=== PATIENT | female | born 1935 | race Caucasian/White ===

== ENCOUNTER 2016-05-04 18:56 | Emergency (ER) | payer MEDICARE ==
[~2016-05-04] VITALS: Ht 157.5 cm; Wt 70.0 kg
[~2016-05-04 18:56] MED LIST: 1-ME1LIQ PO; ACYC400T PO; ALPR.25 PO; ASPI81TA82 PO; ATOR40TA PO; CHOL1TAB16 PO; CIPR500T2 PO; CLON.1 PO; COMMODE 3:1; ENAL10 PO; GABA300 PO; GLUC1000 PO; HCTZ25 PO; LANTUS2P SQ; LEVEMIR SQ; NITR0.4S SL; OMEP40CA2 PO; PERI8.6T PO; SYMB160A INH; TRAM50 PO; TRIAMC.1%T TOPICAL; WHEELCHAIR RENTAL RA; Z.0.OXYGEN INH; ZOLP10TA3 PO; [UNRECOGNIZED DRUG - OTHER]
[2016-05-04] MEDS ORDERED: SODIUM CHLOR 0.9% 1000 ML INJ 1,000 ML IV SCH (19:44)
[2016-05-04] MEDS ORDERED: SODIUM CHLORIDE 0.9% FLUSH 5 ML FLUSH IVF PRN (19:45)
[2016-05-04] MEDS ORDERED: ONDANSETRON HCL 4 MG/2 ML VIAL IVP ONE (19:45)
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
[2016-05-04 20:23] VITALS: BP 197/83; PULSE 76; RESP 18; TEMP 97.9; O2SAT 96
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
--- NOTE | 2016-05-04 20:36 | RADRPT ---
EXAM DATE/TIME: 05/04/2016 20:16 [facility] COMPARISON: CT BRAIN W/O CONTRAST, July 14, 2015, 2:35. INDICATIONS : Dizziness with recent fall. RADIATION DOSE: 40.02 CTDIvol (mGy) MEDICAL HISTORY : Parkinson's. Cardiovascular disease Hypertension. SURGICAL HISTORY : None. ENCOUNTER: Initial ACUITY: 1 day PAIN SCALE: 2/10 LOCATION: cranial TECHNIQUE: Multiple contiguous axial images were obtained of the head. Using automated exposure control and adj ustment of the mA and/or kV according to patient size, radiation dose was kept as low as reasonably a chievable to obtain optimal diagnostic quality images. FINDINGS: CEREBRUM: The ventricles are normal for age. No evidence of midline shift, mass lesion, hemorrhage or acute in farction. No extra-axial fluid collections are seen. POSTERIOR FOSSA: The cerebellum and brainstem are intact. The 4th ventricle is midline. The cerebellopontine angle i s unremarkable. EXTRACRANIAL: The visualized portion of the orbits is intact. SKULL: The calvaria is intact. No evidence of skull fracture. CONCLUSION: Stable brain. No acute intracranial findings. Brandon Shahid MD on May 04, 2016 at 20:32 Board Certified Radiologist. This report was verified electronically.
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
[2016-05-04 21:35] LABS: AUTOMATED NEUTROPHIL # 5.1 TH/MM3 (1.8-7.7); BASOPHIL % 0.4 % (0.0-2.0); EOSINOPHIL # 0.1 TH/MM3 (0-0.4); EOSINOPHIL % 1.5 % (0.0-4.0); HEMO FLAGS DIFF FINAL; LYMPH % 25.3 % (9.0-44.0); MEAN CELL VOLUME 87.6 FL (80.0-100.0); MEAN CORPUSCULAR HEMOGLOBIN 29.5 PG (27.0-34.0); MEAN CORPUSCULAR HGB CONC 33.7 % (32.0-36.0); MONO % 8.2 % (0.0-8.0); NEUT % 64.6 % (16.0-70.0); PLATELET COUNT 150 TH/MM3 (150-450); RED BLOOD COUNT 4.34 MIL/MM3 (4.00-5.30); RED CELL DISTRIBUTION WIDTH 13.8 % (11.6-17.2); WHITE BLOOD COUNT 7.8 TH/MM3 (4.0-11.0)
[2016-05-04 21:43] LABS: APTT (PATIENT) 25.2 SEC (24.3-30.1); INTERNATIONAL NORMALIZED RATIO 0.9 RATIO; PROTHROMBIN TIME - PATIENT 10.2 SEC (9.8-11.6)
[2016-05-04] MEDS ORDERED: METOPROLOL TARTRATE 50 MG TAB PO ONE (21:45)
--- NOTE | 2016-05-04 21:46 | RADRPT ---
EXAM DATE/TIME: 05/04/2016 21:34 [facility] COMPARISON: No previous studies available for comparison. INDICATIONS : Sacrum and coccyx pain after fall. MEDICAL HISTORY : None. SURGICAL HISTORY : None. ENCOUNTER: Initial ACUITY: 2 days PAIN SCORE: 8/10 LOCATION: Bilateral buttock FINDINGS: Two-view examination of the sacrum and coccyx demonstrates no evidence of fracture or malalignment. The sacral ala and foramina appear symmetric and intact. The coccyx appears unremarkable. The preve rtebral soft tissues are within normal limits. CONCLUSION: Unremarkable examination of the sacrum and coccyx. Brandon Shahid MD on May 04, 2016 at 21:44 Board Certified Radiologist. This report was verified electronically.
[2016-05-04 21:58] LABS: ANION GAP 8 MEQ/L (5-15); AST (GOT) 9 U/L (15-37); BICARBONATE 26.7 MEQ/L (21.0-32.0); BLOOD UREA NITROGEN 18 MG/DL (7-18); CHLORIDE 106 MEQ/L (98-107); GLOMERULAR FILTRATION RATE 73 ML/MIN (>89); MAGNESIUM 1.8 MG/DL (1.5-2.5); SODIUM (NA) 141 MEQ/L (136-145)
[2016-05-04] MEDS ORDERED: cloNIDine HCL 0.1 MG TAB PO ONE (22:00)
[2016-05-04 22:05] LABS: ALKALINE PHOSPHATASE 101 U/L (45-117); ALT (GPT) 11 U/L (10-53); TOTAL BILIRUBIN ADULT 0.2 MG/DL (0.2-1.0)
[2016-05-04 22:06] LABS: CREATINE KINASE 71 U/L (26-192)
[2016-05-04] MEDS ORDERED: LEVEMIR SQ ×2 (22:06)
[2016-05-04] MEDS ORDERED: METF1000 PO (22:06)
[2016-05-04] MEDS ORDERED: SENN1TAB17 PO (22:06)
[2016-05-04] MEDS ORDERED: ATOR40TA16 PO (22:06)
[2016-05-04] MEDS ORDERED: METO50TA PO (22:06)
[2016-05-04] MEDS ORDERED: ASPI81CH CHEW (22:06)
[2016-05-04] MEDS ORDERED: GABA300C5 PO (22:06)
[2016-05-04] MEDS ORDERED: ACYC400T PO (22:06)
[2016-05-04] MEDS ORDERED: SYMB160A INH (22:06)
[2016-05-04] MEDS ORDERED: ENAL1SOL2 PO (22:06)
[2016-05-04] MEDS ORDERED: CLON.1 PO (22:06)
[2016-05-04] MEDS ORDERED: KENAAER TOPICAL (22:06)
[2016-05-04] MEDS ORDERED: NITR1SUB3 SL (22:06)
[2016-05-04] MEDS ORDERED: OMEP40CA2 PO (22:06)
[2016-05-04] MEDS ORDERED: SODIUM CHLORID 0.9% 500 ML INJ 500 ML IV ONE (22:30)
[2016-05-04 22:57] LABS: BACTERIA, URINE RARE /hpf; BLOOD, URINE NEG (NEG); COMMENT (UR) CULTURE INDICATED; CULTURE IF INDICATED CULTURE INDICATED; GLUCOSE,URINE 1000 mg/dL (NEG); HYALINE CAST, URINE 1 /lpf (RARE); KETONE, URINE NEG (NEG); MUCUS URINE FEW /lpf (OCC); NITRITE,URINE NEG (NEG); SQUAMOUS EPITHELIAL CELL URINE 2 /hpf (0-5); TRANSITIONAL EPI CELLS, URINE <1 /hpf; URINE COLOR YELLOW (YELLW/STRAW)
[2016-05-04] MEDS ORDERED: cefTRIAXone INJ 1,000 MG in SODIUM CHLORIDE 0.9% INJ 100 ML IV ONE (23:15)
[2016-05-04] MEDS ORDERED: MACR100C2 PO (23:22)
[2016-05-04] MEDS ORDERED: ZOFR4TAB3 SL (23:22)
[2016-05-04 23:56] VITALS: BP 211/81; PULSE 79; RESP 18; O2SAT 100
--- NOTE | 2016-05-04 23:56 | PD ---
Physical Exam Date Seen by Provider: May 04, 2016 Time Seen by Provider: 23:55 Narrative Patient came in for multiple complains and was seen by the PA. Currently she appears to be ambulating well and does not appear to be in any distress. Patient does have essential hypertension and did not take her medications today. She was given clonidine here for her blood pressure. I reviewed her labs and her EKG. Patient will be discharged home. Data Data Last Documented VS Vital Signs Date Time Temp Pulse Resp B/P Pulse Ox O2 Delivery O2 Flow Rate FiO2 05/05/16 01:20 71 174/72 98 05/05/16 00:07 18 Nasal Cannula 3 05/04/16 20:23 97.9 Orders Complete Blood Count With Diff (05/04/16 19:44) Comprehensive Metabolic Panel (05/04/16 19:44) Lipase (05/04/16 19:44) Prothrombin Time / Inr (Pt) (05/04/16 19:44) Act Partial Throm Time (Ptt) (05/04/16 19:44) Urinalysis - C+S If Indicated (05/04/16 19:44) Iv Access Insert/Monitor (05/04/16 19:44) Ecg Monitoring (05/04/16 19:44) Oximetry (05/04/16 19:44) Ondansetron Inj (Zofran Inj) (05/04/16 19:45) Sodium Chlor 0.9% 1000 Ml Inj (Ns 1000 M (05/04/16 19:44) Sodium Chloride 0.9% Flush (Ns Flush) (05/04/16 19:45) Electrocardiogram (05/04/16 19:44) Chest, Single Ap (05/04/16 19:44) Ckmb (Isoenzyme) Profile (05/04/16 19:44) Magnesium (Mg) (05/04/16 19:44) Troponin I (05/04/16 19:44) Spine, Lumbar - Ltd (Ap & Lat) (05/04/16 ) Ct Brain W/O Iv Contrast(Rout) (05/04/16 ) Sacrum And Coccyx (05/04/16 ) Metoprolol Tartrate (Lopressor) (05/04/16 21:45) Clonidine (Catapres) (05/04/16 22:00) Oxygen Administration (05/04/16 22:22) Sodium Chlorid 0.9% 500 Ml Inj (Ns 500 M (05/04/16 22:30) Urine Culture (05/04/16 21:50) Ceftriaxone Inj (Rocephin Inj) (05/04/16 23:15) Labs Laboratory Tests Test 05/04/16 05/04/16 21:15 21:50 White Blood Count 7.8 TH/MM3 Red Blood Count 4.34 MIL/MM3 Hemoglobin 12.8 GM/DL Hematocrit 38.0 % Mean Corpuscular Volume 87.6 FL Mean Corpuscular Hemoglobin 29.5 PG Mean Corpuscular Hemoglobin 33.7 % Concent Red Cell Distribution Width 13.8 % Platelet Count 150 TH/MM3 Mean Platelet Volume 8.7 FL Neutrophils (%) (Auto) 64.6 % Lymphocytes (%) (Auto) 25.3 % Monocytes (%) (Auto) 8.2 % Eosinophils (%) (Auto) 1.5 % Basophils (%) (Auto) 0.4 % Neutrophils # (Auto) 5.1 TH/MM3 Lymphocytes # (Auto) 2.0 TH/MM3 Monocytes # (Auto) 0.6 TH/MM3 Eosinophils # (Auto) 0.1 TH/MM3 Basophils # (Auto) 0.0 TH/MM3 CBC Comment DIFF FINAL Differential Comment Prothrombin Time 10.2 SEC Prothromb Time International 0.9 RATIO Ratio Activated Partial 25.2 SEC Thromboplast Time Sodium Level 141 MEQ/L Potassium Level 4.0 MEQ/L Chloride Level 106 MEQ/L Carbon Dioxide Level 26.7 MEQ/L Anion Gap 8 MEQ/L Blood Urea Nitrogen 18 MG/DL Creatinine 0.76 MG/DL Estimat Glomerular Filtration 73 ML/MIN Rate Random Glucose 246 MG/DL Calcium Level 8.7 MG/DL Magnesium Level 1.8 MG/DL Total Bilirubin 0.2 MG/DL Aspartate Amino Transf 9 U/L (AST/SGOT) Alanine Aminotransferase 11 U/L (ALT/SGPT) Alkaline Phosphatase 101 U/L Total Creatine Kinase 71 U/L Troponin I LESS THAN 0.02 NG/ML Total Protein 6.5 GM/DL Albumin 3.3 GM/DL Lipase 134 U/L Urine Color YELLOW Urine Turbidity CLEAR Urine pH 6.0 Urine Specific [place] 1.024 Urine Protein 100 mg/dL Urine Glucose (UA) 1000 mg/dL Urine Ketones NEG mg/dL Urine Occult Blood NEG Urine Nitrite NEG Urine Bilirubin NEG Urine Urobilinogen LESS THAN 2.0 MG/DL Urine Leukocyte Esterase LARGE Urine RBC 2 /hpf Urine WBC 34 /hpf Urine Squamous Epithelial 2 /hpf Cells Urine Transitional Epithelial <1 /hpf Cells Urine Bacteria RARE /hpf Urine Hyaline Casts 1 /lpf Urine Mucus FEW /lpf Microscopic Urinalysis Comment CULTURE INDICATED MDM Supervised Visit with FAY: Yes Interpretation(s) Twelve-lead EKG was reviewed by me. Normal sinus rhythm, left axis deviation, interventricular conduction delay, lateral T wave inversions that is unchanged from 02/21/2016. Heart rate of 68 bpm. Diagnosis Primary Impression: Cystitis Additional Impressions: Sacral contusion Qualified Code: S30.0XXA - Sacral contusion, initial encounter Dizziness Essential hypertension Patient Instructions: General Instructions, Urinary Tract Infection in Women ( ED), Chronic Hypertension (ED), Contusion in Adults (ED) Additional Instruction: Take medication as prescribed Drink plenty of fluids to stay hydrated and flush urinary system Continue home blood pressure medications as prescribed Call for culture results and follow up with PCP in one to 2 days Return to the ED for any acute worsening of symptoms including fever, nausea, vomiting Scripts Ondansetron Odt (Zofran Odt)4 Mg Tab4 Mg SL Q12HR PRN (Nausea/Vomiting) #12 TAB Ref 0 Prov:Beatrice Collado MD 05/04/16 Nitrofurantoin Monohydrate Macrocrystals (Macrobid)100 Mg [id number] Mg PO BID 7 Days Ref 0 Prov:Beatrice Collado MD 05/04/16 Condition: Stable Beatrice Collado MD May 04, 2016 23:56
[2016-05-05 00:07] VITALS: BP 203/75; PULSE 66; RESP 18; O2SAT 97
[2016-05-05 01:20] VITALS: BP 174/72
--- NOTE | 2016-05-05 11:10 | EKG ---
Date Performed: 05/04/2016 Time Performed: 23:43:41 PTAGE: 80 years EKG: Sinus rhythm LEFT ANTERIOR FASCICULAR BLOCK LEFT VENTRICULAR HYPERTROPHY AND ST-T CHANGE ABNORMAL ECG PREVIOUS TRACING : 02/21/2016 05.44 DOCTOR: Gilmer Trotter Interpretating Date/Time 05/05/2016 11:09:38
== END 2016-05-05 01:40 | disposition home or self-care (01) ==
LOC: NEPE 18:56
DX: N30.90 Cystitis, unspecified without hematuria (principal); S30.0XXA Contusion of lower back and pelvis, initial encounter; I10 Essential (primary) hypertension; E78.00 Pure hypercholesterolemia, unspecified; I50.9 Heart failure, unspecified; J44.9 Chronic obstructive pulmonary disease, unspecified; E11.9 Type 2 diabetes mellitus without complications; G20 Parkinson's disease; Z79.4 Long term (current) use of insulin; W01.0XXA Fall on same level from slipping, tripping and stumbling without subsequent striking against object, initial encounter; R94.31 Abnormal electrocardiogram [ECG] [EKG]
CPT/HCPCS: 70450; 71010; 72100; 72220; 80053; 81001; 82550; 83690; 83735; 84484; 85025; 85610; 85730; 87086; 93005; 96361; 96365; 96375; 99285; J0696; J2405; J7030; J7040

== ENCOUNTER 2016-07-26 19:20 | Observation (INO) | payer MEDICARE, MEDICAID ==
[~2016-07-26] VITALS: Ht 157.5 cm; Wt 70.0 kg
[~2016-07-26 19:20] MED LIST changes: -1-ME1LIQ PO; -ALPR.25 PO; +ASPI81CH CHEW; -ASPI81TA82 PO; -ATOR40TA PO; +ATOR40TA16 PO; -CHOL1TAB16 PO; -CIPR500T2 PO; -COMMODE 3:1; -ENAL10 PO; +ENAL1SOL2 PO; -GABA300 PO; +GABA300C5 PO; -GLUC1000 PO; -HCTZ25 PO; +KENAAER TOPICAL; -LANTUS2P SQ; +MACR100C2 PO; +METF1000 PO; +METO50TA PO; -NITR0.4S SL; +NITR1SUB3 SL; -PERI8.6T PO; +SENN1TAB17 PO; -TRAM50 PO; -TRIAMC.1%T TOPICAL; -WHEELCHAIR RENTAL RA; -Z.0.OXYGEN INH; +ZOFR4TAB3 SL; -ZOLP10TA3 PO; -[UNRECOGNIZED DRUG - OTHER]
[2016-07-26 19:25] VITALS: BP 155/78; PULSE 61; RESP 16; TEMP 98.9; O2SAT 96
[2016-07-26 20:03] VITALS: RESP 18; O2SAT 98
[2016-07-26] MEDS ORDERED: SODIUM CHLORIDE 0.9% FLUSH 10 ML FLUSH IV FLUSH PRN ×2 (20:15→22:15)
[2016-07-26 20:27] LABS: AUTOMATED NEUTROPHIL # 3.4 TH/MM3 (1.8-7.7); BASOPHIL % 0.6 % (0.0-2.0); EOSINOPHIL # 0.1 TH/MM3 (0-0.4); EOSINOPHIL % 1.8 % (0.0-4.0); HEMATOCRIT 37.4 % (35.0-46.0); HEMO FLAGS DIFF FINAL; LYMPH % 35.5 % (9.0-44.0); LYMPHOCYTE # 2.2 TH/MM3 (1.0-4.8); MEAN CELL VOLUME 88.8 FL (80.0-100.0); MEAN CORPUSCULAR HEMOGLOBIN 30.9 PG (27.0-34.0); MEAN CORPUSCULAR HGB CONC 34.8 % (32.0-36.0); NEUT % 55.1 % (16.0-70.0); PLATELET COUNT 125 TH/MM3 (150-450); RED BLOOD COUNT 4.21 MIL/MM3 (4.00-5.30); RED CELL DISTRIBUTION WIDTH 13.7 % (11.6-17.2); WHITE BLOOD COUNT 6.2 TH/MM3 (4.0-11.0)
[2016-07-26 20:37] LABS: APTT (PATIENT) 23.5 SEC (24.3-30.1); INTERNATIONAL NORMALIZED RATIO 0.9 RATIO
[2016-07-26 20:46] LABS: ANION GAP 8 MEQ/L (5-15); AST (GOT) 12 U/L (15-37); BLOOD UREA NITROGEN 15 MG/DL (7-18); CHLORIDE 105 MEQ/L (98-107); GLOMERULAR FILTRATION RATE 75 ML/MIN (>89); POTASSIUM 3.7 MEQ/L (3.5-5.1); SODIUM (NA) 143 MEQ/L (136-145)
[2016-07-26 20:46] LABS: BLOOD, URINE NEG (NEG); COMMENT (UR) CULTURE INDICATED; CULTURE IF INDICATED CULTURE INDICATED; GLUCOSE,URINE 150 mg/dL (NEG); KETONE, URINE NEG (NEG); MUCUS URINE FEW /lpf (OCC); NITRITE,URINE NEG (NEG); SQUAMOUS EPITHELIAL CELL URINE <1 /hpf (0-5); URINE COLOR YELLOW (YELLW/STRAW)
[2016-07-26 20:50] LABS: ALKALINE PHOSPHATASE 95 U/L (45-117); ALT (GPT) 12 U/L (10-53); TOTAL BILIRUBIN ADULT 0.2 MG/DL (0.2-1.0)
[2016-07-26] MEDS ORDERED: IOHEXOL 350 MG/ML 10 ML VIAL (for RAD DIAG) IV ONE (21:15)
--- NOTE | 2016-07-26 21:38 | RADRPT ---
EXAM DATE/TIME: 07/26/2016 21:05 [place] COMPARISON: CT ABDOMEN & PELVIS W CONTRAST, July 01, 2013, 23:32. CT ABDOMEN & PELVIS W CONTRAST, September 01, 2014, 11:54. CT ABDOMEN & PELVIS W CONTRAST, February 16, 2016, 18:59. INDICATIONS : Epigastric pain with nausea and vomiting. IV CONTRAST: 75 cc Omnipaque 350 (iohexol) IV ORAL CONTRAST: No oral contrast ingested. RADIATION DOSE: 10.63 CTDIvol (mGy) MEDICAL HISTORY : Diabetes mellitus type 2. Hypertension. SURGICAL HISTORY : None. ENCOUNTER: Initial ACUITY: 3 days PAIN SCALE: 5/10 LOCATION: Epigastric TECHNIQUE: Volumetric scanning of the abdomen and pelvis was performed. Using automated exposure control and ad justment of the mA and/or kV according to patient size, radiation dose was kept as low as reasonably achievable to obtain optimal diagnostic quality images. FINDINGS: The liver is unremarkable without focal mass or biliary ductal dilatation. The gallbladder is unrema rkable. The spleen is normal. The pancreas is normal. The adrenal glands are normal bilaterally. T here is a tiny calcified nonobstructing lower pole left renal calculus measuring 8 mm. Scattered sma ll cysts are noted within the right kidney and are stable. There is a tiny hyperdense cortical lesio n along the lateral aspect of the right midpole measuring 13 mm which may represent a hyperdense cyst or small solid lesion. A retroaortic left renal vein is noted. The abdominal aorta is calcified but it is not aneurysmally dilated. The inferior vena cava is normal. No paraortic, retroperitoneal, or mesenteric lymphadenopathy is noted. No ascites is noted. The visualized lung bases are unremarkab le. The heart is mildly prominent. Coronary artery calcifications are noted. Uncomplicated colonic diverticulosis is noted. There is no colonic obstruction. The urinary bladder is unremarkable. The uterus is also unremarkable. No pelvic lymphadenopathy is noted. Degenerative changes and scoliosis of the thoracolumbar spine are noted. CONCLUSION: 1. Uncomplicated colonic diverticulosis. 2. 8 mm calcified lower pole nonobstructing left renal calculus. 3. 13 mm hyperdense cortical nodule within the midpole of the right kidney which either represents a tiny hyperdense cyst or small solid lesion. 4. Multiple stable simple right renal cysts. 5. Cardiomegaly and coronary artery calcifications. 6. Degenerative changes and scoliosis of the thoracolumbar spine. Gigi Gallo MD on July 26, 2016 at 21:24 Board Certified Radiologist. This report was verified electronically.
[2016-07-26 21:40] VITALS: BP 234/102; PULSE 61; RESP 16; O2SAT 96
--- NOTE | 2016-07-26 21:40 | PD ---
HPI Chief Complaint: Abdominal Pain Time Seen by Provider: 19:29 Travel History International Travel<30 days: No Contact w/Intl Traveler<30days: No Traveled to known affect area: No History of Present Illness HPI 80yo F with PMH of HTN, DM, hernia repair presents to the ED with c/o abdominal pain for a few days. +NBNB vomiting and was given zofran by EVAC which helped with nausea. +Nonbloody diarrhea. +Dysuria and urinary frequency. PFSH Past Medical History Arthritis: Yes Asthma: No Autoimmune Disease: No Blood Disorders: No Anxiety: Yes Depression: Yes Heart Rhythm Problems: Yes Cancer: No Cardiac Catheterization: No Cardiovascular Problems: Yes (HTN) High Cholesterol: Yes Chemotherapy: No Chest Pain: No Congestive Heart Failure: Yes COPD: Yes Cerebrovascular Accident: No Diabetes: Yes Patient Takes Glucophage: No Diminished Hearing: Yes ([place]) Endocrine: No Gastrointestinal Disorders: Yes (TAKES PROTONIX) GERD: No Glaucoma: No Genitourinary: No Headaches: Yes Hepatitis: No Hiatal Hernia: No Hypertension: Yes Immune Disorder: No Implanted Vascular Access Dvce: Yes Kidney Stones: No Musculoskeletal: Yes Neurologic: Yes Parkinson's Disease: Yes Psychiatric: Yes Reproductive: No Respiratory: Yes Integumentary: Yes (SKIN GROWTH ON SCALP AREa) Immunizations Current: Yes Migraines: Yes Myocardial Infarction: No Radiation Therapy: No Renal Failure: No Seizures: No Sickle Cell Disease: No Sleep Apnea: No Thyroid Disease: No Ulcer: No PNEUMOCCOCAL Vaccine (Year): 1 Menopausal: Yes Past Surgical History Abdominal Surgery: No AICD: No Arteriovenous Shunt: No Body Medical Devices: BILAT KNEE REPLACEMENT Cardiac Surgery: No Coronary Artery Bypass Graft: No Ear Surgery: No Endocrine Surgery: No Eye Surgery: No Genitourinary Surgery: No Gynecologic Surgery: No Insulin Pump: No Joint Replacement: Yes Oral Surgery: No Pacemaker: No Thoracic Surgery: No Tonsillectomy: Yes Other Surgery: Yes (bilat knee, back, hital hernia) Family History Family Myocardial Infarction: Yes (parents-father from [place]) Social History Alcohol Use: No Tobacco Use: No Substance Use: No Allergies-Medications (Allergen,Severity, Reaction): Coded Allergies: Codeine (Verified Allergy, Severe, NAUSEA, 07/26/16) Dilaudid (Verified Allergy, Severe, Nausea/Vomiting, 07/26/16) Lortab (Verified Allergy, Unknown, Nausea/Vomiting, 07/26/16) Reported Meds & Prescriptions Reported Meds & Active Scripts Active Reported Epaned (Enalapril Maleate) 1 Mg/Ml Susanna 20 Mg PO DAILY Metoprolol Tartrate 50 Mg Tab 50 Mg PO BID Omeprazole 40 Mg Cap 40 Mg PO DAILY Nitroglycerin SL (Nitroglycerin) 0.4 Mg Subl 0.4 Mg SL DIRECTED PRN ONE TABLET UNDER THE TONGUE NEEDED FOR CHEST PAIN, MAY REPEAT EVERY FIVE MINUTES FOR A TOTAL OF 3 DOSES OR CALL 911 IF NO RELIEF Metformin (Metformin HCl) 1,000 Mg Tab 1,000 Mg PO BIDPC With meals Levemir Inj (Insulin Detemir) 1,000 unit/ 10 ML Vial 30 Units SQ DAILY Do not mix with any other Insulin. Levemir Inj (Insulin Detemir) 1,000 unit/ 10 ML Vial 2 Units SQ HS Do not mix with any other Insulin. Gabapentin 300 Mg Cap 300 Mg PO BID Catapres (Clonidine) 0.1 Mg Tab 0.1 Mg PO HS Symbicort Inh (Budesonide/Formoterol Fumarate) 160-4.5 Mcg/Act Aero 2 Puff INH Q12HR Atorvastatin (Atorvastatin Calcium) 40 Mg Tab 40 Mg PO HS Aspirin 81 Mg Chew 81 Mg CHEW DAILY Review of Systems Except as stated in HPI: all other systems reviewed are Neg Physical Exam Narrative GENERAL: 80yo F in mild distress. SKIN: Focused skin assessment warm/dry. HEAD: Atraumatic. Normocephalic. EYES: Pupils equal and round. No scleral icterus. No injection or drainage. CARDIOVASCULAR: Regular rate and rhythm. No murmur appreciated. RESPIRATORY: No accessory muscle use. Clear to auscultation. Breath sounds equal bilaterally. GASTROINTESTINAL: Abdomen soft, +TTP suprapubic and RLQ. No rebound tenderness or guarding. MUSCULOSKELETAL: No obvious deformities. No clubbing. No cyanosis. No edema. NEUROLOGICAL: Awake and alert. No obvious cranial nerve deficits. Motor grossly within normal limits. Normal speech. PSYCHIATRIC: Appropriate mood and affect; insight and judgment normal. Data Data Last Documented VS Vital Signs Date Time Temp Pulse Resp B/P Pulse Ox O2 Delivery O2 Flow Rate FiO2 07/26/16 21:58 71 16 234/102 96 Room Air 07/26/16 19:25 98.9 Orders Complete Blood Count With Diff (3/27/17 20:01) Comprehensive Metabolic Panel (07/26/16 20:01) Lipase (07/26/16 20:01) Prothrombin Time / Inr (Pt) (07/26/16 20:01) Act Partial Throm Time (Ptt) (07/26/16 20:01) Urinalysis - C+S If Indicated (07/26/16 20:01) Ct Abd/Pel W Iv Contrast(Rout) (07/26/16 20:01) Iv Access Insert/Monitor (07/26/16 20:01) Ecg Monitoring (07/26/16 20:01) Oximetry (07/26/16 20:01) Sodium Chloride 0.9% Flush (Ns Flush) (07/26/16 20:15) Electrocardiogram (07/26/16 20:01) Urine Culture (07/26/16 20:20) Iohexol 350 Inj (Omnipaque 350 Inj) (07/26/16 21:15) Clonidine (Catapres) (07/26/16 22:00) Ceftriaxone Inj (Rocephin Inj) (07/26/16 22:00) Ondansetron Inj (Zofran Inj) (07/26/16 22:00) Admit Order (Ed Use Only) (07/26/16 22:03) Labs Laboratory Tests Test 07/26/16 07/26/16 20:00 20:20 White Blood Count 6.2 TH/MM3 Red Blood Count 4.21 MIL/MM3 Hemoglobin 13.0 GM/DL Hematocrit 37.4 % Mean Corpuscular Volume 88.8 FL Mean Corpuscular Hemoglobin 30.9 PG Mean Corpuscular Hemoglobin 34.8 % Concent Red Cell Distribution Width 13.7 % Platelet Count 125 TH/MM3 Mean Platelet Volume 9.4 FL Neutrophils (%) (Auto) 55.1 % Lymphocytes (%) (Auto) 35.5 % Monocytes (%) (Auto) 7.0 % Eosinophils (%) (Auto) 1.8 % Basophils (%) (Auto) 0.6 % Neutrophils # (Auto) 3.4 TH/MM3 Lymphocytes # (Auto) 2.2 TH/MM3 Monocytes # (Auto) 0.4 TH/MM3 Eosinophils # (Auto) 0.1 TH/MM3 Basophils # (Auto) 0.0 TH/MM3 CBC Comment DIFF FINAL Differential Comment Prothrombin Time 10.0 SEC Prothromb Time International 0.9 RATIO Ratio Activated Partial 23.5 SEC Thromboplast Time Sodium Level 143 MEQ/L Potassium Level 3.7 MEQ/L Chloride Level 105 MEQ/L Carbon Dioxide Level 30.0 MEQ/L Anion Gap 8 MEQ/L Blood Urea Nitrogen 15 MG/DL Creatinine 0.74 MG/DL Estimat Glomerular Filtration 75 ML/MIN Rate Random Glucose 229 MG/DL Calcium Level 9.1 MG/DL Total Bilirubin 0.2 MG/DL Aspartate Amino Transf 12 U/L (AST/SGOT) Alanine Aminotransferase 12 U/L (ALT/SGPT) Alkaline Phosphatase 95 U/L Total Protein 6.8 GM/DL Albumin 3.6 GM/DL Lipase 199 U/L Urine Color YELLOW Urine Turbidity CLEAR Urine pH 6.0 Urine Specific [place] 1.020 Urine Protein 300 mg/dL Urine Glucose (UA) 150 mg/dL Urine Ketones NEG mg/dL Urine Occult Blood NEG Urine Nitrite NEG Urine Bilirubin NEG Urine Urobilinogen LESS THAN 2.0 MG/DL Urine Leukocyte Esterase SMALL Urine RBC 1 /hpf Urine WBC 24 /hpf Urine Squamous Epithelial <1 /hpf Cells Urine Mucus FEW /lpf Microscopic Urinalysis Comment CULTURE INDICATED MDM Medical Decision Making Medical Screen Exam Complete: Yes Emergency Medical Condition: Yes Interpretation(s) EKG: Sinus bradycardia at 57bpm. LAD. LVH. TWI V3-V6, I, II, aVF, aVL Differential Diagnosis Cystitis vs. nephrolithiasis vs. malignancy vs. obstruction Narrative Course 80yo F with PMH of HTN, DM here with abdominal pain, vomiting and dysuria. CTa/ p showed diverticulosis, 8mm calcified lower pole nonobstructing left renal calculus. Labs reviewed, no leukocytosis. Glucose elevated at 229. No increased anion gap. UA positive for small leukocyte and WBC 24. Pt is nauseous so zofran 4mg given. Pt given ceftriaxone 1gm IV. Will admit pt for infected stone. Discussed with Dr. Boo and accepted to her service. Diagnosis Primary Impression: UTI (urinary tract infection) Qualified Code: N39.0 - Urinary tract infection without hematuria, site unspecified Admitting Information Admitting Physician Requests: Alberta Izaguirre DO Jul 26, 2016 21:40
[2016-07-26 21:58] VITALS: BP 234/102; PULSE 71; RESP 16; O2SAT 96
[2016-07-26] MEDS ORDERED: cloNIDine HCL 0.1 MG TAB PO ONE (22:00)
[2016-07-26] MEDS ORDERED: ONDANSETRON HCL 4 MG/2 ML VIAL IV PUSH ONE (22:00)
[2016-07-26] MEDS ORDERED: cefTRIAXone INJ 1,000 MG in SODIUM CHLORIDE 0.9% INJ 100 ML IV ONE (22:00)
--- NOTE | 2016-07-26 22:07 | HHI.HP ---
[facility] Service [facility] Primary Care Physician Jason Delgado M.D. Admission Diagnosis Infected stone, UTI Diagnoses: (1) UTI (lower urinary tract infection) Diagnosis: Principal (2) Renal stone Diagnosis: Principal (3) HTN (hypertension) Diagnosis: Principal (4) COPD (chronic obstructive pulmonary disease) Diagnosis: Principal (5) DM (diabetes mellitus) Diagnosis: Principal Travel History International Travel<30 Days: No Contact w/Intl Traveler <30 Da: No Traveled to Known Affected Are: No History of Present Illness This is an 80-year-old female with a PMH of HTN, Anxiety, Depression, Hyperlipidemia, COPD and DM who was brought to the ER by EMS secondary to complaints of abdominal/flank pain x2 days. Reports associated nausea and vomiting. Denies fever, chills or diarrhea. On arrival, BP 234/102, HR 61, O2 sat 96% on RA, Afebrile. CBC unremarkable except for platelets 125, previously 150 and 05/04/16. Chemistry at baseline. INR 0.9. UA with UTI. CT Abd/Pelvis w / uncomplicated colonic diverticulosis, 8mm nonobstructing stone of left lower pole, 13mm right renal nodule. S/p Rocephin IV in ER. Review of Systems Except as stated in HPI: all other systems reviewed are Neg ROS: 14 point review of systems otherwise negative. Past Family Social History Past Medical History PMH: HTN, Anxiety, Depression, Hyperlipidemia, COPD and DM Past Surgical History PAST SURGICAL HISTORY: Bilateral Knee Replacement, Hiatal Hernia, Back Surgery Allergies: Coded Allergies: Codeine (Verified Allergy, Severe, NAUSEA, 07/26/16) Dilaudid (Verified Allergy, Severe, Nausea/Vomiting, 07/26/16) Lortab (Verified Allergy, Unknown, Nausea/Vomiting, 07/26/16) Family History PAST FAMILY HISTORY: Reviewed. No h/o DM or CAD Social History PAST SOCIAL HISTORY: Negative for alcohol, tobacco or drugs. Physical Exam Vital Signs Vital Signs Date Time Temp Pulse Resp B/P Pulse Ox O2 Delivery O2 Flow Rate FiO2 07/26/16 21:58 71 16 234/102 96 Room Air 07/26/16 21:40 61 16 234/102 96 Room Air 07/26/16 20:03 18 98 Room Air 07/26/16 19:28 16 07/26/16 19:25 98.9 61 16 155/78 96 Physical Exam PE: GENERAL: Extremely pleasant elderly white female in no acute distress. HEENT: PERRLA, EOMI. No scleral icterus or conjunctival pallor. No lid lag or facial droop. CARDIOVASCULAR: Regular rate and rhythm. No obvious murmurs to auscultation. No chest tenderness to palpation. RESPIRATORY: No obvious rhonchi or wheezing. Clear to auscultation. Breath sounds equal bilaterally. GASTROINTESTINAL: Abdomen soft, mild generalized tenderness to palpation, nondistended. BS normal. MUSCULOSKELETAL: Extremities without clubbing, cyanosis, or edema. No obvious deformities. NEUROLOGICAL: Awake, alert and oriented x4. No focal neurologic deficits. Moving both upper and lower extremities spontaneously. Laboratory Laboratory Tests Test 07/26/16 07/26/16 20:00 20:20 White Blood Count 6.2 Red Blood Count 4.21 Hemoglobin 13.0 Hematocrit 37.4 Mean Corpuscular Volume 88.8 Mean Corpuscular Hemoglobin 30.9 Mean Corpuscular Hemoglobin 34.8 Concent Red Cell Distribution Width 13.7 Platelet Count 125 Mean Platelet Volume 9.4 Neutrophils (%) (Auto) 55.1 Lymphocytes (%) (Auto) 35.5 Monocytes (%) (Auto) 7.0 Eosinophils (%) (Auto) 1.8 Basophils (%) (Auto) 0.6 Neutrophils # (Auto) 3.4 Lymphocytes # (Auto) 2.2 Monocytes # (Auto) 0.4 Eosinophils # (Auto) 0.1 Basophils # (Auto) 0.0 CBC Comment DIFF FINAL Differential Comment Prothrombin Time 10.0 Prothromb Time International 0.9 Ratio Activated Partial 23.5 Thromboplast Time Sodium Level 143 Potassium Level 3.7 Chloride Level 105 Carbon Dioxide Level 30.0 Anion Gap 8 Blood Urea Nitrogen 15 Creatinine 0.74 Estimat Glomerular Filtration 75 Rate Random Glucose 229 Calcium Level 9.1 Total Bilirubin 0.2 Aspartate Amino Transf 12 (AST/SGOT) Alanine Aminotransferase 12 (ALT/SGPT) Alkaline Phosphatase 95 Total Protein 6.8 Albumin 3.6 Lipase 199 Urine Color YELLOW Urine Turbidity CLEAR Urine pH 6.0 Urine Specific [place] 1.020 Urine Protein 300 Urine Glucose (UA) 150 Urine Ketones NEG Urine Occult Blood NEG Urine Nitrite NEG Urine Bilirubin NEG Urine Urobilinogen LESS THAN 2.0 Urine Leukocyte Esterase SMALL Urine RBC 1 Urine WBC 24 Urine Squamous Epithelial <1 Cells Urine Mucus FEW Microscopic Urinalysis Comment CULTURE INDICATED Date/Time Procedure Status Source Growth 07/26/16 20:20 Urine Culture Received Urine Clean Catch Pending Result Diagram: 07/26/16199907/26/161999 Assessment and Plan Problem List: (1) UTI (lower urinary tract infection) ICD Code: N39.0 Status: Resolved (2) Renal stone ICD Code: N20.0 Status: Acute (3) HTN (hypertension) ICD Code: I10 Status: Chronic (4) COPD (chronic obstructive pulmonary disease) ICD Code: J44.9 Status: Chronic (5) DM (diabetes mellitus) ICD Code: E11.9 Status: Chronic Assessment and Plan A/P: 1. UTI: U/a w/ UTI, Afebrile, no leukocytosis, likely infected stone. S/p Urine Culture and Rocephin IV in ER, follow up Urine Culture, continue IV Abx, IVF for hydration. 2. Renal Stone: CT Abd/Pelvis w/ 8mm nonobstructing left renal stone, images reviewed by me, analgesics/antiemetics as needed. Urology eval if no improvement. 3. HTN: Uncontrolled. BP 234/102, HR 61 on arrival, likely compounded by pain complaints and missed medications. S/p Clonidine PO in ER, BP 191/77, HR 63. Will give Metoprolol 50mg, monitor BP. 4. COPD: Chronic Respiratory Failure. Stable. Resume home Symbicort, DuoNeb prn. 5. DM: Sliding scale w/ Accu-cheks, resume home Levemir. Hold Metformin for now. 6. DVT Prophylaxis: SCD/Golden. 7. Social work for d/c planning as needed. 8. Case discussed w/ ER physician at length Nickie Boo MD Jul 26, 2016 22:07
[2016-07-26] MEDS ORDERED: ACETAMINOPHEN 325 MG TAB PO PRN (22:15)
[2016-07-26] MEDS ORDERED: BISACODYL 10 MG SUPP PR PRN (22:15)
[2016-07-26] MEDS ORDERED: DEXTROSE 50% IN WATER 50 ML VIAL(D50) IV PUSH PRN (22:15)
[2016-07-26] MEDS ORDERED: GLUCAGON 1 MG/ML VIAL OTHER PRN (22:15)
[2016-07-26] MEDS ORDERED: MORPHINE SULFATE 4 MG/ML INJ IV PRN ×2 (22:15)
[2016-07-26] MEDS ORDERED: ONDANSETRON HCL 4 MG/2 ML VIAL IVP PRN (22:15)
[2016-07-26] MEDS: SODIUM CHLOR 0.9% 1000 ML INJ 1,000 ML IV SCH (22:25)
[2016-07-26] MEDS ORDERED: METOPROLOL TARTRATE 50 MG TAB PO ONE (23:00)
[2016-07-26 23:51] VITALS: BP 191/77; PULSE 63; RESP 18; O2SAT 96
[2016-07-27] VITALS (8 sets, daily range): BP systolic 126–202; BP diastolic 55–84; PULSE 47–82; RESP 16–26; TEMP 98–98.7; O2SAT 93–99
[2016-07-27] MEDS: ZOLPIDEM TARTRATE 5 MG TAB PO PRN ×2 (01:48→23:21)
[2016-07-27] MEDS ORDERED: RESP: ALBUTEROL 2.5 MG/IPRATROPIUM 0.5 MG NEB (PRN) NEB (02:15)
[2016-07-27 05:08] LABS: BASOPHIL % 0.6 % (0.0-2.0); EOSINOPHIL # 0.1 TH/MM3 (0-0.4); EOSINOPHIL % 2.1 % (0.0-4.0); HEMATOCRIT 34.5 % (35.0-46.0); HEMO FLAGS DIFF FINAL; LYMPH % 38.9 % (9.0-44.0); LYMPHOCYTE # 2.3 TH/MM3 (1.0-4.8); MEAN CELL VOLUME 89.2 FL (80.0-100.0); MEAN CORPUSCULAR HEMOGLOBIN 29.9 PG (27.0-34.0); MEAN CORPUSCULAR HGB CONC 33.6 % (32.0-36.0); MONO % 8.1 % (0.0-8.0); NEUT % 50.3 % (16.0-70.0); PLATELET COUNT 108 TH/MM3 (150-450); RED BLOOD COUNT 3.87 MIL/MM3 (4.00-5.30); RED CELL DISTRIBUTION WIDTH 13.3 % (11.6-17.2)
[2016-07-27 05:34] LABS: ALKALINE PHOSPHATASE 80 U/L (45-117); ALT (GPT) 11 U/L (10-53); ANION GAP 7 MEQ/L (5-15); AST (GOT) 6 U/L (15-37); BICARBONATE 28.5 MEQ/L (21.0-32.0); BLOOD UREA NITROGEN 13 MG/DL (7-18); CHLORIDE 108 MEQ/L (98-107); GLOMERULAR FILTRATION RATE 87 ML/MIN (>89); POTASSIUM 3.8 MEQ/L (3.5-5.1); SODIUM (NA) 143 MEQ/L (136-145); TOTAL BILIRUBIN ADULT 0.2 MG/DL (0.2-1.0)
[2016-07-27] MEDS: INSULIN ASPART SUPPLEMENTAL SCALE SQ SCH ×4 (07:10→21:39)
[2016-07-27] MEDS: SODIUM CHLOR 0.9% 1000 ML INJ 1,000 ML IV SCH ×2 (07:11→10:33)
--- NOTE | 2016-07-27 08:02 | HHI.PR ---
Subjective Remarks overall feeling better today. flank pain is better. still with some dysuria but she says that it's better now. no fever. Objective Vitals Vital Signs Date Time Temp Pulse Resp B/P Pulse Ox O2 Delivery O2 Flow Rate FiO2 07/27/16 07:04 47 24 175/75 99 Nasal Cannula 2 07/27/16 06:29 98.5 49 16 163/67 97 Nasal Cannula 2 07/27/16 05:03 98.5 52 18 164/68 97 Nasal Cannula 2 07/26/16 23:51 63 18 191/77 96 Room Air 07/26/16 21:58 71 16 234/102 96 Room Air 07/26/16 21:40 61 16 234/102 96 Room Air 07/26/16 20:03 18 98 Room Air 07/26/16 19:28 16 07/26/16 19:25 98.9 61 16 155/78 96 Result Diagram: 07/27/16 0442 07/27/16 0442 Imaging Last Impressions Abdomen/Pelvis CT 07/26/162000 Signed Impressions: Service Date/Time: Tuesday, July 26, 2016 21:05 - CONCLUSION: 1. Uncomplicated colonic diverticulosis. 2. 8 mm calcified lower pole nonobstructing left renal calculus. 3. 13 mm hyperdense cortical nodule within the midpole of the right kidney which either represents a tiny hyperdense cyst or small solid lesion. 4. Multiple stable simple right renal cysts. 5. Cardiomegaly and coronary artery calcifications. 6. Degenerative changes and scoliosis of the thoracolumbar spine. Gigi Gallo MD Objective Remarks GENERAL: This is a well-nourished, well-developed patient, in no apparent distress. CARDIOVASCULAR: Regular rate and regular rhythm without murmurs, gallops, or rubs. RESPIRATORY: Clear to auscultation. Breath sounds equal bilaterally. No wheezes , rales, or rhonchi. GASTROINTESTINAL: Abdomen soft, non-tender, nondistended. Normal, active bowel sounds MUSCULOSKELETAL: Extremities without clubbing, cyanosis, or edema. NEURO: Alert & Oriented x4 to person, place, time, situation. Moves all ext x4 Procedures none Medications and IVs Current Medications Sodium Chloride (NS Flush) 2 ml UNSCH PRN IV FLUSH FLUSH AFTER USING IV ACCESS ; Start 07/26/16 at 20:15; Stop 07/26/16 at 22:13; Status DC Iohexol (Omnipaque 350 Inj) 75 ml STK-MED ONCE IV Last administered on 21:15; Start 07/26/16 at 21:15; Stop 07/26/16 at 21:16; Status DC Clonidine 0.1 mg 0.1 mg ONCE ONCE PO Last administered on 07/26/16 21:59; Start 07/26/16 at 22:00; Stop 07/26/16 at 22:01; Status DC Ceftriaxone Sodium/Sodium Chloride (Rocephin Inj/NS Inj) 100 ml @ 200 mls/hr ONCE ONCE IV Last administered on 07/26/16 21:59; Start 07/26/16 at 22:00; Stop 07/26/16 at 22:29; Status DC Ondansetron HCl 4 mg 4 mg ONCE ONCE IV PUSH Last administered on 07/26/16 22: 03; Start 07/26/16 at 22:00; Stop 07/26/16 at 22:01; Status DC Ceftriaxone Sodium 1000 mg/ Sodium Chloride 100 ml @ 200 mls/hr Q24H IV ; Start 07/27/16 at 21:00 Sodium Chloride (NS 1000 ml Inj) 1,000 ml @ 100 mls/hr Q10H IV Last administered on 07/27/16 07:11; Start 07/26/16 at 22:00 Sodium Chloride (NS Flush) 2 ml UNSCH PRN IV FLUSH FLUSH AFTER USING IV ACCESS ; Start 07/26/16 at 22:15 Sodium Chloride (NS Flush) 2 ml BID IV FLUSH ; Start 07/27/16 at 09:00 Ondansetron HCl (Zofran Inj) 4 mg Q6H PRN IVP NAUSEA OR VOMITING; Start at 22:15 Bisacodyl (Dulcolax Supp) 10 mg DAILY PRN [place] CONSTIPATION; Start 07/26/16 at 22 :15 Acetaminophen (Tylenol) 650 mg Q6H PRN PO FEVER/PAIN SCALE 1 TO 2; Start at 22:15 Morphine Sulfate (Morphine Inj) 1 mg Q3H PRN IV Pain 3-5; Start 07/26/16 at 22: 15 Morphine Sulfate (Morphine Inj) 2 mg Q3H PRN IV Pain 6-10; Start 07/26/16 at 22 :15 Atorvastatin Calcium (Lipitor) 40 mg HS PO ; Start 07/27/16 at 21:00 Budesonide/ Formoterol Fumarate (Symbicort 160-4.5 Inh) 2 puff Q12HR INH ; Start 07/27/16 at 09:00 Clonidine (Catapres) 0.1 mg HS PO ; Start 07/27/16 at 21:00 Gabapentin (Neurontin) 300 mg BID PO ; Start 07/27/16 at 09:00 Metoprolol Tartrate (Lopressor) 50 mg BID PO ; Start 07/27/16 at 09:00 Pantoprazole Sodium (Protonix) 40 mg DAILY PO ; Start 07/27/16 at 09:00 Dextrose (D50w (Vial) Inj) 25 ml UNSCH PRN IV PUSH HYPOGLYCEMIA-SEE COMMENTS; Start 07/26/16 at 22:15 Glucagon (Glucagon Inj) 1 mg UNSCH PRN OTHER HYPOGLYCEMIA-SEE COMMENTS; Start 07/26/16 at 22:15 Insulin Aspart (NovoLOG SUPPLEMENTAL SCALE) 1 ACHS SLIDING SCALE SQ Last administered on 07/27/16 07:10; Start 07/27/16 at 07:00 Metoprolol Tartrate (Lopressor) 50 mg ONCE ONCE PO Last administered on 23:51; Start 07/26/16 at 23:00; Stop 07/26/16 at 23:01; Status DC Alprazolam (Xanax) 0.25 mg Q8H PRN PO ANXIETY/AGITATION; Start 07/27/16 at 01: 15 Zolpidem Tartrate (Ambien) 5 mg HS PRN PO SLEEP Last administered on 07/27/16 01:48; Start 07/27/16 at 01:15 Albuterol/ Ipratropium (Duoneb Neb) 1 ampule Q4HR NEB PRN NEB SOB/WHEEZING; Start 07/27/16 at 02:15 A/P Assessment and Plan A/P 1. UTI: U/a w/ UTI, Afebrile, no leukocytosis, likely infected stone. S/p Urine Culture and Rocephin IV in ER, follow up Urine Culture, continue IV Abx, IVF for hydration. 2. Renal Stone: CT Abd/Pelvis w/ 8mm nonobstructing left renal stone. analgesics/antiemetics as needed. Urology eval if no improvement. 3. HTN: Uncontrolled. continue Metoprolol 50mg- will give one dose of procardia today. monitor BP and adjust the regimen as needed. 4. COPD-oxygen dependent: Chronic Respiratory Failure. Stable. Resume home Symbicort, DuoNeb prn. 5. DM: Sliding scale w/ Accu-cheks. Hold Metformin for now. 6. DVT Prophylaxis: SCD/Golden. Samy Olivera MD Jul 27, 2016 08:02
[2016-07-27] MEDS ORDERED: ENALAPRILAT 1.25 MG/ML VIAL IV PUSH PRN (08:15)
[2016-07-27] MEDS ORDERED: NIFEdipine 30 MG SUSTAINED RELEASE TAB PO ONE (09:00)
[2016-07-27] MEDS: SODIUM CHLORIDE 0.9% FLUSH 10 ML FLUSH IV FLUSH SCH ×2 (09:00→21:35)
[2016-07-27] MEDS: BUDESONIDE-FORMOTEROL 160/4.5 MCG INHALER INH SCH ×2 (09:00→21:35)
[2016-07-27] MEDS: PANTOPRAZOLE SOD 40 MG DELAYED RELEASE TAB PO SCH (09:03)
[2016-07-27] MEDS: GABAPENTIN 300 MG CAP PO SCH ×2 (09:03→21:39)
[2016-07-27] MEDS: METOPROLOL TARTRATE 50 MG TAB PO SCH ×2 (09:05→21:38)
[2016-07-27] MEDS: cefTRIAXone INJ 1,000 MG in SODIUM CHLORIDE 0.9% INJ 100 ML IV SCH (21:38)
[2016-07-27] MEDS: cloNIDine HCL 0.1 MG TAB PO SCH (21:39)
[2016-07-27] MEDS: ATORVASTATIN 40 MG TAB PO SCH (21:39)
--- NOTE | 2016-07-27 22:20 | EKG ---
Date Performed: 07/26/2016 Time Performed: 20:11:55 PTAGE: 80 years EKG: SINUS BRADYCARDIA MARKED LEFT AXIS DEVIATION LEFT VENTRICULAR HYPERTROPHY AND ST-T CHANGE S erendira previous tracing, no significant change noted ABNORMAL ECG PREVIOUS TRACING : 05/04/16 23.43.41 DOCTOR: Dunia Aguero Interpretating Date/Time 07/27/2016 22:18:47
--- NOTE | 2016-07-27 22:21 | EKG ---
Date Performed: 07/26/2016 Time Performed: 21:34:33 PTAGE: 80 years EKG: Sinus rhythm WITH FREQUENT SUPRAVENTRICULAR PREMATURE COMPLEXES LEFT ANTERIOR FASCICULAR BLOCK LEFT VENTRICULAR H YPERTROPHY AND ST-T CHANGE Since previous tracing, no significant change noted ABNORMAL ECG PREVIOUS TRACING : 07/26/16 20.11.55 DOCTOR: Dunia Aguero Interpretating Date/Time 07/27/2016 22:19:20
[2016-07-27] MEDS ORDERED: SENNOSIDES 8.6 MG TAB PO PRN (23:00)
[2016-07-27] MEDS ORDERED: ALUMINUM/MAGNESIUM/SIMETH 30 ML CUP PO ONE (23:00)
[2016-07-28] VITALS (7 sets, daily range): BP systolic 141–196; BP diastolic 64–81; PULSE 50–65; RESP 16–20; TEMP 97.6–98.4; O2SAT 92–97
[2016-07-28] MEDS: SODIUM CHLOR 0.9% 1000 ML INJ 1,000 ML IV SCH (04:00)
[2016-07-28] MEDS: INSULIN ASPART SUPPLEMENTAL SCALE SQ SCH ×4 (06:24→21:00)
--- NOTE | 2016-07-28 07:45 | HHI.PR ---
Subjective Remarks complaining of some productive cough of yellowish sputum no fever. still with some generalized abdominal pain. Objective Vitals Vital Signs Date Time Temp Pulse Resp B/P Pulse Ox O2 Delivery O2 Flow Rate FiO2 07/28/16 07:03 97.8 50 18 151/76 97 07/28/16 04:00 98.1 51 20 141/73 96 07/28/16 00:14 98.3 58 20 159/78 95 07/27/16 19:20 98.7 57 20 178/75 96 07/27/16 15:18 98.0 59 20 126/55 93 07/27/16 14:26 139/69 07/27/16 14:20 82 179/75 96 Room Air 07/27/16 09:07 65 26 202/84 95 Room Air I/O 07/27/16 07/27/16 07/27/16 07/28/16 07/28/16 07/28/16 07:00 15:00 23:00 07:00 15:00 23:00 Intake Total 240 ml Balance 240 ml Intake Oral 240 ml # Voids 1 Result Diagram: 07/27/162 07/27/16441 Imaging Last Impressions Abdomen/Pelvis CT 07/26/162000 Signed Impressions: Service Date/Time: Tuesday, July 26, 2016 21:05 - CONCLUSION: 1. Uncomplicated colonic diverticulosis. 2. 8 mm calcified lower pole nonobstructing left renal calculus. 3. 13 mm hyperdense cortical nodule within the midpole of the right kidney which either represents a tiny hyperdense cyst or small solid lesion. 4. Multiple stable simple right renal cysts. 5. Cardiomegaly and coronary artery calcifications. 6. Degenerative changes and scoliosis of the thoracolumbar spine. Gigi Gallo MD Objective Remarks GENERAL: This is a well-nourished, well-developed patient, in no apparent distress. CARDIOVASCULAR: Regular rate and regular rhythm without murmurs, gallops, or rubs. RESPIRATORY: Clear to auscultation. Breath sounds equal bilaterally. No wheezes , rales, or rhonchi. GASTROINTESTINAL: Abdomen soft, non-tender, nondistended. Normal, active bowel sounds MUSCULOSKELETAL: Extremities without clubbing, cyanosis, or edema. NEURO: Alert & Oriented x4 to person, place, time, situation. Moves all ext x4 Procedures none Medications and IVs Current Medications Sodium Chloride (NS Flush) 2 ml UNSCH PRN IV FLUSH FLUSH AFTER USING IV ACCESS ; Start 07/26/16 at 20:15; Stop 07/26/16 at 22:13; Status DC Iohexol (Omnipaque 350 Inj) 75 ml STK-MED ONCE IV Last administered on 21:15; Start 07/26/16 at 21:15; Stop 07/26/16 at 21:16; Status DC Clonidine 0.1 mg 0.1 mg ONCE ONCE PO Last administered on 07/26/16 21:59; Start 07/26/16 at 22:00; Stop 07/26/16 at 22:01; Status DC Ceftriaxone Sodium/Sodium Chloride (Rocephin Inj/NS Inj) 100 ml @ 200 mls/hr ONCE ONCE IV Last administered on 07/26/16 21:59; Start 07/26/16 at 22:00; Stop 07/26/16 at 22:29; Status DC Ondansetron HCl 4 mg 4 mg ONCE ONCE IV PUSH Last administered on 07/26/16 22: 03; Start 07/26/16 at 22:00; Stop 07/26/16 at 22:01; Status DC Ceftriaxone Sodium 1000 mg/ Sodium Chloride 100 ml @ 200 mls/hr Q24H IV Last administered on 07/27/16 21:38; Start 07/27/16 at 21:00 Sodium Chloride (NS 1000 ml Inj) 1,000 ml @ 100 mls/hr Q10H IV Last administered on 07/27/16 10:33; Start 07/26/16 at 22:00 Sodium Chloride (NS Flush) 2 ml UNSCH PRN IV FLUSH FLUSH AFTER USING IV ACCESS ; Start 07/26/16 at 22:15 Sodium Chloride (NS Flush) 2 ml BID IV FLUSH ; Start 07/27/16 at 09:00 Ondansetron HCl (Zofran Inj) 4 mg Q6H PRN IVP NAUSEA OR VOMITING; Start at 22:15 Bisacodyl (Dulcolax Supp) 10 mg DAILY PRN DE CONSTIPATION; Start 07/26/16 at 22 :15 Acetaminophen (Tylenol) 650 mg Q6H PRN PO FEVER/PAIN SCALE 1 TO 2; Start at 22:15 Morphine Sulfate (Morphine Inj) 1 mg Q3H PRN IV Pain 3-5; Start 07/26/16 at 22: 15 Morphine Sulfate (Morphine Inj) 2 mg Q3H PRN IV Pain 6-10; Start 07/26/16 at 22 :15 Atorvastatin Calcium (Lipitor) 40 mg HS PO Last administered on 07/27/16 21:39 ; Start 07/27/16 at 21:00 Budesonide/ Formoterol Fumarate (Symbicort 160-4.5 Inh) 2 puff Q12HR INH Last administered on 07/27/16 21:35; Start 07/27/16 at 09:00 Clonidine (Catapres) 0.1 mg HS PO Last administered on 07/27/16 21:39; Start 07/27/16 at 21:00 Gabapentin (Neurontin) 300 mg BID PO Last administered on 07/27/16 21:39; Start 07/27/16 at 09:00 Metoprolol Tartrate (Lopressor) 50 mg BID PO Last administered on 07/27/16 21: 38; Start 07/27/16 at 09:00 Pantoprazole Sodium (Protonix) 40 mg DAILY PO Last administered on 07/27/16 09 :03; Start 07/27/16 at 09:00 Dextrose (D50w (Vial) Inj) 25 ml UNSCH PRN IV PUSH HYPOGLYCEMIA-SEE COMMENTS; Start 07/26/16 at 22:15 Glucagon (Glucagon Inj) 1 mg UNSCH PRN OTHER HYPOGLYCEMIA-SEE COMMENTS; Start 07/26/16 at 22:15 Insulin Aspart (NovoLOG SUPPLEMENTAL SCALE) 1 ACHS SLIDING SCALE SQ Last administered on 07/28/16 06:24; Start 07/27/16 at 07:00 Metoprolol Tartrate (Lopressor) 50 mg ONCE ONCE PO Last administered on 23:51; Start 07/26/16 at 23:00; Stop 07/26/16 at 23:01; Status DC Alprazolam (Xanax) 0.25 mg Q8H PRN PO ANXIETY/AGITATION; Start 07/27/16 at 01: 15 Zolpidem Tartrate (Ambien) 5 mg HS PRN PO SLEEP Last administered on 3/28/17at 23:21; Start 07/27/16 at 01:15 Albuterol/ Ipratropium (Duoneb Neb) 1 ampule Q4HR NEB PRN NEB SOB/WHEEZING; Start 07/27/16 at 02:15 Nifedipine (Procardia Xl) 30 mg ONCE ONCE PO Last administered on 07/27/16 09 :06; Start 07/27/16 at 09:00; Stop 07/27/16 at 09:01; Status DC Enalaprilat (Vasotec Inj) 1.25 mg Q8H PRN IV PUSH SBP> OR = 180, DBP> OR = 100 Last administered on 07/27/16 13:47; Start 07/27/16 at 08:15 Sennosides (Senokot) 8.6 mg BID PRN PO CONSTIPATION Last administered on 23:08; Start 07/27/16 at 23:00 Al Hydrox/Mg Hydrox/Simethicone (Mag-Al Plus Susp Liq) 30 ml ONCE ONCE PO Last administered on 07/27/16 23:08; Start 07/27/16 at 23:00; Stop 07/27/16 at 23:01; Status DC A/P Assessment and Plan A/P 1. possible UTI: continue Abx and pain control. 2. Renal Stone: CT Abd/Pelvis w/ 8mm nonobstructing left renal stone. analgesics/antiemetics as needed. 3. HTN: Uncontrolled. continue Metoprolol 50mg- hold IV fluid. monitor BP and adjust the regimen as needed. 4. COPD-oxygen dependent: now with productive cough- obtain CXR-. Resume home Symbicort, DuoNeb prn. 5. DM: Sliding scale w/ Accu-cheks. resume long-acting insulin- Hold Metformin for now. 6. DVT Prophylaxis: SCD/Golden. Samy Olivera MD Jul 28, 2016 07:45
[2016-07-28] MEDS: GABAPENTIN 300 MG CAP PO SCH ×2 (08:12→21:33)
[2016-07-28] MEDS: PANTOPRAZOLE SOD 40 MG DELAYED RELEASE TAB PO SCH (08:12)
[2016-07-28] MEDS: METOPROLOL TARTRATE 50 MG TAB PO SCH ×2 (08:12→21:33)
[2016-07-28] MEDS: BUDESONIDE-FORMOTEROL 160/4.5 MCG INHALER INH SCH ×2 (08:13→21:00)
[2016-07-28] MEDS: SODIUM CHLORIDE 0.9% FLUSH 10 ML FLUSH IV FLUSH SCH ×2 (08:13→21:00)
[2016-07-28] MEDS: INSULIN DETEMIR 100 UNITS/ML VIAL SQ SCH (09:18)
[2016-07-28] MEDS: ALPRAZolam 0.25 MG TAB PO PRN ×2 (09:22→17:44)
--- NOTE | 2016-07-28 09:25 | RADRPT ---
EXAM DATE/TIME: 07/28/2016 08:18 [facility] COMPARISON: CHEST SINGLE AP, May 04, 2016, 19:57. INDICATIONS : Patient is short of breath. MEDICAL HISTORY : None. SURGICAL HISTORY : None. ENCOUNTER: Initial ACUITY: 1 day PAIN SCORE: 0/10 LOCATION: Bilateral chest FINDINGS: The lungs are clear. The heart is minimally enlarged. The pulmonary vascularity is normal. There is n o evidence for infiltrate or failure. There is moderate elevation of the right hemidiaphragm stable in interval. The portion of the bony skeleton visualized is unremarkable. CONCLUSION: Compensated cardiomegaly otherwise negative for failure infiltrate or pneumothorax. Sachin Lombardo MD FACR on July 28, 2016 at 9:22 Board Certified Radiologist. This report was verified electronically.
[2016-07-28] MEDS: cefTRIAXone INJ 1,000 MG in SODIUM CHLORIDE 0.9% INJ 100 ML IV SCH (21:32)
[2016-07-28] MEDS: cloNIDine HCL 0.1 MG TAB PO SCH (21:33)
[2016-07-28] MEDS: ATORVASTATIN 40 MG TAB PO SCH (21:33)
[2016-07-28] MEDS: ZOLPIDEM TARTRATE 5 MG TAB PO PRN (22:27)
[2016-07-29 00:58] VITALS: BP 148/67
[2016-07-29 04:12] VITALS: BP 143/67; PULSE 52; RESP 20; TEMP 98; O2SAT 95
[2016-07-29] MEDS: INSULIN ASPART SUPPLEMENTAL SCALE SQ SCH ×2 (06:31→13:29)
--- NOTE | 2016-07-29 07:44 | HHI.PR ---
Subjective Remarks resting comfortably with no distress. had some pain to the left flank last night but she says that the pain is better this morning. no fever. Objective Vitals Vital Signs Date Time Temp Pulse Resp B/P Pulse Ox O2 Delivery O2 Flow Rate FiO2 07/29/16 04:12 98.0 52 20 143/67 95 07/29/16 00:58 148/67 07/28/16 23:37 97.9 64 20 196/81 95 07/28/16 22:28 18 07/28/16 19:18 97.8 65 20 174/77 95 07/28/16 16:00 98.4 61 16 149/64 92 07/28/16 11:58 97.6 60 16 169/72 92 I/O 07/28/16 07/28/16 07/28/16 07/29/16 07/29/16 07/29/16 07:00 15:00 23:00 07:00 15:00 23:00 Intake Total 2 ml Balance 2 ml IV Total 2 ml # Voids 1 5 2 Result Diagram: 07/27/16 0442 07/27/16 0442 Imaging Last Impressions Chest X-Ray 07/28/16 0000 Signed Impressions: Service Date/Time: Thursday, July 28, 2016 08:18 - CONCLUSION: Compensated cardiomegaly otherwise negative for failure infiltrate or pneumothorax. Sachin Lombardo MD FACR Abdomen/Pelvis CT 07/26/162000 Signed Impressions: Service Date/Time: Tuesday, July 26, 2016 21:05 - CONCLUSION: 1. Uncomplicated colonic diverticulosis. 2. 8 mm calcified lower pole nonobstructing left renal calculus. 3. 13 mm hyperdense cortical nodule within the midpole of the right kidney which either represents a tiny hyperdense cyst or small solid lesion. 4. Multiple stable simple right renal cysts. 5. Cardiomegaly and coronary artery calcifications. 6. Degenerative changes and scoliosis of the thoracolumbar spine. Gigi Gallo MD Objective Remarks GENERAL: This is a well-nourished, well-developed patient, in no apparent distress. CARDIOVASCULAR: Regular rate and regular rhythm without murmurs, gallops, or rubs. RESPIRATORY: Clear to auscultation. Breath sounds equal bilaterally. No wheezes , rales, or rhonchi. GASTROINTESTINAL: Abdomen soft, non-tender, nondistended. Normal, active bowel sounds MUSCULOSKELETAL: Extremities without clubbing, cyanosis, or edema. NEURO: Alert & Oriented x4 to person, place, time, situation. Moves all ext x4 Procedures none Medications and IVs Current Medications Sodium Chloride (NS Flush) 2 ml UNSCH PRN IV FLUSH FLUSH AFTER USING IV ACCESS ; Start 07/26/16 at 20:15; Stop 07/26/16 at 22:13; Status DC Iohexol (Omnipaque 350 Inj) 75 ml STK-MED ONCE IV Last administered on 21:15; Start 07/26/16 at 21:15; Stop 07/26/16 at 21:16; Status DC Clonidine 0.1 mg 0.1 mg ONCE ONCE PO Last administered on 07/26/16 21:59; Start 07/26/16 at 22:00; Stop 07/26/16 at 22:01; Status DC Ceftriaxone Sodium/Sodium Chloride (Rocephin Inj/NS Inj) 100 ml @ 200 mls/hr ONCE ONCE IV Last administered on 07/26/16 21:59; Start 07/26/16 at 22:00; Stop 07/26/16 at 22:29; Status DC Ondansetron HCl 4 mg 4 mg ONCE ONCE IV PUSH Last administered on 07/26/16 22: 03; Start 07/26/16 at 22:00; Stop 07/26/16 at 22:01; Status DC Ceftriaxone Sodium 1000 mg/ Sodium Chloride 100 ml @ 200 mls/hr Q24H IV Last administered on 07/28/16 21:32; Start 07/27/16 at 21:00 Sodium Chloride (NS 1000 ml Inj) 1,000 ml @ 100 mls/hr Q10H IV Last administered on 07/27/16 10:33; Start 07/26/16 at 22:00; Status Hold Sodium Chloride (NS Flush) 2 ml UNSCH PRN IV FLUSH FLUSH AFTER USING IV ACCESS ; Start 07/26/16 at 22:15 Sodium Chloride (NS Flush) 2 ml BID IV FLUSH Last administered on 07/28/16 21: 00; Start 07/27/16 at 09:00 Ondansetron HCl (Zofran Inj) 4 mg Q6H PRN IVP NAUSEA OR VOMITING; Start at 22:15 Bisacodyl (Dulcolax Supp) 10 mg DAILY PRN NE CONSTIPATION; Start 07/26/16 at 22 :15 Acetaminophen (Tylenol) 650 mg Q6H PRN PO FEVER/PAIN SCALE 1 TO 2; Start at 22:15 Morphine Sulfate (Morphine Inj) 1 mg Q3H PRN IV Pain 3-5; Start 07/26/16 at 22: 15 Morphine Sulfate (Morphine Inj) 2 mg Q3H PRN IV Pain 6-10 Last administered on 07/28/16 21:35; Start 07/26/16 at 22:15 Atorvastatin Calcium (Lipitor) 40 mg HS PO Last administered on 07/28/16 21:33 ; Start 07/27/16 at 21:00 Budesonide/ Formoterol Fumarate (Symbicort 160-4.5 Inh) 2 puff Q12HR INH Last administered on 07/28/16 21:00; Start 07/27/16 at 09:00 Clonidine (Catapres) 0.1 mg HS PO Last administered on 07/28/16 21:33; Start 07/27/16 at 21:00 Gabapentin (Neurontin) 300 mg BID PO Last administered on 07/28/16 21:33; Start 07/27/16 at 09:00 Metoprolol Tartrate (Lopressor) 50 mg BID PO Last administered on 07/28/16 21: 33; Start 07/27/16 at 09:00 Pantoprazole Sodium (Protonix) 40 mg DAILY PO Last administered on 07/28/16 08 :12; Start 07/27/16 at 09:00 Dextrose (D50w (Vial) Inj) 25 ml UNSCH PRN IV PUSH HYPOGLYCEMIA-SEE COMMENTS; Start 07/26/16 at 22:15 Glucagon (Glucagon Inj) 1 mg UNSCH PRN OTHER HYPOGLYCEMIA-SEE COMMENTS; Start 07/26/16 at 22:15 Insulin Aspart (NovoLOG SUPPLEMENTAL SCALE) 1 ACHS SLIDING SCALE SQ Last administered on 07/29/16 06:31; Start 07/27/16 at 07:00 Metoprolol Tartrate (Lopressor) 50 mg ONCE ONCE PO Last administered on 23:51; Start 07/26/16 at 23:00; Stop 07/26/16 at 23:01; Status DC Alprazolam (Xanax) 0.25 mg Q8H PRN PO ANXIETY/AGITATION Last administered on 17:44; Start 07/27/16 at 01:15 Zolpidem Tartrate (Ambien) 5 mg HS PRN PO SLEEP Last administered on 07/28/16 22:27; Start 07/27/16 at 01:15 Albuterol/ Ipratropium (Duoneb Neb) 1 ampule Q4HR NEB PRN NEB SOB/WHEEZING; Start 07/27/16 at 02:15 Nifedipine (Procardia Xl) 30 mg ONCE ONCE PO Last administered on 07/27/16 09 :06; Start 07/27/16 at 09:00; Stop 07/27/16 at 09:01; Status DC Enalaprilat (Vasotec Inj) 1.25 mg Q8H PRN IV PUSH SBP> OR = 180, DBP> OR = 100 Last administered on 07/27/16 13:47; Start 07/27/16 at 08:15 Sennosides (Senokot) 8.6 mg BID PRN PO CONSTIPATION Last administered on 23:08; Start 07/27/16 at 23:00 Al Hydrox/Mg Hydrox/Simethicone (Mag-Al Plus Susp Liq) 30 ml ONCE ONCE PO Last administered on 07/27/16 23:08; Start 07/27/16 at 23:00; Stop 07/27/16 at 23:01; Status DC Insulin Detemir (Levemir Inj) 30 units DAILY SQ Last administered on 07/28/16 09:18; Start 07/28/16 at 09:00 A/P Assessment and Plan A/P 1. possible UTI: continue Abx and pain control. 2. Renal Stone: CT Abd/Pelvis w/ 8mm nonobstructing left renal stone. analgesics/antiemetics as needed. 3. HTN: continue Metoprolol 50mg- 4. COPD-oxygen dependent: CXR with no acute abnormality-. Resumed home Symbicort, DuoNeb prn. 5. DM: Sliding scale w/ Accu-cheks. resumed long-acting insulin- Hold Metformin for now. 6. DVT Prophylaxis: SCD/Golden. 7.right renal cysts- f/u with urology as outpatient- ( d/w the patient). consult PT. Discharge Planning dc home this afternoon if pain is controlled and BP stable. Samy Olivera MD Jul 29, 2016 07:44
[2016-07-29] MEDS ORDERED: ULTR50TA5 PO (07:48)
[2016-07-29] MEDS ORDERED: CIPR250T52 PO (07:48)
--- NOTE | 2016-07-29 07:48 | HHI.DCPOC ---
Discharge Care Plan Diagnosis: (1) UTI (lower urinary tract infection) Your Health Problems Are: Urinary Difficulties Goals to Promote Your Health * To prevent worsening of your condition and complications * To maintain your health at the optimal level Directions to Meet Your Goals Take your medications as prescribed Follow your dietary instruction Follow activity as directed Keep your appointments as scheduled Take your immunizations and boosters as scheduled If your symptoms worsen call your PCP, if no PCP go to Urgent Care Center or Emergency Room Smoking is Dangerous to Your Health. Avoid second hand smoke Call the 24-hour hour crisis hotline for domestic abuse at Samy Olivera MD Jul 29, 2016 07:48
--- NOTE | 2016-07-29 07:49 | HHI.DS ---
Discharge Summary Admission Date Jul 26, 2016 at 22:05 Discharge Date: Jul 29, 2016 Admitting Diagnosis Infected stone, UTI (1) UTI (lower urinary tract infection) ICD Code: N39.0 Diagnosis: Principal (2) Renal stone ICD Code: N20.0 Diagnosis: Principal (3) HTN (hypertension) ICD Code: I10 Diagnosis: Secondary (4) COPD (chronic obstructive pulmonary disease) ICD Code: J44.9 Diagnosis: Secondary (5) DM (diabetes mellitus) ICD Code: E11.9 Diagnosis: Secondary Procedures none Brief History - From Admission This is an 80-year-old female with a PMH of HTN, Anxiety, Depression, Hyperlipidemia, COPD and DM who was brought to the ER by EMS secondary to complaints of abdominal/flank pain x2 days. Reports associated nausea and vomiting. Denies fever, chills or diarrhea. On arrival, BP 234/102, HR 61, O2 sat 96% on RA, Afebrile. CBC unremarkable except for platelets 125, previously 150 and 05/04/16. Chemistry at baseline. INR 0.9. UA with UTI. CT Abd/Pelvis w / uncomplicated colonic diverticulosis, 8mm nonobstructing stone of left lower pole, 13mm right renal nodule. S/p Rocephin IV in ER. CBC/BMP: 07/27/16 0442 07/27/16 0442 Significant Findings Laboratory Tests Test 07/26/16 07/26/16 07/27/16 20:00 20:20 04:42 Platelet Count 125 TH/MM3 108 TH/MM3 (150-450) (150-450) Activated Partial 23.5 SEC Thromboplast Time (24.3-30.1) Estimat Glomerular Filtration 75 ML/MIN (>89) 87 ML/MIN (>89) Rate Random Glucose 229 MG/DL 221 MG/DL (74-106) (74-106) Aspartate Amino Transf 12 U/L (15-37) 6 U/L (15-37) (AST/SGOT) Urine Protein 300 mg/dL (NEG-TRACE) Urine Glucose (UA) 150 mg/dL (NEG) Urine Leukocyte Esterase SMALL (NEG) Urine WBC 24 /hpf (0-5) Urine Mucus FEW /lpf (OCC) Red Blood Count 3.87 MIL/MM3 (4.00-5.30) Hematocrit 34.5 % (35.0-46.0) Monocytes (%) (Auto) 8.1 % (0.0-8.0) Chloride Level 108 MEQ/L (98-107) Total Protein 5.7 GM/DL (6.4-8.2) Albumin 2.8 GM/DL (3.4-5.0) Imaging Last Impressions Chest X-Ray 07/28/16 0000 Signed Impressions: Service Date/Time: Thursday, July 28, 2016 08:18 - CONCLUSION: Compensated cardiomegaly otherwise negative for failure infiltrate or pneumothorax. Sachin Lombardo MD FACR Abdomen/Pelvis CT 07/26/162000 Signed Impressions: Service Date/Time: Tuesday, July 26, 2016 21:05 - CONCLUSION: 1. Uncomplicated colonic diverticulosis. 2. 8 mm calcified lower pole nonobstructing left renal calculus. 3. 13 mm hyperdense cortical nodule within the midpole of the right kidney which either represents a tiny hyperdense cyst or small solid lesion. 4. Multiple stable simple right renal cysts. 5. Cardiomegaly and coronary artery calcifications. 6. Degenerative changes and scoliosis of the thoracolumbar spine. Gigi Gallo MD PE at Discharge GENERAL: This is a well-nourished, well-developed patient, in no apparent distress. CARDIOVASCULAR: Regular rate and regular rhythm without murmurs, gallops, or rubs. RESPIRATORY: Clear to auscultation. Breath sounds equal bilaterally. No wheezes , rales, or rhonchi. GASTROINTESTINAL: Abdomen soft, non-tender, nondistended. Normal, active bowel sounds MUSCULOSKELETAL: Extremities without clubbing, cyanosis, or edema. NEURO: Alert & Oriented x4 to person, place, time, situation. Moves all ext x4 Hospital Course 1. possible UTI: continue Abx and pain control. 2. Renal Stone: CT Abd/Pelvis w/ 8mm nonobstructing left renal stone. analgesics/antiemetics as needed. 3. HTN: continue Metoprolol 50mg- 4. COPD-oxygen dependent: CXR with no acute abnormality-. Resumed home Symbicort, DuoNeb prn. 5. DM: Sliding scale w/ Accu-cheks. resumed long-acting insulin- Hold Metformin for now. 6. DVT Prophylaxis: SCD/Golden. 7.right renal cyst- f/u as outpatient ( d/w the patient). Pt Condition on Discharge: Fair Discharge Disposition: Disch w/ Home Health Serv Discharge Time: <= 30 minutes Discharge Instructions DIET: Follow Instructions for: Heart Healthy Diet, Diabetic Diet Activities you can perform: Regular-No Restrictions Follow up Referrals: PCP Follow-up New Medications: Ciprofloxacin (Cipro) 250 Mg Tab 250 MG PO BID Infection Days 5 Ref 0 TAB Tramadol (Ultram) 50 Mg Tab 50 MG PO Q8H PRN PAIN #6 Ref 0 TAB Continued Medications: Aspirin (Aspirin) 81 Mg Chew 81 MG CHEW DAILY Ref 0 TAB Atorvastatin (Atorvastatin) 40 Mg Tab 40 MG PO HS Cholesterol Management #30 Ref 0 TAB Budesonide-Formoterol Inh (Symbicort Inh) 160-4.5 Mcg/Act Aero 2 PUFF INH Q12HR #1 Ref 0 INHALER Clonidine (Catapres) 0.1 Mg Tab 0.1 MG PO HS Blood Pressure Management #1 Ref 0 TAB Enalapril Maleate (Epaned) 1 Mg/Ml Susanna 20 MG PO DAILY Gabapentin (Gabapentin) 300 Mg Cap 300 MG PO BID #60 Ref 0 CAP Insulin Detemir Inj (Levemir Inj) 1,000 unit/ 10 ML Vial 2 UNITS SQ HS Do not mix with any other Insulin. Blood Sugar Management Ref 0 VIAL Insulin Detemir Inj (Levemir Inj) 1,000 unit/ 10 ML Vial 30 UNITS SQ DAILY Do not mix with any other Insulin. Blood Sugar Management Ref 0 VIAL Metformin (Metformin) 1,000 Mg Tab 1000 MG PO BIDPC With meals Blood Sugar Management #60 Ref 0 TAB Metoprolol Tartrate (Metoprolol Tartrate) 50 Mg Tab 50 MG PO BID #60 Ref 0 TAB Nitroglycerin SL (Nitroglycerin SL) 0.4 Mg Subl 0.4 MG SL DIRECTED ONE TABLET UNDER THE TONGUE NEEDED FOR CHEST PAIN, MAY REPEAT EVERY FIVE MINUTES FOR A TOTAL OF 3 DOSES OR CALL 911 IF NO RELIEF PRN CHEST PAIN #100 Ref 0 TAB.SL Omeprazole (Omeprazole) 40 Mg Cap 40 MG PO DAILY #30 Ref 0 CAP Samy Olivera MD Jul 29, 2016 07:49
[2016-07-29] MEDS ORDERED: traMADol HCL 50 MG TAB PO PRN (08:00)
[2016-07-29 08:25] VITALS: BP 133/63; PULSE 50; RESP 18; TEMP 97.9; O2SAT 93
[2016-07-29] MEDS ORDERED: ENALAPRIL MALEATE 10 MG TAB PO SCH (09:00)
[2016-07-29] MEDS: SODIUM CHLORIDE 0.9% FLUSH 10 ML FLUSH IV FLUSH SCH (09:00)
[2016-07-29] MEDS: BUDESONIDE-FORMOTEROL 160/4.5 MCG INHALER INH SCH (10:11)
[2016-07-29] MEDS: PANTOPRAZOLE SOD 40 MG DELAYED RELEASE TAB PO SCH (10:14)
[2016-07-29] MEDS: METOPROLOL TARTRATE 50 MG TAB PO SCH (10:14)
[2016-07-29] MEDS: GABAPENTIN 300 MG CAP PO SCH (10:14)
[2016-07-29] MEDS: INSULIN DETEMIR 100 UNITS/ML VIAL SQ SCH (10:20)
[2016-07-29 11:35] VITALS: BP 133/58; PULSE 57; RESP 18; TEMP 98.1; O2SAT 96
[2016-07-29] MEDS ORDERED: WALKER WHEELS/F1 MIS (12:14)
--- NOTE | 2016-07-29 12:40 | HHI.FF ---
Face to Face Verification Diagnosis: (1) HTN (hypertension) Home Health Nursing Order: Medical education Signs/symptoms of disease process Medication education-adverse effect Nursing assessment with vital signs I have seen patient Denisha Muniz on 07/29/16. My clinical findings support the need for the requested home health care services because: Patient has SOB I certify that my clinical findings support that this patient is homebound because: Hx COPD- exertion dyspnea/weakness Samy Oilvera MD Jul 29, 2016 12:40
[2016-07-29] MEDS: ALPRAZolam 0.25 MG TAB PO PRN (13:40)
== END 2016-07-29 16:41 | disposition home or self-care (01) ==
LOC: NEPA 19:20 → NEDA 22:05 → NEDH 07-27 02:05 → NEPFCDU 07-27 14:41
PROVIDERS: ADMIT Internal Medicine; ATTEND Internal Medicine
DX: N39.0 Urinary tract infection, site not specified (principal); N20.0 Calculus of kidney; I11.0 Hypertensive heart disease with heart failure; J44.9 Chronic obstructive pulmonary disease, unspecified; E11.9 Type 2 diabetes mellitus without complications; R10.9 Unspecified abdominal pain; I50.9 Heart failure, unspecified; M19.90 Unspecified osteoarthritis, unspecified site; E78.00 Pure hypercholesterolemia, unspecified; G20 Parkinson's disease; Z79.899 Other long term (current) drug therapy; Z79.4 Long term (current) use of insulin; K57.30 Diverticulosis of large intestine without perforation or abscess without bleeding; R11.2 Nausea with vomiting, unspecified; J96.10 Chronic respiratory failure, unspecified whether with hypoxia or hypercapnia; N28.1 Cyst of kidney, acquired; Z99.81 Dependence on supplemental oxygen; I44.4 Left anterior fascicular block; R94.31 Abnormal electrocardiogram [ECG] [EKG]; B96.89 Other specified bacterial agents as the cause of diseases classified elsewhere
CPT/HCPCS: 71010; 74177; 80053; 81001; 82948; 83690; 85025; 85610; 85730; 87086; 93005; 96374; 96375; 97161; 99285; G0378; J0696; J1815; J2270; J2405; J7030; Q9967; 76937; G8987-GP; G8988-GP

== ENCOUNTER 2016-08-11 18:47 | Inpatient (IN) | payer MEDICARE, MEDICAID ==
[~2016-08-11] VITALS: Ht 160 cm; Wt 78.3 kg
[~2016-08-11 18:47] MED LIST changes: -ACYC400T PO; +CIPR250T52 PO; -KENAAER TOPICAL; -MACR100C2 PO; -SENN1TAB17 PO; +ULTR50TA5 PO; +WALKER WHEELS/F1 MIS; -ZOFR4TAB3 SL
[2016-08-11 19:17] VITALS: BP 125/59; PULSE 67; RESP 18; O2SAT 95
--- NOTE | 2016-08-11 20:20 | PD ---
HPI Chief Complaint: Complaint Time Seen by Provider: 20:02 Travel History International Travel<30 days: No Contact w/Intl Traveler<30days: No Traveled to known affect area: No History of Present Illness HPI 80-year-old female complains of low abdominal pain with nausea vomiting, dysuria and urinary frequency. Patient states that the symptoms started yesterday. Patient states the pain is sharp pain localized to lower abdomen. Patient denies any pain radiation. Patient denies any fever chills. Patient denies any back pain. Patient denies any vaginal discharge or bleeding. Patient states that she has intermittent nausea vomiting but no diarrhea. Patient has history of kidney stone. Patient was treated recently for UTI with Cipro. Urine culture was mixed maxim. PFSH Past Medical History Arthritis: Yes Asthma: No Autoimmune Disease: No Blood Disorders: No Anxiety: Yes Depression: Yes Heart Rhythm Problems: Yes Cancer: No Cardiac Catheterization: No Cardiovascular Problems: Yes (HTN) High Cholesterol: Yes Chemotherapy: No Chest Pain: No Congestive Heart Failure: Yes COPD: Yes Cerebrovascular Accident: No Diabetes: Yes Diminished Hearing: Yes (INUPIAT) Endocrine: No Gastrointestinal Disorders: Yes (TAKES PROTONIX) GERD: No Glaucoma: No Genitourinary: No Headaches: Yes Hepatitis: No Hiatal Hernia: No Hypertension: Yes Immune Disorder: No Implanted Vascular Access Dvce: Yes Kidney Stones: No Musculoskeletal: Yes Neurologic: Yes Parkinson's Disease: Yes Psychiatric: Yes Reproductive: No Respiratory: Yes Integumentary: Yes (SKIN GROWTH ON SCALP AREa) Immunizations Current: Yes Migraines: Yes Myocardial Infarction: No Radiation Therapy: No Renal Failure: No Seizures: No Sickle Cell Disease: No Sleep Apnea: No Thyroid Disease: No Ulcer: No PNEUMOCCOCAL Vaccine (Year): 1 Menopausal: Yes Past Surgical History Abdominal Surgery: No AICD: No Arteriovenous Shunt: No Body Medical Devices: BILAT KNEE REPLACEMENT Cardiac Surgery: No Coronary Artery Bypass Graft: No Ear Surgery: No Endocrine Surgery: No Eye Surgery: No Genitourinary Surgery: No Gynecologic Surgery: No Insulin Pump: No Joint Replacement: Yes Oral Surgery: No Pacemaker: No Thoracic Surgery: No Tonsillectomy: Yes Other Surgery: Yes (bilat knee, back, hital hernia) Social History Alcohol Use: No Tobacco Use: No Substance Use: No Allergies-Medications (Allergen,Severity, Reaction): Coded Allergies: Codeine (Verified Allergy, Severe, NAUSEA, 4/12/17) Dilaudid (Verified Allergy, Severe, Nausea/Vomiting, 08/11/16) Lortab (Verified Allergy, Unknown, Nausea/Vomiting, 08/11/16) Reported Meds & Prescriptions Reported Meds & Active Scripts Active Ultram (Tramadol HCl) 50 Mg Tab 50 Mg PO Q8H PRN Reported Xanax (Alprazolam) 1 Mg Tab 1 Mg PO BID PRN Protonix (Pantoprazole Sodium) 40 Mg Tab 40 Mg PO DAILY Enalapril (Enalapril Maleate) 20 Mg Tab 20 Mg PO DAILY Metoprolol Tartrate 50 Mg Tab 50 Mg PO BID Nitroglycerin SL (Nitroglycerin) 0.4 Mg Subl 0.4 Mg SL DIRECTED PRN ONE TABLET UNDER THE TONGUE NEEDED FOR CHEST PAIN, MAY REPEAT EVERY FIVE MINUTES FOR A TOTAL OF 3 DOSES OR CALL 911 IF NO RELIEF Metformin (Metformin HCl) 1,000 Mg Tab 1,000 Mg PO BIDPC With meals Levemir Inj (Insulin Detemir) 1,000 unit/ 10 ML Vial 30 Units SQ DAILY IN THE MORNING Do not mix with any other Insulin. Levemir Inj (Insulin Detemir) 1,000 unit/ 10 ML Vial 3 Units SQ HS Do not mix with any other Insulin. Gabapentin 300 Mg Cap 300 Mg PO BID Catapres (Clonidine) 0.1 Mg Tab 0.1 Mg PO HS Symbicort Inh (Budesonide/Formoterol Fumarate) 160-4.5 Mcg/Act Aero 2 Puff INH Q12HR Atorvastatin (Atorvastatin Calcium) 40 Mg Tab 40 Mg PO HS Aspirin 81 Mg Chew 81 Mg CHEW DAILY Review of Systems General / Constitutional: No: Fever Eyes: No: Visual changes HENT: No: Headaches Cardiovascular: No: Chest Pain or Discomfort Respiratory: No: Shortness of Breath Gastrointestinal: No: Abdominal Pain Genitourinary: Positive: Frequency, Dysuria Musculoskeletal: No: Pain Skin: No Rash Neurologic: No: Weakness Psychiatric: No: Depression Endocrine: No: Polydipsia Hematologic/Lymphatic: No: Easy Bruising Physical Exam Narrative GENERAL: Well-nourished, well-developed patient. SKIN: Focused skin assessment warm/dry. HEAD: Normocephalic. EYES: No scleral icterus. No injection or drainage. NECK: Supple, trachea midline. No JVD or lymphadenopathy. CARDIOVASCULAR: Regular rate and rhythm without murmurs, gallops, or rubs. RESPIRATORY: Breath sounds equal bilaterally. No accessory muscle use. GASTROINTESTINAL: Abdomen soft, nondistended. Patient has mild tenderness on palpation lower abdomen suprapubic area. No rebound tenderness. No mass. MUSCULOSKELETAL: No cyanosis, or edema. BACK: Nontender without obvious deformity. No CVA tenderness. Neurologic exam normal. Data Data Last Documented VS Vital Signs Date Time Temp Pulse Resp B/P Pulse Ox O2 Delivery O2 Flow Rate FiO2 08/11/16 22:36 69 16 160/70 95 Nasal Cannula 2 Orders Complete Blood Count With Diff (08/11/16 20:11) Comprehensive Metabolic Panel (08/11/16 20:11) Prothrombin Time / Inr (Pt) (08/11/16 20:11) Act Partial Throm Time (Ptt) (08/11/16 20:11) Urinalysis - C+S If Indicated (08/11/16 20:11) Iv Access Insert/Monitor (08/11/16 20:11) Ecg Monitoring (08/11/16 20:11) Oximetry (08/11/16 20:11) Ondansetron Inj (Zofran Inj) (08/11/16 20:45) Ketorolac Inj (Toradol Inj) (08/11/16 20:45) Ct Abd/Pel W Iv Contrast(Rout) (08/11/16 20:35) Sodium Chlor 0.9% 1000 Ml Inj (Ns 1000 M (08/11/16 20:35) Urine Culture (08/11/16 20:30) Iohexol 350 Inj (Omnipaque 350 Inj) (08/11/16 22:17) Labs Laboratory Tests Test 08/11/16 20:30 White Blood Count 8.9 TH/MM3 Red Blood Count 4.04 MIL/MM3 Hemoglobin 12.6 GM/DL Hematocrit 36.2 % Mean Corpuscular Volume 89.5 FL Mean Corpuscular Hemoglobin 31.2 PG Mean Corpuscular Hemoglobin 34.9 % Concent Red Cell Distribution Width 13.4 % Platelet Count 151 TH/MM3 Mean Platelet Volume 9.0 FL Neutrophils (%) (Auto) 69.9 % Lymphocytes (%) (Auto) 20.4 % Monocytes (%) (Auto) 7.8 % Eosinophils (%) (Auto) 1.5 % Basophils (%) (Auto) 0.4 % Neutrophils # (Auto) 6.2 TH/MM3 Lymphocytes # (Auto) 1.8 TH/MM3 Monocytes # (Auto) 0.7 TH/MM3 Eosinophils # (Auto) 0.1 TH/MM3 Basophils # (Auto) 0.0 TH/MM3 CBC Comment DIFF FINAL Differential Comment Prothrombin Time 10.2 SEC Prothromb Time International 0.9 RATIO Ratio Activated Partial 29.2 SEC Thromboplast Time Urine Color YELLOW Urine Turbidity HAZY Urine pH 6.0 Urine Specific [place] 1.029 Urine Protein 300 mg/dL Urine Glucose (UA) TRACE mg/dL Urine Ketones NEG mg/dL Urine Occult Blood NEG Urine Nitrite NEG Urine Bilirubin NEG Urine Urobilinogen LESS THAN 2.0 MG/DL Urine Leukocyte Esterase SMALL Urine RBC 3 /hpf Urine WBC 51 /hpf Urine Squamous Epithelial 1 /hpf Cells Urine Transitional Epithelial 3 /hpf Cells Urine Hyaline Casts 1 /lpf Urine Mucus MANY /lpf Microscopic Urinalysis Comment CULTURE INDICATED Sodium Level 139 MEQ/L Potassium Level 4.1 MEQ/L Chloride Level 103 MEQ/L Carbon Dioxide Level 29.5 MEQ/L Anion Gap 7 MEQ/L Blood Urea Nitrogen 13 MG/DL Creatinine 0.83 MG/DL Estimat Glomerular Filtration 66 ML/MIN Rate Random Glucose 219 MG/DL Calcium Level 9.4 MG/DL Total Bilirubin 0.4 MG/DL Aspartate Amino Transf 8 U/L (AST/SGOT) Alanine Aminotransferase 12 U/L (ALT/SGPT) Alkaline Phosphatase 96 U/L Total Protein 7.1 GM/DL Albumin 3.1 GM/DL [facility] Medical Decision Making Medical Screen Exam Complete: Yes Emergency Medical Condition: Yes Interpretation(s) Last Impressions Abdomen/Pelvis CT 08/11/162034 Signed Impressions: Service Date/Time: Thursday, August 11, 2016 22:12 - CONCLUSION: Severe but uncomplicated acute diverticulitis has developed of the sigmoid colon. Brandon Contreras MD 22:49 PM. CBC within normal limit. CMP within normal limit. Glucose 219. UA positive with WBC. Differential Diagnosis Differential diagnosis including UTI, pyelonephritis, nephrolithiasis, colitis, gastroenteritis. Narrative Course 80-year-old female with low abdominal pain, nausea vomiting, dysuria or frequency.. History kidney stone and UTI. Levaquin 750 mg IV. Flagyl 500 mg IV. Diagnosis Primary Impression: Acute diverticulitis Additional Impression: UTI (urinary tract infection) Qualified Code: N30.00 - Acute cystitis without hematuria Admitting Information Admitting Physician Requests: Admit Edmond Munguia MD Aug 11, 2016 20:20
[2016-08-11] MEDS ORDERED: PROT40TA PO (20:37)
[2016-08-11] MEDS ORDERED: ENAL20TA PO (20:37)
[2016-08-11] MEDS ORDERED: XANA1TAB2 PO (20:40)
[2016-08-11] MEDS ORDERED: KETOROLAC TROMETHAMINE 30 MG/ML (IVP) VIAL IVP ONE (20:45)
[2016-08-11] MEDS ORDERED: ONDANSETRON HCL 4 MG/2 ML VIAL IVP ONE (20:45)
[2016-08-11 20:47] LABS: AUTOMATED NEUTROPHIL # 6.2 TH/MM3 (1.8-7.7); BASOPHIL % 0.4 % (0.0-2.0); EOSINOPHIL # 0.1 TH/MM3 (0-0.4); EOSINOPHIL % 1.5 % (0.0-4.0); HEMATOCRIT 36.2 % (35.0-46.0); HEMO FLAGS DIFF FINAL; LYMPH % 20.4 % (9.0-44.0); LYMPHOCYTE # 1.8 TH/MM3 (1.0-4.8); MEAN CELL VOLUME 89.5 FL (80.0-100.0); MEAN CORPUSCULAR HEMOGLOBIN 31.2 PG (27.0-34.0); MEAN CORPUSCULAR HGB CONC 34.9 % (32.0-36.0); MONO % 7.8 % (0.0-8.0); NEUT % 69.9 % (16.0-70.0); PLATELET COUNT 151 TH/MM3 (150-450); RED BLOOD COUNT 4.04 MIL/MM3 (4.00-5.30); RED CELL DISTRIBUTION WIDTH 13.4 % (11.6-17.2); WHITE BLOOD COUNT 8.9 TH/MM3 (4.0-11.0)
[2016-08-11 20:49] LABS: BLOOD, URINE NEG (NEG); COMMENT (UR) CULTURE INDICATED; CULTURE IF INDICATED CULTURE INDICATED; GLUCOSE,URINE TRACE mg/dL (NEG); HYALINE CAST, URINE 1 /lpf (RARE); KETONE, URINE NEG (NEG); MUCUS URINE MANY /lpf (OCC); NITRITE,URINE NEG (NEG); SQUAMOUS EPITHELIAL CELL URINE 1 /hpf (0-5); TRANSITIONAL EPI CELLS, URINE 3 /hpf; URINE COLOR YELLOW (YELLW/STRAW)
[2016-08-11] MEDS: SODIUM CHLOR 0.9% 1000 ML INJ 1,000 ML IV SCH (20:50)
[2016-08-11 21:04] LABS: APTT (PATIENT) 29.2 SEC (24.3-30.1); INTERNATIONAL NORMALIZED RATIO 0.9 RATIO; PROTHROMBIN TIME - PATIENT 10.2 SEC (9.8-11.6)
[2016-08-11 21:06] VITALS: RESP 18; O2SAT 97
[2016-08-11 21:58] LABS: ALT (GPT) 12 U/L (10-53); ANION GAP 7 MEQ/L (5-15); AST (GOT) 8 U/L (15-37); BICARBONATE 29.5 MEQ/L (21.0-32.0); BLOOD UREA NITROGEN 13 MG/DL (7-18); CHLORIDE 103 MEQ/L (98-107); GLOMERULAR FILTRATION RATE 66 ML/MIN (>89); POTASSIUM 4.1 MEQ/L (3.5-5.1); SODIUM (NA) 139 MEQ/L (136-145)
[2016-08-11 22:00] LABS: ALKALINE PHOSPHATASE 96 U/L (45-117); TOTAL BILIRUBIN ADULT 0.4 MG/DL (0.2-1.0)
[2016-08-11] MEDS ORDERED: IOHEXOL 350 MG/ML 10 ML VIAL (for RAD DIAG) IV ONE (22:17)
--- NOTE | 2016-08-11 22:26 | RADRPT ---
EXAM DATE/TIME: 08/11/2016 22:12 [place] COMPARISON: CT ABDOMEN & PELVIS W CONTRAST, July 26, 2016, 21:05. INDICATIONS : Lower abdominal pain. IV CONTRAST: 95 cc Omnipaque 350 (iohexol) IV ORAL CONTRAST: No oral contrast ingested. RADIATION DOSE: 14.42 CTDIvol (mGy) MEDICAL HISTORY : Cardiovascular disease. Diabetes mellitus type 2. Hypertension.COPD SURGICAL HISTORY : None. ENCOUNTER: Initial ACUITY: 2 days PAIN SCALE: 10/10 LOCATION: lower quadrant abdomen TECHNIQUE: Volumetric scanning of the abdomen and pelvis was performed. Using automated exposure control and ad justment of the mA and/or kV according to patient size, radiation dose was kept as low as reasonably achievable to obtain optimal diagnostic quality images. FINDINGS: LOWER LUNGS: The visualized lower lungs are clear. LIVER: Homogeneous density without lesion. There is no dilation of the biliary tree. No calcified gallston es. SPLEEN: Normal size without lesion. PANCREAS: Within normal limits. KIDNEYS: Bilateral cysts. 3 x 5 mm nonobstructing stone in the left lower pole. ADRENAL GLANDS: Within normal limits. VASCULAR: There is no aortic aneurysm. BOWEL/MESENTERY: Wall thickening and inflammatory changes seen of the proximal to mid sigmoid colon, series 2 image 71 . Diverticulosis present. No abscess, perforation or obstruction. ABDOMINAL WALL: Within normal limits. RETROPERITONEUM: There is no lymphadenopathy. BLADDER: No wall thickening or mass. REPRODUCTIVE: Within normal limits. INGUINAL: There is no lymphadenopathy or hernia. MUSCULOSKELETAL: No acute bony abnormality. CONCLUSION: Severe but uncomplicated acute diverticulitis has developed of the sigmoid colon. Brandon Contreras MD on August 11, 2016 at 22:22 Board Certified Radiologist. This report was verified electronically.
[2016-08-11 22:36] VITALS: BP 160/70; PULSE 69; RESP 16; O2SAT 95
[2016-08-11] MEDS ORDERED: metroNIDAZOLE 500 MG INJ 100 ML IV ONE (23:00)
[2016-08-11] MEDS ORDERED: LEVOFLOXACIN 750 MG PREMIX INJ 150 ML IV ONE (23:00)
[2016-08-11] MEDS ORDERED: SODIUM CHLORIDE 0.9% FLUSH 10 ML FLUSH IV FLUSH PRN (23:15)
[2016-08-11] MEDS ORDERED: NALOXONE HCL 0.4 MG/ML AMP IV PRN (23:15)
[2016-08-12] VITALS (8 sets, daily range): BP systolic 140–179; BP diastolic 64–87; PULSE 53–75; RESP 18–20; TEMP 97.9–98.6; O2SAT 91–98
[2016-08-12] MEDS ORDERED: MORPHINE SULFATE 4 MG/ML INJ IV PUSH PRN (00:30)
--- NOTE | 2016-08-12 03:13 | HHI.HP ---
[facility] Service [facility] Primary Care Physician Jsaon Delgado M.D. Admission Diagnosis acute diverticulitis. UTI. Diagnoses: Travel History International Travel<30 Days: No Contact w/Intl Traveler <30 Da: No Traveled to Known Affected Are: No History of Present Illness abdominal pain diffuse since tue vomited twice on tuesday felt warm on tuesday no diarrhea no blood bm on tuesday morning was last havent eaten since Reports of burning and pain on urination finshed antibiotics last tuesday from hospital discharge. pt called ambulance to come here Review of Systems Except as stated in HPI: all other systems reviewed are Neg Past Family Social History Past Medical History htn dm copd on home oxgygen prn Past Surgical History back sx hiatal hernia 12yrs ago both knees replaced Allergies: Coded Allergies: Codeine (Verified Allergy, Severe, NAUSEA, 08/11/16) Dilaudid (Verified Allergy, Severe, Nausea/Vomiting, 08/11/16) Lortab (Verified Allergy, Unknown, Nausea/Vomiting, 08/11/16) Family History daughter from stomach issues father lung ca, heavy cancer mother- colon cancer Social History never smoked daughter lives with her no longer driving Physical Exam Vital Signs Vital Signs Date Time Temp Pulse Resp B/P Pulse Ox O2 Delivery O2 Flow Rate FiO2 08/11/16 22:36 69 16 160/70 95 Nasal Cannula 2 08/11/16 21:06 18 97 Nasal Cannula 2 08/11/16 20:03 17 08/11/16 19:17 67 18 125/59 95 Nasal Cannula 2 Physical Exam GENERAL: This is a well-nourished, well-developed patient, in no apparent distress. SKIN: No rashes, ecchymoses or lesions. Cool and dry. HEAD: Atraumatic. Normocephalic. No temporal or scalp tenderness. EYES: No scleral icterus. No injection or drainage. ENT: Nose without bleeding, purulent drainage or septal hematoma. Airway patent. NECK: Trachea midline. No JVD CARDIOVASCULAR: Regular rate and rhythm without murmurs, gallops, or rubs. RESPIRATORY: Clear to auscultation. Breath sounds equal bilaterally. No wheezes , rales, or rhonchi. GASTROINTESTINAL: Abdomen soft, tenderness diffusely, nondistended. No guarding. MUSCULOSKELETAL: Extremities without clubbing, cyanosis, or edema. No calf tenderness. NEUROLOGICAL: Awake and alert. Motor and sensory grossly within normal limits. Normal speech. Laboratory Laboratory Tests Test 08/11/16 20:30 White Blood Count 8.9 Red Blood Count 4.04 Hemoglobin 12.6 Hematocrit 36.2 Mean Corpuscular Volume 89.5 Mean Corpuscular Hemoglobin 31.2 Mean Corpuscular Hemoglobin 34.9 Concent Red Cell Distribution Width 13.4 Platelet Count 151 Mean Platelet Volume 9.0 Neutrophils (%) (Auto) 69.9 Lymphocytes (%) (Auto) 20.4 Monocytes (%) (Auto) 7.8 Eosinophils (%) (Auto) 1.5 Basophils (%) (Auto) 0.4 Neutrophils # (Auto) 6.2 Lymphocytes # (Auto) 1.8 Monocytes # (Auto) 0.7 Eosinophils # (Auto) 0.1 Basophils # (Auto) 0.0 CBC Comment DIFF FINAL Differential Comment Prothrombin Time 10.2 Prothromb Time International 0.9 Ratio Activated Partial 29.2 Thromboplast Time Urine Color YELLOW Urine Turbidity HAZY Urine pH 6.0 Urine Specific [place] 1.029 Urine Protein 300 Urine Glucose (UA) TRACE Urine Ketones NEG Urine Occult Blood NEG Urine Nitrite NEG Urine Bilirubin NEG Urine Urobilinogen LESS THAN 2.0 Urine Leukocyte Esterase SMALL Urine RBC 3 Urine WBC 51 Urine Squamous Epithelial 1 Cells Urine Transitional Epithelial 3 Cells Urine Hyaline Casts 1 Urine Mucus MANY Microscopic Urinalysis Comment CULTURE INDICATED Sodium Level 139 Potassium Level 4.1 Chloride Level 103 Carbon Dioxide Level 29.5 Anion Gap 7 Blood Urea Nitrogen 13 Creatinine 0.83 Estimat Glomerular Filtration 66 Rate Random Glucose 219 Calcium Level 9.4 Total Bilirubin 0.4 Aspartate Amino Transf 8 (AST/SGOT) Alanine Aminotransferase 12 (ALT/SGPT) Alkaline Phosphatase 96 Total Protein 7.1 Albumin 3.1 Date/Time Procedure Status Source Growth 08/11/16 20:30 Urine Culture Received Urine Random Urine Pending Result Diagram: 08/11/16202908/11/162029 Imaging Last 48 hours Impressions Abdomen/Pelvis CT 08/11/162034 Signed Impressions: Service Date/Time: Thursday, August 11, 2016 22:12 - CONCLUSION: Severe but uncomplicated acute diverticulitis has developed of the sigmoid colon. Brandon Contreras MD Assessment and Plan Problem List: (1) Acute diverticulitis ICD Code: K57.92 Status: Acute (2) UTI (lower urinary tract infection) ICD Code: N39.0 Status: Resolved Assessment and Plan Impression: Acute diverticulitis UTIrecurrent, was recently treated and finished antibiotics about a week ago Leukocytosis with left shift htn dm copd on home oxgygen prn History of H. pylori gastritis History of tubular adenoma on colonoscopy in 2011 Plan: Start patient on Zosyn 4.5 g IV every 6 hours. We'll follow up urine culture results. We'll follow up clinically for diverticulitis. Patient denies any significant nausea or vomiting. Therefore will start her back on full liquid diet and advance diet slowly. Patient is educated on diet regarding her diverticulitis. Would also consult dietitian for further education since patient is truly concerned about this. Patient is explained that she would need to follow up with GI doctor in about 6 weeks or so for colonoscopy post treatment for diverticulitis. She follows up with Dr. Abreu Resume home medications. DVT prophylaxiswith Lovenox. Discussed Condition With patient, ER MD, patient's nurse Physician Certification 2 Midnight Certification Type: Admission for Inpatient Services Order for Inpatient Services The services are ordered in accordance with Medicare regulations or non- Medicare payer requirements, as applicable. In the case of services not specified as inpatient-only, they are appropriately provided as inpatient services in accordance with the 2-midnight benchmark. Estimated LOS (days): 2 days is the estimated time the patient will need to remain in the hospital, assuming treatment plan goals are met and no additional complications. Post-Hospital Plan: Home Neelam Tello MD Aug 12, 2016 03:13
[2016-08-12] MEDS ORDERED: ZOLPIDEM TARTRATE 5 MG TAB PO ONE (03:15)
[2016-08-12] MEDS ORDERED: ALPRAZolam 1 MG TAB PO PRN (03:30)
[2016-08-12] MEDS: SODIUM CHLOR 0.9% 1000 ML INJ 1,000 ML IV SCH ×2 (07:23→20:43)
[2016-08-12 07:30] LABS: AUTOMATED NEUTROPHIL # 3.5 TH/MM3 (1.8-7.7); BASOPHIL % 0.4 % (0.0-2.0); EOSINOPHIL # 0.1 TH/MM3 (0-0.4); EOSINOPHIL % 2.2 % (0.0-4.0); HEMATOCRIT 32.3 % (35.0-46.0); HEMO FLAGS DIFF FINAL; LYMPH % 29.4 % (9.0-44.0); LYMPHOCYTE # 1.7 TH/MM3 (1.0-4.8); MEAN CELL VOLUME 89.1 FL (80.0-100.0); MEAN CORPUSCULAR HEMOGLOBIN 31.1 PG (27.0-34.0); MONO % 8.4 % (0.0-8.0); NEUT % 59.6 % (16.0-70.0); PLATELET COUNT 135 TH/MM3 (150-450); RED BLOOD COUNT 3.63 MIL/MM3 (4.00-5.30); RED CELL DISTRIBUTION WIDTH 13.3 % (11.6-17.2); WHITE BLOOD COUNT 5.9 TH/MM3 (4.0-11.0)
[2016-08-12 07:38] LABS: BICARBONATE 27.5 MEQ/L (21.0-32.0); POTASSIUM 3.9 MEQ/L (3.5-5.1)
[2016-08-12] MEDS: SODIUM CHLORIDE 0.9% FLUSH 10 ML FLUSH IV FLUSH SCH ×2 (09:00→21:00)
[2016-08-12] MEDS ORDERED: INFLUENZA VIRUS VACCINE (QUADRIVALENT) 0.5 ML SYR IM ONE (09:00)
[2016-08-12] MEDS ORDERED: ENALAPRIL MALEATE 10 MG TAB PO SCH (09:00)
[2016-08-12] MEDS: ASPIRIN 81 MG CHEW TAB CHEW SCH (09:00)
[2016-08-12] MEDS ORDERED: PIPERACIL-TAZO 4.5 GM PREMIX 100 ML IV SCH ×2 (10:00)
[2016-08-12] MEDS: GABAPENTIN 300 MG CAP PO SCH ×2 (10:37→21:41)
[2016-08-12] MEDS: PANTOPRAZOLE SOD 40 MG DELAYED RELEASE TAB PO SCH (10:37)
[2016-08-12] MEDS: METOPROLOL TARTRATE 50 MG TAB PO SCH ×2 (10:37→21:41)
[2016-08-12] MEDS ORDERED: hydrALAZINE HCL 20 MG/ML VIAL IV PUSH PRN (11:00)
--- NOTE | 2016-08-12 11:00 | HHI.PR ---
Addendum to Inpatient Note Addendum Reason: Additional Documentation Additional Information The patient was resting in bed comfortably. She said her pain was largely improved. She wanted to go home soon. She says she would like her diet advanced. She has not had a bowel movement since Tuesday. We will switch antibiotics to Levaquin and Flagyl. Advance diet to a low-residue, diverticulitis diet. Antiemetics as needed. Encourage ambulation. Viral Torres DO Aug 12, 2016 10:59
[2016-08-12] MEDS ORDERED: GLUCAGON 1 MG/ML VIAL OTHER PRN (11:45)
[2016-08-12] MEDS ORDERED: DEXTROSE 50% IN WATER 50 ML VIAL(D50) IV PUSH PRN (11:45)
[2016-08-12] MEDS: INSULIN ASPART SUPPLEMENTAL SCALE SQ SCH ×3 (11:55→21:00)
[2016-08-12] MEDS: metroNIDAZOLE 500 MG INJ 100 ML IV SCH ×2 (11:55→18:32)
[2016-08-12] MEDS: traMADol HCL 50 MG TAB PO PRN (18:41)
[2016-08-12] MEDS: ATORVASTATIN 40 MG TAB PO SCH (21:41)
[2016-08-12] MEDS: cloNIDine HCL 0.1 MG TAB PO SCH (21:41)
[2016-08-12] MEDS: LEVOFLOXACIN 750 MG PREMIX INJ 150 ML IV SCH (22:17)
[2016-08-13] VITALS (8 sets, daily range): BP systolic 150–190; BP diastolic 64–98; PULSE 56–104; RESP 16–22; TEMP 96.1–97.9; O2SAT 95–100
[2016-08-13] MEDS: metroNIDAZOLE 500 MG INJ 100 ML IV SCH ×3 (03:00→18:02)
[2016-08-13] MEDS: INSULIN ASPART SUPPLEMENTAL SCALE SQ SCH ×4 (06:45→21:00)
[2016-08-13] MEDS: SODIUM CHLORIDE 0.9% FLUSH 10 ML FLUSH IV FLUSH SCH ×2 (09:00→21:00)
[2016-08-13] MEDS ORDERED: ALPRAZolam 0.5 MG TAB PO ONE (09:30)
--- NOTE | 2016-08-13 09:44 | HHI.PR ---
Subjective Remarks The patient was resting comfortably in bed. She said her pain is improved. She says she had a small bowel movement last night. She was tolerating a diet. She was worried about going home today because she was afraid she would have to come right back to the hospital. She is agreeable with going home tomorrow. Objective Vitals Vital Signs Date Time Temp Pulse Resp B/P Pulse Ox O2 Delivery O2 Flow Rate FiO2 08/13/16 08:08 97.5 62 18 183/72 100 08/13/16 04:00 97.3 62 16 175/76 98 08/13/16 03:18 66 08/13/16 00:00 97.9 71 18 152/98 99 08/12/16 20:00 98.2 75 18 179/87 94 08/12/16 19:59 Room Air 08/12/16 16:00 98.6 69 18 140/84 97 08/12/16 12:00 98.1 66 18 160/69 91 I/O 08/12/16 08/12/16 08/12/16 08/13/16 08/13/16 08/13/16 07:00 15:00 23:00 07:00 15:00 23:00 Intake Total 960 ml 240 ml 240 ml Balance 960 ml 240 ml 240 ml Intake Oral 960 ml 240 ml 240 ml # Voids 2 3 2 2 # Bowel Movements 0 0 0 0 Result Diagram: 08/12/1662408/12/16 0625 Imaging Last Impressions Abdomen/Pelvis CT 08/11/162034 Signed Impressions: Service Date/Time: Thursday, August 11, 2016 22:12 - CONCLUSION: Severe but uncomplicated acute diverticulitis has developed of the sigmoid colon. Brandon Contreras MD A/P Problem List: (1) Acute diverticulitis ICD Code: K57.92 Status: Acute (2) UTI (lower urinary tract infection) ICD Code: N39.0 Status: Resolved Assessment and Plan Acute diverticulitis CT abdomen showed severe but uncomplicated acute diverticulitis in the sigmoid colon. The pt is tolerating a diet. Pain is controlled. - continue Levaquin and Flagyl. - follow cultures. - ADAT. - pain control with a bowel regimen. - Patient is explained that she would need to follow up with GI doctor in about 6 weeks or so for colonoscopy post treatment for diverticulitis. She follows up with Dr. Abreu. UTI UA was indicative of infection. She was recently treated and finished antibiotics for a UTI about a week ago. - follow urine culture. - antibiotics as above. COPD On home oxygen as needed. - oxygen and nebs as needed. - encourage ambulation. HTN May be exacerbated by pain. - increase home enalapril. Continue clonidine. - pain control as needed. PPx: Lovenox. Discharge Planning Anticipate d/c home in AM. Viral Torres DO Aug 13, 2016 09:44
[2016-08-13] MEDS: INSULIN DETEMIR 100 UNITS/ML VIAL SQ SCH (09:52)
[2016-08-13] MEDS: ASPIRIN 81 MG CHEW TAB CHEW SCH (10:16)
[2016-08-13] MEDS: METOPROLOL TARTRATE 50 MG TAB PO SCH (10:17)
[2016-08-13] MEDS: GABAPENTIN 300 MG CAP PO SCH ×2 (10:17→21:07)
[2016-08-13] MEDS: PANTOPRAZOLE SOD 40 MG DELAYED RELEASE TAB PO SCH (10:17)
[2016-08-13] MEDS: DOCUSATE SODIUM 100 MG CAP PO SCH ×2 (10:48→21:00)
[2016-08-13] MEDS: SENNOSIDES 8.6 MG TAB PO SCH (10:48)
[2016-08-13] MEDS: SODIUM CHLOR 0.9% 1000 ML INJ 1,000 ML IV SCH ×2 (11:12→22:45)
[2016-08-13] MEDS: traMADol HCL 50 MG TAB PO PRN ×2 (11:54→21:10)
[2016-08-13] MEDS: POLYETHYLENE GLYCOL 17 GM PKG PO SCH (16:54)
[2016-08-13] MEDS ORDERED: ALPRAZolam 1 MG TAB PO PRN (21:00)
[2016-08-13] MEDS: ATORVASTATIN 40 MG TAB PO SCH (21:07)
[2016-08-13] MEDS: cloNIDine HCL 0.1 MG TAB PO SCH (21:07)
[2016-08-13] MEDS: ENALAPRIL MALEATE 10 MG TAB PO SCH (21:07)
[2016-08-13] MEDS: METOPROLOL TARTRATE 25 MG TAB PO SCH (21:07)
[2016-08-13] MEDS: LEVOFLOXACIN 750 MG PREMIX INJ 150 ML IV SCH (21:07)
[2016-08-14] VITALS: BP 179/76; PULSE 61; RESP 20; TEMP 97.1; O2SAT 97
[2016-08-14] MEDS: metroNIDAZOLE 500 MG INJ 100 ML IV SCH ×2 (03:00→10:18)
[2016-08-14 04:00] VITALS: BP 193/77; PULSE 60; RESP 18; TEMP 97.7; O2SAT 98
[2016-08-14 05:37] VITALS: PULSE 55
[2016-08-14] MEDS: INSULIN ASPART SUPPLEMENTAL SCALE SQ SCH ×2 (06:40→12:46)
[2016-08-14 08:00] VITALS: BP 167/75; PULSE 66; RESP 20; TEMP 97.4; O2SAT 99
[2016-08-14] MEDS: SODIUM CHLORIDE 0.9% FLUSH 10 ML FLUSH IV FLUSH SCH (09:00)
[2016-08-14] MEDS ORDERED: METO25TA3 PO (09:19)
[2016-08-14] MEDS ORDERED: LEVA750T PO (09:19)
[2016-08-14] MEDS ORDERED: ENAL20TA PO (09:19)
[2016-08-14] MEDS ORDERED: ULTR50TA5 PO (09:19)
[2016-08-14] MEDS ORDERED: LACTTAB8 PO (09:19)
[2016-08-14] MEDS ORDERED: XANA1TAB2 PO (09:19)
[2016-08-14] MEDS ORDERED: METR-1 PO (09:19)
--- NOTE | 2016-08-14 09:20 | HHI.DCPOC ---
Discharge Care Plan Diagnosis: (1) Hypertension (2) DM (diabetes mellitus) (3) COPD (chronic obstructive pulmonary disease) (4) Acute diverticulitis Goals to Promote Your Health * To prevent worsening of your condition and complications * To maintain your health at the optimal level Directions to Meet Your Goals Take your medications as prescribed Follow your dietary instruction Follow activity as directed Keep your appointments as scheduled Take your immunizations and boosters as scheduled If your symptoms worsen call your PCP, if no PCP go to Urgent Care Center or Emergency Room Smoking is Dangerous to Your Health. Avoid second hand smoke Call the 24-hour hour crisis hotline for domestic abuse at Viral Torres DO Aug 14, 2016 09:20
--- NOTE | 2016-08-14 09:23 | HHI.DS ---
Discharge Summary Admission Date Aug 11, 2016 at 23:06 Discharge Date: Aug 14, 2016 Admitting Diagnosis acute diverticulitis. UTI. (1) Acute diverticulitis ICD Code: K57.92 Diagnosis: Principal (2) Hypertension ICD Code: I10 (3) DM (diabetes mellitus) ICD Code: E11.9 (4) COPD (chronic obstructive pulmonary disease) ICD Code: J44.9 Procedures None. Brief History - From Admission abdominal pain diffuse since tue vomited twice on tuesday felt warm on tuesday no diarrhea no blood bm on tuesday morning was last havent eaten since Reports of burning and pain on urination finshed antibiotics last tuesday from hospital discharge. pt called ambulance to come here CBC/BMP: 08/12/16 0625 08/12/16 0625 Significant Findings Laboratory Tests Test 08/11/16 08/12/16 20:30 06:25 Urine Turbidity HAZY (CLEAR) Urine Protein 300 mg/dL (NEG-TRACE) Urine Leukocyte Esterase SMALL (NEG) Urine WBC 51 /hpf (0-5) Urine Mucus MANY /lpf (OCC) Estimat Glomerular Filtration 66 ML/MIN (>89) 78 ML/MIN (>89) Rate Random Glucose 219 MG/DL 171 MG/DL (74-106) (74-106) Aspartate Amino Transf 8 U/L (15-37) (AST/SGOT) Albumin 3.1 GM/DL (3.4-5.0) Red Blood Count 3.63 MIL/MM3 (4.00-5.30) Hemoglobin 11.3 GM/DL (11.6-15.3) Hematocrit 32.3 % (35.0-46.0) Platelet Count 135 TH/MM3 (150-450) Monocytes (%) (Auto) 8.4 % (0.0-8.0) Imaging Last Impressions Abdomen/Pelvis CT 08/11/162034 Signed Impressions: Service Date/Time: Thursday, August 11, 2016 22:12 - CONCLUSION: Severe but uncomplicated acute diverticulitis has developed of the sigmoid colon. Brandon Contreras MD PE at Discharge GENERAL: This is a well-nourished, well-developed patient, in no apparent distress. SKIN: No rashes, ecchymoses or lesions. Cool and dry. HEAD: Atraumatic. Normocephalic. No temporal or scalp tenderness. EYES: No scleral icterus. No injection or drainage. ENT: Nose without bleeding, purulent drainage or septal hematoma. Airway patent. NECK: Trachea midline. No JVD CARDIOVASCULAR: Regular rate and rhythm without murmurs, gallops, or rubs. RESPIRATORY: Clear to auscultation. Breath sounds equal bilaterally. No wheezes , rales, or rhonchi. GASTROINTESTINAL: Abdomen soft, nontender, nondistended. No guarding. MUSCULOSKELETAL: Extremities without clubbing, cyanosis, or edema. NEUROLOGICAL: Awake and alert. Motor and sensory grossly within normal limits. Normal speech. PSYCH: Mood and affect appropriate. Pt update on day of discharge The patient was resting comfortably. She was about to eat breakfast. She said her abdominal pain has resolved. She said she was able to have bowel movements yesterday. Discussed with nursing. Hospital Course Acute diverticulitis CT abdomen showed severe but uncomplicated acute diverticulitis in the sigmoid colon. The pt was started on Zosyn which was changed to IV Levaquin and IV Flagyl. The pt's diet was advanced. Her pain level continued to improve. It was explained that she would need to follow up with a GI doctor in about 6 weeks or so for colonoscopy post treatment for diverticulitis. She follows up with Dr. Abreu. She will complete a course of PO Levaquin and Flagyl along with lactobacillus. She will have pain medications as needed. She will follow a diverticulitis diet. UTI UA was indicative of infection. She was recently treated and finished antibiotics for a UTI about a week ago. Urine culture with probable contaminants. COPD On home oxygen as needed. She received oxygen and nebs as needed. We encouraged ambulation. HTN Blood pressure was poorly controlled at times. We increased her home enalapril to 20 mg BID. We continued her home clonidine. Her Lopressor was halved as she was having bradycardia into the 40s at times. Pt Condition on Discharge: Good Discharge Disposition: Discharge Home Discharge Time: <= 30 minutes Discharge Instructions DIET: Follow Instructions for: Diabetic Diet, Diverticulitis Diet Activities you can perform: Weight Bearing as Leigha Follow up Referrals: Gastroenterology - 1 Month with Hoda Abreu MD PCP Follow-up - 1 Week New Medications: Enalapril (Enalapril) 20 Mg Tab 20 MG PO BID Blood Pressure Management #60 Ref 0 TAB Lactobacillus Acidophilus (Lactobacillus Acidophilus) 1 Tab Tab 1 TAB PO TIDAC Nutritional Supplement #30 Ref 0 TAB Levofloxacin (Levaquin) 750 Mg Tab 750 MG PO DAILY Infection #9 Ref 0 TAB Metronidazole (Flagyl) 500 Mg Tab 500 MG PO TID Infection #27 Ref 0 TAB Metoprolol Tartrate (Metoprolol Tartrate) 25 Mg Tab 25 MG PO BID Blood Pressure Management #60 TAB Continued Medications: Alprazolam (Xanax) 1 Mg Tab 1 MG PO BID PRN ANXIETY #10 Ref 0 TAB (This prescription has been renewed) Aspirin (Aspirin) 81 Mg Chew 81 MG CHEW DAILY Ref 0 TAB Atorvastatin (Atorvastatin) 40 Mg Tab 40 MG PO HS Cholesterol Management #30 Ref 0 TAB Budesonide-Formoterol Inh (Symbicort Inh) 160-4.5 Mcg/Act Aero 2 PUFF INH Q12HR #1 Ref 0 INHALER Clonidine (Catapres) 0.1 Mg Tab 0.1 MG PO HS Blood Pressure Management #1 Ref 0 TAB Gabapentin (Gabapentin) 300 Mg Cap 300 MG PO BID #60 Ref 0 CAP Insulin Detemir Inj (Levemir Inj) 1,000 unit/ 10 ML Vial 3 UNITS SQ HS Do not mix with any other Insulin. Blood Sugar Management Ref 0 VIAL Insulin Detemir Inj (Levemir Inj) 1,000 unit/ 10 ML Vial 30 UNITS SQ DAILY IN THE MORNING Do not mix with any other Insulin. Blood Sugar Management Ref 0 VIAL Metformin (Metformin) 1,000 Mg Tab 1000 MG PO BIDPC With meals Blood Sugar Management #60 Ref 0 TAB Nitroglycerin SL (Nitroglycerin SL) 0.4 Mg Subl 0.4 MG SL DIRECTED ONE TABLET UNDER THE TONGUE NEEDED FOR CHEST PAIN, MAY REPEAT EVERY FIVE MINUTES FOR A TOTAL OF 3 DOSES OR CALL 911 IF NO RELIEF PRN CHEST PAIN #100 Ref 0 TAB.SL Pantoprazole (Protonix) 40 Mg Tab 40 MG PO DAILY Reflux #30 Ref 0 TAB Tramadol (Ultram) 50 Mg Tab 50 MG PO Q8H PRN PAIN #15 Ref 0 TAB (This prescription has been renewed) Discontinued Medications: Enalapril (Enalapril) 20 Mg Tab 20 MG PO DAILY #30 Ref 0 TAB Metoprolol Tartrate (Metoprolol Tartrate) 50 Mg Tab 50 MG PO BID #60 Ref 0 TAB Viral Torres DO Aug 14, 2016 09:23
[2016-08-14] MEDS: ASPIRIN 81 MG CHEW TAB CHEW SCH (10:15)
[2016-08-14] MEDS: DOCUSATE SODIUM 100 MG CAP PO SCH (10:16)
[2016-08-14] MEDS: PANTOPRAZOLE SOD 40 MG DELAYED RELEASE TAB PO SCH (10:16)
[2016-08-14] MEDS: METOPROLOL TARTRATE 25 MG TAB PO SCH (10:16)
[2016-08-14] MEDS: GABAPENTIN 300 MG CAP PO SCH (10:16)
[2016-08-14] MEDS: POLYETHYLENE GLYCOL 17 GM PKG PO SCH (10:16)
[2016-08-14] MEDS: INSULIN DETEMIR 100 UNITS/ML VIAL SQ SCH (10:17)
[2016-08-14] MEDS: SENNOSIDES 8.6 MG TAB PO SCH (10:17)
[2016-08-14] MEDS: ENALAPRIL MALEATE 10 MG TAB PO SCH (10:17)
== END 2016-08-14 13:05 | disposition home or self-care (01) | DRG 392 ==
LOC: NEDAMB 18:47 → NEDA 23:06 → N04A 08-12 01:50
PROVIDERS: ADMIT Hospitalist; ATTEND Hospitalist
DX: K57.32 Diverticulitis of large intestine without perforation or abscess without bleeding (principal); G20 Parkinson's disease; R00.1 Bradycardia, unspecified; N30.00 Acute cystitis without hematuria; I50.9 Heart failure, unspecified; J44.9 Chronic obstructive pulmonary disease, unspecified; E11.9 Type 2 diabetes mellitus without complications; R11.2 Nausea with vomiting, unspecified; R35.0 Frequency of micturition; M19.90 Unspecified osteoarthritis, unspecified site; F41.9 Anxiety disorder, unspecified; F32.9 Major depressive disorder, single episode, unspecified; E78.00 Pure hypercholesterolemia, unspecified; I10 Essential (primary) hypertension; H91.90 Unspecified hearing loss, unspecified ear; Z96.653 Presence of artificial knee joint, bilateral; Z80.1 Family history of malignant neoplasm of trachea, bronchus and lung; Z88.5 Allergy status to narcotic agent; Z23 Encounter for immunization; Z79.4 Long term (current) use of insulin; Z87.442 Personal history of urinary calculi; Z80.0 Family history of malignant neoplasm of digestive organs; Z99.81 Dependence on supplemental oxygen
CPT/HCPCS: 74177; 76937; 80048; 80053; 81001; 82948; 85025; 85610; 85730; 87040; 87086; 90471; 90686; 96361; 96374; 96375; G0008; J0360; J1815; J1885; J1956; J2270; J2405; J2543; J7030; Q2038; Q9967

== ENCOUNTER 2016-10-22 10:02 | Emergency (ER) | payer MEDICARE, MEDICAID ==
[~2016-10-22] VITALS: Ht 160 cm; Wt 65.0 kg
[~2016-10-22 10:02] MED LIST changes: -CIPR250T52 PO; -ENAL1SOL2 PO; +ENAL20TA PO; +LACTTAB8 PO; +LEVA750T PO; +METO25TA3 PO; -METO50TA PO; +METR-1 PO; -OMEP40CA2 PO; +PROT40TA PO; -WALKER WHEELS/F1 MIS; +XANA1TAB2 PO
[2016-10-22 10:09] VITALS: BP 140/80; PULSE 75; RESP 20; TEMP 98.4; O2SAT 94
[2016-10-22] MEDS ORDERED: RESP: ALBUTEROL 2.5 MG/IPRATROPIUM 0.5 MG NEB (SCH) INH ONE (11:00)
--- NOTE | 2016-10-22 11:03 | PD ---
HPI Chief Complaint: Respiratory Distress Time Seen by Provider: 10:46 Travel History International Travel<30 days: No Contact w/Intl Traveler<30days: No Traveled to known affect area: No History of Present Illness HPI 81-year-old female complains of shortness of breath and generalized malaise and weakness. Patient states that she started having generalized malaise and weakness 5 days ago. Patient started having shortness of breath for the past 3 days. Patient states that she has some mild dry cough. Patient denies any headache. Patient denies any chest pain. Patient denies abdominal pain. Patient denies any nausea vomiting diarrhea. Patient denies any fever chills. Patient denies any back pain. Patient denied dysuria or frequency. Patient has history COPD. Patient has been using nebulizer and home O2 without much relief of the shortness of breath. Patient has history of hypertension, diabetes, hyperlipidemia, arthritis and CAD. PFSH Past Medical History Arthritis: Yes Asthma: No Autoimmune Disease: No Blood Disorders: No Anxiety: Yes Depression: Yes Heart Rhythm Problems: Yes Cancer: No Cardiac Catheterization: No Cardiovascular Problems: Yes ([place]) High Cholesterol: Yes Chemotherapy: No Chest Pain: No Congestive Heart Failure: Yes COPD: Yes Cerebrovascular Accident: No Diabetes: Yes Patient Takes Glucophage: Yes (10/22/2016 0800) Diminished Hearing: Yes ([place]) Endocrine: No Gastrointestinal Disorders: Yes (TAKES PROTONIX) GERD: No Glaucoma: No Genitourinary: No Headaches: Yes Hepatitis: No Hiatal Hernia: No Hypertension: Yes Immune Disorder: No Implanted Vascular Access Dvce: Yes Kidney Stones: No Musculoskeletal: Yes Neurologic: Yes Parkinson's Disease: Yes Psychiatric: Yes Reproductive: No Respiratory: Yes (COPD) Integumentary: Yes (SKIN GROWTH ON SCALP AREa) Immunizations Current: Yes Migraines: Yes Myocardial Infarction: No Radiation Therapy: No Renal Failure: No Seizures: No Sickle Cell Disease: No Sleep Apnea: No Thyroid Disease: No Ulcer: No PNEUMOCCOCAL Vaccine (Year): 1 ?: Not Menopausal: Yes Past Surgical History Abdominal Surgery: No AICD: No Arteriovenous Shunt: No Body Medical Devices: BILAT KNEE REPLACEMENT Cardiac Surgery: No Coronary Artery Bypass Graft: No Ear Surgery: No Endocrine Surgery: No Eye Surgery: No Genitourinary Surgery: No Gynecologic Surgery: No Insulin Pump: No Joint Replacement: Yes (BILAT KNEE, BACK) Neurologic Surgery: No Oral Surgery: No Pacemaker: No Thoracic Surgery: No Tonsillectomy: Yes Other Surgery: Yes (bilat knee, back, hital hernia) Family History Family Myocardial Infarction: Yes (parents-father from [place]) Social History Alcohol Use: No Tobacco Use: No Substance Use: No Allergies-Medications (Allergen,Severity, Reaction): Coded Allergies: Codeine (Verified Allergy, Severe, NAUSEA, 10/22/16) Dilaudid (Verified Allergy, Severe, Nausea/Vomiting, 10/22/16) Lortab (Verified Allergy, Unknown, Nausea/Vomiting, 10/22/16) Reported Meds & Prescriptions Reported Meds & Active Scripts Active Enalapril (Enalapril Maleate) 20 Mg Tab 20 Mg PO BID Metoprolol Tartrate 25 Mg Tab 25 Mg PO BID Lactobacillus Acidophilus 1 Tab Tab 1 Tab PO TIDAC Xanax (Alprazolam) 1 Mg Tab 1 Mg PO BID PRN Ultram (Tramadol HCl) 50 Mg Tab 50 Mg PO Q8H PRN Reported Senokot (Sennosides) 8.6 Mg Tab 8.6 Mg PO HS PRN Protonix (Pantoprazole Sodium) 40 Mg Tab 40 Mg PO DAILY Nitroglycerin SL (Nitroglycerin) 0.4 Mg Subl 0.4 Mg SL DIRECTED PRN ONE TABLET UNDER THE TONGUE NEEDED FOR CHEST PAIN, MAY REPEAT EVERY FIVE MINUTES FOR A TOTAL OF 3 DOSES OR CALL 911 IF NO RELIEF Metformin (Metformin HCl) 1,000 Mg Tab 1,000 Mg PO BIDPC With meals Levemir Inj (Insulin Detemir) 1,000 unit/ 10 ML Vial 30 Units SQ DAILY IN THE MORNING Do not mix with any other Insulin. Levemir Inj (Insulin Detemir) 1,000 unit/ 10 ML Vial 3 Units SQ HS Do not mix with any other Insulin. Gabapentin 300 Mg Cap 300 Mg PO BID Catapres (Clonidine) 0.1 Mg Tab 0.1 Mg PO HS Symbicort Inh (Budesonide/Formoterol Fumarate) 160-4.5 Mcg/Act Aero 2 Puff INH Q12HR Atorvastatin (Atorvastatin Calcium) 40 Mg Tab 40 Mg PO HS Aspirin 81 Mg Chew 81 Mg CHEW DAILY Review of Systems General / Constitutional: No: Fever Eyes: No: Visual changes HENT: No: Headaches Respiratory: Positive: Cough, Shortness of Breath Gastrointestinal: No: Abdominal Pain Genitourinary: No: Dysuria Musculoskeletal: No: Pain Skin: No Rash Neurologic: No: Weakness Psychiatric: No: Depression Endocrine: No: Polydipsia Hematologic/Lymphatic: No: Easy Bruising Physical Exam Narrative GENERAL: Well-nourished, well-developed patient. SKIN: Focused skin assessment warm/dry. HEAD: Normocephalic. EYES: No scleral icterus. No injection or drainage. NECK: Supple, trachea midline. No JVD or lymphadenopathy. CARDIOVASCULAR: Regular rate and rhythm without murmurs, gallops, or rubs. RESPIRATORY: Breath sounds equal bilaterally. No accessory muscle use. GASTROINTESTINAL: Abdomen soft, non-tender, nondistended. MUSCULOSKELETAL: No cyanosis, or edema. BACK: Nontender without obvious deformity. No CVA tenderness. Neurologic exam normal. Data Data Last Documented VS Vital Signs Date Time Temp Pulse Resp B/P Pulse Ox O2 Delivery O2 Flow Rate FiO2 10/22/16 12:30 78 16 182/79 96 Nasal Cannula 2 10/22/16 10:09 98.4 Orders Electrocardiogram (10/22/16 ) Complete Blood Count With Diff (10/22/16 10:52) Comprehensive Metabolic Panel (10/22/16 10:52) Creatine Kinase (Cpk) (10/22/16 10:52) Troponin I (10/22/16 10:52) B-Type Natriuretic Peptide (10/22/16 10:52) Prothrombin Time / Inr (Pt) (10/22/16 10:52) Act Partial Throm Time (Ptt) (10/22/16 10:52) Urinalysis - C+S If Indicated (10/22/16 10:52) Thyroid Stimulating Hormone (10/22/16 10:52) Influenzae A/B Antigen (10/22/16 10:52) Chest, Single Ap (10/22/16 10:52) Iv Access Insert/Monitor (10/22/16 10:52) Ecg Monitoring (10/22/16 10:52) Oximetry (10/22/16 10:52) Albuterol-Ipratropium Neb (Duoneb Neb) (10/22/16 11:00) Urine Culture (10/22/16 12:00) Labs Laboratory Tests Test 10/22/16 10/22/16 11:00 12:00 White Blood Count 6.8 TH/MM3 Red Blood Count 4.07 MIL/MM3 Hemoglobin 12.3 GM/DL Hematocrit 36.2 % Mean Corpuscular Volume 89.0 FL Mean Corpuscular Hemoglobin 30.2 PG Mean Corpuscular Hemoglobin 34.0 % Concent Red Cell Distribution Width 13.5 % Platelet Count 143 TH/MM3 Mean Platelet Volume 9.1 FL Neutrophils (%) (Auto) 71.0 % Lymphocytes (%) (Auto) 20.2 % Monocytes (%) (Auto) 7.1 % Eosinophils (%) (Auto) 1.4 % Basophils (%) (Auto) 0.3 % Neutrophils # (Auto) 4.8 TH/MM3 Lymphocytes # (Auto) 1.4 TH/MM3 Monocytes # (Auto) 0.5 TH/MM3 Eosinophils # (Auto) 0.1 TH/MM3 Basophils # (Auto) 0.0 TH/MM3 CBC Comment DIFF FINAL Differential Comment Prothrombin Time 10.3 SEC Prothromb Time International 0.9 RATIO Ratio Activated Partial 21.9 SEC Thromboplast Time Sodium Level 140 MEQ/L Potassium Level 4.1 MEQ/L Chloride Level 105 MEQ/L Carbon Dioxide Level 25.4 MEQ/L Anion Gap 10 MEQ/L Blood Urea Nitrogen 14 MG/DL Creatinine 0.78 MG/DL Estimat Glomerular Filtration 71 ML/MIN Rate Random Glucose 262 MG/DL Calcium Level 8.8 MG/DL Total Bilirubin 0.4 MG/DL Aspartate Amino Transf 15 U/L (AST/SGOT) Alanine Aminotransferase 14 U/L (ALT/SGPT) Alkaline Phosphatase 101 U/L Total Creatine Kinase 109 U/L Troponin I LESS THAN 0.02 NG/ML B-Type Natriuretic Peptide 197 PG/ML Total Protein 7.1 GM/DL Albumin 3.6 GM/DL Thyroid Stimulating Hormone 1.640 uIU/ML 3rd Gen Urine Color YELLOW Urine Turbidity CLEAR Urine pH 6.0 Urine Specific [place] 1.022 Urine Protein 300 mg/dL Urine Glucose (UA) 300 mg/dL Urine Ketones NEG mg/dL Urine Occult Blood NEG Urine Nitrite NEG Urine Bilirubin NEG Urine Urobilinogen 2.0 MG/DL Urine Leukocyte Esterase TRACE Urine RBC 3 /hpf Urine WBC 14 /hpf Urine Squamous Epithelial 1 /hpf Cells Urine Hyaline Casts 1 /lpf Urine Mucus FEW /lpf Microscopic Urinalysis Comment CULTURE INDICATED MDM Medical Decision Making Medical Screen Exam Complete: Yes Emergency Medical Condition: Yes Interpretation(s) Last Impressions Chest X-Ray 10/22/16 1052 Signed Impressions: Service Date/Time: Saturday, October 22, 2016 11:28 - CONCLUSION: 1. Cardiomegaly. No acute congestive failure. Víctor Lombardo MD 12:53 PM. CBC within normal limit. CMP within normal limit. Cardiac enzymes are normal. BNP 197. UA is positive for WBC Differential Diagnosis Differential diagnosis including URI, bronchitis, pneumonia, PE, pneumothorax, acute exacerbation COPD. Narrative Course 81-year-old female with generalized malaise weakness and shortness of breath. History of COPD. Albuterol with Atrovent unit dose treatment times one. Decadron 4 mg IV. Bactrim DS one tablet by mouth given. Diagnosis Primary Impression: COPD with acute exacerbation Additional Impression: UTI (urinary tract infection) Qualified Code: N30.00 - Acute cystitis without hematuria Additional Instructions: Continue with nebulizer treatment at home as directed. Bactrim DS as directed. Prednisone is directed. Follow-up with personal physician. Accu-Chek blood sugar daily while on prednisone. Return if worse. Med/Other Pt SpecificInfo: Prescription(s) given Scripts Sulfamethoxazole-Trimethoprim (Bactrim DS)800-160 Mg Tab1 Tab PO BID #6 TAB Prov:Edmond Munguia MD 10/22/16 Prednisone 20 Mg Tab20 Mg PO DAILY #5 TAB Prov:Edmond Munguia MD 10/22/16 Disposition: 01 DISCHARGE HOME Condition: Stable Edmond Munguia MD Oct 22, 2016 11:03
[2016-10-22 11:20] LABS: AUTOMATED NEUTROPHIL # 4.8 TH/MM3 (1.8-7.7); BASOPHIL % 0.3 % (0.0-2.0); EOSINOPHIL # 0.1 TH/MM3 (0-0.4); EOSINOPHIL % 1.4 % (0.0-4.0); HEMATOCRIT 36.2 % (35.0-46.0); HEMO FLAGS DIFF FINAL; LYMPH % 20.2 % (9.0-44.0); LYMPHOCYTE # 1.4 TH/MM3 (1.0-4.8); MEAN CORPUSCULAR HEMOGLOBIN 30.2 PG (27.0-34.0); MONO % 7.1 % (0.0-8.0); PLATELET COUNT 143 TH/MM3 (150-450); RED BLOOD COUNT 4.07 MIL/MM3 (4.00-5.30); RED CELL DISTRIBUTION WIDTH 13.5 % (11.6-17.2); WHITE BLOOD COUNT 6.8 TH/MM3 (4.0-11.0)
[2016-10-22] MEDS ORDERED: SENO8.6T5 PO (11:28)
[2016-10-22 11:31] LABS: APTT (PATIENT) 21.9 SEC (24.3-30.1); INTERNATIONAL NORMALIZED RATIO 0.9 RATIO; PROTHROMBIN TIME - PATIENT 10.3 SEC (9.8-11.6)
[2016-10-22 11:40] LABS: ALT (GPT) 14 U/L (10-53); CHLORIDE 105 MEQ/L (98-107); GLOMERULAR FILTRATION RATE 71 ML/MIN (>89); POTASSIUM 4.1 MEQ/L (3.5-5.1); SODIUM (NA) 140 MEQ/L (136-145)
--- NOTE | 2016-10-22 11:54 | RADRPT ---
EXAM DATE/TIME: 10/22/2016 11:28 [facility] COMPARISON: CHEST SINGLE AP, July 28, 2016, 8:18. INDICATIONS : Short of breath MEDICAL HISTORY : Hypertension. Cardiovascular disease. SURGICAL HISTORY : None. ENCOUNTER: Initial ACUITY: 1 day PAIN SCORE: Non-responsive. LOCATION: Bilateral chest FINDINGS: The heart is enlarged. There are chronic interstitial changes within the pulmonary parenchyma. The vi sualized bony structures are grossly intact. CONCLUSION: 1. Cardiomegaly. No acute congestive failure. Víctor Lombardo MD on October 22, 2016 at 11:51 Board Certified Radiologist. This report was verified electronically.
[2016-10-22 12:16] LABS: BLOOD, URINE NEG (NEG); COMMENT (UR) CULTURE INDICATED; CULTURE IF INDICATED CULTURE INDICATED; GLUCOSE,URINE 300 mg/dL (NEG); HYALINE CAST, URINE 1 /lpf (RARE); KETONE, URINE NEG (NEG); MUCUS URINE FEW /lpf (OCC); NITRITE,URINE NEG (NEG); SQUAMOUS EPITHELIAL CELL URINE 1 /hpf (0-5); URINE COLOR YELLOW (YELLW/STRAW)
[2016-10-22 12:30] VITALS: BP 182/79; PULSE 78; RESP 16; O2SAT 96
[2016-10-22 12:43] LABS: ALKALINE PHOSPHATASE 101 U/L (45-117); ANION GAP 10 MEQ/L (5-15); AST (GOT) 15 U/L (15-37); BICARBONATE 25.4 MEQ/L (21.0-32.0); BLOOD UREA NITROGEN 14 MG/DL (7-18); CREATINE KINASE 109 U/L (26-192); TOTAL BILIRUBIN ADULT 0.4 MG/DL (0.2-1.0)
[2016-10-22] MEDS ORDERED: PRED20 PO (12:58)
[2016-10-22] MEDS ORDERED: BACT800T5 PO (12:58)
[2016-10-22] MEDS ORDERED: DEXAMETHASONE SOD PHOS 4 MG/ML VIAL IV PUSH ONE (13:00)
[2016-10-22] MEDS ORDERED: SULFAMETHOXAZOLE-TRIMETHOPRIM DS 800-160 MG TAB PO ONE (13:00)
--- NOTE | 2016-10-22 16:15 | EKG ---
Date Performed: 10/22/2016 Time Performed: 10:38:53 PTAGE: 81 years EKG: Sinus rhythm MARKED LEFT AXIS DEVIATION LEFT VENTRICULAR HYPERTROPHY AND ST-T CHANGE ABNORMAL ECG PREVIOUS TRACING : 07/26/2016 21.34 Compared to prior tracing no significant change DOCTOR: Cy Ramirez Interpretating Date/Time 10/22/2016 16:13:59
== END 2016-10-22 17:58 | disposition home or self-care (01) ==
LOC: NEPE 10:02 → NEDAMB 17:58
DX: J44.1 Chronic obstructive pulmonary disease with (acute) exacerbation (principal); N30.00 Acute cystitis without hematuria; R53.81 Other malaise; R53.1 Weakness; R94.31 Abnormal electrocardiogram [ECG] [EKG]; I10 Essential (primary) hypertension; E11.9 Type 2 diabetes mellitus without complications; G20 Parkinson's disease; E78.5 Hyperlipidemia, unspecified; H91.90 Unspecified hearing loss, unspecified ear; Z79.4 Long term (current) use of insulin; Z87.09 Personal history of other diseases of the respiratory system; Z87.39 Personal history of other diseases of the musculoskeletal system and connective tissue; Z86.79 Personal history of other diseases of the circulatory system; Z86.59 Personal history of other mental and behavioral disorders; Z87.19 Personal history of other diseases of the digestive system
CPT/HCPCS: 71010; 80053; 81001; 82550; 83880; 84443; 84484; 85025; 85610; 85730; 87086; 87804; 93005; 94664; 96374; 99284; J1100

== ENCOUNTER 2016-12-24 12:19 | Emergency (ER) | payer MEDICARE, MEDICAID ==
[~2016-12-24] VITALS: Ht 157.5 cm; Wt 70.0 kg
[~2016-12-24 12:19] MED LIST changes: +BACT800T5 PO; -LEVA750T PO; -METR-1 PO; +PRED20 PO; +SENO8.6T5 PO
--- NOTE | 2016-12-24 12:33 | PD ---
HPI Chief Complaint: General Weakness Time Seen by Provider: 12:31 Travel History International Travel<30 days: No Contact w/Intl Traveler<30days: No History of Present Illness HPI 81-year-old female presents the emergency department with several days of increasing generalized weakness. Patient states some history of dysuria and chills. Patient states she was treated for urinary tract infection approximately 2 weeks ago. Patient was reportedly supposed to have a doctor's appointment today with was unable to go. She called her doctor's office and was referred here by ambulance. Patient complains of generalized weakness but no specific complaints of pain. She denies significant abdominal pain, nausea, vomiting, but has had diarrhea reportedly for the past several days. Patient denies shortness of breath, chest pain, or upper respiratory symptoms. She is allergic to acetaminophen, codeine, hydrocodone, and hydromorphone. PFSH Past Medical History Arthritis: Yes Asthma: No Autoimmune Disease: No Blood Disorders: No Anxiety: Yes Depression: Yes Heart Rhythm Problems: Yes Cancer: No Cardiac Catheterization: No Cardiovascular Problems: Yes ([place]) High Cholesterol: Yes Chemotherapy: No Chest Pain: No Congestive Heart Failure: Yes COPD: Yes Cerebrovascular Accident: No Diabetes: Yes Diminished Hearing: Yes ([place]) Endocrine: No Gastrointestinal Disorders: Yes (TAKES PROTONIX) GERD: No Glaucoma: No Genitourinary: No Headaches: Yes Hepatitis: No Hiatal Hernia: No Hypertension: Yes Immune Disorder: No Implanted Vascular Access Dvce: Yes Kidney Stones: No Musculoskeletal: Yes Neurologic: Yes Parkinson's Disease: Yes Psychiatric: Yes Reproductive: No Respiratory: Yes (COPD) Integumentary: Yes (SKIN GROWTH ON SCALP AREa) Immunizations Current: Yes Migraines: Yes Myocardial Infarction: No Radiation Therapy: No Renal Failure: No Seizures: No Sickle Cell Disease: No Sleep Apnea: No Thyroid Disease: No Ulcer: No PNEUMOCCOCAL Vaccine (Year): 1 Menopausal: Yes Past Surgical History Abdominal Surgery: No AICD: No Arteriovenous Shunt: No Body Medical Devices: BILAT KNEE REPLACEMENT Cardiac Surgery: No Coronary Artery Bypass Graft: No Ear Surgery: No Endocrine Surgery: No Eye Surgery: No Genitourinary Surgery: No Gynecologic Surgery: No Insulin Pump: No Joint Replacement: Yes (BILAT KNEE, BACK) Neurologic Surgery: No Oral Surgery: No Pacemaker: No Thoracic Surgery: No Tonsillectomy: Yes Other Surgery: Yes (bilat knee, back, hital hernia) Social History Alcohol Use: No Tobacco Use: No Substance Use: No Allergies-Medications (Allergen,Severity, Reaction): Coded Allergies: codeine (Unverified Allergy, Severe, NAUSEA, 12/14/16) hydromorphone (Unverified Allergy, Severe, Nausea/Vomiting, 12/14/16) acetaminophen (Unverified Allergy, Unknown, Nausea/Vomiting, 12/14/16) hydrocodone (Unverified Allergy, Unknown, Nausea/Vomiting, 12/14/16) Reported Meds & Prescriptions Reported Meds & Active Scripts Active Bactrim DS (Sulfamethoxazole-Trimethoprim) 800-160 Mg Tab 1 Tab PO BID Prednisone 20 Mg Tab 20 Mg PO DAILY Enalapril (Enalapril Maleate) 20 Mg Tab 20 Mg PO BID Metoprolol Tartrate 25 Mg Tab 25 Mg PO BID Lactobacillus Acidophilus 1 Tab Tab 1 Tab PO TIDAC Xanax (Alprazolam) 1 Mg Tab 1 Mg PO BID PRN Ultram (Tramadol HCl) 50 Mg Tab 50 Mg PO Q8H PRN Reported Senokot (Sennosides) 8.6 Mg Tab 8.6 Mg PO HS PRN Protonix (Pantoprazole Sodium) 40 Mg Tab 40 Mg PO DAILY Nitroglycerin SL (Nitroglycerin) 0.4 Mg Subl 0.4 Mg SL DIRECTED PRN ONE TABLET UNDER THE TONGUE NEEDED FOR CHEST PAIN, MAY REPEAT EVERY FIVE MINUTES FOR A TOTAL OF 3 DOSES OR CALL 911 IF NO RELIEF Metformin (Metformin HCl) 1,000 Mg Tab 1,000 Mg PO BIDPC With meals Levemir Inj (Insulin Detemir) 1,000 unit/ 10 ML Vial 30 Units SQ DAILY IN THE MORNING Do not mix with any other Insulin. Levemir Inj (Insulin Detemir) 1,000 unit/ 10 ML Vial 3 Units SQ HS Do not mix with any other Insulin. Gabapentin 300 Mg Cap 300 Mg PO BID Catapres (Clonidine) 0.1 Mg Tab 0.1 Mg PO HS Symbicort Inh (Budesonide/Formoterol Fumarate) 160-4.5 Mcg/Act Aero 2 Puff INH Q12HR Atorvastatin (Atorvastatin Calcium) 40 Mg Tab 40 Mg PO HS Aspirin 81 Mg Chew 81 Mg CHEW DAILY Review of Systems Except as stated in HPI: all other systems reviewed are Neg General / Constitutional: Positive: Chills, No: Fever Eyes: No: Visual changes HENT: No: Headaches Cardiovascular: No: Chest Pain or Discomfort Respiratory: No: Shortness of Breath Gastrointestinal: No: Abdominal Pain Genitourinary: Positive: Dysuria Musculoskeletal: No: Pain Skin: No Rash Neurologic: Positive: Weakness (generalized.) Psychiatric: No: Depression Endocrine: No: Polydipsia Hematologic/Lymphatic: No: Easy Bruising Physical Exam Narrative GENERAL: Patient appears in no acute distress. SKIN: Warm and dry. Normal color. Normal turgor. HEAD: Atraumatic. Normocephalic. EYES: Pupils equal and round. No scleral icterus. No injection or drainage. ENT: No nasal bleeding or discharge. Mucous membranes pink and moist. Pharynx is clear. Airway is patent. NECK: Trachea midline. Supple nontender. CARDIOVASCULAR: Regular rate and rhythm. No murmurs gallops or rubs. RESPIRATORY: No accessory muscle use. Clear to auscultation. Breath sounds equal bilaterally. GASTROINTESTINAL: Abdomen soft, non-tender, nondistended. Hepatic and splenic margins not palpable. No CVA tenderness. MUSCULOSKELETAL: Extremities without clubbing, cyanosis, or edema. No obvious deformities. NEUROLOGICAL: Awake and alert. No obvious cranial nerve deficits. Motor grossly within normal limits. Five out of 5 muscle strength in the arms and legs. Normal speech. PSYCHIATRIC: Appropriate mood and affect; insight and judgment normal. Data Data Last Documented VS Vital Signs Date Time Temp Pulse Resp B/P (MAP) Pulse Ox O2 Delivery O2 Flow Rate FiO2 12/24/16 12:57 98.6 67 16 187/83 (117) 94 Orders Orders Electrocardiogram (12/24/16 12:40) Complete Blood Count With Diff (12/24/16 12:40) Comprehensive Metabolic Panel (12/24/16 12:40) Magnesium (Mg) (12/24/16 12:40) Ckmb (Isoenzyme) Profile (12/24/16 12:40) Troponin I (12/24/16 12:40) Act Partial Throm Time (Ptt) (12/24/16 12:40) Prothrombin Time / Inr (Pt) (12/24/16 12:40) Urinalysis - C+S If Indicated (12/24/16 12:40) Chest, Single Ap (12/24/16 12:40) Ecg Monitoring (12/24/16 12:40) Iv Access Insert/Monitor (12/24/16 12:40) Oximetry (12/24/16 12:40) Sodium Chloride 0.9% Flush (Ns Flush) (12/24/16 12:45) Orthostatic Vital Signs (12/24/16 12:40) Sodium Chlorid 0.9% 500 Ml Inj (Ns 500 M (12/24/16 12:45) Cath For Specimen (12/24/16 12:40) Urine Culture (12/24/16 13:20) Ceftriaxone Inj (Rocephin Inj) (12/24/16 14:00) Labs Laboratory Tests Test 12/24/16 12:30 12/24/16 13:20 White Blood Count 6.1 TH/MM3 Red Blood Count 4.25 MIL/MM3 Hemoglobin 12.7 GM/DL Hematocrit 38.2 % Mean Corpuscular Volume 89.8 FL Mean Corpuscular Hemoglobin 29.9 PG Mean Corpuscular Hemoglobin Concent 33.3 % Red Cell Distribution Width 14.4 % Platelet Count 150 TH/MM3 Mean Platelet Volume 8.6 FL Neutrophils (%) (Auto) 57.1 % Lymphocytes (%) (Auto) 33.2 % Monocytes (%) (Auto) 7.0 % Eosinophils (%) (Auto) 2.1 % Basophils (%) (Auto) 0.6 % Neutrophils # (Auto) 3.5 TH/MM3 Lymphocytes # (Auto) 2.0 TH/MM3 Monocytes # (Auto) 0.4 TH/MM3 Eosinophils # (Auto) 0.1 TH/MM3 Basophils # (Auto) 0.0 TH/MM3 CBC Comment DIFF FINAL Differential Comment Prothrombin Time 10.1 SEC Prothromb Time International Ratio 0.9 RATIO Activated Partial Thromboplast Time 25.0 SEC Blood Urea Nitrogen 11 MG/DL Creatinine 0.66 MG/DL Random Glucose 116 MG/DL Total Protein 6.7 GM/DL Albumin 3.1 GM/DL Calcium Level 9.0 MG/DL Magnesium Level 1.9 MG/DL Alkaline Phosphatase 89 U/L Aspartate Amino Transf (AST/SGOT) 12 U/L Alanine Aminotransferase (ALT/SGPT) 11 U/L Total Bilirubin 0.2 MG/DL Sodium Level 143 MEQ/L Potassium Level 3.4 MEQ/L Chloride Level 107 MEQ/L Carbon Dioxide Level 29.1 MEQ/L Anion Gap 7 MEQ/L Estimat Glomerular Filtration Rate 86 ML/MIN Total Creatine Kinase 36 U/L Troponin I LESS THAN 0.02 NG/ML Urine Color YELLOW Urine Turbidity HAZY Urine pH 6.0 Urine Specific [place] 1.018 Urine Protein 300 mg/dL Urine Glucose (UA) TRACE mg/dL Urine Ketones NEG mg/dL Urine Occult Blood NEG Urine Nitrite NEG Urine Bilirubin NEG Urine Urobilinogen LESS THAN 2.0 MG/DL Urine Leukocyte Esterase NEG Urine RBC LESS THAN 1 /hpf Urine WBC 2 /hpf Urine Squamous Epithelial Cells <1 /hpf Urine Amorphous Sediment MOD Urine Bacteria OCC /hpf Microscopic Urinalysis Comment CATH-CULTURE IND MDM Medical Decision Making Medical Screen Exam Complete: Yes Emergency Medical Condition: Yes Medical Record Reviewed: Yes Differential Diagnosis Generalized weakness. Dehydration. Electrolyte imbalance. Cardiac syndrome. Urinary tract infection. Weakness. Narrative Course Patient appears medically stable at time of exam. EKG is ordered as well as chest x-ray. Labs ordered including CBC, CMP, cardiac panel, and urinalysis. Orthostatics ordered. Patient is given 500 mils normal saline bolus. CBC is unremarkable. CMP remarkable for potassium 3.4, BUN is 11, creatinine is 0.66 with a GFR is estimated at 86. Random glucose is 116. Troponin is less than 0.02. Albumin is 3.1. Coagulation studies are normal. Urinalysis suggestive of urinary tract infection. Proteinuria is noted 300. Patient is given Rocephin 1 g IV as well as Diflucan 150 mg by mouth. Patient is able to ambulate without difficulty. Patient will be continued on Keflex 500 mg 3 times a day for 7 days as well as repeat Diflucan 150 mg by mouth in 1 week. Urine culture is pending. Patient follow-up with her primary care physician in one week to ensure improvement. Diagnosis Primary Impression: Generalized weakness Additional Impressions: Cystitis Dehydration Candidiasis of female genitalia Admitting Information Admitting Physician Requests: Observation Referrals: Primary Care Physician 1 week Patient Instructions: Dysuria (ED), General Instructions, Vulvovaginal Candidiasis (ED) Additional Instructions: Urinalysis suggestive of urinary tract infection. Proteinuria is noted 300. Patient is given Rocephin 1 g IV as well as Diflucan 150 mg by mouth. Patient will be continued on Keflex 500 mg 3 times a day for 7 days as well as repeat Diflucan 150 mg by mouth in 1 week. Urine culture is pending. Patient follow-up with her primary care physician in one week to ensure improvement. Med/Other Pt SpecificInfo: Prescription(s) given Disposition: 01 DISCHARGE HOME Condition: Stable Matti Nielsen Dec 24, 2016 12:32
[2016-12-24] MEDS ORDERED: SODIUM CHLORID 0.9% 500 ML INJ 500 ML IV ONE (12:45)
[2016-12-24] MEDS ORDERED: SODIUM CHLORIDE 0.9% FLUSH 10 ML FLUSH IVF PRN (12:45)
[2016-12-24 12:57] VITALS: BP 187/83; PULSE 67; RESP 16; TEMP 98.6; O2SAT 94
[2016-12-24 13:09] LABS: AUTOMATED NEUTROPHIL # 3.5 TH/MM3 (1.8-7.7); BASOPHIL % 0.6 % (0.0-2.0); EOSINOPHIL # 0.1 TH/MM3 (0-0.4); EOSINOPHIL % 2.1 % (0.0-4.0); HEMATOCRIT 38.2 % (35.0-46.0); HEMO FLAGS DIFF FINAL; LYMPH % 33.2 % (9.0-44.0); MEAN CELL VOLUME 89.8 FL (80.0-100.0); MEAN CORPUSCULAR HEMOGLOBIN 29.9 PG (27.0-34.0); MEAN CORPUSCULAR HGB CONC 33.3 % (32.0-36.0); NEUT % 57.1 % (16.0-70.0); PLATELET COUNT 150 TH/MM3 (150-450); RED BLOOD COUNT 4.25 MIL/MM3 (4.00-5.30); RED CELL DISTRIBUTION WIDTH 14.4 % (11.6-17.2); WHITE BLOOD COUNT 6.1 TH/MM3 (4.0-11.0)
[2016-12-24 13:15] LABS: INTERNATIONAL NORMALIZED RATIO 0.9 RATIO; PROTHROMBIN TIME - PATIENT 10.1 SEC (9.8-11.6)
[2016-12-24 13:26] LABS: ALT (GPT) 11 U/L (10-53); ANION GAP 7 MEQ/L (5-15); AST (GOT) 12 U/L (15-37); BICARBONATE 29.1 MEQ/L (21.0-32.0); BLOOD UREA NITROGEN 11 MG/DL (7-18); CHLORIDE 107 MEQ/L (98-107); GLOMERULAR FILTRATION RATE 86 ML/MIN (>89); MAGNESIUM 1.9 MG/DL (1.5-2.5); POTASSIUM 3.4 MEQ/L (3.5-5.1); SODIUM (NA) 143 MEQ/L (136-145)
[2016-12-24 13:30] LABS: ALKALINE PHOSPHATASE 89 U/L (45-117); TOTAL BILIRUBIN ADULT 0.2 MG/DL (0.2-1.0)
[2016-12-24 13:32] LABS: CREATINE KINASE 36 U/L (26-192)
--- NOTE | 2016-12-24 13:33 | RADRPT ---
EXAM DATE/TIME: 12/24/2016 13:03 [facility] COMPARISON: CHEST SINGLE AP, October 22, 2016, 11:28. INDICATIONS : Short of breath. MEDICAL HISTORY : Cardiovascular disease. Diabetes mellitus type 2. Hypertension.COPD SURGICAL HISTORY : None. ENCOUNTER: Initial ACUITY: 1 day PAIN SCORE: 0/10 LOCATION: Bilateral chest FINDINGS: Examination is limited due to patient rotation. No significant focal pleural or parenchymal opacities . Cardiac silhouette is mildly enlarged.. Bony thorax is intact. CONCLUSION: 1. Rotated examination without acute cardiopulmonary disease. Brandin Santoro MD on December 24, 2016 at 13:30 Board Certified Radiologist. This report was verified electronically.
[2016-12-24 13:41] LABS: BACTERIA, URINE OCC /hpf; BLOOD, URINE NEG (NEG); COMMENT (UR) CATH-CULTURE IND; CULTURE IF INDICATED CATH CULTURE IND; GLUCOSE,URINE TRACE mg/dL (NEG); KETONE, URINE NEG (NEG); NITRITE,URINE NEG (NEG); SQUAMOUS EPITHELIAL CELL URINE <1 /hpf (0-5); URINE COLOR YELLOW (YELLW/STRAW)
[2016-12-24] MEDS ORDERED: cefTRIAXone INJ 1,000 MG in SODIUM CHLORIDE 0.9% INJ 100 ML IV ONE (14:00)
[2016-12-24 14:17] VITALS: BP_SYST 183; BP_SYST 192; BP_SYST 203; BP_DIAS 79; BP_DIAS 80; BP_DIAS 87
[2016-12-24] MEDS ORDERED: CEPH-460 PO (14:21)
[2016-12-24] MEDS ORDERED: DIFL150T PO (14:21)
[2016-12-24] MEDS ORDERED: FLUCONAZOLE 100 MG TAB PO ONE (14:30)
[2016-12-24 16:07] VITALS: BP 132/65; PULSE 77; RESP 16; O2SAT 100
--- NOTE | 2016-12-25 18:41 | EKG ---
Date Performed: 12/24/2016 Time Performed: 13:22:37 PTAGE: 81 years EKG: Sinus rhythm LEFT ANTERIOR FASCICULAR BLOCK LEFT VENTRICULAR HYPERTROPHY AND ST-T CHANGE ABNORMAL ECG PREVIOUS TRACING : 10/22/2016 10.38 Compared to prior tracing no significant change DOCTOR: Kyaw Farah Interpretating Date/Time 12/25/2016 18:40:37
== END 2016-12-24 16:28 | disposition home or self-care (01) ==
LOC: NEPC 12:19
DX: R53.1 Weakness (principal); N30.90 Cystitis, unspecified without hematuria; E86.0 Dehydration; B37.3 Candidiasis of vulva and vagina; I44.4 Left anterior fascicular block; R94.31 Abnormal electrocardiogram [ECG] [EKG]; I11.0 Hypertensive heart disease with heart failure; I50.9 Heart failure, unspecified; G20 Parkinson's disease
CPT/HCPCS: 71010; 80053; 81001; 82550; 83735; 84484; 85025; 85610; 85730; 87086; 93005; 96374; 99285; J0696; J7040; P9612

== ENCOUNTER 2017-07-21 20:28 | Emergency (ER) | payer MEDICARE, MEDICAID ==
[~2017-07-21 20:28] MED LIST changes: +ASPI-516 CHEW; -ASPI81CH CHEW; +CEPH-460 PO; +DIFL150T PO; +TRAM50 PO; -ULTR50TA5 PO
[2017-07-21 21:47] VITALS: BP 226/92; PULSE 65; RESP 16; TEMP 98.3; O2SAT 96
--- NOTE | 2017-07-21 22:12 | PD ---
HPI Chief Complaint: General Weakness Time Seen by Provider: 21:50 Travel History International Travel<30 days: No Contact w/Intl Traveler<30days: No Traveled to known affect area: No History of Present Illness HPI 81-year-old female that presents to the ED for evaluation of generalized weakness. Per patient she's been feeling weak in her legs and had a lot of cough and chest pain. She had this for about a week. Per patient is presently getting worse. Per patient, in was because she couldn't ambulate anymore. She says that she is having cough and cold like symptoms for about 2 weeks now. Per patient the cough and runny nose has been ongoing for 2 weeks but it's been more consistent for the past 3 days. Per patient she's also been having diarrhea but the diarrhea she had was about a week ago when she had the "flu". Per patient she called her doctor today who agreed to see get evaluated. Per patient she is feeling very tired and she also wants the Xanax to help her sleep. Per patient she feels weak and tired. Per patient she did took 2 nitroglycerin by herself because she is having chest pain. Per patient she's never had a stent or open heart surgery. Per patient she's been having chest pains on and off for the past couple days and gets worse today. She was given another nitroglycerin as well as aspirin by ambulance. She states that currently she has no pain in the pain is pressure-like and is 4 out of 10. She denies any fevers but states feeling weak in her extremities and having body aches. Has multiple allergies to different medications. PFSH Past Medical History Arthritis: Yes Asthma: No Autoimmune Disease: No Blood Disorders: No Anxiety: Yes Depression: Yes Heart Rhythm Problems: Yes Cancer: No Cardiac Catheterization: No Cardiovascular Problems: Yes ([place]) High Cholesterol: Yes Chemotherapy: No Chest Pain: No Congestive Heart Failure: Yes COPD: Yes Cerebrovascular Accident: No Diabetes: Yes Patient Takes Glucophage: Yes Diminished Hearing: Yes (BIG [place] RESERVATION) Endocrine: No Gastrointestinal Disorders: Yes (TAKES PROTONIX) GERD: No Glaucoma: No Genitourinary: No Headaches: Yes Hepatitis: No Hiatal Hernia: No Hypertension: Yes Immune Disorder: No Implanted Vascular Access Dvce: Yes Kidney Stones: No Musculoskeletal: Yes Neurologic: Yes Parkinson's Disease: Yes Psychiatric: Yes Reproductive: No Respiratory: Yes (COPD) Integumentary: Yes (SKIN GROWTH ON SCALP AREa) Immunizations Current: Yes Migraines: Yes Myocardial Infarction: No Radiation Therapy: No Renal Failure: No Seizures: No Sickle Cell Disease: No Sleep Apnea: No Thyroid Disease: No Ulcer: No Tetanus Vaccination: < 5 Years Influenza Vaccination: Yes PNEUMOCCOCAL Vaccine (Year): 1 Menopausal: Yes Past Surgical History Abdominal Surgery: No AICD: No Arteriovenous Shunt: No Body Medical Devices: BILAT KNEE REPLACEMENT Cardiac Surgery: No Coronary Artery Bypass Graft: No Ear Surgery: No Endocrine Surgery: No Eye Surgery: No Genitourinary Surgery: No Gynecologic Surgery: No Insulin Pump: No Joint Replacement: Yes (BILAT KNEE, BACK) Neurologic Surgery: No Oral Surgery: No Pacemaker: No Thoracic Surgery: No Tonsillectomy: Yes Other Surgery: Yes (bilat knee, back, hiatal hernia) Family History Family Myocardial Infarction: Yes (parents-father from [place]) Social History Alcohol Use: No Tobacco Use: No Substance Use: No Allergies-Medications (Allergen,Severity, Reaction): Coded Allergies: codeine (Unverified Allergy, Severe, NAUSEA, 07/21/17) hydromorphone (Unverified Allergy, Severe, Nausea/Vomiting, 07/21/17) acetaminophen (Unverified Allergy, Unknown, Nausea/Vomiting, 07/21/17) hydrocodone (Unverified Allergy, Unknown, Nausea/Vomiting, 07/21/17) Reported Meds & Prescriptions Reported Meds & Active Scripts Active Diflucan (Fluconazole) 150 Mg Tab 150 Mg PO ONCE Keflex (Cephalexin) 500 Mg Capsule 500 Mg PO Q8H 7 Days Bactrim DS (Sulfamethoxazole-Trimethoprim) 800-160 Mg Tab 1 Tab PO BID Prednisone 20 Mg Tab 20 Mg PO DAILY Enalapril (Enalapril Maleate) 20 Mg Tab 20 Mg PO BID Metoprolol Tartrate 25 Mg Tab 25 Mg PO BID Lactobacillus Acidophilus 1 Tab Tab 1 Tab PO TIDAC Xanax (Alprazolam) 1 Mg Tab 1 Mg PO BID PRN Ultram (Tramadol HCl) 50 Mg Tab 50 Mg PO Q8H PRN Reported Senokot (Sennosides) 8.6 Mg Tab 8.6 Mg PO HS PRN Protonix (Pantoprazole Sodium) 40 Mg Tab 40 Mg PO DAILY Nitroglycerin SL (Nitroglycerin) 0.4 Mg Subl 0.4 Mg SL DIRECTED PRN ONE TABLET UNDER THE TONGUE NEEDED FOR CHEST PAIN, MAY REPEAT EVERY FIVE MINUTES FOR A TOTAL OF 3 DOSES OR CALL 911 IF NO RELIEF Metformin (Metformin HCl) 1,000 Mg Tab 1,000 Mg PO BIDPC With meals Levemir Inj (Insulin Detemir) 1,000 unit/ 10 ML Vial 30 Units SQ DAILY IN THE MORNING Do not mix with any other Insulin. Levemir Inj (Insulin Detemir) 1,000 unit/ 10 ML Vial 3 Units SQ HS Do not mix with any other Insulin. Gabapentin 300 Mg Cap 300 Mg PO BID Catapres (Clonidine) 0.1 Mg Tab 0.1 Mg PO HS Symbicort Inh (Budesonide/Formoterol Fumarate) 160-4.5 Mcg/Act Aero 2 Puff INH Q12HR Atorvastatin (Atorvastatin Calcium) 40 Mg Tab 40 Mg PO HS Aspirin 81 Mg Chew 81 Mg CHEW DAILY Review of Systems Except as stated in HPI: all other systems reviewed are Neg Physical Exam Narrative GENERAL: SKIN: Warm and dry. HEAD: Atraumatic. Normocephalic. EYES: Pupils equal and round 4 mm reactive to light and accommodation. No scleral icterus. No injection or drainage. ENT: No nasal bleeding or discharge. Mucous membranes pink and moist. Tongue is midline. no Uvula deviation. NECK: Trachea midline. No JVD. CARDIOVASCULAR: Regular rate and rhythm. No murmurs, S3, S4. RESPIRATORY: No accessory muscle use. Clear to auscultation. Breath sounds equal bilaterally. GASTROINTESTINAL: Abdomen soft, non-tender, nondistended. Hepatic and splenic margins not palpable. MUSCULOSKELETAL: Extremities without clubbing, cyanosis, or edema. No obvious deformities. Full range of motion of the upper and lower extremity bilaterally. 2+ pulses bilaterally. NEUROLOGICAL: Awake and alert. No obvious cranial nerve deficits. Motor grossly within normal limits. Five out of 5 muscle strength in the arms and legs. Normal speech. PSYCHIATRIC: Appropriate mood and affect; insight and judgment normal. Data Data Last Documented VS Vital Signs Date Time Temp Pulse Resp B/P (MAP) Pulse Ox O2 Delivery O2 Flow Rate FiO2 07/21/17 21:47 98.3 65 16 226/92 (136) 96 Orders Orders Electrocardiogram (07/21/17 21:57) Complete Blood Count With Diff (3/22/18 21:57) Comprehensive Metabolic Panel (07/21/17 21:57) Ckmb (Isoenzyme) Profile (07/21/17 21:57) Troponin I (07/21/17 21:57) B-Type Natriuretic Peptide (07/21/17 21:57) Prothrombin Time / Inr (Pt) (07/21/17 21:57) Act Partial Throm Time (Ptt) (07/21/17 21:57) Blood Culture (07/21/17:57) Lipase (07/21/17 21:57) Urinalysis - C+S If Indicated (07/21/17 21:57) Cath For Specimen (07/21/17:57) Magnesium (Mg) (07/21/17:57) Thyroid Stimulating Hormone (07/21/17 21:57) Chest, Single Ap (07/21/17 21:57) Iv Access Insert/Monitor (07/21/17 21:57) Ecg Monitoring (07/21/17:57) Oximetry (07/21/17 21:57) Ct Abd/Pel W/O Iv Contrast (07/21/17 ) Lactic Acid Sepsis Protocol (07/21/17 21:57) MDM Medical Decision Making Medical Screen Exam Complete: Yes Emergency Medical Condition: Yes Medical Record Reviewed: Yes Differential Diagnosis Chest pain versus atypical chest pain versus COPD versus C. difficile versus UTI versus sepsis versus electrolyte abnormality versus dehydration versus ACS Narrative Course 81-year-old female that presents to the ED for evaluation of chest pain and generalized weakness. Patient was properly examined and was found to have signs and symptoms of unclear etiology at this time. She does appear to have multiple complaints. Main complaint appears to be chest pain. At this time I recommend labs and imaging. Case was signed out to my attending pending disposition and plan. Camilo Jain Jul 21, 2017 22:12
[2017-07-21] MEDS ORDERED: LORazepam 2 MG/ML VIAL IV PUSH ONE (22:15)
--- NOTE | 2017-07-21 22:48 | RADRPT ---
EXAM DATE/TIME: 07/21/2017 22:25 [facility] COMPARISON: No previous studies available for comparison. INDICATIONS : Patient complains of abdominal pain and weakness. ORAL CONTRAST: No oral contrast ingested. RADIATION DOSE: 14.13 CTDIvol (mGy) MEDICAL HISTORY : Parkinson's. Diabetes mellitus type 1. Chronic obstructive pulmonary disease. SURGICAL HISTORY : None. ENCOUNTER: Initial ACUITY: 1 day PAIN SCALE: 4/10 LOCATION: abdomen TECHNIQUE: Volumetric scanning of the abdomen and pelvis was performed. Using automated exposure control and ad justment of the mA and/or kV according to patient size, radiation dose was kept as low as reasonably achievable to obtain optimal diagnostic quality images. DICOM format image data is available electro nically for review and comparison. FINDINGS: Lung bases demonstrate minimal atelectasis. Heart size enlarged. Moderate coronary calcifications. Sm all and hernia. No acute findings in the liver, spleen, and shingles on pancreas. A definite left renal cyst. Nonobst ructing 5 mm calculus lower pole left kidney. Colonic diverticulosis, especially sigmoid without evidence for diverticulitis. No free air or free f luid. No bowel obstruction. No adenopathy. CONCLUSION: No acute findings within the abdomen. Colonic diverticulosis without diverticulitis. Nonobstructing l eft renal calculus. Small hiatal hernia. Cardiomegaly with moderate coronary calcifications. Milan Brady MD on July 21, 2017 at 22:43 Board Certified Radiologist. This report was verified electronically.
[2017-07-21 22:49] VITALS: BP 190/81; PULSE 68; RESP 18; O2SAT 97
--- NOTE | 2017-07-21 22:50 | RADRPT ---
EXAM DATE/TIME: 07/21/2017 22:17 [facility] COMPARISON: CHEST SINGLE AP, December 24, 2016, 13:03. INDICATIONS : Cough. MEDICAL HISTORY : Cardiovascular disease. Diabetes mellitus type 2. Hypertension.COPD SURGICAL HISTORY : None. ENCOUNTER: Initial ACUITY: 2 days PAIN SCORE: 0/10 LOCATION: chest FINDINGS: A single view of the chest demonstrates mild cardiomegaly. Tortuous aorta. Elevated right hemidiaphra gm. No effusion or pneumothorax. CONCLUSION: 1. Cardiomegaly. Elevated right hemidiaphragm. Mild basal atelectasis. Milan Brady MD on July 21, 2017 at 22:47 Board Certified Radiologist. This report was verified electronically.
[2017-07-21 22:57] LABS: AUTOMATED NEUTROPHIL # 4.3 TH/MM3 (1.8-7.7); BASOPHIL % 0.3 % (0.0-2.0); EOSINOPHIL # 0.1 TH/MM3 (0-0.4); EOSINOPHIL % 2.1 % (0.0-4.0); HEMATOCRIT 34.7 % (35.0-46.0); LYMPH % 28.3 % (9.0-44.0); LYMPHOCYTE # 1.9 TH/MM3 (1.0-4.8); MEAN CELL VOLUME 90.3 FL (80.0-100.0); MEAN CORPUSCULAR HEMOGLOBIN 31.3 PG (27.0-34.0); MEAN CORPUSCULAR HGB CONC 34.7 % (32.0-36.0); MONO % 6.8 % (0.0-8.0); MONOCYTE # 0.5 TH/MM3 (0-0.9); NEUT % 62.5 % (16.0-70.0); PLATELET COUNT 142 TH/MM3 (150-450); RED BLOOD COUNT 3.84 MIL/MM3 (4.00-5.30); RED CELL DISTRIBUTION WIDTH 13.8 % (11.6-17.2); WHITE BLOOD COUNT 6.9 TH/MM3 (4.0-11.0)
[2017-07-21 23:09] LABS: BILIRUBIN, URINE NEG (NEG); BLOOD, URINE SMALL (NEG); GLUCOSE,URINE 300 mg/dL (NEG); HYALINE CAST, URINE 1 /lpf (RARE); KETONE, URINE NEG (NEG); MUCUS URINE FEW /lpf (OCC); NITRITE,URINE NEG (NEG); PROTHROMBIN TIME - PATIENT 9.7 SEC (9.8-11.6); URINE COLOR LIGHT-YELLOW (YELLW/STRAW); URINE LEUKOCYTE ESTERASE SMALL (NEG)
[2017-07-21 23:25] VITALS: BP 176/73; PULSE 84; RESP 16; O2SAT 99
[2017-07-21 23:31] LABS: LACTIC ACID SEPSIS PROTOCOL 2.2 mmol/L (0.4-2.0)
[2017-07-21 23:37] LABS: ALBUMIN 3.4 GM/DL (3.4-5.0); ALKALINE PHOSPHATASE 84 U/L (45-117); ALT (GPT) 10 U/L (10-53); AST (GOT) 13 U/L (15-37); BICARBONATE 28.4 MEQ/L (21.0-32.0); BLOOD UREA NITROGEN 13 MG/DL (7-18); CALCIUM 8.2 MG/DL (8.5-10.1); CHLORIDE 108 MEQ/L (98-107); CREATININE 0.92 MG/DL (0.50-1.00); GLOMERULAR FILTRATION RATE 58 ML/MIN (>89); GLUCOSE,RANDOM 200 MG/DL (74-106); MAGNESIUM 1.7 MG/DL (1.5-2.5); SODIUM (NA) 145 MEQ/L (136-145); TOTAL BILIRUBIN ADULT 0.1 MG/DL (0.2-1.0); TOTAL PROTEIN 7.3 GM/DL (6.4-8.2); TROPONIN I LESS THAN 0.02 NG/ML (0.02-0.05)
[2017-07-22] MEDS ORDERED: FURO1TAB62 PO (00:39)
[2017-07-22] MEDS ORDERED: POTA-163 PO (00:39)
--- NOTE | 2017-07-22 00:40 | PD ---
Physical Exam Date Seen by Provider: Jul 22, 2017 Narrative This patient was initially evaluated by Tong Jain PA-C for generalized weakness as well as several other complaints. The patient's labs and radiology studies were pending when he got off duty. The patient has been sitting in a chair at the door of her room watching everything in the emergency department without any distress for the last hour or so. She states that she is feeling much better and feels like she is able to go home. The patient relates to me that her main problem seems to be social. She lives with her daughter and they do not always get along. Data Data Last Documented VS Vital Signs Date Time Temp Pulse Resp B/P (MAP) Pulse Ox O2 Delivery O2 Flow Rate FiO2 07/21/17 23:25 84 16 176/73 (107) 99 Room Air 07/21/17 21:47 98.3 Orders Orders Electrocardiogram (07/21/17 21:57) Complete Blood Count With Diff (07/21/17 21:57) Comprehensive Metabolic Panel (07/21/17 21:57) Ckmb (Isoenzyme) Profile (07/21/17 21:57) Troponin I (07/21/17 21:57) B-Type Natriuretic Peptide (07/21/17 21:57) Prothrombin Time / Inr (Pt) (07/21/17 21:57) Act Partial Throm Time (Ptt) (07/21/17 21:57) Blood Culture (07/21/17 21:57) Lipase (07/21/17 21:57) Urinalysis - C+S If Indicated (07/21/17 21:57) Cath For Specimen (07/21/17:57) Magnesium (Mg) (07/21/17 21:57) Thyroid Stimulating Hormone (07/21/17 21:57) Chest, Single Ap (07/21/17 21:57) Iv Access Insert/Monitor (07/21/17 21:57) Ecg Monitoring (07/21/17 21:57) Oximetry (07/21/17 21:57) Ct Abd/Pel W/O Iv Contrast (07/21/17 ) Lactic Acid Sepsis Protocol (07/21/17 21:57) Lorazepam Inj (Ativan Inj) (07/21/17 22:15) Influenzae A/B Antigen (07/21/17 22:19) Labs Laboratory Tests Test 07/21/17 22:40 White Blood Count 6.9 TH/MM3 Red Blood Count 3.84 MIL/MM3 Hemoglobin 12.0 GM/DL Hematocrit 34.7 % Mean Corpuscular Volume 90.3 FL Mean Corpuscular Hemoglobin 31.3 PG Mean Corpuscular Hemoglobin Concent 34.7 % Red Cell Distribution Width 13.8 % Platelet Count 142 TH/MM3 Mean Platelet Volume 9.0 FL Neutrophils (%) (Auto) 62.5 % Lymphocytes (%) (Auto) 28.3 % Monocytes (%) (Auto) 6.8 % Eosinophils (%) (Auto) 2.1 % Basophils (%) (Auto) 0.3 % Neutrophils # (Auto) 4.3 TH/MM3 Lymphocytes # (Auto) 1.9 TH/MM3 Monocytes # (Auto) 0.5 TH/MM3 Eosinophils # (Auto) 0.1 TH/MM3 Basophils # (Auto) 0.0 TH/MM3 CBC Comment DIFF FINAL Differential Comment Prothrombin Time 9.7 SEC Prothromb Time International Ratio 1.0 RATIO Activated Partial Thromboplast Time 24.9 SEC Urine Color LIGHT-YELLOW Urine Turbidity CLEAR Urine pH 6.0 Urine Specific [place] 1.012 Urine Protein 30 mg/dL Urine Glucose (UA) 300 mg/dL Urine Ketones NEG mg/dL Urine Occult Blood SMALL Urine Nitrite NEG Urine Bilirubin NEG Urine Urobilinogen LESS THAN 2.0 MG/DL Urine Leukocyte Esterase SMALL Urine RBC 11 /hpf Urine WBC 8 /hpf Urine Hyaline Casts 1 /lpf Urine Granular Casts 1 /lpf Urine Mucus FEW /lpf Microscopic Urinalysis Comment CULT NOT INDICATED Blood Urea Nitrogen 13 MG/DL Creatinine 0.92 MG/DL Random Glucose 200 MG/DL Total Protein 7.3 GM/DL Albumin 3.4 GM/DL Calcium Level 8.2 MG/DL Magnesium Level 1.7 MG/DL Alkaline Phosphatase 84 U/L Aspartate Amino Transf (AST/SGOT) 13 U/L Alanine Aminotransferase (ALT/SGPT) 10 U/L Total Bilirubin 0.1 MG/DL Sodium Level 145 MEQ/L Potassium Level 3.8 MEQ/L Chloride Level 108 MEQ/L Carbon Dioxide Level 28.4 MEQ/L Anion Gap 9 MEQ/L Estimat Glomerular Filtration Rate 58 ML/MIN Lactic Acid Level 2.2 mmol/L Total Creatine Kinase 68 U/L Troponin I LESS THAN 0.02 NG/ML B-Type Natriuretic Peptide 656 PG/ML Lipase 177 U/L Thyroid Stimulating Hormone 3rd Gen 2.100 uIU/ML MDM Supervised Visit with FAY: Yes Narrative Course I, Dr. Gaitan, have reviewed the advance practice practitioner's documentation and am in agreement, met with the patient face to face, made the diagnosis, and the medical decision making was done by me. *My assessment and Findings: Patient is sitting in a chair comfortably. She is able to speak in complete sentences without any respiratory distress. She does have bibasilar rales. CBC & BMP Diagram 07/21/17 22:40 Total Protein 7.3, Albumin 3.4, Calcium Level 8.2 L, Magnesium Level 1.7, Alkaline Phosphatase 84, Aspartate Amino Transf (AST/SGOT) 13 L, Alanine Aminotransferase (ALT/SGPT) 10, Total Bilirubin 0.1 L trop < 0.02 BNP 656 Last Impressions Chest X-Ray 07/21/17 2157 Signed Impressions: Service Date/Time: June 22:17 - CONCLUSION: 1. Cardiomegaly. Elevated right hemidiaphragm. Mild basal atelectasis. Milan Brady MD Abdomen/Pelvis CT 07/21/17 0000 Signed Impressions: Service Date/Time: June 22:25 - CONCLUSION: No acute findings within the abdomen. Colonic diverticulosis without diverticulitis. Nonobstructing left renal calculus. Small hiatal hernia. Cardiomegaly with moderate coronary calcifications. Milan Brady MD This patient is in no distress at all. I believe that she is stable for discharge to home. I will prescribe Lasix and potassium and have her follow-up with her primary care doctor next week. Diagnosis Primary Impression: Generalized weakness Additional Impression: Congestive heart failure Qualified Codes: I50.9 - Heart failure, unspecified Scripts Potassium Chloride ER (Potassium Chloride ER) 20 Meq Tab 20 MEQ PO DAILY for Electrolyte Replacement, #30 TAB 0 Refills Prov: Victoria Gaitan MD 07/22/17 Furosemide (Lasix) 20 Mg Tab 20 MG PO DAILY, #30 TAB 0 Refills Prov: Victoria Gaitan MD 07/22/17 Disposition: DISCHARGE HOME Condition: Stable Victoria Gaitan MD Jul 22, 2017 00:40
[2017-07-22 03:15] VITALS: BP 170/84; PULSE 72; RESP 16; O2SAT 99
[2017-07-22 07:00] VITALS: BP 150/77; TEMP 97.8
[2017-07-22 07:10] VITALS: BP 150/81; PULSE 68; RESP 16; TEMP 97.8; O2SAT 99
[2017-07-22 08:50] VITALS: BP 140/78; TEMP 97.8
--- NOTE | 2017-07-22 20:03 | EKG ---
Date Performed: 07/21/2017 Time Performed: 22:05:13 PTAGE: 81 years EKG: Sinus rhythm MARKED LEFT AXIS DEVIATION LEFT VENTRICULAR HYPERTROPHY AND ST-T CHANGE Since previous tracing, no s ignificant change noted ABNORMAL ECG PREVIOUS TRACING : 12/24/2016 13.22 DOCTOR: Armond Ortiz Interpretating Date/Time 07/22/2017 19:58:42
== END 2017-07-22 08:50 | disposition home or self-care (01) ==
LOC: NEPE 20:28
DX: R53.1 Weakness (principal); I11.0 Hypertensive heart disease with heart failure; I50.9 Heart failure, unspecified; K57.30 Diverticulosis of large intestine without perforation or abscess without bleeding; N20.0 Calculus of kidney; K44.9 Diaphragmatic hernia without obstruction or gangrene; E11.9 Type 2 diabetes mellitus without complications; E78.00 Pure hypercholesterolemia, unspecified; R07.9 Chest pain, unspecified; G20 Parkinson's disease; Z79.4 Long term (current) use of insulin
CPT/HCPCS: 71045; 74176; 80053; 81001; 82550; 83605; 83690; 83735; 83880; 84443; 84484; 85025; 85610; 85730; 87040; 87185; 87205; 87804; 93005; 96374; 99285; J2060

== ENCOUNTER 2017-07-25 15:46 | Inpatient (IN) | payer MEDICARE, MEDICAID ==
[~2017-07-25 15:46] MED LIST changes: -BACT800T5 PO; -CEPH-460 PO; -DIFL150T PO; +FURO1TAB62 PO; +POTA-163 PO; -PRED20 PO; -TRAM50 PO
[2017-07-25 16:03] VITALS: BP 168/82; PULSE 64; RESP 18; TEMP 98.5; O2SAT 98
[2017-07-25 17:03] LABS: AUTOMATED NEUTROPHIL # 3.4 TH/MM3 (1.8-7.7); BASOPHIL % 0.6 % (0.0-2.0); EOSINOPHIL # 0.2 TH/MM3 (0-0.4); EOSINOPHIL % 2.4 % (0.0-4.0); HEMATOCRIT 39.5 % (35.0-46.0); HEMOGLOBIN 13.4 GM/DL (11.6-15.3); LYMPH % 36.5 % (9.0-44.0); LYMPHOCYTE # 2.3 TH/MM3 (1.0-4.8); MEAN CELL VOLUME 91.4 FL (80.0-100.0); MEAN CORPUSCULAR HEMOGLOBIN 31.1 PG (27.0-34.0); MEAN PLATELET VOLUME 8.9 FL (7.0-11.0); MONO % 7.3 % (0.0-8.0); MONOCYTE # 0.5 TH/MM3 (0-0.9); NEUT % 53.2 % (16.0-70.0); PLATELET COUNT 169 TH/MM3 (150-450); RED BLOOD COUNT 4.32 MIL/MM3 (4.00-5.30); RED CELL DISTRIBUTION WIDTH 13.7 % (11.6-17.2); WHITE BLOOD COUNT 6.4 TH/MM3 (4.0-11.0)
[2017-07-25 17:12] LABS: AMORPHOUS SEDIMENT, URINE RARE; BACTERIA, URINE RARE /hpf; BILIRUBIN, URINE NEG (NEG); BLOOD, URINE NEG (NEG); CALCIUM OXALATE CRYSTALS,URINE RARE /hpf; GLUCOSE,URINE NEG (NEG); KETONE, URINE NEG (NEG); MUCUS URINE FEW /lpf (OCC); NITRITE,URINE NEG (NEG); SQUAMOUS EPITHELIAL CELL URINE 2 /hpf (0-5); TRANSITIONAL EPI CELLS, URINE 1 /hpf; URINE COLOR YELLOW (YELLW/STRAW); URINE LEUKOCYTE ESTERASE LARGE (NEG)
[2017-07-25 17:20] LABS: BICARBONATE 29.7 MEQ/L (21.0-32.0); CREATININE 0.76 MG/DL (0.50-1.00)
[2017-07-25] MEDS ORDERED: SODIUM CHLORID 0.9% 500 ML INJ 500 ML IV ONE (21:15)
[2017-07-25] MEDS ORDERED: cefTRIAXone INJ 1,000 MG in SODIUM CHLORIDE 0.9% INJ 100 ML IV ONE (21:15)
--- NOTE | 2017-07-25 21:15 | PD ---
HPI Chief Complaint: Abnormal Results Time Seen by Provider: 21:02 Travel History International Travel<30 days: No Contact w/Intl Traveler<30days: No Traveled to known affect area: No History of Present Illness HPI The patient is a 81-year-old female who presents to the emergency department after receiving a call back for positive blood cultures. The patient was seen in the emergency department several days ago for generalized weakness. The patient had a workup at that time which was time, the patient was subsequently discharged home. The patient does complain of mild dysuria, states the generalized weakness has improved. However, the patient received a phone call earlier today for positive blood cultures. The patient lives at home with her daughter. She is followed by her primary physician, Dr. Iraheta. The patient denies any history of IVDA, endocarditis, mechanical valve, or acute chest pain. She denies any shortness of breath, nausea, vomiting, or abdominal pain. Symptoms are mild to moderate. There are no current alleviating or exacerbating factors. PFSH Past Medical History Arthritis: Yes Asthma: No Autoimmune Disease: No Blood Disorders: No Anxiety: Yes Depression: Yes Heart Rhythm Problems: Yes Cancer: No Cardiac Catheterization: No Cardiovascular Problems: Yes ([place]) High Cholesterol: Yes Chemotherapy: No Chest Pain: No Congestive Heart Failure: Yes COPD: Yes Cerebrovascular Accident: No Diabetes: Yes Diminished Hearing: Yes ([place]) Endocrine: No Gastrointestinal Disorders: Yes (TAKES PROTONIX) GERD: No Glaucoma: No Genitourinary: No Headaches: Yes Hepatitis: No Hiatal Hernia: No Hypertension: Yes Immune Disorder: No Implanted Vascular Access Dvce: Yes Kidney Stones: No Musculoskeletal: Yes Neurologic: Yes Parkinson's Disease: Yes Psychiatric: Yes Reproductive: No Respiratory: Yes (COPD) Integumentary: Yes (SKIN GROWTH ON SCALP AREa) Immunizations Current: Yes Migraines: Yes Myocardial Infarction: No Radiation Therapy: No Renal Failure: No Seizures: No Sickle Cell Disease: No Sleep Apnea: No Thyroid Disease: No Ulcer: No PNEUMOCCOCAL Vaccine (Year): 1 Menopausal: Yes Past Surgical History Abdominal Surgery: No AICD: No Arteriovenous Shunt: No Body Medical Devices: BILAT KNEE REPLACEMENT Cardiac Surgery: No Coronary Artery Bypass Graft: No Ear Surgery: No Endocrine Surgery: No Eye Surgery: No Genitourinary Surgery: No Gynecologic Surgery: No Insulin Pump: No Joint Replacement: Yes (BILAT KNEE, BACK) Neurologic Surgery: No Oral Surgery: No Pacemaker: No Thoracic Surgery: No Tonsillectomy: Yes Other Surgery: Yes (bilat knee, back, hiatal hernia) Social History Alcohol Use: No Tobacco Use: No Substance Use: No Allergies-Medications (Allergen,Severity, Reaction): Coded Allergies: codeine (Unverified Allergy, Severe, NAUSEA, 07/21/17) hydromorphone (Unverified Allergy, Severe, Nausea/Vomiting, 07/21/17) acetaminophen (Unverified Allergy, Unknown, Nausea/Vomiting, 07/21/17) hydrocodone (Unverified Allergy, Unknown, Nausea/Vomiting, 07/21/17) Reported Meds & Prescriptions Reported Meds & Active Scripts Active Potassium Chloride ER (Potassium Chloride) 20 Meq Tab 20 Meq PO DAILY Lasix (Furosemide) 20 Mg Tab 20 Mg PO DAILY Enalapril (Enalapril Maleate) 20 Mg Tab 20 Mg PO BID Xanax (Alprazolam) 1 Mg Tab 1 Mg PO BID PRN Reported Senokot (Sennosides) 8.6 Mg Tab 8.6 Mg PO HS PRN Protonix (Pantoprazole Sodium) 40 Mg Tab 40 Mg PO DAILY Nitroglycerin SL (Nitroglycerin) 0.4 Mg Subl 0.4 Mg SL DIRECTED PRN ONE TABLET UNDER THE TONGUE NEEDED FOR CHEST PAIN, MAY REPEAT EVERY FIVE MINUTES FOR A TOTAL OF 3 DOSES OR CALL 911 IF NO RELIEF Metformin (Metformin HCl) 1,000 Mg Tab 1,000 Mg PO BIDPC With meals Gabapentin 300 Mg Cap 300 Mg PO BID Catapres (Clonidine) 0.1 Mg Tab 0.1 Mg PO HS Symbicort Inh (Budesonide/Formoterol Fumarate) 160-4.5 Mcg/Act Aero 2 Puff INH Q12HR Atorvastatin (Atorvastatin Calcium) 40 Mg Tab 40 Mg PO HS Aspirin 81 Mg Chew 81 Mg CHEW DAILY Review of Systems Except as stated in HPI: all other systems reviewed are Neg General / Constitutional: No: Fever, Chills Cardiovascular: No: Chest Pain or Discomfort Respiratory: No: Shortness of Breath Gastrointestinal: No: Nausea, Vomiting, Abdominal Pain Genitourinary: Positive: Dysuria Musculoskeletal: Positive: Weakness, No: Myalgias, Arthralgias Physical Exam Narrative GENERAL: Awake, alert, pleasant 81-year-old female who appears her stated age and is in no acute respiratory distress. SKIN: Focused skin assessment warm/dry. HEAD: Atraumatic. Normocephalic. EYES: Pupils equal and round. No scleral icterus. No injection or drainage. ENT: No nasal bleeding or discharge. Upper dentures present. NECK: Trachea midline. No JVD. CARDIOVASCULAR: Regular rate and rhythm. No murmur appreciated. RESPIRATORY: No accessory muscle use. Clear to auscultation. Breath sounds equal bilaterally. GASTROINTESTINAL: Abdomen soft, well-healed midline scar. No rebound tenderness , guarding, rigidity. No significant suprapubic tenderness. Back: No CVA tenderness. MUSCULOSKELETAL: Well-healed scars of the anterior aspect the knees bilaterally. Moves all 4 extremities. NEUROLOGICAL: Awake and alert. No obvious cranial nerve deficits. Motor grossly within normal limits. Normal speech. Alert and oriented 3. Follows simple commands. PSYCHIATRIC: Appropriate mood and affect; insight and judgment normal. Data Data Last Documented VS Vital Signs Date Time Temp Pulse Resp B/P (MAP) Pulse Ox O2 Delivery O2 Flow Rate FiO2 07/25/17 21:17 60 20 96 Room Air 07/25/17 16:03 98.5 168/82 (110) Orders Orders Complete Blood Count With Diff (07/25/17 16:06) Basic Metabolic Panel (Bmp) (07/25/17 16:06) Blood Culture (07/25/17 16:06) Urinalysis - C+S If Indicated (07/25/17 16:06) Urine Culture (07/25/17 16:26) Blood Culture (07/25/17 21:12) Ceftriaxone Inj (Rocephin Inj) (07/25/17 21:15) Sodium Chlorid 0.9% 500 Ml Inj (Ns 500 M (07/25/17 21:15) Lactic Acid (07/25/17 21:12) Admit Order (Ed Use Only) (07/25/17 21:23) Labs Laboratory Tests Test 07/25/17 16:26 White Blood Count 6.4 TH/MM3 Red Blood Count 4.32 MIL/MM3 Hemoglobin 13.4 GM/DL Hematocrit 39.5 % Mean Corpuscular Volume 91.4 FL Mean Corpuscular Hemoglobin 31.1 PG Mean Corpuscular Hemoglobin Concent 34.0 % Red Cell Distribution Width 13.7 % Platelet Count 169 TH/MM3 Mean Platelet Volume 8.9 FL Neutrophils (%) (Auto) 53.2 % Lymphocytes (%) (Auto) 36.5 % Monocytes (%) (Auto) 7.3 % Eosinophils (%) (Auto) 2.4 % Basophils (%) (Auto) 0.6 % Neutrophils # (Auto) 3.4 TH/MM3 Lymphocytes # (Auto) 2.3 TH/MM3 Monocytes # (Auto) 0.5 TH/MM3 Eosinophils # (Auto) 0.2 TH/MM3 Basophils # (Auto) 0.0 TH/MM3 CBC Comment DIFF FINAL Differential Comment Urine Color YELLOW Urine Turbidity HAZY Urine pH 6.0 Urine Specific [place] 1.023 Urine Protein 100 mg/dL Urine Glucose (UA) NEG mg/dL Urine Ketones NEG mg/dL Urine Occult Blood NEG Urine Nitrite NEG Urine Bilirubin NEG Urine Urobilinogen 2.0 MG/DL Urine Leukocyte Esterase LARGE Urine RBC 3 /hpf Urine WBC 107 /hpf Urine Squamous Epithelial Cells 2 /hpf Urine Transitional Epithelial Cells 1 /hpf Urine Calcium Oxalate Crystals RARE /hpf Urine Amorphous Sediment RARE Urine Bacteria RARE /hpf Urine Mucus FEW /lpf Microscopic Urinalysis Comment CULTURE INDICATED Blood Urea Nitrogen 13 MG/DL Creatinine 0.76 MG/DL Random Glucose 80 MG/DL Calcium Level 9.0 MG/DL Sodium Level 143 MEQ/L Potassium Level 3.8 MEQ/L Chloride Level 107 MEQ/L Carbon Dioxide Level 29.7 MEQ/L Anion Gap 6 MEQ/L Estimat Glomerular Filtration Rate 73 ML/MIN [facility] Medical Decision Making Medical Screen Exam Complete: Yes Emergency Medical Condition: Yes Medical Record Reviewed: Yes Interpretation(s) Laboratory Tests Test 07/25/17 16:26 White Blood Count 6.4 TH/MM3 Red Blood Count 4.32 MIL/MM3 Hemoglobin 13.4 GM/DL Hematocrit 39.5 % Mean Corpuscular Volume 91.4 FL Mean Corpuscular Hemoglobin 31.1 PG Mean Corpuscular Hemoglobin Concent 34.0 % Red Cell Distribution Width 13.7 % Platelet Count 169 TH/MM3 Mean Platelet Volume 8.9 FL Neutrophils (%) (Auto) 53.2 % Lymphocytes (%) (Auto) 36.5 % Monocytes (%) (Auto) 7.3 % Eosinophils (%) (Auto) 2.4 % Basophils (%) (Auto) 0.6 % Neutrophils # (Auto) 3.4 TH/MM3 Lymphocytes # (Auto) 2.3 TH/MM3 Monocytes # (Auto) 0.5 TH/MM3 Eosinophils # (Auto) 0.2 TH/MM3 Basophils # (Auto) 0.0 TH/MM3 CBC Comment DIFF FINAL Differential Comment Urine Color YELLOW Urine Turbidity HAZY Urine pH 6.0 Urine Specific [place] 1.023 Urine Protein 100 mg/dL Urine Glucose (UA) NEG mg/dL Urine Ketones NEG mg/dL Urine Occult Blood NEG Urine Nitrite NEG Urine Bilirubin NEG Urine Urobilinogen 2.0 MG/DL Urine Leukocyte Esterase LARGE Urine RBC 3 /hpf Urine WBC 107 /hpf Urine Squamous Epithelial Cells 2 /hpf Urine Transitional Epithelial Cells 1 /hpf Urine Calcium Oxalate Crystals RARE /hpf Urine Amorphous Sediment RARE Urine Bacteria RARE /hpf Urine Mucus FEW /lpf Microscopic Urinalysis Comment CULTURE INDICATED Blood Urea Nitrogen 13 MG/DL Creatinine 0.76 MG/DL Random Glucose 80 MG/DL Calcium Level 9.0 MG/DL Sodium Level 143 MEQ/L Potassium Level 3.8 MEQ/L Chloride Level 107 MEQ/L Carbon Dioxide Level 29.7 MEQ/L Anion Gap 6 MEQ/L Estimat Glomerular Filtration Rate 73 ML/MIN Differential Diagnosis Differential diagnosis includes bacteremia, septicemia, sepsis, UTI, endocarditis, sepsis. Narrative Course IV was established, labs were drawn and sent, the patient was placed on cardiac telemetry monitoring and continuous pulse oximetry monitoring. The patient initially had a blood culture drawn in triage, this was repeated in [place] [id number]. The patient's EMR reveals micro-results growing strep viridians from 2 separate blood cultures. The patient denies any history of endocarditis or mechanical valve placement, also denies any history of IVDA. She does have a UA which is positive, possibly may be the source. The patient was administered Rocephin 1 g intravenously. Patient will require 23 hour observation/admission for reevaluation of blood cultures and IV antibiotics. Once patient has negative blood cultures, most likely she can be discharged home on antibiotics. The on-call medical service was paged for admission. Physician Communication Physician Communication The on-call medical service was paged for admission. I discussed the patient with Dr. Dc who agrees with admission. Diagnosis Primary Impression: Bacteremia Additional Impression: UTI (urinary tract infection) Qualified Codes: N30.00 - Acute cystitis without hematuria Condition: Stable Lázaro Rg MD Jul 25, 2017 21:15
[2017-07-25 21:45] VITALS: BP 205/81; PULSE 60; RESP 20; O2SAT 97
[2017-07-25] MEDS ORDERED: ACETAMINOPHEN 325 MG TAB PO PRN (22:00)
[2017-07-25] MEDS ORDERED: NITROGLYCERIN 0.4 MG SL 25 TABS/BTL SL PRN (22:00)
[2017-07-25] MEDS ORDERED: NALOXONE HCL 0.4 MG/ML AMP IV PUSH PRN (22:00)
[2017-07-25] MEDS ORDERED: DEXTROSE 50% IN WATER 50 ML VIAL(D50) IV PUSH PRN (22:00)
[2017-07-25] MEDS ORDERED: ALPRAZolam 1 MG TAB PO PRN (22:00)
[2017-07-25] MEDS ORDERED: RESP: ALBUTEROL 2.5 MG/IPRATROPIUM 0.5 MG NEB (PRN) NEB (22:00)
[2017-07-25] MEDS ORDERED: SODIUM CHLORIDE 0.9% FLUSH 10 ML FLUSH IV FLUSH PRN (22:00)
[2017-07-25] MEDS ORDERED: GLUCAGON 1 MG/ML VIAL OTHER PRN (22:00)
[2017-07-25] MEDS: metFORMIN HCL 500 MG TAB PO SCH (22:58)
[2017-07-25] MEDS: ENOXAPARIN SODIUM 40 MG/0.4 ML SYRINGE SQ SCH (22:58)
[2017-07-25] MEDS: GABAPENTIN 300 MG CAP PO SCH (22:59)
[2017-07-25] MEDS: ATORVASTATIN 40 MG TAB PO SCH (22:59)
[2017-07-25] MEDS: ENALAPRIL MALEATE 10 MG TAB PO SCH (22:59)
[2017-07-25] MEDS: cloNIDine HCL 0.1 MG TAB PO SCH (22:59)
[2017-07-26] VITALS (9 sets, daily range): BP systolic 129–206; BP diastolic 72–101; PULSE 63–76; RESP 17–19; TEMP 97.7–99; O2SAT 94–99
[2017-07-26] MEDS: BUDESONIDE-FORMOTEROL 160/4.5 MCG INHALER INH SCH ×2 (00:34→09:21)
[2017-07-26] MEDS ORDERED: RESP: ALBUTEROL 2.5 MG/IPRATROPIUM 0.5 MG NEB (PRN) NEB (03:15)
--- NOTE | 2017-07-26 03:15 | HHI.HP ---
HPI Service [facility] Primary Care Physician Yash Casarez MD Admission Diagnosis UTI with bacteremia Diagnoses: Travel History International Travel<30 Days: No Contact w/Intl Traveler <30 Da: No Traveled to Known Affected Are: No History of Present Illness 81-year-old female with a past medical history significant for hypertension, hyperlipidemia, diabetes mellitus, COPD and anxiety presents the emergency department for reevaluation after her blood cultures became positive. The patient was seen in the emergency department on 07/21/17 where she was treated for CHF exacerbation and discharged to home. Blood cultures taken at that time showed 2 that were positive for strep viridans. The patient has a UA consistent with UTI. She endorses subjective fever and burning with urination. She is unsure if her frequency is unchanged as she was recently started on Lasix. Patient denies any chest pain or shortness of breath. No nausea/ vomiting/diarrhea. Denies any lateralizing signs/symptoms. States she overall feels well. Review of Systems Except as stated in HPI: all other systems reviewed are Neg Past Family Social History Past Medical History Hypertension Hyperlipidemia Diabetes mellitus Anxiety COPD (on 2 L nasal cannula at night) Past Surgical History Hernia repair Back surgery Bilateral knee Reported Medications Reported Meds & Active Scripts Active Potassium Chloride ER (Potassium Chloride) 20 Meq Tab 20 Meq PO DAILY Lasix (Furosemide) 20 Mg Tab 20 Mg PO DAILY Enalapril (Enalapril Maleate) 20 Mg Tab 20 Mg PO BID Xanax (Alprazolam) 1 Mg Tab 1 Mg PO BID PRN Reported Senokot (Sennosides) 8.6 Mg Tab 8.6 Mg PO HS PRN Protonix (Pantoprazole Sodium) 40 Mg Tab 40 Mg PO DAILY Nitroglycerin SL (Nitroglycerin) 0.4 Mg Subl 0.4 Mg SL DIRECTED PRN ONE TABLET UNDER THE TONGUE NEEDED FOR CHEST PAIN, MAY REPEAT EVERY FIVE MINUTES FOR A TOTAL OF 3 DOSES OR CALL 911 IF NO RELIEF Metformin (Metformin HCl) 1,000 Mg Tab 1,000 Mg PO BIDPC With meals Gabapentin 300 Mg Cap 300 Mg PO BID Catapres (Clonidine) 0.1 Mg Tab 0.1 Mg PO HS Symbicort Inh (Budesonide/Formoterol Fumarate) 160-4.5 Mcg/Act Aero 2 Puff INH Q12HR Atorvastatin (Atorvastatin Calcium) 40 Mg Tab 40 Mg PO HS Aspirin 81 Mg Chew 81 Mg CHEW DAILY Allergies: Coded Allergies: codeine (Unverified Allergy, Severe, NAUSEA, 07/21/17) hydromorphone (Unverified Allergy, Severe, Nausea/Vomiting, 07/21/17) acetaminophen (Unverified Allergy, Unknown, Nausea/Vomiting, 07/21/17) hydrocodone (Unverified Allergy, Unknown, Nausea/Vomiting, 07/21/17) Family History Both parents with coronary artery disease Social History Denies alcohol, tobacco and illicit drugs Physical Exam Vital Signs Vital Signs Date Time Temp Pulse Resp B/P (MAP) Pulse Ox O2 Delivery O2 Flow Rate FiO2 07/25/17 21:45 60 20 205/81 (122) 97 Room Air 07/25/17 21:17 60 20 96 Room Air 07/25/17 16:03 98.5 64 18 168/82 (110) 98 Physical Exam GENERAL: Elderly, female lying in bed SKIN: No rashes, ecchymoses or lesions. Cool and dry. HEAD: Atraumatic. Normocephalic. No temporal or scalp tenderness. EYES: Pupils equal round and reactive. Extraocular motions intact. No scleral icterus. No injection or drainage. ENT: Nose without bleeding, purulent drainage or septal hematoma. Throat without erythema, tonsillar hypertrophy or exudate. Uvula midline. Airway patent. NECK: Trachea midline. No JVD or lymphadenopathy. Supple, nontender, no meningeal signs. CARDIOVASCULAR: Regular rate and rhythm without murmurs, gallops, or rubs. RESPIRATORY: Clear to auscultation. Breath sounds equal bilaterally. No wheezes , rales, or rhonchi. GASTROINTESTINAL: Abdomen soft, non-tender, nondistended. No hepato-splenomegaly , or palpable masses. No guarding. MUSCULOSKELETAL: Extremities without clubbing, cyanosis, or edema. No joint tenderness, effusion, or edema noted. No calf tenderness. NEUROLOGICAL: Awake and alert. Cranial nerves II through XII intact. Motor and sensory grossly within normal limits. Normal speech. Laboratory Laboratory Tests Test 3/26/18 16:26 07/25/17 21:30 White Blood Count 6.4 Red Blood Count 4.32 Hemoglobin 13.4 Hematocrit 39.5 Mean Corpuscular Volume 91.4 Mean Corpuscular Hemoglobin 31.1 Mean Corpuscular Hemoglobin Concent 34.0 Red Cell Distribution Width 13.7 Platelet Count 169 Mean Platelet Volume 8.9 Neutrophils (%) (Auto) 53.2 Lymphocytes (%) (Auto) 36.5 Monocytes (%) (Auto) 7.3 Eosinophils (%) (Auto) 2.4 Basophils (%) (Auto) 0.6 Neutrophils # (Auto) 3.4 Lymphocytes # (Auto) 2.3 Monocytes # (Auto) 0.5 Eosinophils # (Auto) 0.2 Basophils # (Auto) 0.0 CBC Comment DIFF FINAL Differential Comment Urine Color YELLOW Urine Turbidity HAZY Urine pH 6.0 Urine Specific [place] 1.023 Urine Protein 100 Urine Glucose (UA) NEG Urine Ketones NEG Urine Occult Blood NEG Urine Nitrite NEG Urine Bilirubin NEG Urine Urobilinogen 2.0 Urine Leukocyte Esterase LARGE Urine RBC 3 Urine WBC 107 Urine Squamous Epithelial Cells 2 Urine Transitional Epithelial Cells 1 Urine Calcium Oxalate Crystals RARE Urine Amorphous Sediment RARE Urine Bacteria RARE Urine Mucus FEW Microscopic Urinalysis Comment CULTURE INDICATED Blood Urea Nitrogen 13 Creatinine 0.76 Random Glucose 80 Calcium Level 9.0 Sodium Level 143 Potassium Level 3.8 Chloride Level 107 Carbon Dioxide Level 29.7 Anion Gap 6 Estimat Glomerular Filtration Rate 73 Lactic Acid Level 1.2 Date/Time Source Procedure Growth Status 07/25/17 21:35 Blood Peripheral Aerobic Blood Culture Pending Received 07/25/17 21:35 Blood Peripheral Anaerobic Blood Culture Pending Received 07/25/17 16:26 Urine Random Urine Urine Culture Pending Worksheet Result Diagram: 07/25/17 1626 07/25/17 1626 Caprini VTE Risk Assessment Caprini VTE Risk Assessment: Mod/High Risk (score >= 2) Caprini Risk Assessment Model Point Value = 1 Point Value = 2 Point Value = 3 Point Value = 5 Age 41-60 Minor surgery BMI > 25 kg/m2 Swollen legs Varicose veins or History of unexplained or recurrent spontaneous Oral contraceptives or hormone replacement Sepsis (< 1 month) Serious lung disease, including pneumonia (< 1 month) Abnormal pulmonary function Acute myocardial infarction Congestive heart failure (< 1 month) History of inflammatory bowel disease Medical patient at bed rest Age 61-74 Arthroscopic surgery Major open surgery (> 45 min) Laparoscopic surgery (> 45 min) Malignancy Confined to bed (> 72 hours) Immobilizing plaster cast Central venous access Age >= 75 History of VTE Family history of VTE Factor V Leiden Prothrombin [id number] Lupus anticoagulant Anticardiolipin antibodies Elevated serum homocysteine Heparin-induced thrombocytopenia Other congenital or acquired thrombophilia Stroke (< 1 month) Elective arthroplasty Hip, pelvis, or leg fracture Acute spinal cord injury (< 1 month) Prophylaxis Regimen Total Risk Factor Score Risk Level Prophylaxis Regimen 0-1 Low Early ambulation 2 Moderate Order ONE of the following: *Sequential Compression Device (SCD) *Heparin 5000 units SQ BID 3-4 Higher Order ONE of the following medications: *Heparin 5000 units SQ TID *Enoxaparin/Lovenox 40 mg SQ daily (WT < 150 kg, CrCl > 30 mL/min) *Enoxaparin/Lovenox 30 mg SQ daily (WT < 150 kg, CrCl > 10-29 mL/min) *Enoxaparin/Lovenox 30 mg SQ BID (WT < 150 kg, CrCl > 30 mL/min) AND/OR *Sequential Compression Device (SCD) 5 or more Highest Order ONE of the following medications: *Heparin 5000 units SQ TID (Preferred with Epidurals) *Enoxaparin/Lovenox 40 mg SQ daily (WT < 150 kg, CrCl > 30 mL/min) *Enoxaparin/Lovenox 30 mg SQ daily (WT < 150 kg, CrCl > 10-29 mL/min) *Enoxaparin/Lovenox 30 mg SQ BID (WT < 150 kg, CrCl > 30 mL/min) AND *Sequential Compression Device (SCD) Assessment and Plan Assessment and Plan Assessment/plan: 1. Positive blood cultures 2/2 blood cultures positive for strep viridans, 1/2 positive for Clostridium perfringens [place] Infectious disease consulted, appreciate recommendations Repeat blood cultures pending 2. UTI UA consistent with urinary tract infection Urine culture pending Plan as above 3. Diabetes mellitus Holding home metformin Sliding scale insulin Monitor blood glucose 4. COPD Continue home oxygen Continue home Symbicort DuoNeb's 5. Hypertension/hyperlipidemia/anxiety Continue home medication FEN Heart healthy diabetic diet Electrolytes: Monitor and replete when necessary Lovenox Physician Certification 2 Midnight Certification Type: Admission for Inpatient Services Order for Inpatient Services The services are ordered in accordance with Medicare regulations or non- Medicare payer requirements, as applicable. In the case of services not specified as inpatient-only, they are appropriately provided as inpatient services in accordance with the 2-midnight benchmark. Estimated LOS (days): 2 2 days is the estimated time the patient will need to remain in the hospital, assuming treatment plan goals are met and no additional complications. Post-Hospital Plan: Not yet determined Debra Dc MD Jul 26, 2017 03:15
[2017-07-26 03:59] LABS: AUTOMATED NEUTROPHIL # 4.2 TH/MM3 (1.8-7.7); BASOPHIL % 0.5 % (0.0-2.0); EOSINOPHIL # 0.1 TH/MM3 (0-0.4); EOSINOPHIL % 1.8 % (0.0-4.0); LYMPH % 31.9 % (9.0-44.0); LYMPHOCYTE # 2.3 TH/MM3 (1.0-4.8); MEAN CELL VOLUME 90.9 FL (80.0-100.0); MEAN CORPUSCULAR HEMOGLOBIN 31.2 PG (27.0-34.0); MEAN CORPUSCULAR HGB CONC 34.3 % (32.0-36.0); MEAN PLATELET VOLUME 8.8 FL (7.0-11.0); MONO % 8.2 % (0.0-8.0); MONOCYTE # 0.6 TH/MM3 (0-0.9); NEUT % 57.6 % (16.0-70.0); PLATELET COUNT 144 TH/MM3 (150-450); RED BLOOD COUNT 3.85 MIL/MM3 (4.00-5.30); RED CELL DISTRIBUTION WIDTH 14.1 % (11.6-17.2); WHITE BLOOD COUNT 7.3 TH/MM3 (4.0-11.0)
[2017-07-26 04:27] LABS: BICARBONATE 23.4 MEQ/L (21.0-32.0); CALCIUM 8.7 MG/DL (8.5-10.1); CREATININE 0.83 MG/DL (0.50-1.00)
[2017-07-26] MEDS ORDERED: hydrALAZINE HCL 20 MG/ML VIAL IV PUSH ONE (04:30)
[2017-07-26] MEDS ORDERED: cefTRIAXone INJ 1,000 MG in SODIUM CHLORIDE 0.9% INJ 100 ML IV SCH (09:00)
[2017-07-26] MEDS: GABAPENTIN 300 MG CAP PO SCH ×2 (09:18→20:40)
[2017-07-26] MEDS: POTASSIUM CHLORIDE 20 MEQ CONTROLLED RELEASE TAB PO SCH (09:18)
[2017-07-26] MEDS: PANTOPRAZOLE SOD 40 MG DELAYED RELEASE TAB PO SCH (09:19)
[2017-07-26] MEDS: ASPIRIN 81 MG CHEW TAB CHEW SCH (09:20)
[2017-07-26] MEDS: FUROSEMIDE 20 MG TAB PO SCH (09:20)
[2017-07-26] MEDS: metFORMIN HCL 500 MG TAB PO SCH ×2 (09:20→18:18)
[2017-07-26] MEDS: SODIUM CHLORIDE 0.9% FLUSH 10 ML FLUSH IV FLUSH SCH ×2 (09:20→20:40)
[2017-07-26] MEDS: ENALAPRIL MALEATE 10 MG TAB PO SCH ×2 (09:21→20:40)
[2017-07-26] MEDS: cloNIDine HCL 0.1 MG TAB PO PRN (12:39)
--- NOTE | 2017-07-26 12:50 | PD.ID.CON ---
History of Present Illness Service ID Consult Requested By Reason for Consult Evaluation and Mment of Strep and Clostridium perfringens bacteremia. Primary Care Physician Yash Casarez MD Diagnoses: History of Present Illness Ms. Muniz is an 81-year-old female with past medical history significant for history of colitis approximately 2 years back, possible history of diverticulosis in the past. Patient reports that her wet roaster is Dr. Abreu and she saw her approximately 5 years prior to this admission. Her past medical history is also significant for hypertension, hyperlipidemia, diabetes mellitus, COPD and anxiety. Patient presented to emergency department at [facility] on July 21, 2017 with complaints of diarrhea and abdominal pain. Patient reports that she had several bouts of diarrhea almost all week and now diarrhea has calmed down. Patient reports she was worked up and discharged eventually. Due to positive blood cultures patient was asked to come back to the hospital. Reportedly per medical records it patient was also treated for CHF exacerbation. Blood cultures from that admission are positive for strep viridans as well as Clostridium perfringens and infectious disease is consulted for the same. She endorses subjective fever and burning with urination to others but denies any symptoms to me. Her UA is currently pending. Repeat blood cultures are pending. She denies any nausea vomiting or diarrhea currently but does endorse history of diarrhea with cramping approximately 4 week last week. Patient denies any hematochezia. Infectious disease consulted for evaluation and management of strep and Clostridium perfringens bacteremia. Review of Systems ROS Limitations: Altered Mental Status Past Family Social History Allergies: Coded Allergies: codeine (Unverified Allergy, Severe, NAUSEA, 07/21/17) hydromorphone (Unverified Allergy, Severe, Nausea/Vomiting, 07/21/17) acetaminophen (Unverified Allergy, Unknown, Nausea/Vomiting, 07/21/17) hydrocodone (Unverified Allergy, Unknown, Nausea/Vomiting, 07/21/17) Past Medical History Hypertension Hyperlipidemia Diabetes mellitus Anxiety COPD (on 2 L nasal cannula at night) Past Surgical History Hernia repair Back surgery no hardware. Bilateral knee replacements Reported Medications Reported Meds & Active Scripts Active Potassium Chloride ER (Potassium Chloride) 20 Meq Tab 20 Meq PO DAILY Lasix (Furosemide) 20 Mg Tab 20 Mg PO DAILY Enalapril (Enalapril Maleate) 20 Mg Tab 20 Mg PO BID Xanax (Alprazolam) 1 Mg Tab 1 Mg PO BID PRN Reported Senokot (Sennosides) 8.6 Mg Tab 8.6 Mg PO HS PRN Protonix (Pantoprazole Sodium) 40 Mg Tab 40 Mg PO DAILY Nitroglycerin SL (Nitroglycerin) 0.4 Mg Subl 0.4 Mg SL DIRECTED PRN ONE TABLET UNDER THE TONGUE NEEDED FOR CHEST PAIN, MAY REPEAT EVERY FIVE MINUTES FOR A TOTAL OF 3 DOSES OR CALL 911 IF NO RELIEF Metformin (Metformin HCl) 1,000 Mg Tab 1,000 Mg PO BIDPC With meals Gabapentin 300 Mg Cap 300 Mg PO BID Catapres (Clonidine) 0.1 Mg Tab 0.1 Mg PO HS Symbicort Inh (Budesonide/Formoterol Fumarate) 160-4.5 Mcg/Act Aero 2 Puff INH Q12HR Atorvastatin (Atorvastatin Calcium) 40 Mg Tab 40 Mg PO HS Aspirin 81 Mg Chew 81 Mg CHEW DAILY Active Ordered Medications Current Medications Medications (Trade) Dose Ordered Sig/Amy Route Start Time Stop Time Status Last Admin (NS Flush) 2 ml UNSCH PRN IV FLUSH 07/25/17 22:00 (NS Flush) 2 ml BID IV FLUSH 07/26/17 09:00 07/26/17 09:20 (Lovenox Inj) 40 mg Q24H SQ 07/25/17 22:00 07/25/17 22:58 (Narcan Inj) 0.4 mg UNSCH PRN IV PUSH 07/25/17 22:00 (Xanax) 1 mg BID PRN PO 07/25/17 22:00 (Aspirin Chew) 81 mg DAILY CHEW 07/26/17 09:00 07/26/17 09:20 (Lipitor) 40 mg HS PO 07/25/17 22:00 07/25/17 22:59 (Symbicort 160-4.5 Mcg Inh) 2 puff Q12HR INH 07/25/17 22:00 07/26/17 09:21 (Catapres) 0.1 mg HS PO 07/25/17 22:00 07/25/17 22:59 (Vasotec) 20 mg BID PO 07/25/17 22:00 07/26/17 09:21 (Lasix) 20 mg DAILY PO 07/26/17 09:00 07/26/17 09:20 (Neurontin) 300 mg BID PO 07/25/17 22:00 07/26/17 09:18 (Glucophage) 1,000 mg BIDPC PO 07/25/17 22:00 07/26/17 09:20 (Protonix) 40 mg DAILY PO 07/26/17 09:00 07/26/17 09:19 (KCl) 20 meq DAILY PO 07/26/17 09:00 07/26/17 09:18 (Nitrostat Sl) 0.4 mg Q5M PRN SL 07/25/17 22:00 (D50w (Vial) Inj) 50 ml UNSCH PRN IV PUSH 07/25/17 22:00 (Glucagon Inj) 1 mg UNSCH PRN OTHER 07/25/17 22:00 (Duoneb Neb) 1 ampule Q4HR NEB PRN NEB 07/25/17 22:00 (Tylenol) 650 mg Q4H PRN PO 07/25/17 22:00 07/26/17 12:38 Ceftriaxone Sodium 1000 mg/ Sodium Chloride 100 ml @ 200 mls/hr Q12H IV 07/26/17 09:00 07/26/17 11:52 (Duoneb Neb) 1 ampule Q4HR NEB PRN NEB 07/26/17 03:15 (Catapres) 0.1 mg Q8HR PRN PO 07/26/17 08:00 07/26/17 12:39 Family History reviewed and NC to age. Social History lives with daughter. They dont have a car. She uses a walker at home, h/o fall 2 weeks back. No alcohol, no smoking, no illicit drugs. Physical Exam Vital Signs Vital Signs Date Time Temp Pulse Resp B/P (MAP) Pulse Ox O2 Delivery O2 Flow Rate FiO2 07/26/17 12:42 99.0 76 18 206/95 (132) 96 07/26/17 08:26 98.3 75 18 174/74 (107) 94 07/26/17 06:00 98.6 74 19 172/80 (110) 97 07/26/17 05:26 07/26/17 05:01 98.5 75 18 146/101 (116) 99 07/26/17 04:42 72 17 172/76 (108) 98 Room Air 07/26/17 04:26 63 18 175/74 (107) 95 Room Air 07/26/17 04:14 68 18 180/76 (110) 95 Room Air 07/25/17 21:45 60 20 205/81 (122) 97 Room Air 07/25/17 21:17 60 20 96 Room Air 07/25/17 16:03 98.5 64 18 168/82 (110) 98 Physical Exam GENERAL: Obese, well-developed patient, in no apparent distress. SKIN: No rashes, ecchymoses or lesions. Cool and dry. HEAD: Atraumatic. Normocephalic. No temporal or scalp tenderness. EYES: Pupils equal round and reactive. Extraocular motions intact. No scleral icterus. No injection or drainage. ENT: Nose without bleeding, purulent drainage or septal hematoma. Throat without erythema, tonsillar hypertrophy or exudate. Uvula midline. Airway patent. NECK: Trachea midline. Supple, nontender, no meningeal signs. CARDIOVASCULAR: Heart sounds audible. RESPIRATORY: Clear to auscultation. Breath sounds equal bilaterally. No wheezes , rales, or rhonchi. GASTROINTESTINAL: Abdomen soft, non-tender, nondistended. MUSCULOSKELETAL: Extremities without clubbing, cyanosis, or edema. No joint tenderness, effusion, or edema noted. No calf tenderness. Negative Homans sign bilaterally. NEUROLOGICAL: Awake and alert. Nonfocal exam Psych cooperative IV line site with no evidence of infection. Laboratory Laboratory Tests Test 07/25/17 16:26 07/25/17 21:30 07/26/17 03:43 White Blood Count 6.4 7.3 Red Blood Count 4.32 3.85 Hemoglobin 13.4 12.0 Hematocrit 39.5 35.0 Mean Corpuscular Volume 91.4 90.9 Mean Corpuscular Hemoglobin 31.1 31.2 Mean Corpuscular Hemoglobin Concent 34.0 34.3 Red Cell Distribution Width 13.7 14.1 Platelet Count 169 144 Mean Platelet Volume 8.9 8.8 Neutrophils (%) (Auto) 53.2 57.6 Lymphocytes (%) (Auto) 36.5 31.9 Monocytes (%) (Auto) 7.3 8.2 Eosinophils (%) (Auto) 2.4 1.8 Basophils (%) (Auto) 0.6 0.5 Neutrophils # (Auto) 3.4 4.2 Lymphocytes # (Auto) 2.3 2.3 Monocytes # (Auto) 0.5 0.6 Eosinophils # (Auto) 0.2 0.1 Basophils # (Auto) 0.0 0.0 CBC Comment DIFF FINAL DIFF FINAL Differential Comment Urine Color YELLOW Urine Turbidity HAZY Urine pH 6.0 Urine Specific [place] 1.023 Urine Protein 100 Urine Glucose (UA) NEG Urine Ketones NEG Urine Occult Blood NEG Urine Nitrite NEG Urine Bilirubin NEG Urine Urobilinogen 2.0 Urine Leukocyte Esterase LARGE Urine RBC 3 Urine WBC 107 Urine Squamous Epithelial Cells 2 Urine Transitional Epithelial Cells 1 Urine Calcium Oxalate Crystals RARE Urine Amorphous Sediment RARE Urine Bacteria RARE Urine Mucus FEW Microscopic Urinalysis Comment CULTURE INDICATED Blood Urea Nitrogen 13 12 Creatinine 0.76 0.83 Random Glucose 80 239 Calcium Level 9.0 8.7 Sodium Level 143 140 Potassium Level 3.8 3.8 Chloride Level 107 105 Carbon Dioxide Level 29.7 23.4 Anion Gap 6 12 Estimat Glomerular Filtration Rate 73 66 Lactic Acid Level 1.2 Date/Time Source Procedure Growth Status 07/25/17 21:35 Blood Peripheral Aerobic Blood Culture - Preliminary NO GROWTH IN 1 DAY Resulted 07/25/17 21:35 Blood Peripheral Anaerobic Blood Culture - Preliminary NO GROWTH IN 1 DAY Resulted 07/25/17 16:26 Urine Random Urine Urine Culture - Preliminary IMMATURE GROWTH - REINCUBATE Resulted Result Diagram: 07/26/17 0343 07/26/17 0343 Assessment and Plan Assessment and Plan Strep viridans bacteremia Clostridium perfringens bacteremia History of diarrhea 1 week back History of diverticulosis History of colitis approximately 2 years back COPD Anxiety Recommendations: Continue Ceftriaxone IV changed dose to 2gm IV q24hrs. Consult GI: GI organism. Eval need for EGD and Colonoscopy. If bacteremia is persistent will need endovascular workup. H/o falls: PT/OT eval recommended. Follow repeat blood cultures 2 CT abdomen pelvis from July 21 reviewed with no acute findings. Diverticulosis but no diverticulitis on CT Follow cultures Follow clinically. Thank you for involving me in the care of this very pleasant lady. dw patient. She lives with her daughter and hopes to return home. Carol Peralta MD Jul 26, 2017 12:50
--- NOTE | 2017-07-26 13:47 | PD.CONS ---
HPI History of Present Illness This is a 81 year old obese female who was admitted on 07/26/17. Was found to have positive blood cultures according to the record on 07/21/17 was also treated for CHF exacerbation. Patient was brought back to the hospital for further observation and treatment of the positive blood cultures and seen per ID. During assessment patient was noted to have diarrhea and left upper quadrant abdominal pain approximately one week ago. She also noted nausea and vomiting one week ago but states that her current symptoms are now resolving. She cannot remember eating anything out of the abnormal but has a significant GI history of polyps and diverticulosis. Patient was also hospitalized last July 2016 with sigmoid diverticulitis. She was instructed to follow up with Dr. Abreu her stroke neurologist in the office but declined that visit. Patient notes colonoscopy approximately 5 years ago, last EGD unknown. CT scan done on 07/21/17 shows diverticulosis without diverticulitis. Patient currently takes Protonix 40 mg daily, denies any current dysphagia or heartburn. Positive family history of colon cancer, patient's mother. She currently denies any fever or chills, current temperature noted to be 99. (Liyah Kolb) PFSH Past Medical History Hypertension Hyperlipidemia Diabetes mellitus Anxiety COPD (on 2 L nasal cannula at night) Colon polyps Diverticulosis Diverticulitis Past Surgical History Hernia repair Back surgery Bilateral knee (Liyah Kolb) Coded Allergies: codeine (Unverified Allergy, Severe, NAUSEA, 07/21/17) hydromorphone (Unverified Allergy, Severe, Nausea/Vomiting, 07/21/17) acetaminophen (Unverified Allergy, Unknown, Nausea/Vomiting, 07/21/17) hydrocodone (Unverified Allergy, Unknown, Nausea/Vomiting, 07/21/17) Medications Administered Medications Medications (Trade) Dose Ordered Sig/Amy Route PRN Reason Start Time Stop Time Status Last Admin Dose Admin Sodium Chloride (NS Flush) 2 ml BID IV FLUSH 07/26/17 09:00 07/26/17 09:20 Enoxaparin Sodium (Lovenox Inj) 40 mg Q24H SQ 07/25/17 22:00 07/25/17 22:58 Aspirin (Aspirin Chew) 81 mg DAILY CHEW 07/26/17 09:00 07/26/17 09:20 Atorvastatin Calcium (Lipitor) 40 mg HS PO 07/25/17 22:00 07/25/17 22:59 Budesonide/ Formoterol Fumarate (Symbicort 160-4.5 Mcg Inh) 2 puff Q12HR INH 07/25/17 22:00 07/26/17 09:21 Clonidine (Catapres) 0.1 mg HS PO 07/25/17 22:00 07/25/17 22:59 Enalapril Maleate (Vasotec) 20 mg BID PO 07/25/17 22:00 07/26/17 09:21 Furosemide (Lasix) 20 mg DAILY PO 07/26/17 09:00 07/26/17 09:20 Gabapentin (Neurontin) 300 mg BID PO 07/25/17 22:00 07/26/17 09:18 Metformin HCl (Glucophage) 1,000 mg BIDPC PO 07/25/17 22:00 07/26/17 09:20 Pantoprazole Sodium (Protonix) 40 mg DAILY PO 07/26/17 09:00 07/26/17 09:19 Potassium Chloride (KCl) 20 meq DAILY PO 07/26/17 09:00 07/26/17 09:18 Acetaminophen (Tylenol) 650 mg Q4H PRN PO temp > 100.4/pain 07/25/17 22:00 07/26/17 12:38 Clonidine (Catapres) 0.1 mg Q8HR PRN PO SBP > 160 07/26/17 08:00 07/26/17 12:39 Family History Both parents with coronary artery disease Patient's mother positive family history colon cancer Social History Denies alcohol, tobacco and illicit drugs She is (Liyah Kolb) Review of Systems Gastrointestinal: COMPLAINS OF: Abdominal pain, Diarrhea, Nausea, Vomiting ( Liyah Kolb) GI Exam Vitals I&O Vital Signs Date Time Temp Pulse Resp B/P (MAP) Pulse Ox O2 Delivery O2 Flow Rate FiO2 07/26/17 12:42 99.0 76 18 206/95 (132) 96 07/26/17 08:26 98.3 75 18 174/74 (107) 94 07/26/17 06:00 98.6 74 19 172/80 (110) 97 07/26/17 05:26 07/26/17 05:01 98.5 75 18 146/101 (116) 99 07/26/17 04:42 72 17 172/76 (108) 98 Room Air 07/26/17 04:26 63 18 175/74 (107) 95 Room Air 07/26/17 04:14 68 18 180/76 (110) 95 Room Air 07/25/17 21:45 60 20 205/81 (122) 97 Room Air 07/25/17 21:17 60 20 96 Room Air 07/25/17 16:03 98.5 64 18 168/82 (110) 98 I/O 07/25/17 07/25/17 07/25/17 07/26/17 07/26/17 07/26/17 07:00 15:00 23:00 07:00 15:00 23:00 Intake Total 600 ml Balance 600 ml Intake IV Total 600 ml # Voids 1 # Bowel Movements 1 Laboratory Test 07/25/17 16:26 07/25/17 21:30 07/26/17 03:43 White Blood Count 6.4 TH/MM3 7.3 TH/MM3 Red Blood Count 4.32 MIL/MM3 3.85 MIL/MM3 Hemoglobin 13.4 GM/DL 12.0 GM/DL Hematocrit 39.5 % 35.0 % Mean Corpuscular Volume 91.4 FL 90.9 FL Mean Corpuscular Hemoglobin 31.1 PG 31.2 PG Mean Corpuscular Hemoglobin Concent 34.0 % 34.3 % Red Cell Distribution Width 13.7 % 14.1 % Platelet Count 169 TH/MM3 144 TH/MM3 Mean Platelet Volume 8.9 FL 8.8 FL Neutrophils (%) (Auto) 53.2 % 57.6 % Lymphocytes (%) (Auto) 36.5 % 31.9 % Monocytes (%) (Auto) 7.3 % 8.2 % Eosinophils (%) (Auto) 2.4 % 1.8 % Basophils (%) (Auto) 0.6 % 0.5 % Neutrophils # (Auto) 3.4 TH/MM3 4.2 TH/MM3 Lymphocytes # (Auto) 2.3 TH/MM3 2.3 TH/MM3 Monocytes # (Auto) 0.5 TH/MM3 0.6 TH/MM3 Eosinophils # (Auto) 0.2 TH/MM3 0.1 TH/MM3 Basophils # (Auto) 0.0 TH/MM3 0.0 TH/MM3 CBC Comment DIFF FINAL DIFF FINAL Differential Comment Urine Color YELLOW Urine Turbidity HAZY Urine pH 6.0 Urine Specific [place] 1.023 Urine Protein 100 mg/dL Urine Glucose (UA) NEG mg/dL Urine Ketones NEG mg/dL Urine Occult Blood NEG Urine Nitrite NEG Urine Bilirubin NEG Urine Urobilinogen 2.0 MG/DL Urine Leukocyte Esterase LARGE Urine RBC 3 /hpf Urine WBC 107 /hpf Urine Squamous Epithelial Cells 2 /hpf Urine Transitional Epithelial Cells 1 /hpf Urine Calcium Oxalate Crystals RARE /hpf Urine Amorphous Sediment RARE Urine Bacteria RARE /hpf Urine Mucus FEW /lpf Microscopic Urinalysis Comment CULTURE INDICATED Blood Urea Nitrogen 13 MG/DL 12 MG/DL Creatinine 0.76 MG/DL 0.83 MG/DL Random Glucose 80 MG/DL 239 MG/DL Calcium Level 9.0 MG/DL 8.7 MG/DL Sodium Level 143 MEQ/L 140 MEQ/L Potassium Level 3.8 MEQ/L 3.8 MEQ/L Chloride Level 107 MEQ/L 105 MEQ/L Carbon Dioxide Level 29.7 MEQ/L 23.4 MEQ/L Anion Gap 6 MEQ/L 12 MEQ/L Estimat Glomerular Filtration Rate 73 ML/MIN 66 ML/MIN Lactic Acid Level 1.2 mmol/L Date/Time Source Procedure Growth Status 07/25/17 21:35 Blood Peripheral Aerobic Blood Culture - Preliminary NO GROWTH IN 1 DAY Resulted 07/25/17 21:35 Blood Peripheral Anaerobic Blood Culture - Preliminary NO GROWTH IN 1 DAY Resulted 07/25/17 16:26 Urine Random Urine Urine Culture - Preliminary IMMATURE GROWTH - REINCUBATE Resulted Physical Examination HEENT: Pupils round and reactive to light; normocephalic; atraumatic; pale, obese NECK: Neck is supple, CHEST: Chest is clear no audible rhonchi or wheezing CARDIAC: Regular rate and rhythm ABDOMEN: Large, Soft, nondistended, mild left upper quadrant tenderness worse with light palpation; no hepatosplenomegaly; bowel sounds are present in all four quadrants. EXTREMITIES: No lower extremity edema. SKIN: Thin turgor; no rash; no jaundice. MONUMENT MASON: No focal deficits; alert and oriented times two. Fair historian (Liyah Kolb) Assessment and Plan Assessment: (1) Weakness ICD Codes: R53.1 - Weakness Status: Acute (2) Diarrhea ICD Codes: R19.7 - Diarrhea Status: Acute (3) Nausea and vomiting ICD Codes: R11.2 - Nausea and vomiting Status: Acute (4) Abdominal pain ICD Codes: R10.9 - Abdominal pain Status: Acute (5) GERD (gastroesophageal reflux disease) ICD Codes: K21.9 - Gastroesophageal reflux disease Status: Chronic Plan 81-year-old white obese female here for treatment of positive blood cultures. She is a known patient of Dr. Abreu's . Also notes symptoms of nausea vomiting diarrhea 1 week ago with symptoms that seem to be resolving. CT scan done on shows no acute findings within the abdomen. Colonic diverticulosis without diverticulitis nonobstructing left renal calculus. Small hiatal hernia. Cardiomegaly with moderate coronary calcifications. Currently patient is on aspirin 81 mg daily with no other blood thinners noted. She denies any chest pain no shortness of breath has no pitting or ankle edema. Patient's requiring no oxygen. Has history of diverticulosis, was also treated for diverticulitis back in June 2016 in the hospital for 2-3 days, did not follow-up with Dr. Abreu in the outpatient setting. Colonoscopy at least 5 years ago per patient, Plan Consent for EGD and colonoscopy for the a.m. Dear drink after midnight except for meds needed Or liquids for the rest of the day. She only had a few bouts of grits this a.m. Patient states she doesn't feel she can tolerate GoLYTELY or its volume of fluid. Mag citrate 3 bottles will be used for prep. this was explained to patient Continue Protonix 40 mg daily Monitor labs with special attention to hemoglobin Monitor for any acute bleeding Further recommendations will be based on findings and symptoms Supportive care Patient was seen per myself and Dr. Samaniego, note was written on his behalf (Liyah Kolb) Physician Comments Patient seen and examined Agree with above Continue with current supportive care Monitor labs Plan for an EGD and a colonoscopy tomorrow (Osvaldo Samaniego MD) Liyah Kolb Jul 26, 2017 13:47 Osvaldo Samaniego MD Jul 26, 2017 21:36
[2017-07-26] MEDS: MAGNESIUM CITRATE SOLN 300 ML BTL PO SCH ×2 (15:52→18:14)
--- NOTE | 2017-07-26 18:30 | HHI.PR ---
Subjective Remarks Patient is resting comfortably in bed. She is being treated for UTI with bacteremia. She has left lower quadrant pain and history of diverticulitis. EGD planned for the a.m. Objective Vitals Vital Signs Date Time Temp Pulse Resp B/P (MAP) Pulse Ox O2 Delivery O2 Flow Rate FiO2 07/26/17 16:28 97.7 69 18 129/72 (91) 94 07/26/17 12:42 99.0 76 18 206/95 (132) 96 07/26/17 08:26 98.3 75 18 174/74 (107) 94 07/26/17 06:00 98.6 74 19 172/80 (110) 97 07/26/17 05:26 07/26/17 05:01 98.5 75 18 146/101 (116) 99 07/26/17 04:42 72 17 172/76 (108) 98 Room Air 07/26/17 04:26 63 18 175/74 (107) 95 Room Air 07/26/17 04:14 68 18 180/76 (110) 95 Room Air 07/25/17 21:45 60 20 205/81 (122) 97 Room Air 07/25/17 21:17 60 20 96 Room Air I/O 07/25/17 07/25/17 07/25/17 07/26/17 07/26/17 07/26/17 07:00 15:00 23:00 07:00 15:00 23:00 Intake Total 600 ml 240 ml Balance 600 ml 240 ml Intake Oral 240 ml IV Total 600 ml # Voids 1 # Bowel Movements 1 Result Diagram: 07/26/17 0343 07/26/17 0343 Objective Remarks GENERAL: Obese, weak appearing patient, elderly SKIN: Warm and dry. HEAD: Normocephalic. EYES: No scleral icterus. No injection or drainage. NECK: Supple, trachea midline. No JVD or lymphadenopathy. CARDIOVASCULAR: Regular rate and rhythm without murmurs, gallops, or rubs. RESPIRATORY: Breath sounds equal bilaterally. No accessory muscle use. GASTROINTESTINAL: Abdomen soft, mild tenderness to palpation of left lower quadrant EXTREMITIES: No cyanosis, or edema. NEUROLOGICAL: Awake, alert, and oriented x 3. Non-focal. A/P Problem List: (1) UTI (lower urinary tract infection) ICD Code: N39.0 - Lower urinary tract infectious disease Status: Resolved (2) Bacteremia ICD Code: R78.81 - Bacteremia Status: Acute Assessment and Plan Bacteremia History of diverticulosis, colitis 2 years ago, diarrhea 1 week ago History of strep viridans bacteremia and clostridium perfringens bacteremia High risk of GI origin so GI workup recommended by infectious disease Cultures pending Appreciate infectious disease following Urinary tract infection Positive urinalysis on admission Continue IV ceftriaxone Type 2 diabetes Accu-Cheks with sliding scale coverage Diabetic diet History of COPD Supportive care, following on telemetry History of anxiety Xanax as needed History of frequent falls PT OT eval and treat DVT prophylaxis Lovenox Kalia Lomeli MD Jul 26, 2017 6:30 pm
[2017-07-26] MEDS: cloNIDine HCL 0.1 MG TAB PO SCH (20:40)
[2017-07-26] MEDS: ATORVASTATIN 40 MG TAB PO SCH (20:40)
[2017-07-26] MEDS: ENOXAPARIN SODIUM 40 MG/0.4 ML SYRINGE SQ SCH (20:40)
[2017-07-27] VITALS (7 sets, daily range): BP systolic 144–188; BP diastolic 64–79; PULSE 67–87; RESP 16–18; TEMP 97.4–98.4; O2SAT 93–97
[2017-07-27] MEDS: BUDESONIDE-FORMOTEROL 160/4.5 MCG INHALER INH SCH ×2 (04:26→22:23)
[2017-07-27] MEDS: MAGNESIUM CITRATE SOLN 300 ML BTL PO SCH (04:26)
[2017-07-27] MEDS: cloNIDine HCL 0.1 MG TAB PO PRN (06:31)
[2017-07-27] MEDS ORDERED: POVIDONE IODINE 5% (ANTISEPSIS KIT) 4 APPLICATIONS EACH NARE PRN (10:00)
[2017-07-27] MEDS ORDERED: CHLORHEXIDINE GLUCONATE 2 % 1 PACK (2 CLOTHS) TOPICAL PRN (10:00)
[2017-07-27] MEDS ORDERED: METOPROLOL TARTRATE 25 MG TAB PO PRN (10:00)
[2017-07-27] MEDS ORDERED: LACTATED RINGER'S 1000 ML IV PRN (10:00)
[2017-07-27] MEDS ORDERED: SODIUM CHLORID 0.9% 500 ML IV PRN (10:00)
[2017-07-27] MEDS ORDERED: cefTRIAXone INJ 2,000 MG in SODIUM CHLORIDE 0.9% INJ 100 ML IV SCH ×2 (12:00→18:00)
[2017-07-27] MEDS ORDERED: LIDOCAINE HCL 1% PF 5 ML SYRINGE OTHER ONE (12:00)
[2017-07-27] MEDS ORDERED: PROPOFOL 200 MG/20 ML AMP IV ONE (12:00)
[2017-07-27] MEDS: ENALAPRIL MALEATE 10 MG TAB PO SCH ×2 (14:39→22:21)
[2017-07-27] MEDS: FUROSEMIDE 20 MG TAB PO SCH (14:40)
[2017-07-27] MEDS: PANTOPRAZOLE SOD 40 MG DELAYED RELEASE TAB PO SCH (14:43)
[2017-07-27] MEDS: GABAPENTIN 300 MG CAP PO SCH ×2 (14:44→22:20)
[2017-07-27] MEDS: metFORMIN HCL 500 MG TAB PO SCH ×2 (14:44→19:13)
[2017-07-27] MEDS ORDERED: cefTRIAXone 2 GM PREMIX INJ 50 ML IV SCH (17:30)
--- NOTE | 2017-07-27 19:45 | HHI.PR ---
Subjective Remarks Patient in nad. No fever or chills. Patient with some abd pain. Some nausea, no vomiting. Objective Vitals Vital Signs Date Time Temp Pulse Resp B/P (MAP) Pulse Ox O2 Delivery O2 Flow Rate FiO2 07/27/17 16:00 98.1 85 16 144/64 (90) 97 07/27/17 12:00 98.0 67 16 185/79 (114) 96 07/27/17 08:00 97.6 76 16 146/68 (94) 94 07/27/17 04:00 97.4 82 18 188/74 (112) 96 07/27/17 00:00 98.4 72 17 147/65 (92) 94 07/26/17 20:00 98.1 76 18 181/83 (115) 95 I/O 07/26/17 07/26/17 07/26/17 07/27/17 07/27/17 07/27/17 07:00 15:00 23:00 07:00 15:00 23:00 Intake Total 240 ml 400 ml Output Total 700 ml Balance -460 ml 400 ml Intake Oral 240 ml Other 400 ml Output Urine Total 700 ml # Voids 1 3 4 # Bowel Movements 1 3 4 Result Diagram: 07/26/17 0343 07/26/17 0343 Objective Remarks GENERAL: Obese, weak appearing patient, elderly NECK: Supple, trachea midline. No JVD or lymphadenopathy. CARDIOVASCULAR: Regular rate and rhythm without murmurs, gallops, or rubs. RESPIRATORY: Breath sounds equal bilaterally. No accessory muscle use. GASTROINTESTINAL: Abdomen soft, mild tenderness to palpation of left lower quadrant EXTREMITIES: No cyanosis, or edema. NEUROLOGICAL: Awake, alert, and oriented x 3. Non-focal. A/P Problem List: (1) UTI (lower urinary tract infection) ICD Code: N39.0 - Lower urinary tract infectious disease Status: Resolved (2) Bacteremia ICD Code: R78.81 - Bacteremia Status: Acute Assessment and Plan Bacteremia History of diverticulosis, colitis 2 years ago, diarrhea 1 week ago History of strep viridans bacteremia and clostridium perfringens bacteremia High risk of GI origin so GI workup recommended by infectious disease Repeat blood cultures are so far negative to date Appreciate infectious disease following Urinary tract infection Positive urinalysis on admission Continue IV ceftriaxone Type 2 diabetes Accu-Cheks with sliding scale coverage Diabetic diet History of COPD Supportive care, following on telemetry History of anxiety Xanax as needed History of frequent falls PT OT eval and treat DVT prophylaxis Lovenox DC when improved and cleared by GI and ID Trudy Chandler MD Jul 27, 2017 19:45
--- NOTE | 2017-07-27 20:54 | PD.PROCEDR ---
GI Procedure PROCEDURE PERFORMED EGD with biopsy followed by a colonoscopy with snare polypectomy and biopsy and cautery or ablation INDICATION FOR PROCEDURE Weakness, diarrhea, nausea and vomiting, abdominal pain, reflux PROCEDURE: The procedure, risks and benefits were discussed with Ms. Gomez and informed consent was obtained. Anesthesia sedated her with Diprivan. She was placed in the left lateral decubitus position. EGD: The Pentax videoscope was introduced through the oropharynx and advanced to the second portion of the duodenum under direct visualization. Retroflexion was performed in the stomach. FINDINGS: The esophagus this appeared to be unremarkable and within normal limits except for some irregularity of the Z line this was biopsied The stomach there was a small sized hiatal hernia and there was patchy erythema in the antrum but no ulcerations or erosions no blood or bleeding the antrum was biopsied for further evaluation The duodenum this appeared to be unremarkable and within normal limits Colonoscopy: The Pentax videoscope was introduced through the rectum and advanced to cecum where the ileocecal valve and appendiceal orifice were identified. Retroflexion was performed in the rectum. Colonic prep was good FINDINGS: Colonic withdrawal time greater than 6 minutes. 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 patient was also noted to have polyps there was one in the transverse colon and the other in the descending colon both were medium sized and sessile both were excised using hot snare technique and the patient was also noted to have mild to moderate diverticulosis in the sigmoid region retroflexion in the rectum was unremarkable so his rectal examination random biopsies were taken from the ascending and descending colon for further evaluation of diarrhea ESTIMATED BLOOD LOSS: None SPECIMENS REMOVED: Biopsies from the esophagus and the stomach and the colon COMPLICATIONS: None IMPRESSION: Irregular Z line Gastritis Cecal AVM Colon polyps Diverticulosis PLAN: Await biopsies High-fiber diet Monitor labs Continue with current supportive care Colonoscopy in 3 years Follow-up with GI post discharge Osvaldo Samaniego MD Jul 27, 2017 20:54
[2017-07-27] MEDS: ENOXAPARIN SODIUM 40 MG/0.4 ML SYRINGE SQ SCH (22:00)
--- NOTE | 2017-07-27 22:18 | EKG ---
Date Performed: 07/27/2017 Time Performed: 04:38:58 PTAGE: 81 years EKG: Sinus rhythm Left axis deviation IV conduction defect LVH with secondary repolarization abnormality Extensive ST- T changes Abnormal ECG PREVIOUS TRACING : 07/21/2017 22.05 Since the previous tracing, no significant change noted DOCTOR: Kyaw Farah Interpretating Date/Time 07/27/2017 22:17:25
[2017-07-27] MEDS: ATORVASTATIN 40 MG TAB PO SCH (22:20)
[2017-07-27] MEDS: cloNIDine HCL 0.1 MG TAB PO SCH (22:21)
[2017-07-27] MEDS: SODIUM CHLORIDE 0.9% FLUSH 10 ML FLUSH IV FLUSH SCH (22:22)
[2017-07-28] VITALS: BP 143/74; PULSE 82; RESP 18; TEMP 98.1; O2SAT 94
[2017-07-28 00:36] VITALS: PULSE 85
[2017-07-28 04:00] VITALS: BP 149/68; PULSE 72; RESP 18; TEMP 97.9; O2SAT 95
[2017-07-28 08:00] VITALS: BP 146/68; PULSE 73; PULSE 76; RESP 16; TEMP 98; O2SAT 97
[2017-07-28] MEDS: BUDESONIDE-FORMOTEROL 160/4.5 MCG INHALER INH SCH (09:00)
[2017-07-28] MEDS: SODIUM CHLORIDE 0.9% FLUSH 10 ML FLUSH IV FLUSH SCH (09:00)
--- NOTE | 2017-07-28 10:10 | HHI.PR ---
Subjective Remarks Patient in nad. Says she was hungry yesterday after the procedure and ate all dinner. Says she was not taht hungry in the AM. Also did not sleep much last night. No n/v/d/c. Objective Vitals Vital Signs Date Time Temp Pulse Resp B/P (MAP) Pulse Ox O2 Delivery O2 Flow Rate FiO2 07/28/17 08:00 98.0 76 16 146/68 (94) 97 07/28/17 04:00 97.9 72 18 149/68 (95) 95 07/28/17 00:36 85 07/28/17 00:00 98.1 82 18 143/74 (97) 94 07/27/17 20:12 87 07/27/17 20:00 98.3 86 18 150/76 (100) 93 07/27/17 16:00 98.1 85 16 144/64 (90) 97 07/27/17 12:00 98.0 67 16 185/79 (114) 96 I/O 07/27/17 07/27/17 07/27/17 07/28/17 07/28/17 07/28/17 07:00 15:00 23:00 07:00 15:00 23:00 Intake Total 400 ml Balance 400 ml Other 400 ml # Voids 4 # Bowel Movements 4 Result Diagram: 07/26/17 0343 07/26/17 034 Objective Remarks GENERAL: Obese, weak appearing patient, elderly NECK: Supple, trachea midline. No JVD or lymphadenopathy. CARDIOVASCULAR: Regular rate and rhythm without murmurs, gallops, or rubs. RESPIRATORY: Breath sounds equal bilaterally. No accessory muscle use. GASTROINTESTINAL: Abdomen soft, mild tenderness to palpation of left lower quadrant EXTREMITIES: No cyanosis, or edema. NEUROLOGICAL: Awake, alert, and oriented x 3. Non-focal. A/P Problem List: (1) UTI (lower urinary tract infection) ICD Code: N39.0 - Lower urinary tract infectious disease Status: Resolved (2) Bacteremia ICD Code: R78.81 - Bacteremia Status: Acute Assessment and Plan Bacteremia History of diverticulosis, colitis 2 years ago, diarrhea 1 week ago History of strep viridans bacteremia and clostridium perfringens bacteremia High risk of GI origin so GI workup recommended by infectious disease Repeat blood cultures are so far negative to date Appreciate infectious disease following Urinary tract infection Positive urinalysis on admission Continue IV ceftriaxone Type 2 diabetes Accu-Cheks with sliding scale coverage Diabetic diet History of COPD Supportive care, following on telemetry History of anxiety Xanax as needed History of frequent falls PT OT eval and treat DVT prophylaxis Lovenox Improved. Discussed with Dr Peralta, we will change antibiotics to p.o. for discharge. Patient improved, discharged home with home health in stable condition to follow-up with PCP and consultants as outpatient. Trudy Chandler MD Jul 28, 2017 10:10
[2017-07-28] MEDS: metFORMIN HCL 500 MG TAB PO SCH (10:52)
[2017-07-28] MEDS: ASPIRIN 81 MG CHEW TAB CHEW SCH (10:53)
[2017-07-28] MEDS: ENALAPRIL MALEATE 10 MG TAB PO SCH (10:54)
[2017-07-28] MEDS: POTASSIUM CHLORIDE 20 MEQ CONTROLLED RELEASE TAB PO SCH (10:54)
[2017-07-28] MEDS: FUROSEMIDE 20 MG TAB PO SCH (10:54)
[2017-07-28] MEDS: PANTOPRAZOLE SOD 40 MG DELAYED RELEASE TAB PO SCH (10:54)
[2017-07-28] MEDS: GABAPENTIN 300 MG CAP PO SCH (10:54)
[2017-07-28] MEDS ORDERED: LEVA500T33 PO (11:03)
[2017-07-28] MEDS ORDERED: METR-1 PO (11:04)
--- NOTE | 2017-07-28 11:10 | HHI.FF ---
Face to Face Verification Diagnosis: (1) Diabetes mellitus with hyperglycemia (2) Closed fracture distal radius and ulna (3) Diarrhea (4) Weakness (5) Nausea and vomiting (6) Abdominal pain (7) Bacteremia (8) COPD (chronic obstructive pulmonary disease) (9) DM (diabetes mellitus) (10) GERD (gastroesophageal reflux disease) (11) Hypertension Physical Therapy Order: Evaluate and Treat Home Health Nursing Order: Medical education Signs/symptoms of disease process Diabetic education Medication education-adverse effect Nursing assessment with vital signs I have seen patient Denisha Muniz on 07/28/17. My clinical findings support the need for the requested home health care services because: Ltd mobility - disease progression Patient has SOB I certify that my clinical findings support that this patient is homebound because: Post-op weakness Trudy Chandler MD Jul 28, 2017 11:10
--- NOTE | 2017-07-28 11:11 | HHI.DS ---
Discharge Summary Admission Date Jul 25, 2017 at 21:24 Discharge Date: Jul 28, 2017 Admitting Diagnosis UTI with bacteremia (1) UTI (lower urinary tract infection) ICD Code: N39.0 - Lower urinary tract infectious disease Status: Resolved (2) Bacteremia ICD Code: R78.81 - Bacteremia Status: Acute Procedures EGD/colonoscopy Brief History - From Admission 81-year-old female with a past medical history significant for hypertension, hyperlipidemia, diabetes mellitus, COPD and anxiety presents the emergency department for reevaluation after her blood cultures became positive. The patient was seen in the emergency department on 07/21/17 where she was treated for CHF exacerbation and discharged to home. Blood cultures taken at that time showed 2 that were positive for strep viridans. The patient has a UA consistent with UTI. She endorses subjective fever and burning with urination. She is unsure if her frequency is unchanged as she was recently started on Lasix. Patient denies any chest pain or shortness of breath. No nausea/ vomiting/diarrhea. Denies any lateralizing signs/symptoms. States she overall feels well. CBC/BMP: 07/26/17 0343 07/26/17 0343 Significant Findings Laboratory Tests Test 07/25/17 16:26 07/25/17 21:30 07/26/17 03:43 Urine Turbidity HAZY (CLEAR) Urine Protein 100 mg/dL (NEG-TRACE) Urine Leukocyte Esterase LARGE (NEG) Urine WBC 107 /hpf (0-5) Urine Calcium Oxalate Crystals RARE /hpf (NONE) Urine Bacteria RARE /hpf (NONE) Urine Mucus FEW /lpf (OCC) Estimat Glomerular Filtration Rate 73 ML/MIN (>89) 66 ML/MIN (>89) Red Blood Count 3.85 MIL/MM3 (4.00-5.30) Platelet Count 144 TH/MM3 (150-450) Monocytes (%) (Auto) 8.2 % (0.0-8.0) Random Glucose 239 MG/DL (74-106) PE at Discharge GENERAL: Obese, weak appearing patient, elderly NECK: Supple, trachea midline. No JVD or lymphadenopathy. CARDIOVASCULAR: Regular rate and rhythm without murmurs, gallops, or rubs. RESPIRATORY: Breath sounds equal bilaterally. No accessory muscle use. GASTROINTESTINAL: Abdomen soft, mild tenderness to palpation of left lower quadrant EXTREMITIES: No cyanosis, or edema. NEUROLOGICAL: Awake, alert, and oriented x 3. Non-focal. Hospital Course Bacteremia History of diverticulosis, colitis 2 years ago, diarrhea 1 week ago History of strep viridans bacteremia and clostridium perfringens bacteremia High risk of GI origin so GI workup recommended by infectious disease. Had EGD/ colonoscopy patien [id number] also polyps removed and sent biopsy and path. / To follow up as OP with GI. Repeat blood cultures are so far negative to date Appreciate infectious disease following. DC on PO antibiotics Urinary tract infection Positive urinalysis on admission Continue IV ceftriaxone Type 2 diabetes Accu-Cheks with sliding scale coverage Diabetic diet History of COPD Supportive care, following on telemetry History of anxiety Xanax as needed History of frequent falls PT OT eval and treat DVT prophylaxis Lovenox Improved. Discussed with Dr Peralta, we will change antibiotics to p.o. for discharge. Patient improved, discharged home with home health in stable condition to follow-up with PCP and consultants as outpatient. Says she needs a cane at home as she lost her cane. Also might need school social worker to check home situation. Pt Condition on Discharge: Stable Discharge Disposition: Disch w/ Home Health Serv Discharge Time: > 30 minutes Discharge Instructions DIET: Follow Instructions for: Heart Healthy Diet Activities you can perform: Regular-No Restrictions Follow up Referrals: Appointment for Follow Up @ [facility] - 2 Weeks PCP Follow-up - 2-3 Days PCP Follow-up New Medications: Cane/Wood/Ladies Standard (Cane/Wood/Ladies Standard) 1 Mis Mis EA .XX DIRECTED, #1 Levofloxacin (Levaquin) 500 Mg Tablet 500 MG PO DAILY for Strep viridans bacteremia for 12 Days, #12 TAB 0 Refills Metronidazole (Flagyl) 500 Mg Tab 500 MG PO TID for Clperf bacteremia for 12 Days, TAB 0 Refills Continued Medications: Alprazolam (Xanax) 1 Mg Tab 1 MG PO BID PRN for ANXIETY, #10 TAB 0 Refills Aspirin (Aspirin) 81 Mg Chew 81 MG CHEW DAILY, TAB 0 Refills Atorvastatin (Atorvastatin) 40 Mg Tab 40 MG PO HS for Cholesterol Management, #30 TAB 0 Refills Budesonide-Formoterol Inh (Symbicort Inh) 160-4.5 Mcg/Act Aero 2 PUFF INH Q12HR, #1 INHALER 0 Refills Clonidine (Catapres) 0.1 Mg Tab 0.1 MG PO HS for Blood Pressure Management, #1 TAB 0 Refills Enalapril (Enalapril) 20 Mg Tab 20 MG PO BID for Blood Pressure Management, #60 TAB 0 Refills Furosemide (Lasix) 20 Mg Tab 20 MG PO DAILY, #30 TAB 0 Refills Gabapentin (Gabapentin) 300 Mg Cap 300 MG PO BID, #60 CAP 0 Refills Metformin (Metformin) 1,000 Mg Tab 1000 MG PO BIDPC for Blood Sugar Management, #60 TAB 0 Refills With meals Nitroglycerin SL (Nitroglycerin SL) 0.4 Mg Subl 0.4 MG SL DIRECTED PRN for CHEST PAIN, #100 TAB.SL 0 Refills ONE TABLET UNDER THE TONGUE NEEDED FOR CHEST PAIN, MAY REPEAT EVERY FIVE MINUTES FOR A TOTAL OF 3 DOSES OR CALL 911 IF NO RELIEF Pantoprazole (Protonix) 40 Mg Tab 40 MG PO DAILY for Reflux, #30 TAB 0 Refills Potassium Chloride ER (Potassium Chloride ER) 20 Meq Tab 20 MEQ PO DAILY for Electrolyte Replacement, #30 TAB 0 Refills Sennosides (Senokot) 8.6 Mg Tab 8.6 MG PO HS PRN for CONSTIPATION, #30 TAB 0 Refills Trudy Chandler MD Jul 28, 2017 11:11
[2017-07-28] MEDS ORDERED: CANE/WOOD/LADIE1 MI1 (11:14)
--- NOTE | 2017-07-28 11:19 | HHI.IDPN ---
Subjective Subjective Remarks Ms. Muniz is an 81-year-old female with past medical history significant for history of colitis approximately 2 years back, possible history of diverticulosis in the past. Patient reports that her valuation manager is Dr. Abreu and she saw her approximately 5 years prior to this admission. Her past medical history is also significant for hypertension, hyperlipidemia, diabetes mellitus, COPD and anxiety. Patient presented to emergency department at [facility] on July 21, 2017 with complaints of diarrhea and abdominal pain. Patient reports that she had several bouts of diarrhea almost all week and now diarrhea has calmed down. Patient reports she was worked up and discharged eventually. Due to positive blood cultures patient was asked to come back to the hospital. Reportedly per medical records it patient was also treated for CHF exacerbation. Blood cultures from that admission are positive for strep viridans as well as Clostridium perfringens and infectious disease is consulted for the same. She endorses subjective fever and burning with urination to others but denies any symptoms to me. Her UA is currently pending. Repeat blood cultures are pending. She denies any nausea vomiting or diarrhea currently but does endorse history of diarrhea with cramping approximately 4 week last week. Patient denies any hematochezia. Infectious disease consulted for evaluation and management of strep and Clostridium perfringens bacteremia. Overnight events reviewed. No fever No rash No diarrhea Walking in hallways. Antibiotics Ceftriaxone IV Flagyl Lines Line sites with no e.o infection Past Medical History reviewed Allergies: Coded Allergies: codeine (Unverified Allergy, Severe, NAUSEA, 07/21/17) hydromorphone (Unverified Allergy, Severe, Nausea/Vomiting, 07/21/17) acetaminophen (Unverified Allergy, Unknown, Nausea/Vomiting, 07/21/17) hydrocodone (Unverified Allergy, Unknown, Nausea/Vomiting, 07/21/17) Objective . Vital Signs Date Time Temp Pulse Resp B/P (MAP) Pulse Ox O2 Delivery O2 Flow Rate FiO2 07/28/17 08:00 98.0 76 16 146/68 (94) 97 07/28/17 04:00 97.9 72 18 149/68 (95) 95 07/28/17 00:36 85 07/28/17 00:00 98.1 82 18 143/74 (97) 94 07/27/17 20:12 87 07/27/17 20:00 98.3 86 18 150/76 (100) 93 07/27/17 16:00 98.1 85 16 144/64 (90) 97 07/27/17 12:00 98.0 67 16 185/79 (114) 96 . Microbiology Date/Time Source Procedure Growth Status 07/25/17 21:35 Blood Peripheral Aerobic Blood Culture - Preliminary NO GROWTH IN 3 DAYS Resulted 07/25/17 21:35 Blood Peripheral Anaerobic Blood Culture - Preliminary NO GROWTH IN 3 DAYS Resulted 07/25/17 16:26 Blood Peripheral Aerobic Blood Culture - Preliminary NO GROWTH IN 3 DAYS Resulted 07/25/17 16:26 Blood Peripheral Anaerobic Blood Culture - Preliminary NO GROWTH IN 3 DAYS Resulted 07/25/17 16:20 Blood Peripheral Aerobic Blood Culture - Preliminary NO GROWTH IN 3 DAYS Resulted 07/25/17 16:20 Blood Peripheral Anaerobic Blood Culture - Preliminary NO GROWTH IN 3 DAYS Resulted 07/25/17 16:26 Urine Random Urine Urine Culture - Final 50-100,000 CFU/ML MIXED GRAM POSITIVE... Complete Physical Exam GENERAL: Obese, well-developed patient, in no apparent distress. SKIN: No rashes, ecchymoses or lesions. Cool and dry. HEAD: Atraumatic. Normocephalic. No temporal or scalp tenderness. EYES: Pupils equal round and reactive. Extraocular motions intact. No scleral icterus. No injection or drainage. ENT: Nose without bleeding, purulent drainage or septal hematoma. Throat without erythema, tonsillar hypertrophy or exudate. Uvula midline. Airway patent. NECK: Trachea midline. Supple, nontender, no meningeal signs. CARDIOVASCULAR: Heart sounds audible. RESPIRATORY: Clear to auscultation. Breath sounds equal bilaterally. No wheezes , rales, or rhonchi. GASTROINTESTINAL: Abdomen soft, non-tender, nondistended. MUSCULOSKELETAL: Extremities without clubbing, cyanosis, or edema. No joint tenderness, effusion, or edema noted. No calf tenderness. Negative Homans sign bilaterally. NEUROLOGICAL: Awake and alert. Nonfocal exam Psych cooperative IV line site with no evidence of infection. Assessment & Plan Remarks Strep viridans bacteremia Clostridium perfringens bacteremia History of diarrhea 1 week back History of diverticulosis History of colitis approximately 2 years back COPD Anxiety Recommendations: Continue Ceftriaxone in hosp plus flagyl On DC home Levaquin and Flagyl Stat LFTs: on flagyl if ok then ok to DC home. Follow up with in clinic. dw to follow LFTs. Will sign off please call back if any change in clinical condition or questions. Carol Peralta MD Jul 28, 2017 11:19
--- NOTE | 2017-07-28 11:54 | HHI.GIFU ---
Subjective Remarks Pt sitting up in bed. No diarrhea today. No n/v. Tolerating diet. (Ivonne Mendez) Objective Vitals I&O Vital Signs Date Time Temp Pulse Resp B/P (MAP) Pulse Ox O2 Delivery O2 Flow Rate FiO2 07/28/17 08:00 98.0 76 16 146/68 (94) 97 07/28/17 04:00 97.9 72 18 149/68 (95) 95 07/28/17 00:36 85 07/28/17 00:00 98.1 82 18 143/74 (97) 94 07/27/17 20:12 87 07/27/17 20:00 98.3 86 18 150/76 (100) 93 07/27/17 16:00 98.1 85 16 144/64 (90) 97 07/27/17 12:00 98.0 67 16 185/79 (114) 96 I/O 07/27/17 07/27/17 07/27/17 07/28/17 07/28/17 07/28/17 07:00 15:00 23:00 07:00 15:00 23:00 Intake Total 400 ml Balance 400 ml Other 400 ml # Voids 4 # Bowel Movements 4 Laboratory Date/Time Source Procedure Growth Status 07/25/17 21:35 Blood Peripheral Aerobic Blood Culture - Preliminary NO GROWTH IN 3 DAYS Resulted 07/25/17 21:35 Blood Peripheral Anaerobic Blood Culture - Preliminary NO GROWTH IN 3 DAYS Resulted 07/25/17 16:26 Urine Random Urine Urine Culture - Final 50-100,000 CFU/ML MIXED GRAM POSITIVE... Complete Physical Exam HEENT: PERRL; normocephalic; atraumatic; no jaundice. CHEST: CTA diminished, shallow respirations CARDIAC: RRR ABDOMEN: Soft,obese, nontender; no hepatosplenomegaly; bowel sounds are present in all four quadrants. EXTREMITIES: No clubbing, cyanosis, or edema. SKIN: Normal; no rash; no jaundice. ALCOHOL RUBBER: No focal deficits; alert and oriented times three. (Ivonne Mendez) Assessment and Plan Assessment: (1) Weakness ICD Codes: R53.1 - Weakness Status: Acute (2) Diarrhea ICD Codes: R19.7 - Diarrhea Status: Acute (3) Nausea and vomiting ICD Codes: R11.2 - Nausea and vomiting Status: Acute (4) Abdominal pain ICD Codes: R10.9 - Abdominal pain Status: Acute (5) GERD (gastroesophageal reflux disease) ICD Codes: K21.9 - Gastroesophageal reflux disease Status: Chronic Plan 81-year-old white obese female here for treatment of positive blood cultures. She is a known patient of Dr. Abreu's . Also notes symptoms of nausea vomiting diarrhea 1 week ago with symptoms that seem to be resolving. CT scan done on shows no acute findings within the abdomen. Colonic diverticulosis without diverticulitis nonobstructing left renal calculus. Small hiatal hernia. Cardiomegaly with moderate coronary calcifications. Currently patient is on aspirin 81 mg daily with no other blood thinners noted. She denies any chest pain no shortness of breath has no pitting or ankle edema. Patient's requiring no oxygen. Has history of diverticulosis, was also treated for diverticulitis back in June 2016 in the hospital for 2-3 days, did not follow-up with Dr. Arbeu in the outpatient setting. Colonoscopy at least 5 years ago per patient, 07/28/17 s/p EGD and colonoscopy on 07/27 found irr z line, gastritis, cecal AVM , colon polyps, diverticulosis. today no diarrhea or n/v, tolerating diet. Plan CHARLY await bx f/u with GI after d/c ok to d/c from GI standpoint Patient was seen per myself and Dr. Samaniego, note was written on his behalf (Ivonne Mendez) Physician Comments Seen and examined Agree with above Continue with current supportive care Monitor labs Okay for discharge from a GI standpoint (Osvaldo Samaniego MD) Ivonne Mendez Jul 28, 2017 11:54 Osvaldo Samaniego MD Jul 28, 2017 22:07
[2017-07-28 12:00] VITALS: BP 140/65; PULSE 85; PULSE 94; RESP 16; TEMP 98; O2SAT 94
[2017-07-28 13:08] LABS: ALBUMIN 3.2 GM/DL (3.4-5.0); DIRECT BILIRUBIN ADULT 0.1 MG/DL (0.0-0.2)
[2017-07-28 13:10] LABS: INDIRECT BILIRUBIN 0.3 MG/DL (0.0-0.8); TOTAL BILIRUBIN ADULT 0.4 MG/DL (0.2-1.0); TOTAL PROTEIN 6.9 GM/DL (6.4-8.2)
--- NOTE | 2017-07-28 15:26 | HHI.FF ---
Face to Face Verification Diagnosis: (1) Diabetes type 2, controlled (2) Impaired cognition (3) Hiatal hernia (4) Mild TBI (traumatic brain injury) (5) Impaired mobility and ADLs (6) Weakness (7) Abdominal pain (8) Generalized weakness (9) COPD (chronic obstructive pulmonary disease) (10) Depression (11) DM (diabetes mellitus) (12) GERD (gastroesophageal reflux disease) (13) Bacteremia Physical Therapy Order: Evaluate and Treat Home Health Nursing Order: Medical education Signs/symptoms of disease process Diabetic education Medication education-adverse effect Nursing assessment with vital signs Record Press Tender Order: To Evaluate: Living conditions/environment I have seen patient Denisha Muniz on 07/28/17. My clinical findings support the need for the requested home health care services because: Ltd mobility - disease progression Patient has SOB I certify that my clinical findings support that this patient is homebound because: Post-op weakness Trudy Chandler MD Jul 28, 2017 15:26
== END 2017-07-28 16:46 | disposition home health service (06) | DRG 690 ==
LOC: NED 15:46 → NEDA 21:24 → NEDH 07-26 02:22 → N05A 07-26 04:54
PROVIDERS: ADMIT Hospitalist; ATTEND Hospitalist
PROC: 0DB78ZX Excision of Stomach, Pylorus, Via Natural or Artificial Opening Endoscopic, Diagnostic (ICD-10-PCS; 2017-07-27)
PROC: 0DB58ZX Excision of Esophagus, Via Natural or Artificial Opening Endoscopic, Diagnostic (ICD-10-PCS; 2017-07-27)
PROC: 0DB48ZX Excision of Esophagogastric Junction, Via Natural or Artificial Opening Endoscopic, Diagnostic (ICD-10-PCS; 2017-07-27)
PROC: 0DBK8ZX Excision of Ascending Colon, Via Natural or Artificial Opening Endoscopic, Diagnostic (ICD-10-PCS; 2017-07-27)
PROC: 0DBL8ZX Excision of Transverse Colon, Via Natural or Artificial Opening Endoscopic, Diagnostic (ICD-10-PCS; 2017-07-27)
PROC: 0DBN8ZX Excision of Sigmoid Colon, Via Natural or Artificial Opening Endoscopic, Diagnostic (ICD-10-PCS; 2017-07-27)
PROC: 0DBM8ZX Excision of Descending Colon, Via Natural or Artificial Opening Endoscopic, Diagnostic (ICD-10-PCS; 2017-07-27)
PROC: 0DBM8ZX Excision of Descending Colon, Via Natural or Artificial Opening Endoscopic, Diagnostic (ICD-10-PCS; 2017-07-27)
PROC: 0DBL8ZX Excision of Transverse Colon, Via Natural or Artificial Opening Endoscopic, Diagnostic (ICD-10-PCS; 2017-07-27)
PROC: 0W3P8ZZ Control Bleeding in Gastrointestinal Tract, Via Natural or Artificial Opening Endoscopic (ICD-10-PCS; principal; 2017-07-27 11:03)
PROC: 0DB98ZX Excision of Duodenum, Via Natural or Artificial Opening Endoscopic, Diagnostic (ICD-10-PCS; 2017-07-27 11:03)
DX: N39.0 Urinary tract infection, site not specified (principal); B96.7 Clostridium perfringens [C. perfringens] as the cause of diseases classified elsewhere; I11.0 Hypertensive heart disease with heart failure; G20 Parkinson's disease; R78.81 Bacteremia; I50.9 Heart failure, unspecified; B95.4 Other streptococcus as the cause of diseases classified elsewhere; E11.9 Type 2 diabetes mellitus without complications; Z99.81 Dependence on supplemental oxygen; J44.9 Chronic obstructive pulmonary disease, unspecified; K55.20 Angiodysplasia of colon without hemorrhage; E78.5 Hyperlipidemia, unspecified; F41.9 Anxiety disorder, unspecified; K57.30 Diverticulosis of large intestine without perforation or abscess without bleeding; K21.9 Gastro-esophageal reflux disease without esophagitis; K63.5 Polyp of colon; M19.90 Unspecified osteoarthritis, unspecified site; K44.9 Diaphragmatic hernia without obstruction or gangrene; H91.90 Unspecified hearing loss, unspecified ear; Z96.653 Presence of artificial knee joint, bilateral; Z86.010 Personal history of colon polyps; Z82.49 Family history of ischemic heart disease and other diseases of the circulatory system; Z79.84 Long term (current) use of oral hypoglycemic drugs; Z80.0 Family history of malignant neoplasm of digestive organs; Z79.82 Long term (current) use of aspirin; Z91.81 History of falling
CPT/HCPCS: 80048; 80076; 81001; 82948; 83605; 85025; 87040; 87086; 88305; 93005; J0360; J0696; J1650; J7040

== ENCOUNTER 2017-08-02 03:26 | Observation (INO) | payer MEDICARE, MEDICAID ==
[2017-08-02] VITALS (10 sets, daily range): BP systolic 134–179; BP diastolic 60–84; PULSE 69–89; RESP 16–20; TEMP 97.6–98.7; O2SAT 95–99
[~2017-08-02] VITALS: Ht 160 cm; Wt 85.0 kg
[~2017-08-02 03:26] MED LIST changes: +CANE/WOOD/LADIE1 MI1; -LACTTAB8 PO; +LEVA500T33 PO; -LEVEMIR SQ; -METO25TA3 PO; +METR-1 PO
[2017-08-02] MEDS ORDERED: NITROGLYCERIN 2% OINT 1 GM PACKET TOPICAL ONE (03:45)
--- NOTE | 2017-08-02 03:48 | PD ---
HPI Chief Complaint: Chest pain Time Seen by Provider: 03:32 Travel History International Travel<30 days: No Contact w/Intl Traveler<30days: No History of Present Illness HPI The patient is an 81 year old female who presents to the [facility] emergency department with a history of chest pain that she reports is intermittently been recurring throughout the day today. The first episode was at noon and was relieved with nitroglycerin. She reports that subsequent episodes with activity have recurred. She is unsure about how long each episode has lasted. She reports that at midnight she had another episode and called the ambulance services. She also took her aspirin and nitroglycerin and by the time ambulance services got there the pain have resolved. The patient did not want to be transported to the emergency department at that time, however she awoke from sound sleep prior to arrival with a recurrence of substernal chest pain again. She did not take nitroglycerin at home this time as she felt nauseated. The patient reports that she vomited one time prior to arrival. She reports having chronic shortness of breath with exertion that is no worse than usual currently. She reports that the pain was a 9 out of 10 in severity when it originally was present, however after 2 sublingual nitroglycerin by ambulance services the patient's pain is resolved. Patient was also given Zofran 4 mg IV for nausea. The patient reports that she was recently admitted to the hospital for colitis. She was discharged home on Levaquin. She reports that she was discharged from the hospital on last Tuesday, 3 days ago. On review of systems, the patient denies having any known recent fevers, neck stiffness, abdominal pain, urinary symptoms, or neurologic symptoms. The patient had diarrhea recently and was diagnosed with colitis. The patient reports that she had endoscopy and colonoscopy during her recent hospital admission. She reports that her last episode of diarrhea was on Tuesday, 2 days ago. [facility] Past Medical History Narrative Medical The patient's past medical history is significant for COPD, hyperlipidemia, hypertension, diabetes mellitus, angina, congestive heart failure. Review of the electronic medical record reveals that the patient's last stress test was done in 2013 at this facility. She denies being followed by a motorcycle repairer as an outpatient, however she reports that she has been referred to one and has an appointment scheduled for July. Arthritis: Yes Asthma: No Autoimmune Disease: No Blood Disorders: No Anxiety: Yes Depression: Yes Heart Rhythm Problems: Yes Cancer: No Cardiac Catheterization: No Cardiovascular Problems: Yes (ANGINA) High Cholesterol: Yes Chemotherapy: No Chest Pain: No Congestive Heart Failure: Yes COPD: Yes Cerebrovascular Accident: No Diabetes: Yes Diminished Hearing: Yes (JACKSON) Endocrine: No Gastrointestinal Disorders: Yes (TAKES PROTONIX) GERD: No Glaucoma: No Genitourinary: No Headaches: Yes Hepatitis: No Hiatal Hernia: No Hypertension: Yes Immune Disorder: No Implanted Vascular Access Dvce: Yes Kidney Stones: No Musculoskeletal: Yes Neurologic: Yes Parkinson's Disease: Yes Psychiatric: Yes Reproductive: No Respiratory: Yes (COPD) Integumentary: Yes (SKIN GROWTH ON SCALP AREa) Immunizations Current: Yes Migraines: Yes Myocardial Infarction: No Radiation Therapy: No Renal Failure: No Seizures: No Sickle Cell Disease: No Sleep Apnea: No Thyroid Disease: No Ulcer: No PNEUMOCCOCAL Vaccine (Year): 1 Menopausal: Yes Past Surgical History Narrative Surgical The patient's past surgical history is significant for hiatal hernia repair, back surgery, bilateral knee surgery, tonsillectomy Abdominal Surgery: No AICD: No Arteriovenous Shunt: No Body Medical Devices: BILAT KNEE REPLACEMENT Cardiac Surgery: No Coronary Artery Bypass Graft: No Ear Surgery: No Endocrine Surgery: No Eye Surgery: No Genitourinary Surgery: No Gynecologic Surgery: No Insulin Pump: No Joint Replacement: Yes (BILAT KNEE, BACK) Neurologic Surgery: No Oral Surgery: No Pacemaker: No Thoracic Surgery: No Tonsillectomy: Yes Other Surgery: Yes (bilat knee, back, hiatal hernia) Social History Alcohol Use: No Tobacco Use: No Substance Use: No Allergies-Medications (Allergen,Severity, Reaction): Coded Allergies: codeine (Unverified Allergy, Severe, NAUSEA, 08/02/17) hydromorphone (Unverified Allergy, Severe, Nausea/Vomiting, 08/02/17) acetaminophen (Unverified Allergy, Unknown, Nausea/Vomiting, 08/02/17) hydrocodone (Unverified Allergy, Unknown, Nausea/Vomiting, 08/02/17) Reported Meds & Prescriptions Reported Meds & Active Scripts Active Flagyl (Metronidazole) 500 Mg Tab 500 Mg PO TID 12 Days Levaquin (Levofloxacin) 500 Mg Tablet 500 Mg PO DAILY 12 Days Potassium Chloride ER (Potassium Chloride) 20 Meq Tab 20 Meq PO DAILY Lasix (Furosemide) 20 Mg Tab 20 Mg PO DAILY Enalapril (Enalapril Maleate) 20 Mg Tab 20 Mg PO BID Xanax (Alprazolam) 1 Mg Tab 1 Mg PO BID PRN Reported Senokot (Sennosides) 8.6 Mg Tab 8.6 Mg PO HS PRN Protonix (Pantoprazole Sodium) 40 Mg Tab 40 Mg PO DAILY Nitroglycerin SL (Nitroglycerin) 0.4 Mg Subl 0.4 Mg SL DIRECTED PRN ONE TABLET UNDER THE TONGUE NEEDED FOR CHEST PAIN, MAY REPEAT EVERY FIVE MINUTES FOR A TOTAL OF 3 DOSES OR CALL 911 IF NO RELIEF Metformin (Metformin HCl) 1,000 Mg Tab 1,000 Mg PO BIDPC With meals Gabapentin 300 Mg Cap 300 Mg PO BID Catapres (Clonidine) 0.1 Mg Tab 0.1 Mg PO HS Symbicort Inh (Budesonide/Formoterol Fumarate) 160-4.5 Mcg/Act Aero 2 Puff INH Q12HR Atorvastatin (Atorvastatin Calcium) 40 Mg Tab 40 Mg PO HS Aspirin 81 Mg Chew 81 Mg CHEW DAILY Review of Systems Except as stated in HPI: all other systems reviewed are Neg General / Constitutional: No: Fever Eyes: No: Visual changes HENT: No: Headaches, Rhinorrhea, Congestion Cardiovascular: Positive: Chest Pain or Discomfort, Dyspnea on exertion, No: Diaphoresis Respiratory: Positive: Shortness of Breath Gastrointestinal: Positive: Nausea, Vomiting, No: Abdominal Pain Genitourinary: No: Dysuria Musculoskeletal: No: Pain Skin: No Rash Neurologic: No: Weakness, Focal Abnormalities, Change in Mentation, Slurred Speech, Sensory Disturbance Psychiatric: No: Depression Endocrine: No: Polydipsia Hematologic/Lymphatic: No: Easy Bruising Physical Exam Narrative General: The patient is a well-developed well-nourished female in no acute distress. Head and Neck exam: Head is normocephalic atraumatic. Eyes: EOMI, pupils are equal round and reactive to light. Nose: Midline septum with pink mucous membranes Mouth: Dentition unremarkable. Moist mucus membranes. Posterior oropharynx is not erythematous. No tonsillar hypertrophy. Uvula midline. Airway patent. Neck: No palpable lymphadenopathy. No nuchal rigidity. No thyromegaly. Cardiovascular: Regular rate and rhythm without murmurs, gallops, or rubs. Lungs: Clear to auscultation bilaterally. No wheezes, rhonchi, or rales. Abdomen: Soft, without tenderness to palpation in all 4 quadrants of the abdomen. No guarding, rebound, or rigidity. Normal bowel sounds are audible. No tenderness on palpation of McBurney's point. Negative Headley sign. Extremities: No clubbing, cyanosis, or edema. 2+ pulses in all 4 extremities. No calf tenderness on palpation. Back: No costovertebral angle tenderness to palpation. Neurologic Exam: Grossly nonfocal. Skin Exam: No rash noted. Intact skin that is warm and dry. Data Data Last Documented VS Vital Signs Date Time Temp Pulse Resp B/P (MAP) Pulse Ox O2 Delivery O2 Flow Rate FiO2 08/02/17 03:41 84 18 98 Room Air 08/02/17 03:40 98.2 143/83 (103) Orders Orders Electrocardiogram (08/02/17 03:32) Complete Blood Count With Diff (08/02/17 03:32) Comprehensive Metabolic Panel (08/02/17 03:32) Creatine Kinase (Cpk) (08/02/17 03:32) Ckmb (Isoenzyme) Profile (08/02/17 03:32) Troponin I (08/02/17 03:32) B-Type Natriuretic Peptide (08/02/17 03:32) Prothrombin Time / Inr (Pt) (08/02/17 03:32) Act Partial Throm Time (Ptt) (08/02/17 03:32) Lipase (08/02/17 03:32) Magnesium (Mg) (08/02/17 03:32) Chest, Single Ap (08/02/17 03:32) Iv Access Insert/Monitor (08/02/17 03:32) Ecg Monitoring (08/02/17 03:32) Oximetry (08/02/17 03:32) Nitroglycerin 2% Oint (Nitroglycerin 2% (08/02/17 03:45) Ondansetron Inj (Zofran Inj) (08/02/17 05:00) Admit Order (Ed Use Only) (08/02/17 05:07) Activity Bed Rest With Brp (08/02/17 05:08) Vital Signs (Adult) Q4H (08/02/17 05:08) Cardiac Rhythm .As Directed (08/02/17 05:08) Notify Dr: Other .PRN (08/02/17 05:08) Notify Dr. Parameters (08/02/17 05:08) Resp Oxygen Nasal Cannula (08/02/17 ) Diet Npo (08/02/17 Breakfast) Ckmb (Isoenzyme) Profile (08/02/17 06:40) Ckmb (Isoenzyme) Profile (08/02/17 09:40) Troponin I (08/02/17 06:40) Troponin I (08/02/17 09:40) Electrocardiogram (08/02/17 06:40) Electrocardiogram (08/02/17 09:40) ^ Obtain (08/02/17 05:08) Sodium Chloride 0.9% Flush (Ns Flush) (08/02/17 05:15) Sodium Chloride 0.9% Flush (Ns Flush) (08/02/17 09:00) Acetaminophen (Tylenol) (08/02/17 05:15) Ondansetron Inj (Zofran Inj) (08/02/17 05:15) Nitroglycerin Sl (Nitrostat Sl) (08/02/17 05:15) Transport Aircrewman / Telemetry LAURYN.Q8H (08/02/17 05:08) Labs Laboratory Tests Test 08/02/17 03:40 White Blood Count 7.9 TH/MM3 Red Blood Count 3.96 MIL/MM3 Hemoglobin 12.3 GM/DL Hematocrit 35.4 % Mean Corpuscular Volume 89.5 FL Mean Corpuscular Hemoglobin 31.1 PG Mean Corpuscular Hemoglobin Concent 34.8 % Red Cell Distribution Width 13.8 % Platelet Count 134 TH/MM3 Mean Platelet Volume 9.5 FL Neutrophils (%) (Auto) 55.8 % Lymphocytes (%) (Auto) 34.9 % Monocytes (%) (Auto) 7.1 % Eosinophils (%) (Auto) 1.8 % Basophils (%) (Auto) 0.4 % Neutrophils # (Auto) 4.4 TH/MM3 Lymphocytes # (Auto) 2.7 TH/MM3 Monocytes # (Auto) 0.6 TH/MM3 Eosinophils # (Auto) 0.1 TH/MM3 Basophils # (Auto) 0.0 TH/MM3 CBC Comment DIFF FINAL Differential Comment Prothrombin Time 10.0 SEC Prothromb Time International Ratio 1.0 RATIO Activated Partial Thromboplast Time 25.0 SEC Blood Urea Nitrogen 16 MG/DL Creatinine 0.89 MG/DL Random Glucose 227 MG/DL Total Protein 7.1 GM/DL Albumin 3.3 GM/DL Calcium Level 8.8 MG/DL Magnesium Level 1.5 MG/DL Alkaline Phosphatase 79 U/L Aspartate Amino Transf (AST/SGOT) 9 U/L Alanine Aminotransferase (ALT/SGPT) 12 U/L Total Bilirubin 0.2 MG/DL Sodium Level 142 MEQ/L Potassium Level 3.8 MEQ/L Chloride Level 105 MEQ/L Carbon Dioxide Level 27.4 MEQ/L Anion Gap 10 MEQ/L Estimat Glomerular Filtration Rate 61 ML/MIN Total Creatine Kinase 55 U/L Troponin I LESS THAN 0.02 NG/ML B-Type Natriuretic Peptide 283 PG/ML Lipase 164 U/L MDM Medical Decision Making Medical Screen Exam Complete: Yes Emergency Medical Condition: Yes Medical Record Reviewed: Yes Interpretation(s) Last Impressions Chest X-Ray 08/02/17 0332 Signed Impressions: Service Date/Time: Wednesday, August 02, 2017 04:03 - CONCLUSION: Left upper lobe infiltrate Brandon Shahid MD Differential Diagnosis Acute coronary syndrome, versus acid reflux, versus pancreatitis, versus biliary colic, versus acute cholecystitis Narrative Course During the course of the patient's emergency department visit, the patient's history, examination, and differential diagnosis were reviewed with the patient. The patient was placed on a tumbler machine operator with oximetry and frequent blood pressure monitoring. The patient had IV access obtained and blood work sent for analysis. The patient had an EKG done on arrival that shows a sinus rhythm of 86, QRS duration is 122 ms, QTC 453 ms. The patient has a left anterior fascicular block. No acute ST segment elevation. T waves are inverted in lead I, aVL. A review of the patient's prior EKG done at this facility reveals that she had one done on July 27 that revealed T-wave inversions in lead I and aVL, with an interventricular conduction delay at that time. The patient's electronic medical record was reviewed regarding the patient's recent hospitalization for blood cultures that grew out positive 2 for strep viridans. The patient's blood culture also grew out Clostridium perfringens. Infectious disease was consulted regarding this patient's evaluation and they recommended GI evaluation with endoscopy and colonoscopy. The pathology of the specimen sent from the colon showed focal acute inflammation of the crypt epithelium. According to the pathologist this finding is nonspecific but may be seen in inflammatory bowel disease, ischemia, acute self-limited colitis and in infectious conditions. There were no other findings to suggest chronic inflammatory bowel disease. The patient was initially provided nitroglycerin 1 inch the chest wall. The patient was provided nitroglycerin sublingual 2 prior to arrival by ambulance services. The patient reports that she took her own aspirin earlier today The patient's laboratory studies were reviewed and remarkable for a white count of 7.9, hemoglobin 12.3, platelets 134 with a normal differential. CMP is remarkable for a glucose of 227, AST 9, cardiac enzymes within normal limits, BNP is 283 which is improved compared to previous values in the 600s, lipase 164 , PT 10, PTT 25 Radiology studies were reviewed and remarkable for chest x-ray that shows a left lower lobe infiltrate, which I suspect is related to atelectasis as the patient has no worsening shortness of breath. She reports having chronic shortness of breath with exertion. She denies having any significant cough or congestion. The patient's electronic medical record was reviewed for prior evaluation by cardiology. The patient last had a stress test done at this facility on January 28, 2014. She had a myocardial perfusion scan that was negative. Given the frequent recurrence of the chest pain over the last 24 hours the patient will be admitted to the chest pain center for rule out serial cardiac enzyme protocol to evaluate for an acute coronary syndrome. The patient's results were discussed with the patient, including the plan of care. I explained that further testing and/ or monitoring is indicated based on the patient's history, examination, and/ or laboratory findings. Therefore, I recommended admission for additional evaluation. The patient expressed understanding and was agreeable with this plan. The patient was admitted to the hospital in stable condition and sent to a bed under the care of the chest pain center. Diagnosis Primary Impression: Chest pain, rule out acute myocardial infarction Admitting Information Admitting Physician Requests: Lynnette Carr MD Aug 02, 2017 03:48
[2017-08-02 04:00] LABS: AUTOMATED NEUTROPHIL # 4.4 TH/MM3 (1.8-7.7); BASOPHIL % 0.4 % (0.0-2.0); EOSINOPHIL # 0.1 TH/MM3 (0-0.4); EOSINOPHIL % 1.8 % (0.0-4.0); HEMATOCRIT 35.4 % (35.0-46.0); HEMOGLOBIN 12.3 GM/DL (11.6-15.3); LYMPH % 34.9 % (9.0-44.0); LYMPHOCYTE # 2.7 TH/MM3 (1.0-4.8); MEAN CELL VOLUME 89.5 FL (80.0-100.0); MEAN CORPUSCULAR HEMOGLOBIN 31.1 PG (27.0-34.0); MEAN CORPUSCULAR HGB CONC 34.8 % (32.0-36.0); MEAN PLATELET VOLUME 9.5 FL (7.0-11.0); MONO % 7.1 % (0.0-8.0); MONOCYTE # 0.6 TH/MM3 (0-0.9); NEUT % 55.8 % (16.0-70.0); PLATELET COUNT 134 TH/MM3 (150-450); RED BLOOD COUNT 3.96 MIL/MM3 (4.00-5.30); RED CELL DISTRIBUTION WIDTH 13.8 % (11.6-17.2); WHITE BLOOD COUNT 7.9 TH/MM3 (4.0-11.0)
[2017-08-02 04:13] LABS: ALBUMIN 3.3 GM/DL (3.4-5.0); ALT (GPT) 12 U/L (10-53); AST (GOT) 9 U/L (15-37); BICARBONATE 27.4 MEQ/L (21.0-32.0); BLOOD UREA NITROGEN 16 MG/DL (7-18); CALCIUM 8.8 MG/DL (8.5-10.1); CHLORIDE 105 MEQ/L (98-107); CREATININE 0.89 MG/DL (0.50-1.00); GLOMERULAR FILTRATION RATE 61 ML/MIN (>89); GLUCOSE,RANDOM 227 MG/DL (74-106); MAGNESIUM 1.5 MG/DL (1.5-2.5); SODIUM (NA) 142 MEQ/L (136-145)
[2017-08-02 04:17] LABS: ALKALINE PHOSPHATASE 79 U/L (45-117); TOTAL BILIRUBIN ADULT 0.2 MG/DL (0.2-1.0); TOTAL PROTEIN 7.1 GM/DL (6.4-8.2); TROPONIN I LESS THAN 0.02 NG/ML (0.02-0.05)
[2017-08-02] MEDS ORDERED: ONDANSETRON HCL 4 MG/2 ML VIAL IV ONE (05:00)
[2017-08-02] MEDS ORDERED: NITROGLYCERIN 0.4 MG SL 25 TABS/BTL SL PRN (05:15)
[2017-08-02] MEDS ORDERED: ONDANSETRON HCL 4 MG/2 ML VIAL IV PUSH PRN (05:15)
[2017-08-02] MEDS ORDERED: SODIUM CHLORIDE 0.9% FLUSH 10 ML FLUSH IV FLUSH PRN (05:15)
[2017-08-02] MEDS ORDERED: ACETAMINOPHEN 500 MG CPLT PO PRN (05:15)
--- NOTE | 2017-08-02 05:39 | RADRPT ---
EXAM DATE/TIME: 08/02/2017 04:03 [facility] COMPARISON: CHEST SINGLE AP, July 21, 2017, 22:17. INDICATIONS : Chest pain. MEDICAL HISTORY : Cardiovascular disease. Diabetes mellitus type 2. Hypertension. COPD. SURGICAL HISTORY : None. ENCOUNTER: Initial ACUITY: 1 day PAIN SCORE: 4/10 LOCATION: Bilateral chest FINDINGS: There is hazy parenchymal opacity in the left upper lobe. Right lung is grossly clear. No effusion pr esent. Cardiac contours are satisfactory for technique and projection. CONCLUSION: Left upper lobe infiltrate Brandon Shahid MD on August 02, 2017 at 5:36 Board Certified Radiologist. This report was verified electronically.
[2017-08-02 06:56] LABS: TROPONIN I 0.04 NG/ML (0.02-0.05)
[2017-08-02] MEDS: SODIUM CHLORIDE 0.9% FLUSH 10 ML FLUSH IV FLUSH SCH ×2 (09:13→21:51)
[2017-08-02] MEDS: ASPIRIN 325 MG TAB PO SCH (09:13)
[2017-08-02 09:55] LABS: TROPONIN I 0.09 NG/ML (0.02-0.05)
--- NOTE | 2017-08-02 10:52 | HHI.HP ---
HPI Primary Care Physician Unknown-only remembers MD first name Chief Complaint Chest pain History of Present Illness 81 year old female with history of hypertension, hyperlipidemia, type 2 diabetes , and anxiety presents the emergency room for further evaluation of chest pain. Endorses 3 episodes chest pain. First episode yesterday 2 PM, nonexertional. Location left anterior chest. Characterized pressure. No associated symptoms of nausea, vomiting, shortness breath, or diaphoresis. No radiation of pain. No known precipitating factors. Relieving factors x1 Nitro tablet relieving symptoms fairly quickly. Endorses history of angina and prescribed nitro SL tablet, as needed. Reports rarely required taking nitro tablets. Second episode 0, while watching TV. Location left anterior chest, characterized again as pressure, no radiation, no associated symptoms. Relieved with nitro x1 tablet. Third episode 0 again relieved with nitro SL. Associated symptoms of nausea, x1 episode of vomiting, and diaphoresis with third episode. Duration of discomfort never lasted longer than a few minutes. She notified her daughter, who then called EMS. Currently patient is chest pain free. Denies any known CAD or past cardiac catheterizations. Reports 2 years ago encouraged to have cardiac catheterization, she declined, therefore given nitroglycerin tablets. Review of Systems General: Recent "GI illness, I was just discharged Tuesday." Reporting feeling "good until Tuesday night." Taking antibiotics as prescribed at discharge. No fatigue,weakness, fever, chills, or change in appetite. HEENT: No LEE, no vision changes CV: As stated above. No current chest pain or pressure. History of palpitations, etiology unknown. No dizziness. RESP: No SOB, cough, wheeze, or recent URI. Lifelong non-smoker. GI: Nausea improved, no further vomiting. No bowel changes, x1 episode diarrhea Tuesday evening. : No dysuria, urgency, frequency, Recent UTI, currently taking antibiotics. MS: No discomfort or change in ROM NEURO: No change in memory, difficulty with balance, LOC, motor/sensory deficits PSYCH: History of anxiety. No depression. SKIN: No rashes, no concerning lesions Past Family Social History Allergies: Coded Allergies: codeine (Unverified Allergy, Severe, NAUSEA, 08/02/17) hydromorphone (Unverified Allergy, Severe, Nausea/Vomiting, 08/02/17) acetaminophen (Unverified Allergy, Unknown, Nausea/Vomiting, 08/02/17) hydrocodone (Unverified Allergy, Unknown, Nausea/Vomiting, 08/02/17) Past Medical History Hypertension, hyperlipidemia, type 2 diabetes, anxiety, congestive heart failure , GERD, COPD, migraines Past Surgical History Hiatal hernia repair, bilateral knee replacement, tonsillectomy Reported Medications Reported Meds & Active Scripts Active Flagyl (Metronidazole) 500 Mg Tab 500 Mg PO TID 12 Days Levaquin (Levofloxacin) 500 Mg Tablet 500 Mg PO DAILY 12 Days Potassium Chloride ER (Potassium Chloride) 20 Meq Tab 20 Meq PO DAILY Lasix (Furosemide) 20 Mg Tab 20 Mg PO DAILY Enalapril (Enalapril Maleate) 20 Mg Tab 20 Mg PO BID Xanax (Alprazolam) 1 Mg Tab 1 Mg PO BID PRN Senokot (Sennosides) 8.6 Mg Tab 8.6 Mg PO HS PRN Protonix (Pantoprazole Sodium) 40 Mg Tab 40 Mg PO DAILY Nitroglycerin SL (Nitroglycerin) 0.4 Mg Subl 0.4 Mg SL DIRECTED PRN ONE TABLET UNDER THE TONGUE NEEDED FOR CHEST PAIN, MAY REPEAT EVERY FIVE MINUTES FOR A TOTAL OF 3 DOSES OR CALL 911 IF NO RELIEF Metformin (Metformin HCl) 1,000 Mg Tab 1,000 Mg PO BIDPC With meals Gabapentin 300 Mg Cap 300 Mg PO BID Catapres (Clonidine) 0.1 Mg Tab 0.1 Mg PO HS Symbicort Inh (Budesonide/Formoterol Fumarate) 160-4.5 Mcg/Act Aero 2 Puff INH Q12HR Atorvastatin (Atorvastatin Calcium) 40 Mg Tab 40 Mg PO HS Aspirin 81 Mg Chew 81 Mg CHEW DAILY Active Ordered Medications Current Medications Medications (Trade) Dose Ordered Sig/Amy Route Start Time Stop Time Status Last Admin (NS Flush) 2 ml UNSCH PRN IV FLUSH 08/02/17 05:15 (NS Flush) 2 ml BID IV FLUSH 08/02/17 09:00 08/02/17 09:13 (Zofran Inj) 4 mg Q6H PRN IV PUSH 08/02/17 05:15 (Nitrostat Sl) 0.4 mg Q5M PRN SL 08/02/17 05:15 (Aspirin) 325 mg DAILY PO 08/02/17 09:00 08/02/17 09:13 Social History No known coronary artery disease. Known hypertension, hyperlipidemia, and diabetes. Lifelong non-smoker. Denies any alcohol use. Past cardiac testing No recent cardiac testing. PCP recently placed referral to a chief airport guide. Appointment set in July, name unknown. Denies ever having a cardiac catheterization. 01/28/14 Lexiscan-normal examination Physical Exam Vital Signs Vital Signs Date Time Temp Pulse Resp B/P (MAP) Pulse Ox O2 Delivery O2 Flow Rate FiO2 08/02/17 09:18 98.7 72 18 158/68 (98) 99 Nasal Cannula 2.00 08/02/17 07:46 99 Nasal Cannula 3.00 08/02/17 06:39 78 16 136/84 (101) 98 Nasal Cannula 2.00 08/02/17 03:41 84 18 98 Room Air 08/02/17 03:40 98.2 86 16 143/83 (103) 98 Physical Exam GENERAL: Alert WN, WD, NAD, pleasant, obese, elderly female HEAD: NC, AT EYES: Sclera clear, conjunctiva without injection, pupils equal and round ENT: Mucous membranes pink and moist NECK: Supple, no masses, trachea midline CV: RRR, 2/6 systolic murmur, no rub, no gallop. S1-S2 no S3-S4. RESP: Clear lungs throughout bilateral, no crackles, wheeze, rhonchi, symmetrical chest rise, nonlabored, able to speak in full sentences ABD: Soft, NT, ND, no masses, positive bowel tones MS: Normal tone x4 extremities, nontender, no obvious deformities, full range of motion NEURO: CN II through CN XII grossly intact, motor strength 5/5 PSYCH: A+O -3, pleasant affect, appropriate speech, mood, insight and judgment SKIN: Normal turgor, normal texture Laboratory Laboratory Tests Test 08/02/17 03:40 08/02/17 06:15 08/02/17 09:15 White Blood Count 7.9 Red Blood Count 3.96 Hemoglobin 12.3 Hematocrit 35.4 Mean Corpuscular Volume 89.5 Mean Corpuscular Hemoglobin 31.1 Mean Corpuscular Hemoglobin Concent 34.8 Red Cell Distribution Width 13.8 Platelet Count 134 Mean Platelet Volume 9.5 Neutrophils (%) (Auto) 55.8 Lymphocytes (%) (Auto) 34.9 Monocytes (%) (Auto) 7.1 Eosinophils (%) (Auto) 1.8 Basophils (%) (Auto) 0.4 Neutrophils # (Auto) 4.4 Lymphocytes # (Auto) 2.7 Monocytes # (Auto) 0.6 Eosinophils # (Auto) 0.1 Basophils # (Auto) 0.0 CBC Comment DIFF FINAL Differential Comment Prothrombin Time 10.0 Prothromb Time International Ratio 1.0 Activated Partial Thromboplast Time 25.0 Blood Urea Nitrogen 16 Creatinine 0.89 Random Glucose 227 Total Protein 7.1 Albumin 3.3 Calcium Level 8.8 Magnesium Level 1.5 Alkaline Phosphatase 79 Aspartate Amino Transf (AST/SGOT) 9 Alanine Aminotransferase (ALT/SGPT) 12 Total Bilirubin 0.2 Sodium Level 142 Potassium Level 3.8 Chloride Level 105 Carbon Dioxide Level 27.4 Anion Gap 10 Estimat Glomerular Filtration Rate 61 Total Creatine Kinase 55 51 62 Troponin I LESS THAN 0.02 0.04 0.09 B-Type Natriuretic Peptide 283 Lipase 164 Result Diagram: 08/02/1733908/02/17339 Imaging Last 48 hours Impressions Chest X-Ray 08/02/17331 Signed Impressions: Service Date/Time: Wednesday, August 02, 2017 04:03 - CONCLUSION: Left upper lobe infiltrate Brandon Shahid MD Course EKG Normal sinus rhythm, ST T-wave changes, compared to previous EKG unchanged Caprini VTE Risk Assessment Caprini VTE Risk Assessment: Mod/High Risk (score >= 2) Caprini Risk Assessment Model Point Value = 1 Point Value = 2 Point Value = 3 Point Value = 5 Age 41-60 Minor surgery BMI > 25 kg/m2 Swollen legs Varicose veins or History of unexplained or recurrent spontaneous Oral contraceptives or hormone replacement Sepsis (< 1 month) Serious lung disease, including pneumonia (< 1 month) Abnormal pulmonary function Acute myocardial infarction Congestive heart failure (< 1 month) History of inflammatory bowel disease Medical patient at bed rest Age 61-74 Arthroscopic surgery Major open surgery (> 45 min) Laparoscopic surgery (> 45 min) Malignancy Confined to bed (> 72 hours) Immobilizing plaster cast Central venous access Age >= 75 History of VTE Family history of VTE Factor V Leiden Prothrombin [id number] Lupus anticoagulant Anticardiolipin antibodies Elevated serum homocysteine Heparin-induced thrombocytopenia Other congenital or acquired thrombophilia Stroke (< 1 month) Elective arthroplasty Hip, pelvis, or leg fracture Acute spinal cord injury (< 1 month) Prophylaxis Regimen Total Risk Factor Score Risk Level Prophylaxis Regimen 0-1 Low Early ambulation 2 Moderate Order ONE of the following: *Sequential Compression Device (SCD) *Heparin 5000 units SQ BID 3-4 Higher Order ONE of the following medications: *Heparin 5000 units SQ TID *Enoxaparin/Lovenox 40 mg SQ daily (WT < 150 kg, CrCl > 30 mL/min) *Enoxaparin/Lovenox 30 mg SQ daily (WT < 150 kg, CrCl > 10-29 mL/min) *Enoxaparin/Lovenox 30 mg SQ BID (WT < 150 kg, CrCl > 30 mL/min) AND/OR *Sequential Compression Device (SCD) 5 or more Highest Order ONE of the following medications: *Heparin 5000 units SQ TID (Preferred with Epidurals) *Enoxaparin/Lovenox 40 mg SQ daily (WT < 150 kg, CrCl > 30 mL/min) *Enoxaparin/Lovenox 30 mg SQ daily (WT < 150 kg, CrCl > 10-29 mL/min) *Enoxaparin/Lovenox 30 mg SQ BID (WT < 150 kg, CrCl > 30 mL/min) AND *Sequential Compression Device (SCD) Assessment and Plan Assessment and Plan #1 Chest pain-admitted to chest pain center. ACS protocol initiated in ER. Seen and evaluated by Dr. Sumi Kiser. Plan was to complete Lexiscan after being ruled out with 3 sets of EKG and cardiac enzymes. Third troponin 0.09, this is increase from second troponin of 0.04. Discussed with Dr. Kiser. Will admit to hospitalist group for further management. Discussed this with patient in length. Patient expressed concern if chief airport guide recommends catheterization she would most likely decline. Nitroglycerin 0.5" Q6H. #2 History of hypertension-continue enalapril #3 History of type II diabetes-hold metformin, begin SSI low dose coverage #4 History of GERD-continue Protonix #5 History of recent bacteremia and urinary tract infection-continue Levaquin and Flagyl as ordered upon recent discharge Danielle Munson Aug 02, 2017 10:52
[2017-08-02] MEDS ORDERED: DEXTROSE 50% IN WATER 50 ML VIAL(D50) IV PUSH PRN (11:00)
[2017-08-02] MEDS ORDERED: GLUCAGON 1 MG/ML VIAL OTHER PRN (11:00)
[2017-08-02] MEDS ORDERED: NITROGLYCERIN 2% OINT 1 GM PACKET TOPICAL SCH (12:00)
[2017-08-02] MEDS: INSULIN ASPART SUPPLEMENTAL SCALE SQ SCH ×3 (12:00→21:58)
[2017-08-02] MEDS: ENALAPRIL MALEATE 10 MG TAB PO SCH ×2 (12:15→21:51)
[2017-08-02] MEDS: LEVOFLOXACIN 500 MG TAB PO SCH (12:15)
[2017-08-02] MEDS: PANTOPRAZOLE SOD 40 MG DELAYED RELEASE TAB PO SCH (12:15)
[2017-08-02] MEDS: metroNIDAZOLE 500 MG TAB PO SCH ×2 (12:16→17:15)
[2017-08-02] MEDS: FUROSEMIDE 20 MG TAB PO SCH (12:16)
[2017-08-02] MEDS: POTASSIUM CHLORIDE 20 MEQ CONTROLLED RELEASE TAB PO SCH (12:16)
[2017-08-02] MEDS: BUDESONIDE-FORMOTEROL 160/4.5 MCG INHALER INH SCH ×2 (13:13→21:51)
[2017-08-02] MEDS ORDERED: ISOSORBIDE MONONITRATE 30 MG CR TAB (IMDUR) PO ONE (14:30)
--- NOTE | 2017-08-02 15:02 | MB ---
cc: Grant Kc DO DATE: 08/02/2017 REASON FOR CONSULTATION: Chest pain, elevated troponin. HISTORY OF PRESENT ILLNESS: Denisha Muniz is a pleasant 81-year-old female who presented to [facility] Emergency Room on 08/02/2017 due to chest pain. Apparently, she had 3 episodes of chest pain for which she took nitro and this relieved the chest pain. She denies any other symptoms of nausea, vomiting or diaphoresis. She states that the pain was on the left side and did not radiate anywhere. She was sitting around watching TV for most of these episodes. Nitro seemed to take away the pain relatively quickly. She told her daughter about the episodes and so her daughter called EMS. In seeing her, she is currently hemodynamically stable, without chest pain. Apparently, per the daughter, she has had no fevers or chills, but has been coughing up tannish-green sputum. Lastly, the patient reports 2 years ago, she was encouraged to have a cardiac catheterization and she declined at that time and therefore she was given nitroglycerin tablets. PAST MEDICAL HISTORY: 1. Hypertension. 2. Hyperlipidemia. 3. Type 2 diabetes mellitus. 4. Anxiety. 5. Unspecified congestive heart failure. 6. Gastroesophageal reflux disease. 7. Chronic obstructive pulmonary disease. 8. Migraines. PAST SURGICAL HISTORY: 1. Hiatal hernia repair. 2. Bilateral knee replacement. 3. Tonsillectomy. ALLERGIES: 1. ACETAMINOPHEN. 2. CODEINE. 3. HYDROCODONE. 4. HYDROMORPHONE. MEDICATIONS: 1. Levaquin 500 mg daily. 2. Flagyl 500 mg t.i.d. 3. Lipitor 40 mg every night. 4. Catapres 0.1 mg every night. 5. Nitro sublingual as needed. 6. Enalapril 20 mg b.i.d. 7. Aspirin 81 mg daily. 8. Gabapentin 300 mg b.i.d. 9. Xanax 1 mg b.i.d. as needed for anxiety. 10. Potassium 20 mEq daily. 11. Lasix 20 mg daily. 12. Symbicort 2 puffs every 12 hours. 13. Protonix 40 mg daily. 14. Metformin 1000 mg b.i.d. FAMILY HISTORY: Denies premature coronary artery disease or sudden cardiac within the family. SOCIAL HISTORY: The patient is a lifelong nonsmoker. She denies alcohol or drug abuse. REVIEW OF SYSTEMS: Fourteen systems were reviewed including osteopathic pertinent positives and negatives above, otherwise negative. PHYSICAL EXAMINATION: VITAL SIGNS: Temperature 98.1, heart rate 72, blood pressure 136/64, respirations 20, pulse oximetry 95% on 2 liters. GENERAL: The patient appears well, in no acute distress. Alert, awake and oriented x3. HEENT: Extraocular muscles intact. Mucous membranes moist. NECK: Supple. No JVD at 45 degrees. No carotid bruits heard bilaterally. Carotid upstroke is brisk in nature. HEART: Regular rate and rhythm. Positive first and second heart sounds with a 1/6 crescendo decrescendo murmur at the right sternal border. LUNGS: Clear to auscultation bilaterally. No wheezes, rales or rhonchi. ABDOMEN: Soft, nontender, nondistended. No organomegaly noted. EXTREMITIES: Show trace edema bilaterally. NEUROLOGIC: No focal deficits. SKIN: Warm, dry and intact. OSTEOPATHIC: Mild lordosis. No kyphoscoliosis or paraspinal tender points. LABORATORY DATA: Hemoglobin 12.3, hematocrit 35.4, platelets 134. Potassium 3.8, BUN 16, creatinine 0.89. Troponin 0.09. Electrocardiogram (08/02/2017 at 09:14). Sinus rhythm, left anterior fascicular block, LVH with secondary ST-T wave changes. ASSESSMENT AND PLAN: 1. Atypical chest pain, although relieved with nitroglycerin. 2. Hypertension. 3. Diabetes mellitus type 2. 4. Gastroesophageal reflux disease. 5. Recent bacteremia with greenish-anthony sputum with coughing. RECOMMENDATIONS: 1. Ms. Muniz appeared to have chest pain which was somewhat atypical for coronary insufficiency, although it was relieved with nitroglycerin. 2. She did have minimally elevated troponin. 3. I did speak to her extensively about consideration of further ischemic evaluation, whether that be stress testing or cardiac catheterization, but at this time, she states that she would adamantly refuse the cardiac catheterization lab and so at this time we will plan on treating her medically. I do not feel that stressing her at this time will give us further information which will be helpful as she does not want to proceed with coronary visualization in the cardiac catheterization lab. 4. As nitroglycerin has dealt with her chest pain well, we will plan on adding Imdur 30 mg daily. 5. As far as her infiltrate and sputum production, this will be left to the primary care team. 6. I discussed the patient's wishes with her daughter, Lindsey, who agrees with the overall plan of medical management. 7. Ms. Muniz can follow up with me in the office or with whoever she is scheduled to see who agrees with the plan for medical management if possible. 8. She was instructed that, if she does have further chest pain, to report to the emergency room and we can reevaluate medical management versus ischemic evaluation. 9. On discharge, she can followup with the labor contractor with whom she is previously scheduled in July, but I did also give her a card if she would like to followup with myself. Thank you for allowing me to see Denisha Muniz. If there are any questions, please do not hesitate to call. DO RONIT Wasserman/AMARA , 02:02 PM , 03:00 PM
--- NOTE | 2017-08-02 17:35 | EKG ---
Date Performed: 08/02/2017 Time Performed: 09:14:42 PTAGE: 81 years EKG: Sinus rhythm LEFT ANTERIOR FASCICULAR BLOCK LEFT VENTRICULAR HYPERTROPHY AND ST-T CHANGE ABNORMAL ECG Since PREVIOUS TRACING , no significant change noted PREVIOUS TRACIN08/02/2017 06.10 DOCTOR: Sumi Kiser Interpretating Date/Time 08/02/2017 17:33:37
--- NOTE | 2017-08-02 17:35 | EKG ---
Date Performed: 08/02/2017 Time Performed: 06:10:38 PTAGE: 81 years EKG: Sinus rhythm MARKED LEFT AXIS DEVIATION LEFT VENTRICULAR HYPERTROPHY AND ST-T CHANGE ABNORMAL ECG Since PREVIOUS TRACING , no significant change noted PREVIOUS TRACIN07/27/2017 04.38 DOCTOR: Sumi Kiser Interpretating Date/Time 08/02/2017 17:34:04
--- NOTE | 2017-08-02 17:36 | EKG ---
Date Performed: 08/02/2017 Time Performed: 03:28:46 PTAGE: 81 years EKG: Sinus rhythm LEFT ANTERIOR FASCICULAR BLOCK LEFT VENTRICULAR HYPERTROPHY AND ST-T CHANGE ABNORMAL ECG Since PREVIOUS TRACING , no significant change noted DOCTOR: Sumi Kiser Interpretating Date/Time 08/02/2017 17:34:42
[2017-08-02] MEDS ORDERED: ATORVASTATIN 40 MG TAB PO SCH (21:00)
[2017-08-02] MEDS: GABAPENTIN 300 MG CAP PO SCH (21:51)
[2017-08-03] VITALS (8 sets, daily range): BP systolic 113–144; BP diastolic 57–69; PULSE 88–100; RESP 12–18; TEMP 97.4–98.2; O2SAT 92
[2017-08-03] MEDS ORDERED: ISOSORBIDE MONONITRATE 30 MG CR TAB (IMDUR) PO SCH (07:00)
[2017-08-03] MEDS: ENALAPRIL MALEATE 10 MG TAB PO SCH (08:42)
[2017-08-03] MEDS: FUROSEMIDE 20 MG TAB PO SCH (08:42)
[2017-08-03] MEDS: BUDESONIDE-FORMOTEROL 160/4.5 MCG INHALER INH SCH (08:42)
[2017-08-03] MEDS: metroNIDAZOLE 500 MG TAB PO SCH ×2 (08:42→13:21)
[2017-08-03] MEDS: LEVOFLOXACIN 500 MG TAB PO SCH (08:42)
[2017-08-03] MEDS: POTASSIUM CHLORIDE 20 MEQ CONTROLLED RELEASE TAB PO SCH (08:42)
[2017-08-03] MEDS: GABAPENTIN 300 MG CAP PO SCH (08:42)
[2017-08-03] MEDS: ASPIRIN 325 MG TAB PO SCH (08:42)
[2017-08-03] MEDS: PANTOPRAZOLE SOD 40 MG DELAYED RELEASE TAB PO SCH (08:42)
[2017-08-03] MEDS: SODIUM CHLORIDE 0.9% FLUSH 10 ML FLUSH IV FLUSH SCH (08:42)
[2017-08-03] MEDS: INSULIN ASPART SUPPLEMENTAL SCALE SQ SCH ×2 (10:18→13:57)
[2017-08-03] MEDS ORDERED: ISOS30TA3 PO ×2 (11:43→15:20)
[2017-08-03] MEDS ORDERED: NOVOLOGSS SQ (11:43)
--- NOTE | 2017-08-03 11:46 | HHI.FF ---
Face to Face Verification Diagnosis: (1) DM (diabetes mellitus) (2) Generalized weakness (3) Impaired mobility and ADLs Physical Therapy Order: Evaluate and Treat Home Health Nursing Order: Medical education Diabetic education Nursing assessment with vital signs Instructions: Will need home health nurse for medication management, home health nurse to help with insulin sliding scale. Real Estate Appraiser Order: To Evaluate: Living conditions/environment I have seen patient Denisha Muniz on 08/03/17. My clinical findings support the need for the requested home health care services because: Limited ability to care for self Need for psychosocial assistance I certify that my clinical findings support that this patient is homebound because: Unsafe to leave home unassisted Baltazar Etienne MD Aug 03, 2017 11:46
--- NOTE | 2017-08-03 12:38 | RADRPT ---
EXAM DATE/TIME: 08/03/2017 12:24 [facility] COMPARISON: CHEST SINGLE AP, August 02, 2017, 4:03. INDICATIONS : Short of breath. MEDICAL HISTORY : Parkinson's. diabetes mellitus type 1. chronic obstructive pulmonary disease. SURGICAL HISTORY : None. ENCOUNTER: Initial ACUITY: 1 day PAIN SCORE: 0/10 LOCATION: Bilateral chest FINDINGS: Compare August 02. Previous perihilar airspace disease, left greater than right has markedly improved o tamar the last day. No new infiltrate. Tortuous aorta. Mild cardiomegaly. Elevated right hemidiaphragm. CONCLUSION: 1. Improved bilateral mostly perihilar airspace disease over the last day. Elevated right hemidiaphra gm. Tortuous aorta. Milan Brady MD on August 03, 2017 at 12:36 Board Certified Radiologist. This report was verified electronically.
--- NOTE | 2017-08-03 13:07 | HHI.PR ---
Subjective Remarks Patient says she is feeling well. Denies any chest pain or shortness of breath. Feels like going home. Objective Vital Signs Date Time Temp Pulse Resp B/P (MAP) Pulse Ox O2 Delivery O2 Flow Rate FiO2 08/03/17 10:47 97.4 88 12 113/57 (75) 92 08/03/17 08:36 98.2 98 12 134/69 (90) 92 08/03/17 04:02 98.1 97 18 144/65 (91) 92 08/03/17 03:25 100 08/03/17 03:16 21 08/03/17 00:00 95 08/02/17 20:29 97.9 88 18 134/60 (84) 95 08/02/17 19:59 89 08/02/17 17:02 158/81 (106) 08/02/17 16:01 97.6 84 20 179/73 (108) 96 I/O 08/02/17 08/02/17 08/02/17 08/03/17 08/03/17 08/03/17 07:00 15:00 23:00 07:00 15:00 23:00 Intake Total 500 ml 250 ml Balance 500 ml 250 ml Intake Oral 500 ml 250 ml # Voids 2 Result Diagram: 08/02/17 0340 08/02/17 0340 Objective Remarks GENERAL: Patient sitting up in bed. Appears comfortable. Alert and oriented 3. SKIN: Warm and dry. HEAD: Normocephalic. EYES: No scleral icterus. No injection or drainage. NECK: Supple, trachea midline. No JVD . CARDIOVASCULAR: Regular rate and rhythm without murmurs, gallops, or rubs. RESPIRATORY: Breath sounds equal bilaterally. No accessory muscle use. GASTROINTESTINAL: Abdomen soft, non-tender, nondistended. MUSCULOSKELETAL: No cyanosis, or edema. BACK: Nontender without obvious deformity. No CVA tenderness. A/P Assessment and Plan //Chest pain-admitted to chest pain center. ACS protocol initiated in ER. Seen and evaluated by Dr. Sumi Kiser. Plan was to complete Lexiscan after being ruled out with 3 sets of EKG and cardiac enzymes. Third troponin 0.09, this is increase from second troponin of 0.04. Discussed with Dr. Kiser. Will admit to hospitalist group for further management. Discussed this with patient in length. Patient expressed concern if vp product management recommends catheterization she would most likely decline. Nitroglycerin 0.5" Q6H. = She has refused cardiac catheterization. Start on Imdur. Cardiology has cleared for discharge. Follow-up with cardiology as outpatient. //History of hypertension-continue enalapril //History of type II diabetes-hold metformin = Start patient on diabetic diet. I have called her pharmacy, confirms that she is on Novolin R sliding scale at home. Discussed with inclusion paraeducator. Appreciate assistance. // History of GERD-continue Protonix // History of recent bacteremia and urinary tract infection-continue Levaquin and Flagyl as ordered upon recent discharge = No evidence of current infection. Continue on antibiotics. Discharge Planning Discharge home. Baltazar Etienne MD Aug 03, 2017 13:07
--- NOTE | 2017-08-03 13:10 | HHI.DS ---
Discharge Summary Admission Date Aug 02, 2017 at 05:09 Discharge Date: Aug 03, 2017 Admitting Diagnosis CP R/O ACS (1) NSTEMI (non-ST elevated myocardial infarction) ICD Code: I21.4 - Non-ST elevation (NSTEMI) myocardial infarction Procedures No invasive procedures Brief History - From Admission 81 year old female with history of hypertension, hyperlipidemia, type 2 diabetes , and anxiety presents the emergency room for further evaluation of chest pain. Endorses 3 episodes chest pain. First episode yesterday 2 PM, nonexertional. Location left anterior chest. Characterized pressure. No associated symptoms of nausea, vomiting, shortness breath, or diaphoresis. No radiation of pain. No known precipitating factors. Relieving factors x1 Nitro tablet relieving symptoms fairly quickly. Endorses history of angina and prescribed nitro SL tablet, as needed. Reports rarely required taking nitro tablets. Second episode 2230, while watching TV. Location left anterior chest, characterized again as pressure, no radiation, no associated symptoms. Relieved with nitro x1 tablet. Third episode 2330 again relieved with nitro SL. Associated symptoms of nausea, x1 episode of vomiting, and diaphoresis with third episode. Duration of discomfort never lasted longer than a few minutes. She notified her daughter, who then called EMS. Currently patient is chest pain free. Denies any known CAD or past cardiac catheterizations. Reports 2 years ago encouraged to have cardiac catheterization, she declined, therefore given nitroglycerin tablets. CBC/BMP: 08/02/17 0340 08/02/17 0340 Significant Findings Laboratory Tests Test 08/02/17 03:40 08/02/17 06:15 08/02/17 09:15 08/02/17 14:00 Red Blood Count 3.96 MIL/MM3 (4.00-5.30) Platelet Count 134 TH/MM3 (150-450) Random Glucose 227 MG/DL (74-106) Albumin 3.3 GM/DL (3.4-5.0) Aspartate Amino Transf (AST/SGOT) 9 U/L (15-37) Estimat Glomerular Filtration Rate 61 ML/MIN (>89) Troponin I LESS THAN 0.02 NG/ML 0.09 NG/ML (0.02-0.05) 0.20 NG/ML (0.02-0.05) B-Type Natriuretic Peptide 283 PG/ML (0-100) Test 08/03/17 11:29 Imaging Last Impressions Chest X-Ray 08/02/17 0332 Signed Impressions: Service Date/Time: Wednesday, August 02, 2017 04:03 - CONCLUSION: Left upper lobe infiltrate Brandon Shahid MD Hospital Course EKG with no acute findings from previously. Troponin up to 0.2. Chest pain improved with nitro. Cardiology was consulted. Patient refuses cardiac catheterization. Discharge home on Imdur. Patient was found to have chest x-ray abnormalities on admission, however improved on subsequent chest x-ray, likely poor positioning. No signs of acute infection. For problem based summary from most recent progress note, please see below. //Chest pain-admitted to chest pain center. ACS protocol initiated in ER. Seen and evaluated by Dr. Sumi Kiser. Plan was to complete Lexiscan after being ruled out with 3 sets of EKG and cardiac enzymes. Third troponin 0.09, this is increase from second troponin of 0.04. Discussed with Dr. Kiser. Will admit to hospitalist group for further management. Discussed this with patient in length. 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 Nitroglycerin 0.5" Q6H. = She has refused cardiac catheterization. Start on Imdur. Cardiology has cleared for discharge. Follow-up with cardiology as outpatient. //History of hypertension-continue enalapril //History of type II diabetes-hold metformin = Start patient on diabetic diet. I have called her pharmacy, confirms that she is on Novolin R sliding scale at home. Discussed with adult educator. Appreciate assistance. // History of GERD-continue Protonix // History of recent bacteremia and urinary tract infection-continue Levaquin and Flagyl as ordered upon recent discharge = No evidence of current infection. Continue on antibiotics. Pt Condition on Discharge: Good Discharge Disposition: Dis to Court Law Enforcem Discharge Time: > 30 minutes Discharge Instructions DIET: Follow Instructions for: Diabetic Diet Activities you can perform: Regular-No Restrictions Follow up Referrals: Cardiology - 1 Week with Grant Kc DO PCP Follow-up - 1 Week New Medications: Isosorbide Mononitrate ER (Isosorbide Mononitrate ER) 30 Mg Silvia 30 MG PO DAILY@07 for heart for 30 Days, TAB Continued Medications: Alprazolam (Xanax) 1 Mg Tab 1 MG PO BID PRN for ANXIETY, #10 TAB 0 Refills Aspirin (Aspirin) 81 Mg Chew 81 MG CHEW DAILY, TAB 0 Refills Atorvastatin (Atorvastatin) 40 Mg Tab 40 MG PO HS for Cholesterol Management, #30 TAB 0 Refills Budesonide-Formoterol Inh (Symbicort Inh) 160-4.5 Mcg/Act Aero 2 PUFF INH Q12HR, #1 INHALER 0 Refills Clonidine (Catapres) 0.1 Mg Tab 0.1 MG PO HS for Blood Pressure Management, #1 TAB 0 Refills Enalapril (Enalapril) 20 Mg Tab 20 MG PO BID for Blood Pressure Management, #60 TAB 0 Refills Furosemide (Lasix) 20 Mg Tab 20 MG PO DAILY, #30 TAB 0 Refills Gabapentin (Gabapentin) 300 Mg Cap 300 MG PO BID, #60 CAP 0 Refills Levofloxacin (Levaquin) 500 Mg Tablet 500 MG PO DAILY for Strep viridans bacteremia for 12 Days, #12 TAB 0 Refills Metformin (Metformin) 1,000 Mg Tab 1000 MG PO BIDPC for Blood Sugar Management, #60 TAB 0 Refills With meals Metronidazole (Flagyl) 500 Mg Tab 500 MG PO TID for Clperf bacteremia for 12 Days, TAB 0 Refills Nitroglycerin SL (Nitroglycerin SL) 0.4 Mg Subl 0.4 MG SL DIRECTED PRN for CHEST PAIN, #100 TAB.SL 0 Refills ONE TABLET UNDER THE TONGUE NEEDED FOR CHEST PAIN, MAY REPEAT EVERY FIVE MINUTES FOR A TOTAL OF 3 DOSES OR CALL 911 IF NO RELIEF Pantoprazole (Protonix) 40 Mg Tab 40 MG PO DAILY for Reflux, #30 TAB 0 Refills Potassium Chloride ER (Potassium Chloride ER) 20 Meq Tab 20 MEQ PO DAILY for Electrolyte Replacement, #30 TAB 0 Refills Sennosides (Senokot) 8.6 Mg Tab 8.6 MG PO HS PRN for CONSTIPATION, #30 TAB 0 Refills Additional Information Patient is to continue on home Novolin R sliding scale, as well as daily Lantus. Baltazar Etienne MD Aug 03, 2017 13:10
--- NOTE | 2017-08-03 14:22 | PD.CARD.PN ---
Subjective Subjective Remarks No events overnight No chest pain Objective Medications Current Medications Medications (Trade) Dose Ordered Sig/Amy Route Start Time Stop Time Status Last Admin (NS Flush) 2 ml UNSCH PRN IV FLUSH 08/02/17 05:15 (NS Flush) 2 ml BID IV FLUSH 08/02/17 09:00 08/03/17 08:42 (Zofran Inj) 4 mg Q6H PRN IV PUSH 08/02/17 05:15 (Nitrostat Sl) 0.4 mg Q5M PRN SL 08/02/17 05:15 (Aspirin) 325 mg DAILY PO 08/02/17 09:00 08/03/17 08:42 (Lipitor) 40 mg HS PO 08/02/17 21:00 08/02/17 21:51 (Symbicort 160-4.5 Mcg Inh) 2 puff Q12HR INH 08/02/17 11:00 08/03/17 08:42 (Vasotec) 20 mg BID PO 08/02/17 11:00 08/03/17 08:42 (Lasix) 20 mg DAILY PO 08/02/17 11:00 08/03/17 08:42 (Neurontin) 300 mg BID PO 08/02/17 21:00 08/03/17 08:42 (Levaquin) 500 mg DAILY PO 08/02/17 11:00 08/03/17 08:42 (Flagyl) 500 mg TID PO 08/02/17 13:00 08/03/17 13:21 (Protonix) 40 mg DAILY PO 08/02/17 11:00 08/03/17 08:42 (KCl) 20 meq DAILY PO 08/02/17 11:00 08/03/17 08:42 (D50w (Vial) Inj) 50 ml UNSCH PRN IV PUSH 08/02/17 11:00 (Glucagon Inj) 1 mg UNSCH PRN OTHER 08/02/17 11:00 (NovoLOG SUPPLEMENTAL SCALE) 1 ACHS SLIDING SCALE SQ 08/02/17 12:00 08/03/17 13:57 (Imdur) 30 mg DAILY@07 PO 08/03/17 07:00 08/03/17 06:02 Vital Signs / I&O Vital Signs Date Time Temp Pulse Resp B/P (MAP) Pulse Ox O2 Delivery O2 Flow Rate FiO2 08/03/17 10:47 97.4 88 12 113/57 (75) 92 08/03/17 08:36 98.2 98 12 134/69 (90) 92 08/03/17 04:02 98.1 97 18 144/65 (91) 92 08/03/17 03:25 100 08/03/17 03:16 21 08/03/17 00:00 95 08/02/17 20:29 97.9 88 18 134/60 (84) 95 08/02/17 19:59 89 08/02/17 17:02 158/81 (106) 08/02/17 16:01 97.6 84 20 179/73 (108) 96 I/O 08/02/17 08/02/17 08/02/17 08/03/17 08/03/17 08/03/17 07:00 15:00 23:00 07:00 15:00 23:00 Intake Total 500 ml 250 ml Balance 500 ml 250 ml Intake Oral 500 ml 250 ml # Voids 2 Physical Exam GENERAL: NAD, AAOx3 SKIN: Warm and dry. HEAD: Atraumatic. Normocephalic. EYES: Pupils equal and round. No scleral icterus. No injection or drainage. ENT: No nasal bleeding or discharge. Mucous membranes pink and moist. NECK: Trachea midline. No JVD. CARDIOVASCULAR: Regular rate and rhythm. RESPIRATORY: No accessory muscle use. Clear to auscultation. Breath sounds equal bilaterally. GASTROINTESTINAL: Abdomen soft, non-tender, nondistended. Hepatic and splenic margins not palpable. MUSCULOSKELETAL: Extremities without clubbing, cyanosis, or edema. No obvious deformities. NEUROLOGICAL: Awake and alert. No obvious cranial nerve deficits. Motor grossly within normal limits. Five out of 5 muscle strength in the arms and legs. Normal speech. PSYCHIATRIC: Appropriate mood and affect; insight and judgment normal. Laboratory Laboratory Tests Test 08/03/17 11:29 Imaging Last 24 hours Impressions Chest X-Ray 08/03/17 0000 Signed Impressions: Service Date/Time: Thursday, August 03, 2017 12:24 - CONCLUSION: 1. Improved bilateral mostly perihilar airspace disease over the last day. Elevated right hemidiaphragm. Tortuous aorta. Milan Brady MD Assessment and Plan Problem List: (1) Elevated troponin ICD Codes: R74.8 - Abnormal levels of other serum enzymes (2) Chest pain, atypical ICD Codes: R07.89 - Atypical chest pain Status: Acute (3) Hypertension ICD Codes: I10 - Hypertension Status: Chronic (4) DM (diabetes mellitus) ICD Codes: E11.9 - Diabetes mellitus Status: Chronic Assessment and Plan 1) No further chest pain 2) Started on Imdur 30mg daily 3) Wants to be treated medical, wants to avoid cardiac catheterization at all cost Discussed with daughter yesterday, agrees with plan 4) Infiltrate/sputum production per the primary team 5) She was instructed that, if she does have further chest pain, to report to the emergency room and we can reevaluate medical management versus ischemic evaluation. 6) Cardiovascularly stable for discharge Grant Kc DO Aug 03, 2017 14:22
[2017-08-03 20:43] LABS: HEMOGLOBIN A1C 8.8 % (4.3-6.0)
[2017-08-04] MEDS ORDERED: METOPROLOL TARTRATE 5 MG/5 ML VIAL IV PUSH ONE (09:15)
[2017-08-04] MEDS ORDERED: METOPROLOL TARTRATE 25 MG TAB PO ONE (09:15)
[2017-08-04] MEDS ORDERED: NOVORP2 SQ (11:08)
[2017-08-04] MEDS ORDERED: METOPROLOL TARTRATE 25 MG TAB PO SCH (21:00)
== END 2017-08-03 16:01 | disposition home or self-care (01) ==
LOC: NEPE 03:26 → NEDA 05:09 → NEDH 11:26 → NEPFCDU 11:49
PROVIDERS: ADMIT Internal Medicine; ATTEND Internal Medicine
DX: R07.89 Other chest pain (principal); R06.02 Shortness of breath; R11.2 Nausea with vomiting, unspecified; I11.0 Hypertensive heart disease with heart failure; I50.9 Heart failure, unspecified; E10.9 Type 1 diabetes mellitus without complications; E78.00 Pure hypercholesterolemia, unspecified; K21.9 Gastro-esophageal reflux disease without esophagitis; I44.4 Left anterior fascicular block; R94.31 Abnormal electrocardiogram [ECG] [EKG]; Q25.46 Tortuous aortic arch; I25.2 Old myocardial infarction; J44.9 Chronic obstructive pulmonary disease, unspecified; G20 Parkinson's disease; F41.9 Anxiety disorder, unspecified; F32.9 Major depressive disorder, single episode, unspecified; H91.90 Unspecified hearing loss, unspecified ear; M19.90 Unspecified osteoarthritis, unspecified site; Z79.899 Other long term (current) drug therapy; Z79.82 Long term (current) use of aspirin; Z79.84 Long term (current) use of oral hypoglycemic drugs
CPT/HCPCS: 71045; 80053; 82550; 82948; 83036; 83690; 83735; 83880; 84484; 85025; 85610; 85730; 93005; 96372; 99285; G0378; J1815; J2405

== ENCOUNTER 2017-08-04 06:57 | Observation (INO) | payer MEDICARE, MEDICAID ==
[~2017-08-04] VITALS: Ht 157.5 cm; Wt 70.0 kg
[2017-08-04] VITALS (11 sets, daily range): BP systolic 132–204; BP diastolic 57–90; PULSE 74–95; RESP 16–20; TEMP 98–99; O2SAT 94–100
[~2017-08-04 06:57] MED LIST changes: -CANE/WOOD/LADIE1 MI1; +ISOS30TA3 PO
[2017-08-04] MEDS: NITROGLYCERIN 0.4 MG SL 25 TABS/BTL SL SCH ×2 (07:15→07:20)
[2017-08-04] MEDS ORDERED: SODIUM CHLORIDE 0.9% FLUSH 10 ML FLUSH IVF PRN (07:15)
[2017-08-04] MEDS ORDERED: ASPIRIN 325 MG TAB PO ONE (07:15)
--- NOTE | 2017-08-04 07:21 | PD ---
HPI Chief Complaint: chest pain Time Seen by Provider: 07:08 Travel History International Travel<30 days: No Contact w/Intl Traveler<30days: No History of Present Illness HPI 81 y/o female presents with persistent chest pain since being discharged yesterday. She states she still is not wanting a heart catheter procedure but she wanted to come back to get other treatment. She states she also feels nauseous. She denies any other concurrent complaints. She denies any change since recent discharge from the hospital. She denies specific modifying factors. Quality is pressure. Severity is moderate. Duration is persistent since discharge. PFSH Past Medical History Arthritis: Yes Asthma: No Autoimmune Disease: No Blood Disorders: No Anxiety: Yes Depression: Yes Heart Rhythm Problems: Yes Cancer: No Cardiac Catheterization: No Cardiovascular Problems: Yes ([place]) High Cholesterol: Yes Chemotherapy: No Chest Pain: No Congestive Heart Failure: Yes COPD: Yes Cerebrovascular Accident: No Diabetes: Yes Diminished Hearing: Yes ([place]) Endocrine: No Gastrointestinal Disorders: Yes (TAKES PROTONIX) GERD: No Glaucoma: No Genitourinary: No Headaches: Yes Hepatitis: No Hiatal Hernia: No Hypertension: Yes Immune Disorder: No Implanted Vascular Access Dvce: Yes Kidney Stones: No Musculoskeletal: Yes Neurologic: Yes Parkinson's Disease: Yes Psychiatric: Yes Reproductive: No Respiratory: Yes (COPD) Integumentary: Yes (SKIN GROWTH ON SCALP AREa) Immunizations Current: Yes Migraines: Yes Myocardial Infarction: No Radiation Therapy: No Renal Failure: No Seizures: No Sickle Cell Disease: No Sleep Apnea: No Thyroid Disease: No Ulcer: No PNEUMOCCOCAL Vaccine (Year): 1 Menopausal: Yes Past Surgical History Abdominal Surgery: No AICD: No Arteriovenous Shunt: No Body Medical Devices: BILAT KNEE REPLACEMENT Cardiac Surgery: No Coronary Artery Bypass Graft: No Ear Surgery: No Endocrine Surgery: No Eye Surgery: No Genitourinary Surgery: No Gynecologic Surgery: No Insulin Pump: No Joint Replacement: Yes (BILAT KNEE, BACK) Neurologic Surgery: No Oral Surgery: No Pacemaker: No Thoracic Surgery: No Tonsillectomy: Yes Other Surgery: Yes (bilat knee, back, hiatal hernia) Social History Alcohol Use: No Tobacco Use: No Substance Use: No Allergies-Medications (Allergen,Severity, Reaction): Coded Allergies: codeine (Unverified Allergy, Severe, NAUSEA, 08/02/17) hydromorphone (Unverified Allergy, Severe, Nausea/Vomiting, 08/02/17) acetaminophen (Unverified Allergy, Unknown, Nausea/Vomiting, 08/02/17) hydrocodone (Unverified Allergy, Unknown, Nausea/Vomiting, 08/02/17) Reported Meds & Prescriptions Reported Meds & Active Scripts Active Isosorbide Mononitrate ER (Isosorbide Mononitrate) 30 Mg Silvia 30 Mg PO DAILY@ 07 30 Days Flagyl (Metronidazole) 500 Mg Tab 500 Mg PO TID 12 Days Levaquin (Levofloxacin) 500 Mg Tablet 500 Mg PO DAILY 12 Days Potassium Chloride ER (Potassium Chloride) 20 Meq Tab 20 Meq PO DAILY Lasix (Furosemide) 20 Mg Tab 20 Mg PO DAILY Enalapril (Enalapril Maleate) 20 Mg Tab 20 Mg PO BID Xanax (Alprazolam) 1 Mg Tab 1 Mg PO BID PRN Reported Senokot (Sennosides) 8.6 Mg Tab 8.6 Mg PO HS PRN Protonix (Pantoprazole Sodium) 40 Mg Tab 40 Mg PO DAILY Nitroglycerin SL (Nitroglycerin) 0.4 Mg Subl 0.4 Mg SL DIRECTED PRN ONE TABLET UNDER THE TONGUE NEEDED FOR CHEST PAIN, MAY REPEAT EVERY FIVE MINUTES FOR A TOTAL OF 3 DOSES OR CALL 911 IF NO RELIEF Metformin (Metformin HCl) 1,000 Mg Tab 1,000 Mg PO BIDPC With meals Gabapentin 300 Mg Cap 300 Mg PO BID Catapres (Clonidine) 0.1 Mg Tab 0.1 Mg PO HS Symbicort Inh (Budesonide/Formoterol Fumarate) 160-4.5 Mcg/Act Aero 2 Puff INH Q12HR Atorvastatin (Atorvastatin Calcium) 40 Mg Tab 40 Mg PO HS Aspirin 81 Mg Chew 81 Mg CHEW DAILY Review of Systems Except as stated in HPI: all other systems reviewed are Neg Physical Exam Narrative GENERAL: 81-year-old female in no apparent distress SKIN: Focused skin assessment warm/dry. HEAD: Atraumatic. Normocephalic. EYES: Pupils equal and round. No scleral icterus. No injection or drainage. ENT: No nasal bleeding or discharge. Mucous membranes pink and moist. NECK: Trachea midline. No JVD. CARDIOVASCULAR: Regular rate and rhythm. RESPIRATORY: No accessory muscle use. Clear to auscultation At apices. Breath sounds equal bilaterally. GASTROINTESTINAL: Abdomen soft, non-tender, nondistended. MUSCULOSKELETAL: No obvious deformities. No clubbing. No cyanosis. NEUROLOGICAL: Awake. Moves all extremities. Normal speech. Data Data Last Documented VS Vital Signs Date Time Temp Pulse Resp B/P (MAP) Pulse Ox O2 Delivery O2 Flow Rate FiO2 08/04/17 07:29 95 Room Air 08/04/17 07:29 90 08/04/17 06:59 99.0 17 142/85 (104) Orders Orders Electrocardiogram (08/04/17 07:08) B-Type Natriuretic Peptide (08/04/17 07:08) Ckmb (Isoenzyme) Profile (08/04/17 07:08) Complete Blood Count With Diff (08/04/17 07:08) Comprehensive Metabolic Panel (08/04/17 07:08) Magnesium (Mg) (08/04/17 07:08) Prothrombin Time / Inr (Pt) (08/04/17 07:08) Act Partial Throm Time (Ptt) (08/04/17 07:08) Troponin I (08/04/17 07:08) Ecg Monitoring (08/04/17 07:08) Bilateral Bp Monitoring (08/04/17 07:08) Iv Access Insert/Monitor (08/04/17 07:08) Oximetry (08/04/17 07:08) Aspirin (Aspirin) (08/04/17 07:15) Sodium Chloride 0.9% Flush (Ns Flush) (08/04/17 07:15) Nitroglycerin Sl (Nitrostat Sl) (08/04/17 07:15) Chest, Pa & Lat (08/04/17 07:08) Admit Order (Ed Use Only) (08/04/17 09:01) Labs Laboratory Tests Test 08/04/17 07:15 White Blood Count 6.6 TH/MM3 Red Blood Count 3.76 MIL/MM3 Hemoglobin 11.7 GM/DL Hematocrit 34.1 % Mean Corpuscular Volume 90.7 FL Mean Corpuscular Hemoglobin 31.1 PG Mean Corpuscular Hemoglobin Concent 34.2 % Red Cell Distribution Width 13.6 % Platelet Count 123 TH/MM3 Mean Platelet Volume 9.3 FL Neutrophils (%) (Auto) 65.1 % Lymphocytes (%) (Auto) 25.0 % Monocytes (%) (Auto) 7.6 % Eosinophils (%) (Auto) 1.7 % Basophils (%) (Auto) 0.6 % Neutrophils # (Auto) 4.3 TH/MM3 Lymphocytes # (Auto) 1.6 TH/MM3 Monocytes # (Auto) 0.5 TH/MM3 Eosinophils # (Auto) 0.1 TH/MM3 Basophils # (Auto) 0.0 TH/MM3 CBC Comment DIFF FINAL Differential Comment Prothrombin Time 10.1 SEC Prothromb Time International Ratio 1.0 RATIO Activated Partial Thromboplast Time 20.8 SEC Blood Urea Nitrogen 17 MG/DL Creatinine 0.90 MG/DL Random Glucose 369 MG/DL Total Protein 6.9 GM/DL Albumin 3.2 GM/DL Calcium Level 9.0 MG/DL Magnesium Level 1.7 MG/DL Alkaline Phosphatase 79 U/L Aspartate Amino Transf (AST/SGOT) 14 U/L Alanine Aminotransferase (ALT/SGPT) 10 U/L Total Bilirubin 0.3 MG/DL Sodium Level 140 MEQ/L Potassium Level 4.3 MEQ/L Chloride Level 105 MEQ/L Carbon Dioxide Level 27.1 MEQ/L Anion Gap 8 MEQ/L Estimat Glomerular Filtration Rate 60 ML/MIN Total Creatine Kinase 73 U/L Troponin I 0.40 NG/ML B-Type Natriuretic Peptide 263 PG/ML MDM Medical Decision Making Medical Screen Exam Complete: Yes Emergency Medical Condition: Yes Medical Record Reviewed: Yes (Past history confirmed, patient recently in the hospital with non-STEMI with troponin peak of 0.2 at discharge without wanting heart catheter at time of discharge) Interpretation(s) CBC & BMP Diagram 08/04/17 07:15 Total Protein 6.9, Albumin 3.2 L, Calcium Level 9.0, Magnesium Level 1.7, Alkaline Phosphatase 79, Aspartate Amino Transf (AST/SGOT) 14 L, Alanine Aminotransferase (ALT/SGPT) 10, Total Bilirubin 0.3 Last 24 hours Impressions Chest X-Ray 08/04/17 0708 Signed Impressions: Service Date/Time: July 07:46 - CONCLUSION: Cardiomegaly. No acute pulmonary disease. Luis Enrique Cavazos MD Differential Diagnosis NC, CHF, pneumothorax, pneumonia Narrative Course Will check blood work, EKG, chest x-ray and dose with aspirin and nitro and reevaluate patient agrees to admit, will discuss with medicine team Physician Communication Physician Communication dr kellogg states to place in observation Diagnosis Primary Impression: NSTEMI (non-ST elevated myocardial infarction) Admitting Information Admitting Physician Requests: Observation Chayito Freitas MD Aug 04, 2017 07:21
[2017-08-04 07:33] LABS: AUTOMATED NEUTROPHIL # 4.3 TH/MM3 (1.8-7.7); BASOPHIL % 0.6 % (0.0-2.0); EOSINOPHIL # 0.1 TH/MM3 (0-0.4); EOSINOPHIL % 1.7 % (0.0-4.0); HEMATOCRIT 34.1 % (35.0-46.0); HEMOGLOBIN 11.7 GM/DL (11.6-15.3); LYMPHOCYTE # 1.6 TH/MM3 (1.0-4.8); MEAN CELL VOLUME 90.7 FL (80.0-100.0); MEAN CORPUSCULAR HEMOGLOBIN 31.1 PG (27.0-34.0); MEAN CORPUSCULAR HGB CONC 34.2 % (32.0-36.0); MEAN PLATELET VOLUME 9.3 FL (7.0-11.0); MONO % 7.6 % (0.0-8.0); MONOCYTE # 0.5 TH/MM3 (0-0.9); NEUT % 65.1 % (16.0-70.0); PLATELET COUNT 123 TH/MM3 (150-450); RED BLOOD COUNT 3.76 MIL/MM3 (4.00-5.30); RED CELL DISTRIBUTION WIDTH 13.6 % (11.6-17.2); WHITE BLOOD COUNT 6.6 TH/MM3 (4.0-11.0)
[2017-08-04 07:54] LABS: PROTHROMBIN TIME - PATIENT 10.1 SEC (9.8-11.6)
[2017-08-04 07:58] LABS: ALBUMIN 3.2 GM/DL (3.4-5.0); ALKALINE PHOSPHATASE 79 U/L (45-117); ALT (GPT) 10 U/L (10-53); AST (GOT) 14 U/L (15-37); BICARBONATE 27.1 MEQ/L (21.0-32.0); BLOOD UREA NITROGEN 17 MG/DL (7-18); CHLORIDE 105 MEQ/L (98-107); GLOMERULAR FILTRATION RATE 60 ML/MIN (>89); GLUCOSE,RANDOM 369 MG/DL (74-106); MAGNESIUM 1.7 MG/DL (1.5-2.5); SODIUM (NA) 140 MEQ/L (136-145); TOTAL BILIRUBIN ADULT 0.3 MG/DL (0.2-1.0); TOTAL PROTEIN 6.9 GM/DL (6.4-8.2)
--- NOTE | 2017-08-04 08:06 | RADRPT ---
EXAM DATE/TIME: 08/04/2017 07:46 CORRECTION Corrected on: August 04, 2017; [facility] COMPARISON: No previous studies available for comparison. INDICATIONS : Left side chest pain. Shortness of breath. Weakness. MEDICAL HISTORY : Diabetes mellitus type I. Chronic obstructive pulmonary disease. Parkinson's disease. SURGICAL HISTORY : None. ENCOUNTER: Subsequent ACUITY: 2 days PAIN SCORE: 6/10 LOCATION: Left chest FINDINGS: The cardiac silhouette is enlarged in transverse diameter. The lungs are hypoinflated but clear. No e ffusions are identified. There is elevation of the right hemidiaphragm. There is prominence of the ao rtic knob is with calcification characteristic of atherosclerotic vascular disease. CONCLUSION: Cardiomegaly. No acute pulmonary disease. Luis Enrique Cavazos MD on August 04, 2017 at 8:03 Board Certified Radiologist. This report was verified electronically. Luis Enrique Cavazos MD on August 04, 2017 at 8:06 Board Certified Radiologist. This report was verified electronically.
[2017-08-04] MEDS ORDERED: NALOXONE HCL 0.4 MG/ML AMP IV PUSH PRN (09:15)
[2017-08-04] MEDS ORDERED: SODIUM CHLORIDE 0.9% FLUSH 10 ML FLUSH IV FLUSH PRN (09:15)
[2017-08-04] MEDS ORDERED: METOPROLOL TARTRATE 5 MG/5 ML VIAL IV PUSH ONE (09:15)
[2017-08-04] MEDS ORDERED: BISACODYL 10 MG SUPP RECTAL PRN (09:15)
[2017-08-04] MEDS ORDERED: SENNOSIDES 8.6 MG TAB PO PRN (09:15)
[2017-08-04] MEDS ORDERED: LACTULOSE SYRUP 20 GM/30 ML CUP PO PRN (09:15)
[2017-08-04] MEDS ORDERED: ONDANSETRON HCL 4 MG/2 ML VIAL IVP PRN (09:15)
[2017-08-04] MEDS ORDERED: MAGNESIUM HYDROXIDE SUSP 30 ML CUP PO PRN (09:15)
[2017-08-04] MEDS ORDERED: METOPROLOL TARTRATE 25 MG TAB PO ONE (09:15)
[2017-08-04] MEDS ORDERED: NOVORP2 SQ (11:08)
[2017-08-04] MEDS: INSULIN ASPART SUPPLEMENTAL SCALE SQ SCH ×2 (13:44→18:48)
[2017-08-04] MEDS ORDERED: LISINOPRIL 10 MG TAB PO ONE (13:45)
[2017-08-04] MEDS: metroNIDAZOLE 500 MG TAB PO SCH ×2 (13:45→18:48)
--- NOTE | 2017-08-04 14:02 | EKG ---
Date Performed: 08/04/2017 Time Performed: 07:04:53 PTAGE: 81 years EKG: Sinus rhythm LEFT ANTERIOR FASCICULAR BLOCK LEFT VENTRICULAR HYPERTROPHY AND ST-T CHANGE ABNORMAL ECG Since the PREVIOUS TRACING , no significant change noted PREVIOUS TRACIN08/02/2017 09.14 DOCTOR: Dunia Aguero Interpretating Date/Time 08/04/2017 13:59:59
--- NOTE | 2017-08-04 15:15 | HHI.HP ---
HPI Service [facility] Primary Care Physician Unknown Admission Diagnosis NSTEMI Diagnoses: Chief Complaint: chest pain Travel History International Travel<30 Days: No Contact w/Intl Traveler <30 Da: No Traveled to Known Affected Are: No History of Present Illness Written by Daya Buchanan, acting as scribe for Dr. Etienne on 08/04/17 at 15:13. 81-year-old female with history of HTN, HLD, type 2 DM, presents with recurrent chest pain. The patient was recently hospitalized 08/02-08/03 for chest pain, had elevated troponins of 0.04, 0.09, 0.20; she was evaluated by cardiology, cardiac catheterization recommended however patient declined therefore she was started on Imdur and discharged home. She went home yesterday, then reports last night she "got sick real bad". She reports chest pain throughout the left anterolateral chest, described as a constant dull pain. She took 4 tablets of nitro which did relieve the pain for 1.5 hours but then it returned so she called 911. She was given nitro spray en route with EVAC which then relieved the pain again. The chest pain now resolved and she has been chest pain free since her arrival. Again discussed option of cardiac catheterization however patient says she is too scared and she doesn't want to have it done. She denies any other medical complaints at this time including no headache, lightheadedness , dizziness, shortness of breath, abdominal pain, nausea/vomiting, or diarrhea. Review of Systems Except as stated in HPI: all other systems reviewed are Neg Past Family Social History Past Medical History HTN HLD type 2 DM anxiety CHF GERD COPD migraines Past Surgical History hiatal hernia repair bilateral knee replacement tonsillectomy Reported Medications Reported Meds & Active Scripts Active Isosorbide Mononitrate ER (Isosorbide Mononitrate) 30 Mg Silvia 30 Mg PO DAILY@ 07 30 Days Flagyl (Metronidazole) 500 Mg Tab 500 Mg PO TID 12 Days Levaquin (Levofloxacin) 500 Mg Tablet 500 Mg PO DAILY 12 Days Potassium Chloride ER (Potassium Chloride) 20 Meq Tab 20 Meq PO DAILY Lasix (Furosemide) 20 Mg Tab 20 Mg PO DAILY Enalapril (Enalapril Maleate) 20 Mg Tab 20 Mg PO BID Xanax (Alprazolam) 1 Mg Tab 1 Mg PO BID PRN Reported Novolin R Inj (Insulin Human Regular) 1,000 Unit/10 Ml Vial 0 SQ DIRECTED Sliding Scale As Directed. 150-200=5 UNITS,201-300=10 UNITS,301-400=15 UNITS, OVER 400=CALL Senokot (Sennosides) 8.6 Mg Tab 8.6 Mg PO HS PRN Protonix (Pantoprazole Sodium) 40 Mg Tab 40 Mg PO DAILY Nitroglycerin SL (Nitroglycerin) 0.4 Mg Subl 0.4 Mg SL DIRECTED PRN ONE TABLET UNDER THE TONGUE NEEDED FOR CHEST PAIN, MAY REPEAT EVERY FIVE MINUTES FOR A TOTAL OF 3 DOSES OR CALL 911 IF NO RELIEF Metformin (Metformin HCl) 1,000 Mg Tab 1,000 Mg PO BIDPC With meals Gabapentin 300 Mg Cap 300 Mg PO BID Catapres (Clonidine) 0.1 Mg Tab 0.1 Mg PO HS Symbicort Inh (Budesonide/Formoterol Fumarate) 160-4.5 Mcg/Act Aero 2 Puff INH Q12HR Atorvastatin (Atorvastatin Calcium) 40 Mg Tab 40 Mg PO HS Aspirin 81 Mg Chew 81 Mg CHEW DAILY Allergies: Coded Allergies: codeine (Unverified Allergy, Severe, NAUSEA, 08/02/17) hydromorphone (Unverified Allergy, Severe, Nausea/Vomiting, 08/02/17) acetaminophen (Unverified Allergy, Unknown, Nausea/Vomiting, 08/02/17) hydrocodone (Unverified Allergy, Unknown, Nausea/Vomiting, 08/02/17) Active Ordered Medications Current Medications Medications (Trade) Dose Ordered Sig/Amy Route Start Time Stop Time Status Last Admin (NS Flush) 2 ml UNSCH PRN IVF 08/04/17 07:15 (Lopressor) 25 mg Q12HR PO 08/04/17 21:00 (Aspirin Chew) 81 mg DAILY CHEW 08/05/17 09:00 (Imdur) 30 mg DAILY@07 PO 08/05/17 07:00 (Levaquin) 500 mg DAILY PO 08/05/17 09:00 (Flagyl) 500 mg TID PO 08/04/17 13:00 08/04/17 13:45 (Protonix) 40 mg DAILY PO 08/05/17 09:00 (NS Flush) 2 ml UNSCH PRN IV FLUSH 08/04/17 09:15 (NS Flush) 2 ml BID IV FLUSH 08/04/17 21:00 (Zofran Inj) 4 mg Q6H PRN IVP 08/04/17 09:15 (Narcan Inj) 0.4 mg UNSCH PRN IV PUSH 08/04/17 09:15 (Milk Of Magnesia Liq) 30 ml Q12H PRN PO 08/04/17 09:15 (Senokot) 17.2 mg Q12H PRN PO 08/04/17 09:15 (Dulcolax Supp) 10 mg DAILY PRN RECTAL 08/04/17 09:15 (Lactulose Liq) 30 ml DAILY PRN PO 08/04/17 09:15 (NovoLOG SUPPLEMENTAL SCALE) 1 ACHS SLIDING SCALE SQ 08/04/17 12:00 08/04/17 13:44 (Prinivil) 10 mg DAILY PO 08/05/17 09:00 Family History Denies any significant family history of heart disease. Social History Lifelong non-smoker Denies any alcohol use Denies any illicit drug use Physical Exam Vital Signs Vital Signs Date Time Temp Pulse Resp B/P (MAP) Pulse Ox O2 Delivery O2 Flow Rate FiO2 08/04/17 13:50 190/90 (123) 08/04/17 13:26 98.0 75 18 204/88 (126) 94 08/04/17 13:04 86 17 132/75 (94) 97 Nasal Cannula 2.00 08/04/17 10:16 79 18 135/61 (85) 97 Nasal Cannula 2.00 08/04/17 09:21 88 17 152/70 (97) 100 Nasal Cannula 2.00 08/04/17 07:29 95 Room Air 08/04/17 07:29 90 95 08/04/17 06:59 99.0 95 17 142/85 (104) 97 Physical Exam GENERAL: Well-nourished, well-developed elderly female patient in [facility]. SKIN: Warm and dry. No rash. HEAD: Normocephalic. Atraumatic. EYES: Pupils equal and round. No scleral icterus. No injection or drainage. ENT: No nasal bleeding or discharge. Mucous membranes pink and moist. NECK: Supple. Trachea midline. CARDIOVASCULAR: Regular rate and rhythm. No murmur appreciated. RESPIRATORY: No accessory muscle use. Clear to auscultation. Breath sounds equal bilaterally. GASTROINTESTINAL: Abdomen soft, non-tender, nondistended. Normoactive bowel sounds x4. MUSCULOSKELETAL: No obvious deformities. Extremities without clubbing, cyanosis , or edema. NEUROLOGICAL: Awake and alert. No obvious cranial nerve deficits. Motor grossly within normal limits. Normal speech. PSYCHIATRIC: Appropriate mood and affect; insight and judgment normal. Laboratory Laboratory Tests Test 08/04/17 07:15 White Blood Count 6.6 Red Blood Count 3.76 Hemoglobin 11.7 Hematocrit 34.1 Mean Corpuscular Volume 90.7 Mean Corpuscular Hemoglobin 31.1 Mean Corpuscular Hemoglobin Concent 34.2 Red Cell Distribution Width 13.6 Platelet Count 123 Mean Platelet Volume 9.3 Neutrophils (%) (Auto) 65.1 Lymphocytes (%) (Auto) 25.0 Monocytes (%) (Auto) 7.6 Eosinophils (%) (Auto) 1.7 Basophils (%) (Auto) 0.6 Neutrophils # (Auto) 4.3 Lymphocytes # (Auto) 1.6 Monocytes # (Auto) 0.5 Eosinophils # (Auto) 0.1 Basophils # (Auto) 0.0 CBC Comment DIFF FINAL Differential Comment Prothrombin Time 10.1 Prothromb Time International Ratio 1.0 Activated Partial Thromboplast Time 20.8 Blood Urea Nitrogen 17 Creatinine 0.90 Random Glucose 369 Total Protein 6.9 Albumin 3.2 Calcium Level 9.0 Magnesium Level 1.7 Alkaline Phosphatase 79 Aspartate Amino Transf (AST/SGOT) 14 Alanine Aminotransferase (ALT/SGPT) 10 Total Bilirubin 0.3 Sodium Level 140 Potassium Level 4.3 Chloride Level 105 Carbon Dioxide Level 27.1 Anion Gap 8 Estimat Glomerular Filtration Rate 60 Total Creatine Kinase 73 Troponin I 0.40 B-Type Natriuretic Peptide 263 Result Diagram: 08/04/1715 08/04/1715 Imaging Last Impressions Chest X-Ray 08/04/17 0708 Signed Impressions: Service Date/Time: July 07:46 - CONCLUSION: Cardiomegaly. No acute pulmonary disease. MD Sandie Sarah VTE Risk Assessment Sandie VTE Risk Assessment: Mod/High Risk (score >= 2) Caprini Risk Assessment Model Point Value = 1 Point Value = 2 Point Value = 3 Point Value = 5 Age 41-60 Minor surgery BMI > 25 kg/m2 Swollen legs Varicose veins or History of unexplained or recurrent spontaneous Oral contraceptives or hormone replacement Sepsis (< 1 month) Serious lung disease, including pneumonia (< 1 month) Abnormal pulmonary function Acute myocardial infarction Congestive heart failure (< 1 month) History of inflammatory bowel disease Medical patient at bed rest Age 61-74 Arthroscopic surgery Major open surgery (> 45 min) Laparoscopic surgery (> 45 min) Malignancy Confined to bed (> 72 hours) Immobilizing plaster cast Central venous access Age >= 75 History of VTE Family history of VTE Factor V Leiden Prothrombin [id number] Lupus anticoagulant Anticardiolipin antibodies Elevated serum homocysteine Heparin-induced thrombocytopenia Other congenital or acquired thrombophilia Stroke (< 1 month) Elective arthroplasty Hip, pelvis, or leg fracture Acute spinal cord injury (< 1 month) Prophylaxis Regimen Total Risk Factor Score Risk Level Prophylaxis Regimen 0-1 Low Early ambulation 2 Moderate Order ONE of the following: *Sequential Compression Device (SCD) *Heparin 5000 units SQ BID 3-4 Higher Order ONE of the following medications: *Heparin 5000 units SQ TID *Enoxaparin/Lovenox 40 mg SQ daily (WT < 150 kg, CrCl > 30 mL/min) *Enoxaparin/Lovenox 30 mg SQ daily (WT < 150 kg, CrCl > 10-29 mL/min) *Enoxaparin/Lovenox 30 mg SQ BID (WT < 150 kg, CrCl > 30 mL/min) AND/OR *Sequential Compression Device (SCD) 5 or more Highest Order ONE of the following medications: *Heparin 5000 units SQ TID (Preferred with Epidurals) *Enoxaparin/Lovenox 40 mg SQ daily (WT < 150 kg, CrCl > 30 mL/min) *Enoxaparin/Lovenox 30 mg SQ daily (WT < 150 kg, CrCl > 10-29 mL/min) *Enoxaparin/Lovenox 30 mg SQ BID (WT < 150 kg, CrCl > 30 mL/min) AND *Sequential Compression Device (SCD) Assessment and Plan Problem List: (1) NSTEMI (non-ST elevated myocardial infarction) ICD Code: I21.4 - Non-ST elevation (NSTEMI) myocardial infarction (2) DM (diabetes mellitus) ICD Code: E11.9 - Diabetes mellitus Status: Chronic Assessment and Plan 81-year-old female with history of HTN, HLD, type 2 DM, COPD, GERD, presents with recurrent chest pain. She denies any other medical complaints at this time including no headache, lightheadedness, dizziness, shortness of breath, abdominal pain, nausea/vomiting, or diarrhea. NSTEMI: patient presented with recurrent chest pain, s/p recent admission 08/02-08/03 for chest pain, elevated troponins, cardiac catheterization offered, patient refused therefore discharged on Imdur. -Troponin elevated at 0.40, continues to trend up from previous admission troponins 0.04, 0.09, 0.20 -Again discussed option of cardiac catheterization however patient says she is too scared and she doesn't want to have it done. -monitor on telemetry -continue aspirin, BB, RAJENDRA, Imdur -consult cardiology Accelerated Hypertension: BP 204/88 in the ED, s/p IV metoprolol push with improvement -continue lisinopril, metoprolol, imdur -monitor BP, adjust antihypertensives as needed Diabetes Mellitus, type II: uncontrolled, BG 369 upon arrival. HgbA1c 8.8 on 08/03 -hold patient's metformin for now -monitor Accu-checks and cover with medium dose SSI Hyperlipidemia: chronic -continue patient's statin COPD: chronic, does not appear to be in exacerbation -continue patient's Symbicort bid -duonebs prn GERD: chronic -continue patient's PPI Hx of Bacteremia: diagnosed on previous admission -continue patient's Levaquin and Flagyl (discharged from hospital 07/28, antibiotics to be continued [id number], therefore stop date 08/09) DVT Prophylaxis: Heparin sq Disposition: likely discharge tomorrow if patient still declining cardiac cath and cleared by cardiology. Discussed Condition With Patient, RN Attending Statement This note was transcribed by cally Buchanan. I, Dr. Baltazar Etienne personally performed the history, physical exam, and medical decision making; and confirmed the accuracy of the information in the transcribed note. Authenticated by Dr. Baltazar Etienne on 08/05/17 at 09:34. Daya Buchanan PA-C Aug 04, 2017 15:15 Baltazar Etienne MD Aug 05, 2017 09:36
[2017-08-04] MEDS ORDERED: GLUCAGON 1 MG/ML VIAL OTHER PRN (18:15)
[2017-08-04] MEDS ORDERED: RESP: ALBUTEROL 2.5 MG/IPRATROPIUM 0.5 MG NEB (PRN) NEB (18:15)
[2017-08-04] MEDS ORDERED: DEXTROSE 50% IN WATER 50 ML VIAL(D50) IV PUSH PRN (18:15)
[2017-08-04] MEDS: METOPROLOL TARTRATE 25 MG TAB PO SCH (21:29)
[2017-08-04] MEDS: HEPARIN SODIUM - SQ 10,000 UNITS/ML VIAL SQ SCH (21:30)
[2017-08-04] MEDS: BUDESONIDE-FORMOTEROL 160/4.5 MCG INHALER INH SCH (22:39)
[2017-08-04] MEDS: SODIUM CHLORIDE 0.9% FLUSH 10 ML FLUSH IV FLUSH SCH (22:39)
[2017-08-05] MEDS: INSULIN ASPART SUPPLEMENTAL SCALE SQ SCH ×3 (02:18→13:01)
[2017-08-05 04:38] VITALS: BP 133/88; PULSE 73; RESP 20; TEMP 98.9; O2SAT 95
[2017-08-05] MEDS ORDERED: ISOSORBIDE MONONITRATE 30 MG CR TAB (IMDUR) PO SCH (07:00)
[2017-08-05 07:49] LABS: AUTOMATED NEUTROPHIL # 3.9 TH/MM3 (1.8-7.7); BASOPHIL % 0.5 % (0.0-2.0); EOSINOPHIL # 0.2 TH/MM3 (0-0.4); HEMATOCRIT 38.6 % (35.0-46.0); HEMOGLOBIN 13.2 GM/DL (11.6-15.3); LYMPH % 36.4 % (9.0-44.0); LYMPHOCYTE # 2.7 TH/MM3 (1.0-4.8); MEAN CELL VOLUME 90.5 FL (80.0-100.0); MEAN CORPUSCULAR HGB CONC 34.3 % (32.0-36.0); MONOCYTE # 0.6 TH/MM3 (0-0.9); NEUT % 52.1 % (16.0-70.0); PLATELET COUNT 152 TH/MM3 (150-450); RED BLOOD COUNT 4.26 MIL/MM3 (4.00-5.30); RED CELL DISTRIBUTION WIDTH 13.6 % (11.6-17.2); WHITE BLOOD COUNT 7.5 TH/MM3 (4.0-11.0)
[2017-08-05 08:31] VITALS: BP 140/68; PULSE 80; RESP 20; TEMP 98.2; O2SAT 96
[2017-08-05] MEDS ORDERED: ACETAMINOPHEN 325 MG TAB PO PRN (08:45)
[2017-08-05] MEDS ORDERED: LISINOPRIL 10 MG TAB PO SCH (09:00)
[2017-08-05] MEDS ORDERED: INSULIN DETEMIR 100 UNITS/ML VIAL SQ SCH (09:00)
[2017-08-05] MEDS: HEPARIN SODIUM - SQ 10,000 UNITS/ML VIAL SQ SCH ×2 (09:00→09:04)
[2017-08-05] MEDS ORDERED: LEVOFLOXACIN 500 MG TAB PO SCH (09:00)
[2017-08-05] MEDS ORDERED: PANTOPRAZOLE SOD 40 MG DELAYED RELEASE TAB PO SCH (09:00)
[2017-08-05] MEDS ORDERED: ASPIRIN 81 MG CHEW TAB CHEW SCH (09:00)
[2017-08-05] MEDS: metroNIDAZOLE 500 MG TAB PO SCH ×2 (09:03→13:01)
[2017-08-05] MEDS: METOPROLOL TARTRATE 25 MG TAB PO SCH (09:03)
[2017-08-05] MEDS: BUDESONIDE-FORMOTEROL 160/4.5 MCG INHALER INH SCH (09:04)
[2017-08-05] MEDS: SODIUM CHLORIDE 0.9% FLUSH 10 ML FLUSH IV FLUSH SCH (09:04)
[2017-08-05 09:27] LABS: ALBUMIN 3.5 GM/DL (3.4-5.0); ALKALINE PHOSPHATASE 86 U/L (45-117); ALT (GPT) 11 U/L (10-53); AST (GOT) 17 U/L (15-37); BICARBONATE 30.2 MEQ/L (21.0-32.0); BLOOD UREA NITROGEN 16 MG/DL (7-18); CALCIUM 9.5 MG/DL (8.5-10.1); CHLORIDE 102 MEQ/L (98-107); CREATININE 0.73 MG/DL (0.50-1.00); GLOMERULAR FILTRATION RATE 76 ML/MIN (>89); GLUCOSE,RANDOM 114 MG/DL (74-106); SODIUM (NA) 139 MEQ/L (136-145); TOTAL BILIRUBIN ADULT 0.3 MG/DL (0.2-1.0); TOTAL PROTEIN 7.7 GM/DL (6.4-8.2)
--- NOTE | 2017-08-05 09:33 | MB ---
cc: Grant Kc DO DATE: 08/04/2017 REASON FOR CONSULTATION: Chest pain, elevated troponin. HISTORY OF PRESENT ILLNESS: Denisha Muniz is a pleasant 81-year-old female who presented to [facility] on 08/04/2017 due to chest pain. The patient was previously here on August 02 and with chest pain and was found to have an elevated troponin of 0.20. She was recommended cardiac catheterization, but declined and was started on Imdur and discharged home. She went home, started having chest pain again for which she took nitroglycerin and called 911. She was given a spray of nitroglycerin en route and chest pain was relieved at that time. In seeing her this morning, she is currently chest pain free, without shortness of breath. PAST MEDICAL HISTORY: 1. Hypertension. 2. Hyperlipidemia. 3. Diabetes mellitus. 4. Anxiety. 5. Congestive heart failure. 6. GERD. 7. COPD. 8. Migraines. PAST SURGICAL HISTORY: 1. Hiatal hernia. 2. Bilateral knee replacement. 3. Tonsillectomy. ALLERGIES: 1. ACETAMINOPHEN. 2. CODEINE. 3. HYDROCODONE. 4. HYDROMORPHONE. MEDICATIONS: 1. Levaquin 500 mg daily. 2. Flagyl 500 mg t.i.d. 3. Lipitor 40 mg every night. 4. Catapres 0.1 mg every night. 5. Imdur 30 mg daily. 6. Nitroglycerine sublingual as needed. 7. Enalapril 20 mg b.i.d. 8. Aspirin 81 mg daily. 9. Gabapentin 300 mg b.i.d. 10. Xanax 1 mg b.i.d. as needed for anxiety. 11. Potassium 20 mEq daily. 12. Lasix 20 mg daily. 13. Symbicort 2 puffs every 12 hours. 14. Protonix 40 mg daily. 15. Metformin 1000 mg b.i.d. 16. Novolin sliding scale. FAMILY HISTORY: Denies premature coronary artery disease or sudden cardiac within the family. SOCIAL HISTORY: The patient denies tobacco, alcohol or drug abuse. REVIEW OF SYSTEMS: Fourteen systems were reviewed including osteopathic. Pertinent positives and negatives above, otherwise negative. PHYSICAL EXAMINATION: VITAL SIGNS: Temperature 99.0, heart rate 79, blood pressure 135/61, respirations 18, pulse oximetry 97% on 2 liters. GENERAL: The patient appears well, in no acute distress, alert, awake and oriented x 3. HEENT: Extraocular muscles intact. Mucous membranes moist. NECK: Supple. No JVD at 45 degrees. No carotid bruits heard bilaterally. Carotid upstroke is brisk in nature. HEART: Regular rate and rhythm. Positive for and second heart sounds with a 1/6 crescendo-decrescendo murmur at the right sternal border. LUNGS: Clear to auscultation bilaterally. No wheezes, rales or rhonchi. ABDOMEN: Soft, nontender, nondistended. No organomegaly noted. EXTREMITIES: Show trace edema bilaterally. NEUROLOGIC: No focal deficits. SKIN: Warm, dry and intact. OSTEOPATHICALLY: Mild lordosis, no kyphoscoliosis or paraspinal tender points. LABORATORY DATA: Hemoglobin 11.7, hematocrit 34.1, platelets 123, potassium 4.3, BUN 17, creatinine 0.9. Troponin 0.40. ELECTROCARDIOGRAM (08/04/2017 AT 07:04): Sinus rhythm, left anterior fascicular block, LVH with secondary ST-T wave changes. No change from previous. IMPRESSION: 1. Elevated troponin. 2. Chest pain. 3. Diabetes mellitus. 4. Hypertension. 5. Hyperlipidemia. RECOMMENDATIONS: 1. Ms. Muniz presented again with chest pain and was once again recommended cardiac catheterization. She overall states that she does not want to have the cardiac catheterization unless she would without it. She is once again refusing cardiac catheterization and wants to continue on attempted medical therapy. 2. We will have her continue on Imdur and add beta tyrell therapy. 3. She has also been noticed to have hypertension, which is uncontrolled, with a blood pressure of 205/88 on arrival to the emergency room, which is somewhat uncontrolled, which may be also a part of these episodes of chest pain. We will attempt to control this further with medications. 4. She will be watched overnight and reevaluated for cardiac catheterization and if she refuses can be discharged home. 5. I will discuss with her whether her nitroglycerin is within the past 6 months, as it may not be still viable, as the nitroglycerin spray in the ambulance seemed to relieve her chest pain, but her nitroglycerin did not. Thank you for allowing me to see Denisha Muniz. If there are any questions, please do not hesitate to call. DO RONIT Wasserman/MINNIE , 11:36 PM , 11:59 PM
[2017-08-05 11:53] VITALS: BP 103/55; PULSE 80; RESP 20; TEMP 97.9; O2SAT 96
--- NOTE | 2017-08-05 12:50 | PD.CARD.PN ---
Subjective Subjective Remarks Overnight no events No chest pain Objective Medications Current Medications Medications (Trade) Dose Ordered Sig/Amy Route Start Time Stop Time Status Last Admin (Lopressor) 25 mg Q12HR PO 08/04/17 21:00 08/05/17 09:03 (Aspirin Chew) 81 mg DAILY CHEW 08/05/17 09:00 08/05/17 09:04 (Imdur) 30 mg DAILY@07 PO 08/05/17 07:00 08/05/17 09:03 (Levaquin) 500 mg DAILY PO 08/05/17 09:00 08/05/17 09:04 (Flagyl) 500 mg TID PO 08/04/17 13:00 08/05/17 09:03 (Protonix) 40 mg DAILY PO 08/05/17 09:00 08/05/17 09:03 (NS Flush) 2 ml UNSCH PRN IV FLUSH 08/04/17 09:15 (NS Flush) 2 ml BID IV FLUSH 08/04/17 21:00 08/05/17 09:04 (Zofran Inj) 4 mg Q6H PRN IVP 08/04/17 09:15 (Narcan Inj) 0.4 mg UNSCH PRN IV PUSH 08/04/17 09:15 (Milk Of Magnesia Liq) 30 ml Q12H PRN PO 08/04/17 09:15 (Senokot) 17.2 mg Q12H PRN PO 08/04/17 09:15 (Dulcolax Supp) 10 mg DAILY PRN RECTAL 08/04/17 09:15 (Lactulose Liq) 30 ml DAILY PRN PO 08/04/17 09:15 (NovoLOG SUPPLEMENTAL SCALE) 1 ACHS SLIDING SCALE SQ 08/04/17 12:00 08/05/17 09:33 (Prinivil) 10 mg DAILY PO 08/05/17 09:00 08/05/17 09:03 (Symbicort 160-4.5 Mcg Inh) 1 puff Q12HR INH 08/04/17 21:00 08/05/17 09:04 (Duoneb Neb) 1 ampule Q4HR NEB PRN NEB 08/04/17 18:15 (Heparin Inj) 5,000 units Q12HR SQ 08/04/17 21:00 08/04/17 21:30 (D50w (Vial) Inj) 50 ml UNSCH PRN IV PUSH 08/04/17 18:15 (Glucagon Inj) 1 mg UNSCH PRN OTHER 08/04/17 18:15 (Levemir Inj) 5 units Q12HR SQ 08/05/17 09:00 08/05/17 09:33 (Tylenol) 650 mg Q4H PRN PO 08/05/17 08:45 08/05/17 09:34 Vital Signs / I&O Vital Signs Date Time Temp Pulse Resp B/P (MAP) Pulse Ox O2 Delivery O2 Flow Rate FiO2 08/05/17 11:53 97.9 80 20 103/55 (71) 96 08/05/17 08:31 98.2 80 20 140/68 (92) 96 08/05/17 04:38 98.9 73 20 133/88 (103) 95 08/04/17 22:53 98.7 79 20 139/57 (84) 96 08/04/17 19:47 98.1 81 16 137/59 (85) 96 Manual Cuff/Auscultation 08/04/17 16:18 98.5 77 20 141/66 (91) 98 08/04/17 15:00 74 08/04/17 13:50 190/90 (123) 08/04/17 13:26 98.0 75 18 204/88 (126) 94 08/04/17 13:04 86 17 132/75 (94) 97 Nasal Cannula 2.00 I/O 08/04/17 08/04/17 08/04/17 08/05/17 08/05/17 08/05/17 07:00 15:00 23:00 07:00 15:00 23:00 Intake Total 240 ml Balance 240 ml Intake Oral 240 ml # Voids 2 Physical Exam GENERAL: NAD, AAOx3 SKIN: Warm and dry. HEAD: Atraumatic. Normocephalic. EYES: Pupils equal and round. No scleral icterus. No injection or drainage. ENT: No nasal bleeding or discharge. Mucous membranes pink and moist. NECK: Trachea midline. No JVD. CARDIOVASCULAR: Regular rate and rhythm. RESPIRATORY: No accessory muscle use. Clear to auscultation. Breath sounds equal bilaterally. GASTROINTESTINAL: Abdomen soft, non-tender, nondistended. Hepatic and splenic margins not palpable. MUSCULOSKELETAL: Extremities without clubbing, cyanosis, or edema. No obvious deformities. NEUROLOGICAL: Awake and alert. No obvious cranial nerve deficits. Motor grossly within normal limits. Five out of 5 muscle strength in the arms and legs. Normal speech. PSYCHIATRIC: Appropriate mood and affect; insight and judgment normal. Laboratory Laboratory Tests Test 08/05/17 06:45 White Blood Count 7.5 TH/MM3 Red Blood Count 4.26 MIL/MM3 Hemoglobin 13.2 GM/DL Hematocrit 38.6 % Mean Corpuscular Volume 90.5 FL Mean Corpuscular Hemoglobin 31.0 PG Mean Corpuscular Hemoglobin Concent 34.3 % Red Cell Distribution Width 13.6 % Platelet Count 152 TH/MM3 Mean Platelet Volume 9.0 FL Neutrophils (%) (Auto) 52.1 % Lymphocytes (%) (Auto) 36.4 % Monocytes (%) (Auto) 8.0 % Eosinophils (%) (Auto) 3.0 % Basophils (%) (Auto) 0.5 % Neutrophils # (Auto) 3.9 TH/MM3 Lymphocytes # (Auto) 2.7 TH/MM3 Monocytes # (Auto) 0.6 TH/MM3 Eosinophils # (Auto) 0.2 TH/MM3 Basophils # (Auto) 0.0 TH/MM3 CBC Comment DIFF FINAL Differential Comment Blood Urea Nitrogen 16 MG/DL Creatinine 0.73 MG/DL Random Glucose 114 MG/DL Total Protein 7.7 GM/DL Albumin 3.5 GM/DL Calcium Level 9.5 MG/DL Alkaline Phosphatase 86 U/L Aspartate Amino Transf (AST/SGOT) 17 U/L Alanine Aminotransferase (ALT/SGPT) 11 U/L Total Bilirubin 0.3 MG/DL Sodium Level 139 MEQ/L Potassium Level 3.6 MEQ/L Chloride Level 102 MEQ/L Carbon Dioxide Level 30.2 MEQ/L Anion Gap 7 MEQ/L Estimat Glomerular Filtration Rate 76 ML/MIN Assessment and Plan Problem List: (1) Elevated troponin ICD Codes: R74.8 - Abnormal levels of other serum enzymes (2) COPD (chronic obstructive pulmonary disease) ICD Codes: J44.9 - Chronic obstructive pulmonary disease Status: Chronic (3) DM (diabetes mellitus) ICD Codes: E11.9 - Diabetes mellitus Status: Chronic (4) GERD (gastroesophageal reflux disease) ICD Codes: K21.9 - Gastroesophageal reflux disease Status: Chronic (5) Hypertension ICD Codes: I10 - Hypertension Status: Chronic Assessment and Plan 1) Elevated troponin with chest pain Now decided that she wants the cardiac catheterization Offered for today but she wants to go home today and come back next week for the procedure Discussed the consequences of this with her, but she said "I have stuff to do at home" 2) For now, will continue on medical management Can be discharged home from a cardiovascular standpoint 3) Imdur/BB/Nitro Grant Briseno DO Aug 05, 2017 12:50
--- NOTE | 2017-08-05 13:38 | HHI.PR ---
Subjective Remarks Follow up on patient with NSTEMI. Patient seen and examined. Patient denies any complaints of chest pain overnight or today. She denies any fever or chills. She denies any nausea, vomiting or abdominal pain. She denies any dyspnea. She has changed her mind and would like to have the cardiac catheterization done but not now. She would like to have it done in 2 or 3 days. She denies any new medical complaints. Discussed with patient ramifications of going home including the possibility of massive heart attack and . Patient reports understanding but is adamant about going home for a few days. There is some concern regarding her safety at home with the daughter who lives with her and she has been given [facility] phone number. CM has been consulted to assist with d/c planning. Objective Vitals Vital Signs Date Time Temp Pulse Resp B/P (MAP) Pulse Ox O2 Delivery O2 Flow Rate FiO2 08/05/17 11:53 97.9 80 20 103/55 (71) 96 08/05/17 08:31 98.2 80 20 140/68 (92) 96 08/05/17 04:38 98.9 73 20 133/88 (103) 95 08/04/17 22:53 98.7 79 20 139/57 (84) 96 08/04/17 19:47 98.1 81 16 137/59 (85) 96 Manual Cuff/Auscultation 08/04/17 16:18 98.5 77 20 141/66 (91) 98 08/04/17 15:00 74 08/04/17 13:50 190/90 (123) 08/04/17 13:26 98.0 75 18 204/88 (126) 94 I/O 08/04/17 08/04/17 08/04/17 08/05/17 08/05/17 08/05/17 06:59 14:59 22:59 06:59 14:59 22:59 Intake Total 240 ml Balance 240 ml Intake Oral 240 ml # Voids 2 Result Diagram: 08/05/17 0645 08/05/17 0645 Imaging Last Impressions Chest X-Ray 08/04/17 0708 Signed Impressions: Service Date/Time: July 07:46 - CONCLUSION: Cardiomegaly. No acute pulmonary disease. Luis Enrique Cavazos MD Objective Remarks GENERAL: Well-nourished, well-developed elderly female patient in NAD. Awake and alert. Appears comfortable. SKIN: Warm and dry. No rash. HEAD: Normocephalic. Atraumatic. EYES: EOMI. No scleral icterus. No injection or drainage. ENT: No nasal bleeding or discharge. Mucous membranes pink and moist. NECK: Supple. Trachea midline. CARDIOVASCULAR: Regular rate and rhythm. No murmur appreciated. RESPIRATORY: Nonlabored. Clear to auscultation. Breath sounds equal bilaterally. GASTROINTESTINAL: Abdomen soft, non-tender, nondistended. Normoactive bowel sounds x4. MUSCULOSKELETAL: No obvious deformities. Extremities without clubbing, cyanosis , or edema. NEUROLOGICAL: Awake and alert. No obvious cranial nerve deficits. Motor grossly within normal limits. Normal speech. PSYCHIATRIC: Appropriate mood and affect; insight and judgment normal. Medications and IVs Current Medications Medications (Trade) Dose Ordered Sig/Amy Route Start Time Stop Time Status Last Admin (Lopressor) 25 mg Q12HR PO 08/04/17 21:00 08/05/17 09:03 (Aspirin Chew) 81 mg DAILY CHEW 08/05/17 09:00 08/05/17 09:04 (Imdur) 30 mg DAILY@07 PO 08/05/17 07:00 08/05/17 09:03 (Levaquin) 500 mg DAILY PO 08/05/17 09:00 08/05/17 09:04 (Flagyl) 500 mg TID PO 08/04/17 13:00 08/05/17 13:01 (Protonix) 40 mg DAILY PO 08/05/17 09:00 08/05/17 09:03 (NS Flush) 2 ml UNSCH PRN IV FLUSH 08/04/17 09:15 (NS Flush) 2 ml BID IV FLUSH 08/04/17 21:00 08/05/17 09:04 (Zofran Inj) 4 mg Q6H PRN IVP 08/04/17 09:15 (Narcan Inj) 0.4 mg UNSCH PRN IV PUSH 08/04/17 09:15 (Milk Of Magnesia Liq) 30 ml Q12H PRN PO 08/04/17 09:15 (Senokot) 17.2 mg Q12H PRN PO 08/04/17 09:15 (Dulcolax Supp) 10 mg DAILY PRN RECTAL 08/04/17 09:15 (Lactulose Liq) 30 ml DAILY PRN PO 08/04/17 09:15 (NovoLOG SUPPLEMENTAL SCALE) 1 ACHS SLIDING SCALE SQ 08/04/17 12:00 08/05/17 13:01 (Prinivil) 10 mg DAILY PO 08/05/17 09:00 08/05/17 09:03 (Symbicort 160-4.5 Mcg Inh) 1 puff Q12HR INH 08/04/17 21:00 08/05/17 09:04 (Duoneb Neb) 1 ampule Q4HR NEB PRN NEB 08/04/17 18:15 (Heparin Inj) 5,000 units Q12HR SQ 08/04/17 21:00 08/04/17 21:30 (D50w (Vial) Inj) 50 ml UNSCH PRN IV PUSH 08/04/17 18:15 (Glucagon Inj) 1 mg UNSCH PRN OTHER 08/04/17 18:15 (Levemir Inj) 5 units Q12HR SQ 08/05/17 09:00 08/05/17 09:33 (Tylenol) 650 mg Q4H PRN PO 08/05/17 08:45 08/05/17 09:34 A/P Problem List: (1) NSTEMI (non-ST elevated myocardial infarction) ICD Code: I21.4 - Non-ST elevation (NSTEMI) myocardial infarction (2) DM (diabetes mellitus) ICD Code: E11.9 - Diabetes mellitus Status: Chronic Assessment and Plan 81-year-old female with history of HTN, HLD, type 2 DM, COPD, GERD, presents with recurrent chest pain. She denies any other medical complaints at this time including no headache, lightheadedness, dizziness, shortness of breath, abdominal pain, nausea/vomiting, or diarrhea. NSTEMI: patient presented with recurrent chest pain, s/p recent admission 08/02-08/03 for chest pain, elevated troponins, cardiac catheterization offered, patient refused therefore discharged on Imdur. -Troponin elevated at 0.40, continues to trend up from previous admission troponins 0.04, 0.09, 0.20 -Patient has changed her mind and decided that she wants a cardiac catheterization however she wants to wait 2 or 3 days. She understands the ramifications of delaying care including the possibility of massive heart attack /. -monitor on telemetry -continue aspirin, BB, RAJENDRA, Imdur -Cardiology following, as stated above cardiac catheterization offered the patient refused at this time. Wants to wait a couple of days. Cardiology discussed consequences with patient. Continued medical management. Okay to discharge from cardiovascular standpoint. Accelerated Hypertension: BP 204/88 in the ED, s/p IV metoprolol push with improvement -continue lisinopril, metoprolol, imdur -monitor BP, adjust antihypertensives as needed Diabetes Mellitus, type II: uncontrolled, BG 369 upon arrival. HgbA1c 8.8 on 08/03 -BS improved -hold patient's metformin for now -monitor Accu-checks and cover with medium dose SSI Hyperlipidemia: chronic -continue patient's statin COPD: chronic, does not appear to be in exacerbation -continue patient's Symbicort bid -duonebs prn GERD: chronic -continue patient's PPI Hx of Bacteremia: diagnosed on previous admission -continue patient's Levaquin and Flagyl (discharged from hospital 07/28, antibiotics to be continued [id number], therefore stop date 08/09) DVT Prophylaxis: Heparin sq Ronna Reyes Aug 05, 2017 13:38
--- NOTE | 2017-08-05 13:39 | HHI.FF ---
Face to Face Verification Diagnosis: (1) Impaired mobility and ADLs (2) Generalized weakness Physical Therapy Order: Evaluate and Treat, Improve ambulation, Strength and gait training I have seen patient Denisha Muniz on 08/05/17. My clinical findings support the need for the requested home health care services because: Ltd mobility - disease progression Patient has SOB Deconditioned w/ increased weakness Limited ability to care for self High risk of falls I certify that my clinical findings support that this patient is homebound because: Hx COPD- exertion dyspnea/weakness Unsteady gait/balance Unsafe to leave home unassisted Unable to use public transportation Ronna Reyes Aug 05, 2017 13:39
[2017-08-05] MEDS ORDERED: LISI-519 PO (13:47)
[2017-08-05] MEDS ORDERED: ISOS30TA3 PO (13:47)
[2017-08-05] MEDS ORDERED: METO25TA3 PO (13:47)
[2017-08-05] MEDS ORDERED: NITR1SUB3 SL (13:47)
[2017-08-05] MEDS ORDERED: LEVEMIR SQ (13:50)
== END 2017-08-05 16:10 | disposition home or self-care (01) ==
LOC: NEPE 06:57 → NEDA 09:02 → NEPHCDU 13:21
PROVIDERS: ADMIT Internal Medicine; ATTEND Internal Medicine
DX: I21.4 Non-ST elevation (NSTEMI) myocardial infarction (principal); I11.0 Hypertensive heart disease with heart failure; I50.9 Heart failure, unspecified; E78.00 Pure hypercholesterolemia, unspecified; I44.4 Left anterior fascicular block; R94.31 Abnormal electrocardiogram [ECG] [EKG]; J44.9 Chronic obstructive pulmonary disease, unspecified; E11.9 Type 2 diabetes mellitus without complications; K21.9 Gastro-esophageal reflux disease without esophagitis; G20 Parkinson's disease; F41.9 Anxiety disorder, unspecified; F32.9 Major depressive disorder, single episode, unspecified; M19.90 Unspecified osteoarthritis, unspecified site; H91.90 Unspecified hearing loss, unspecified ear; Z79.899 Other long term (current) drug therapy; Z79.82 Long term (current) use of aspirin; Z79.84 Long term (current) use of oral hypoglycemic drugs
CPT/HCPCS: 71046; 80053; 82550; 82948; 83735; 83880; 84484; 85025; 85610; 85730; 93005; 96372; 96374; 97162; 99285; G0378; G8987; G8988; J1644; J1815

== ENCOUNTER 2017-08-07 09:26 | Inpatient (IN) | payer MEDICARE, MEDICAID ==
[2017-08-07] VITALS (7 sets, daily range): BP systolic 136–222; BP diastolic 67–93; PULSE 75–106; RESP 14–25; TEMP 97.8–98.4; O2SAT 92–99
[~2017-08-07] VITALS: Ht 157.5 cm; Wt 79.0 kg
[~2017-08-07 09:26] MED LIST changes: -CLON.1 PO; -ENAL20TA PO; -FURO1TAB62 PO; +LEVEMIR SQ; +LISI-519 PO; +METO25TA3 PO; +NOVORP2 SQ; -POTA-163 PO
[2017-08-07] MEDS ORDERED: ASPIRIN 81 MG CHEW TAB PO ONE (09:45)
[2017-08-07] MEDS ORDERED: SODIUM CHLORIDE 0.9% FLUSH 10 ML FLUSH IVF PRN (09:45)
[2017-08-07 10:01] LABS: AUTOMATED NEUTROPHIL # 5.2 TH/MM3 (1.8-7.7); BASOPHIL # 0.1 TH/MM3 (0-0.2); BASOPHIL % 0.6 % (0.0-2.0); EOSINOPHIL # 0.1 TH/MM3 (0-0.4); EOSINOPHIL % 1.7 % (0.0-4.0); HEMATOCRIT 36.7 % (35.0-46.0); HEMOGLOBIN 12.5 GM/DL (11.6-15.3); LYMPH % 24.6 % (9.0-44.0); LYMPHOCYTE # 1.9 TH/MM3 (1.0-4.8); MEAN CELL VOLUME 90.6 FL (80.0-100.0); MEAN CORPUSCULAR HEMOGLOBIN 30.8 PG (27.0-34.0); MONO % 6.3 % (0.0-8.0); MONOCYTE # 0.5 TH/MM3 (0-0.9); NEUT % 66.8 % (16.0-70.0); PLATELET COUNT 165 TH/MM3 (150-450); RED BLOOD COUNT 4.05 MIL/MM3 (4.00-5.30); WHITE BLOOD COUNT 7.8 TH/MM3 (4.0-11.0)
[2017-08-07 10:09] LABS: PROTHROMBIN TIME - PATIENT 10.1 SEC (9.8-11.6)
--- NOTE | 2017-08-07 10:09 | PD ---
HPI Chief Complaint: Chest Pain Time Seen by Provider: 09:44 Travel History International Travel<30 days: No Contact w/Intl Traveler<30days: No Traveled to known affect area: No History of Present Illness HPI Is an 81-year-old woman who presents to the emergency department complaining of chest pain and nausea. States that she got chest pain around 2 AM. She had persistent chest pain, she took nitroglycerin and it helps although the chest pain continued to recur. This morning she took her Imdur which was recently prescribed. Chest pain is improved but she has nausea vomiting and upset stomach. She has been seen multiple times recently for chest pain. Previously was refusing heart cath, but is due to have a heart cath on tomorrow with Dr. Irving Kc. She has had a bump troponin of the 0.4 recently. History Past Medical History Narrative Medical Hypertension Hyperlipidemia Diabetes Anxiety CHF GERD COPD Migraines PNEUMOCCOCAL Vaccine (Year): 1 Menopausal: Yes Social History Alcohol Use: No Tobacco Use: No Allergies-Medications (Allergen,Severity, Reaction): Coded Allergies: codeine (Unverified Allergy, Severe, NAUSEA, 08/07/17) hydromorphone (Unverified Allergy, Severe, Nausea/Vomiting, 08/07/17) acetaminophen (Unverified Allergy, Unknown, Nausea/Vomiting, 08/07/17) hydrocodone (Unverified Allergy, Unknown, Nausea/Vomiting, 08/07/17) Reported Meds & Prescriptions Reported Meds & Active Scripts Active Levemir Inj (Insulin Detemir) 1,000 unit/ 10 ML Vial 5 Units SQ Q12HR Do not mix with any other Insulin. Lisinopril 5 Mg Tab 5 Mg PO DAILY Metoprolol Tartrate 25 Mg Tab 25 Mg PO Q12HR Isosorbide Mononitrate ER (Isosorbide Mononitrate) 30 Mg Silvia 30 Mg PO DAILY@ 07 30 Days Nitroglycerin SL (Nitroglycerin) 0.4 Mg Subl 0.4 Mg SL DIRECTED PRN ONE TABLET UNDER THE TONGUE NEEDED FOR CHEST PAIN, MAY REPEAT EVERY FIVE MINUTES FOR A TOTAL OF 3 DOSES OR CALL 911 IF NO RELIEF Flagyl (Metronidazole) 500 Mg Tab 500 Mg PO TID 12 Days Levaquin (Levofloxacin) 500 Mg Tablet 500 Mg PO DAILY 12 Days Xanax (Alprazolam) 1 Mg Tab 1 Mg PO BID PRN Reported Novolin R Inj (Insulin Human Regular) 1,000 Unit/10 Ml Vial 0 SQ DIRECTED Sliding Scale As Directed. 150-200=5 UNITS,201-300=10 UNITS,301-400=15 UNITS, OVER 400=CALL MD Gutierrez (Sennosides) 8.6 Mg Tab 8.6 Mg PO HS PRN Protonix (Pantoprazole Sodium) 40 Mg Tab 40 Mg PO DAILY Metformin (Metformin HCl) 1,000 Mg Tab 1,000 Mg PO BIDPC With meals Gabapentin 300 Mg Cap 300 Mg PO BID Symbicort Inh (Budesonide/Formoterol Fumarate) 160-4.5 Mcg/Act Aero 2 Puff INH Q12HR Atorvastatin (Atorvastatin Calcium) 40 Mg Tab 40 Mg PO HS Aspirin 81 Mg Chew 81 Mg CHEW DAILY Review of Systems Except as stated in HPI: all other systems reviewed are Neg Physical Exam Narrative GENERAL: Well-appearing elderly 81-year-old woman, no acute distress. SKIN: Focused skin assessment warm/dry. HEAD: Atraumatic. Normocephalic. EYES: Pupils equal and round. No scleral icterus. No injection or drainage. ENT: No nasal bleeding or discharge. Mucous membranes pink and moist. NECK: Trachea midline. No JVD. CARDIOVASCULAR: Regular rate and rhythm. No murmur appreciated. RESPIRATORY: No accessory muscle use. Clear to auscultation. Breath sounds equal bilaterally. GASTROINTESTINAL: Abdomen soft, non-tender, nondistended. Hepatic and splenic margins not palpable. MUSCULOSKELETAL: No obvious deformities. No clubbing. No cyanosis. No edema. NEUROLOGICAL: Awake and alert. No obvious cranial nerve deficits. Motor grossly within normal limits. Normal speech. PSYCHIATRIC: Appropriate mood and affect; insight and judgment normal. Data Data Last Documented VS Vital Signs Date Time Temp Pulse Resp B/P (MAP) Pulse Ox O2 Delivery O2 Flow Rate FiO2 08/07/17 10:15 102 18 190/73 (112) 96 Nasal Cannula 2.00 Orders Orders Electrocardiogram (08/07/17 09:45) Complete Blood Count With Diff (08/07/17 09:45) Comprehensive Metabolic Panel (08/07/17 09:45) Magnesium (Mg) (08/07/17 09:45) Prothrombin Time / Inr (Pt) (08/07/17 09:45) Act Partial Throm Time (Ptt) (08/07/17 09:45) Troponin I (08/07/17 09:45) Ecg Monitoring (08/07/17 09:45) Iv Access Insert/Monitor (08/07/17 09:45) Oximetry (08/07/17 09:45) Oxygen Administration (08/07/17 09:45) Aspirin Chew (Aspirin Chew) (08/07/17 09:45) Sodium Chloride 0.9% Flush (Ns Flush) (08/07/17 09:45) Chest, Pa & Lat (08/07/17 09:45) Ondansetron Inj (Zofran Inj) (08/07/17 10:15) Metoprolol Tartrate (Lopressor) (08/07/17 10:15) Lisinopril (Prinivil) (08/07/17 10:15) Insulin Aspart Inj (Novolog Inj) (08/07/17 11:00) Labs Laboratory Tests Test 08/07/17 09:48 White Blood Count 7.8 TH/MM3 Red Blood Count 4.05 MIL/MM3 Hemoglobin 12.5 GM/DL Hematocrit 36.7 % Mean Corpuscular Volume 90.6 FL Mean Corpuscular Hemoglobin 30.8 PG Mean Corpuscular Hemoglobin Concent 34.0 % Red Cell Distribution Width 14.0 % Platelet Count 165 TH/MM3 Mean Platelet Volume 9.0 FL Neutrophils (%) (Auto) 66.8 % Lymphocytes (%) (Auto) 24.6 % Monocytes (%) (Auto) 6.3 % Eosinophils (%) (Auto) 1.7 % Basophils (%) (Auto) 0.6 % Neutrophils # (Auto) 5.2 TH/MM3 Lymphocytes # (Auto) 1.9 TH/MM3 Monocytes # (Auto) 0.5 TH/MM3 Eosinophils # (Auto) 0.1 TH/MM3 Basophils # (Auto) 0.1 TH/MM3 CBC Comment DIFF FINAL Differential Comment Prothrombin Time 10.1 SEC Prothromb Time International Ratio 1.0 RATIO Activated Partial Thromboplast Time 23.1 SEC Blood Urea Nitrogen 20 MG/DL Creatinine 0.98 MG/DL Random Glucose 391 MG/DL Total Protein 7.4 GM/DL Albumin 3.5 GM/DL Calcium Level 8.8 MG/DL Magnesium Level 1.8 MG/DL Alkaline Phosphatase 84 U/L Aspartate Amino Transf (AST/SGOT) 14 U/L Alanine Aminotransferase (ALT/SGPT) 14 U/L Total Bilirubin 0.3 MG/DL Sodium Level 137 MEQ/L Potassium Level 4.2 MEQ/L Chloride Level 102 MEQ/L Carbon Dioxide Level 27.7 MEQ/L Anion Gap 7 MEQ/L Estimat Glomerular Filtration Rate 54 ML/MIN Troponin I 0.10 NG/ML MDM Medical Decision Making Medical Screen Exam Complete: Yes Emergency Medical Condition: Yes Interpretation(s) My review of EKG: Normal sinus rhythm at a rate of 94, leftward axis, left bundle, no definite evidence of acute ischemia. LABS: CBC is remarkable for white count of 12.1 thousand CMP reveals elevated glucose Troponin 0 0.1 Coags are unremarkable Chest x-ray: Stable mild cardiomegaly. Differential Diagnosis ACS, pancreatitis, GI upset, chronic ischemia, other Narrative Course Medical decision making Is a 81-year-old woman presents to the emergency department with ongoing intermittent chest pains, known history of ischemic heart disease, due to have heart catheterization performed. Previously been refusing him. Looks overall well. EKG does not show any definite ischemia. Will recheck labs, discuss with cardiology, likely admission. Physician Communication Physician Communication Spoke with Dr. Kc. Will take patient to the [facility] tomorrow. Spoke with Dr. Maravilla in. Will admit patient. Diagnosis Primary Impression: ACS (acute coronary syndrome) Admitting Information Admitting Physician Requests: Admit Patient Instructions: General Instructions Gilmer Arredondo MD Aug 07, 2017 10:09
[2017-08-07] MEDS ORDERED: LISINOPRIL 5 MG TAB PO ONE (10:15)
[2017-08-07] MEDS ORDERED: ONDANSETRON HCL 4 MG/2 ML VIAL IV PUSH ONE (10:15)
[2017-08-07] MEDS ORDERED: METOPROLOL TARTRATE 25 MG TAB PO ONE (10:15)
--- NOTE | 2017-08-07 10:15 | RADRPT ---
EXAM DATE/TIME: 08/07/2017 09:57 [facility] COMPARISON: CHEST PA & LAT, August 04, 2017, 7:46. INDICATIONS : Chest pain. MEDICAL HISTORY : Diabetes mellitus type I. Chronic obstructive pulmonary disease. Parkinson's disease. SURGICAL HISTORY : None. ENCOUNTER: Initial ACUITY: 1 day PAIN SCORE: 7/10 LOCATION: Bilateral chest FINDINGS: PA and lateral views of the chest demonstrate mild hyperinflation of the lungs, stable. The lungs are grossly clear. Moderate cardiomegaly, stable. Coronary vasculature appears grossly normal. Osseous s tructures demonstrate degenerative change. CONCLUSION: Stable mild cardiomegaly. No evidence of congestive heart failure or pulmonary edema. No parenchymal abnormality. Rimma Vidal MD on August 07, 2017 at 10:11 Board Certified Radiologist. This report was verified electronically.
[2017-08-07 10:51] LABS: ALBUMIN 3.5 GM/DL (3.4-5.0); ALKALINE PHOSPHATASE 84 U/L (45-117); ALT (GPT) 14 U/L (10-53); AST (GOT) 14 U/L (15-37); BICARBONATE 27.7 MEQ/L (21.0-32.0); BLOOD UREA NITROGEN 20 MG/DL (7-18); CALCIUM 8.8 MG/DL (8.5-10.1); CHLORIDE 102 MEQ/L (98-107); CREATININE 0.98 MG/DL (0.50-1.00); GLOMERULAR FILTRATION RATE 54 ML/MIN (>89); GLUCOSE,RANDOM 391 MG/DL (74-106); MAGNESIUM 1.8 MG/DL (1.5-2.5); SODIUM (NA) 137 MEQ/L (136-145); TOTAL BILIRUBIN ADULT 0.3 MG/DL (0.2-1.0); TOTAL PROTEIN 7.4 GM/DL (6.4-8.2)
[2017-08-07] MEDS ORDERED: INSULIN ASPART 1,000 UNITS/10 ML VIAL SQ ONE (11:00)
[2017-08-07] MEDS ORDERED: ONDANSETRON HCL 4 MG/2 ML VIAL IVP PRN (11:45)
[2017-08-07] MEDS ORDERED: SODIUM CHLORIDE 0.9% FLUSH 10 ML FLUSH IV FLUSH PRN (11:45)
[2017-08-07] MEDS ORDERED: SENNOSIDES 8.6 MG TAB PO PRN (11:45)
[2017-08-07] MEDS ORDERED: MAGNESIUM HYDROXIDE SUSP 30 ML CUP PO PRN (11:45)
[2017-08-07] MEDS ORDERED: BISACODYL 10 MG SUPP RECTAL PRN (11:45)
[2017-08-07] MEDS ORDERED: LACTULOSE SYRUP 20 GM/30 ML CUP PO PRN (11:45)
[2017-08-07] MEDS ORDERED: NALOXONE HCL 0.4 MG/ML AMP IV PUSH PRN (11:45)
[2017-08-07] MEDS ORDERED: HEPARIN SODIUM - SQ 10,000 UNITS/ML VIAL SQ SCH (12:00)
[2017-08-07] MEDS ORDERED: DEXTROSE 50% IN WATER 50 ML VIAL(D50) IV PUSH PRN (13:15)
[2017-08-07] MEDS ORDERED: GLUCAGON 1 MG/ML VIAL OTHER PRN (13:15)
--- NOTE | 2017-08-07 13:17 | HHI.HP ---
[facility] Primary [facility] Physician No Primary Care Physician Admission Diagnosis Unstable angina Diagnoses: (1) Hypertension (2) GERD (gastroesophageal reflux disease) (3) DM (diabetes mellitus) (4) COPD (chronic obstructive pulmonary disease) (5) Anxiety (6) Elevated troponin (7) NSTEMI (non-ST elevated myocardial infarction) Chief Complaint: Chest pain Travel History International Travel<30 Days: No Contact w/Intl Traveler <30 Da: No Traveled to Known Affected Are: No History of Present Illness The patient is an 81-year-old female who has had multiple recent admissions for chest pain. She states that this morning she started having severe chest pain, 910. It was located on the left side of her chest and radiated to her back and left upper arm. She reports associated dyspnea. Denies diaphoresis. She took 4 doses of nitroglycerin for the pain was relieved. It lasted a couple hours overall. She has no chest pain at the moment. She was recently advised to have a cardiac catheterization, but was resistant. She was discharged home. She is now agreeable to proceeding with cardiac catheterization. Review of Systems Constitutional: DENIES: Fever, Chills, Night Sweats Eyes: DENIES: Blurred vision, Vision loss Ears, nose, mouth, throat: DENIES: Hearing loss Respiratory: COMPLAINS OF: Shortness of breath, DENIES: Cough, Wheezing, Sputum production Cardiovascular: COMPLAINS OF: Chest pain, DENIES: Palpitations, Dyspnea on Exertion, Lower Extremity Edema Gastrointestinal: DENIES: Abdominal pain, Constipation, Diarrhea, Nausea, Vomiting Genitourinary: DENIES: Urinary frequency, Urinary incontinence, Urgency, Hematuria, Dysuria, Nocturia Musculoskeletal: COMPLAINS OF: Back pain, DENIES: Joint pain, Muscle aches Integumentary: DENIES: Pruritus, Rash Hematologic/lymphatic: DENIES: Bruising Neurologic: DENIES: Headache Past Family Social History Past Medical History Hypertension Diabetes mellitus type 2 Hyperlipidemia CHF GERD COPD Anxiety Migraine headaches Past Surgical History Bilateral knee replacement Hiatal hernia repair Tonsillectomy Reported Medications Levemir Inj (Insulin Detemir) 1,000 unit/ 10 ML Vial 5 Units SQ Q12HR Do not mix with any other Insulin. Lisinopril 5 Mg Tab 5 Mg PO DAILY Metoprolol Tartrate 25 Mg Tab 25 Mg PO Q12HR Isosorbide Mononitrate ER (Isosorbide Mononitrate) 30 Mg Silvia 30 Mg PO DAILY@ 07 30 Days Nitroglycerin SL (Nitroglycerin) 0.4 Mg Subl 0.4 Mg SL DIRECTED PRN ONE TABLET UNDER THE TONGUE NEEDED FOR CHEST PAIN, MAY REPEAT EVERY FIVE MINUTES FOR A TOTAL OF 3 DOSES OR CALL 911 IF NO RELIEF Flagyl (Metronidazole) 500 Mg Tab 500 Mg PO TID 12 Days Levaquin (Levofloxacin) 500 Mg Tablet 500 Mg PO DAILY 12 Days Xanax (Alprazolam) 1 Mg Tab 1 Mg PO BID PRN Novolin R Inj (Insulin Human Regular) 1,000 Unit/10 Ml Vial 0 SQ DIRECTED Sliding Scale As Directed. 150-200=5 UNITS,201-300=10 UNITS,301-400=15 UNITS, OVER 400=CALL MD Gutierrez (Sennosides) 8.6 Mg Tab 8.6 Mg PO HS PRN Protonix (Pantoprazole Sodium) 40 Mg Tab 40 Mg PO DAILY Metformin (Metformin HCl) 1,000 Mg Tab 1,000 Mg PO BIDPC With meals Gabapentin 300 Mg Cap 300 Mg PO BID Symbicort Inh (Budesonide/Formoterol Fumarate) 160-4.5 Mcg/Act Aero 2 Puff INH Q12HR Atorvastatin (Atorvastatin Calcium) 40 Mg Tab 40 Mg PO HS Aspirin 81 Mg Chew 81 Mg CHEW DAILY Allergies: Coded Allergies: codeine (Unverified Allergy, Severe, NAUSEA, 08/07/17) hydromorphone (Unverified Allergy, Severe, Nausea/Vomiting, 08/07/17) acetaminophen (Unverified Allergy, Unknown, Nausea/Vomiting, 08/07/17) hydrocodone (Unverified Allergy, Unknown, Nausea/Vomiting, 08/07/17) Family History She states that both of her parents had heart disease. Social History Denies alcohol, tobacco, or illicit drug use. Physical Exam Vital Signs Vital Signs Date Time Temp Pulse Resp B/P (MAP) Pulse Ox O2 Delivery O2 Flow Rate FiO2 08/07/17 10:15 102 18 190/73 (112) 96 Nasal Cannula 2.00 08/07/17 10:05 18 96 Nasal Cannula 2.00 08/07/17 10:05 96 Nasal Cannula 2.00 08/07/17 09:37 98 08/07/17 09:33 106 25 222/93 (136) Physical Exam GENERAL: Elderly female in no acute distress. HEENT: Normocephalic, atraumatic. Pupils equal, round and reactive. Extraocular movements intact. No scleral icterus. No injection or drainage. Oropharynx is clear. Mucous membranes are moist. CARDIOVASCULAR: Regular rate and rhythm without murmurs, gallops, or rubs. RESPIRATORY: Clear to auscultation. No wheezes, rales, or rhonchi. Breathing is non-labored. GASTROINTESTINAL: Abdomen soft, non-tender, nondistended. EXTREMITIES: No lower extremity edema. No calf tenderness. PSYCH: Alert and oriented x 3. Laboratory Laboratory Tests Test 08/07/17 09:48 White Blood Count 7.8 Red Blood Count 4.05 Hemoglobin 12.5 Hematocrit 36.7 Mean Corpuscular Volume 90.6 Mean Corpuscular Hemoglobin 30.8 Mean Corpuscular Hemoglobin Concent 34.0 Red Cell Distribution Width 14.0 Platelet Count 165 Mean Platelet Volume 9.0 Neutrophils (%) (Auto) 66.8 Lymphocytes (%) (Auto) 24.6 Monocytes (%) (Auto) 6.3 Eosinophils (%) (Auto) 1.7 Basophils (%) (Auto) 0.6 Neutrophils # (Auto) 5.2 Lymphocytes # (Auto) 1.9 Monocytes # (Auto) 0.5 Eosinophils # (Auto) 0.1 Basophils # (Auto) 0.1 CBC Comment DIFF FINAL Differential Comment Prothrombin Time 10.1 Prothromb Time International Ratio 1.0 Activated Partial Thromboplast Time 23.1 Blood Urea Nitrogen 20 Creatinine 0.98 Random Glucose 391 Total Protein 7.4 Albumin 3.5 Calcium Level 8.8 Magnesium Level 1.8 Alkaline Phosphatase 84 Aspartate Amino Transf (AST/SGOT) 14 Alanine Aminotransferase (ALT/SGPT) 14 Total Bilirubin 0.3 Sodium Level 137 Potassium Level 4.2 Chloride Level 102 Carbon Dioxide Level 27.7 Anion Gap 7 Estimat Glomerular Filtration Rate 54 Troponin I 0.10 Result Diagram: 08/07/17 0948 08/07/17 0948 Imaging Last Impressions Chest X-Ray 08/07/17 0945 Signed Impressions: Service Date/Time: Monday, August 07, 2017 09:57 - CONCLUSION: Stable mild cardiomegaly. No evidence of congestive heart failure or pulmonary edema. No parenchymal abnormality. MD Adela Valerai VTE Risk Assessment Caprini VTE Risk Assessment: Mod/High Risk (score >= 2) Caprini Risk Assessment Model Point Value = 1 Point Value = 2 Point Value = 3 Point Value = 5 Age 41-60 Minor surgery BMI > 25 kg/m2 Swollen legs Varicose veins or History of unexplained or recurrent spontaneous Oral contraceptives or hormone replacement Sepsis (< 1 month) Serious lung disease, including pneumonia (< 1 month) Abnormal pulmonary function Acute myocardial infarction Congestive heart failure (< 1 month) History of inflammatory bowel disease Medical patient at bed rest Age 61-74 Arthroscopic surgery Major open surgery (> 45 min) Laparoscopic surgery (> 45 min) Malignancy Confined to bed (> 72 hours) Immobilizing plaster cast Central venous access Age >= 75 History of VTE Family history of VTE Factor V Leiden Prothrombin [id number] Lupus anticoagulant Anticardiolipin antibodies Elevated serum homocysteine Heparin-induced thrombocytopenia Other congenital or acquired thrombophilia Stroke (< 1 month) Elective arthroplasty Hip, pelvis, or leg fracture Acute spinal cord injury (< 1 month) Prophylaxis Regimen Total Risk Factor Score Risk Level Prophylaxis Regimen 0-1 Low Early ambulation 2 Moderate Order ONE of the following: *Sequential Compression Device (SCD) *Heparin 5000 units SQ BID 3-4 Higher Order ONE of the following medications: *Heparin 5000 units SQ TID *Enoxaparin/Lovenox 40 mg SQ daily (WT < 150 kg, CrCl > 30 mL/min) *Enoxaparin/Lovenox 30 mg SQ daily (WT < 150 kg, CrCl > 10-29 mL/min) *Enoxaparin/Lovenox 30 mg SQ BID (WT < 150 kg, CrCl > 30 mL/min) AND/OR *Sequential Compression Device (SCD) 5 or more Highest Order ONE of the following medications: *Heparin 5000 units SQ TID (Preferred with Epidurals) *Enoxaparin/Lovenox 40 mg SQ daily (WT < 150 kg, CrCl > 30 mL/min) *Enoxaparin/Lovenox 30 mg SQ daily (WT < 150 kg, CrCl > 10-29 mL/min) *Enoxaparin/Lovenox 30 mg SQ BID (WT < 150 kg, CrCl > 30 mL/min) AND *Sequential Compression Device (SCD) Assessment and Plan Assessment and Plan 1. Chest pain, recent non-ST elevation VT: Patient had been advised to have cardiac catheterization, but she refused and was discharged home to follow-up in the office with cardiology. She presented again today with recurrent chest pain. She is now agreeable to cardiac catheterization. Cardiology consult. Likely cardiac catheterization tomorrow. Continue aspirin, beta-tyrell, RAJENDRA inhibitor, Imdur, nitro as needed. 2. Diabetes mellitus type 2: Monitor Accu-Cheks and cover with sliding scale insulin. Hold metformin. Continue Levemir. 3. Hyperlipidemia: Chronic. Continue statin. 4. COPD: Does not appear to be in exacerbation at this time. Continue Symbicort. DuoNeb as needed. Oxygen as needed. 5. GERD: Continue PPI. 6. Bacteremia: Continue Levaquin and Flagyl. Stop date is 08/09/17. 7. DVT prophylaxis: Heparin. Discussed Condition With Dr. De Gibbons,Roman Mars MD Aug 07, 2017 13:17
[2017-08-07] MEDS: metroNIDAZOLE 500 MG TAB PO SCH ×2 (15:12→20:53)
--- NOTE | 2017-08-07 15:33 | MB ---
cc: Grant Kc DO DATE: 08/07/2017 CHIEF COMPLAINT: Chest pain/elevated troponin. HISTORY OF PRESENT ILLNESS: Denisha Muniz is a pleasant 81-year-old female who presented to [facility] Emergency Room on 08/07/2017, due to chest pain. The patient was previously here multiple times this week due to chest pain and found to have an elevated troponin. She was recommended cardiac catheterization each time, but declined it at that time and was attempted to be started on medical therapy. Her last time she was here on 08/04 and 08/04, she then stated that she would like to have the cardiac catheterization, but wanted to go home over the weekend to get things taken care of. I had planned on scheduling her this upcoming week for a cardiac catheterization, but then while at home today, apparently, she started having chest pain over the left side of her chest, took nitroglycerin and called 911. In seeing her, she is currently chest pain free without shortness of breath. PAST MEDICAL HISTORY: 1. Hypertension. 2. Hyperlipidemia. 3. Diabetes mellitus. 4. Anxiety. 5. Congestive heart failure. 6. GERD. 7. COPD. 8. Migraines. PAST SURGICAL HISTORY: 1. Hiatal hernia. 2. Bilateral knee replacement. 3. Tonsillectomy. ALLERGIES: 1. ACETAMINOPHEN. 2. CODEINE. 3. HYDROCODONE. 4. HYDROMORPHONE. MEDICATIONS: 1. Levaquin 500 mg daily. 2. Flagyl 500 mg t.i.d. 3. Lipitor 40 mg every night. 4. Imdur 30 mg daily. 5. Nitroglycerine sublingual as needed for chest pain. 6. Metoprolol tartrate 25 mg every 12 hours. 7. Lisinopril 5 mg daily. 8. Aspirin 81 mg daily. 9. Gabapentin 300 mg b.i.d. 10. Xanax 1 mg b.i.d. as needed for anxiety. 11. Symbicort 2 puffs every 12 hours. 12. Protonix 40 mg daily. 13. Metformin 1000 mg b.i.d. 14. Levemir 5 units every 12 hours. 15. Novolin sliding scale. FAMILY HISTORY: Denies premature coronary artery disease or sudden cardiac within the family. SOCIAL HISTORY: Denies tobacco, alcohol or drug abuse. REVIEW OF SYSTEMS: Fourteen systems were reviewed including osteopathic pertinent positives and negatives above, otherwise negative. PHYSICAL EXAMINATION: VITAL SIGNS: Temperature 97.9, heart rate 100, blood pressure 190/73, respirations 18, pulse oximetry 96% on 2 L. GENERAL: The patient appears well in no acute distress, alert, awake and oriented x 3. HEENT: Extraocular muscles intact. Mucous membranes moist. NECK: Supple. No JVD at 45 degrees. No carotid bruits heard bilaterally. Carotid upstroke is brisk in nature. HEART: Regular rate and rhythm. Positive for and second heart sounds with no noted murmurs, gallops or rubs. LUNGS: Clear to auscultation bilaterally. No wheezes, rales or rhonchi. ABDOMEN: Soft, nontender, nondistended. No organomegaly noted. EXTREMITIES: Show no clubbing, cyanosis or edema. Femoral and distal pulses are intact bilaterally. NEUROLOGIC: No focal deficits. SKIN: Warm, dry and intact. OSTEOPATHIC: No kyphoscoliosis, lordosis or paraspinal tender points. LABORATORY DATA: Hemoglobin 12.5, hematocrit 36.7, platelets 165. Potassium 4.2, BUN 20, creatinine 0.98. Troponin 0.1. Electrocardiogram (08/07/2017, at 0941), sinus rhythm, left anterior fascicular block, LVH with secondary ST-T wave changes. IMPRESSIONS: 1. Chest pain, possibly due to coronary insufficiency. 2. Elevated troponin. 3. Diabetes mellitus. 4. Hyperlipidemia. 5. Hypertensive urgency with a blood pressure of 222/93 on arrival. 6. Significant anxiety. RECOMMENDATIONS: 1. Ms. Muniz presented once again with chest pain and is now willing to undergo cardiac catheterization. She will be n.p.o. after midnight with a plan for a right radial access tomorrow for cardiac catheterization. 2. Risks, benefits and alternatives have been explained to her and she consented to such. 3. Overall, if no significant coronary artery disease is found, she may have elevation of her troponins as well as chest pain due to hypertensive urgency, which also furthers her anxiety, which furthers her hypertension. 4. We will check a 2-D echo to look at her overall left ventricular function, cardiac structure and possible valvulopathies. 5. Further recommendations will be made after coronary visualization. Thank you for allowing me to see Denisha Muniz. If there are any questions, please do not hesitate to call. DO RONIT Wasserman/AMARA , 03:01 PM , 03:33 PM
--- NOTE | 2017-08-07 15:56 | EKG ---
Date Performed: 08/07/2017 Time Performed: 09:41:28 PTAGE: 81 years EKG: Sinus rhythm LEFT ANTERIOR FASCICULAR BLOCK LEFT VENTRICULAR HYPERTROPHY AND ST-T CHANGE Since the previous tay ng, no significant change noted ABNORMAL ECG PREVIOUS TRACING : 08/04/2017 07.04 DOCTOR: Rafa De Los Santos Interpretating Date/Time 08/07/2017 15:56:26
[2017-08-07] MEDS: INSULIN ASPART SUPPLEMENTAL SCALE SQ SCH ×2 (17:37→20:54)
[2017-08-07] MEDS ORDERED: HEPARIN SODIUM - IV 10,000 UNITS/10 ML VIAL IV PUSH PRN (19:00)
[2017-08-07] MEDS: METOPROLOL TARTRATE 25 MG TAB PO SCH (20:53)
[2017-08-07] MEDS: SODIUM CHLORIDE 0.9% FLUSH 10 ML FLUSH IV FLUSH SCH (20:53)
[2017-08-07] MEDS: GABAPENTIN 300 MG CAP PO SCH (20:53)
[2017-08-07] MEDS: DOCUSATE SODIUM 50 MG/SENNA 8.6 MG TAB PO SCH (20:53)
[2017-08-07] MEDS: ATORVASTATIN 40 MG TAB PO SCH (20:53)
[2017-08-07] MEDS: INSULIN DETEMIR 100 UNITS/ML VIAL SQ SCH (20:54)
[2017-08-07] MEDS: BUDESONIDE-FORMOTEROL 160/4.5 MCG INHALER INH SCH (21:00)
[2017-08-07] MEDS ORDERED: cloNIDine HCL 0.1 MG TAB PO ONE (22:15)
[2017-08-08] VITALS (13 sets, daily range): BP systolic 113–159; BP diastolic 55–71; PULSE 65–75; RESP 16–18; TEMP 97.8–98.4; O2SAT 92–97
[2017-08-08] MEDS: HEPARIN 25,000 UNITS-D5W 250 ML - PREMIX IV PRN ×2 (00:05→15:09)
[2017-08-08] MEDS: ACETAMINOPHEN 325 MG TAB PO PRN ×2 (00:06→15:30)
[2017-08-08] MEDS: ALPRAZolam 1 MG TAB PO PRN ×2 (00:06→19:47)
[2017-08-08] MEDS ORDERED: SODIUM CHLORID 0.9% 500 ML IV PRN (04:15)
[2017-08-08] MEDS ORDERED: POVIDONE IODINE 5% (ANTISEPSIS KIT) 4 APPLICATIONS EACH NARE PRN (04:15)
[2017-08-08] MEDS ORDERED: CHLORHEXIDINE GLUCONATE 2 % 1 PACK (2 CLOTHS) TOPICAL PRN (04:15)
[2017-08-08] MEDS ORDERED: LACTATED RINGER'S 1000 ML IV PRN (04:15)
[2017-08-08] MEDS: metroNIDAZOLE 500 MG TAB PO SCH ×3 (06:38→20:48)
[2017-08-08] MEDS: ISOSORBIDE MONONITRATE 30 MG CR TAB (IMDUR) PO SCH (06:38)
[2017-08-08] MEDS: DOCUSATE SODIUM 50 MG/SENNA 8.6 MG TAB PO SCH ×2 (08:30→19:47)
[2017-08-08] MEDS: LEVOFLOXACIN 500 MG TAB PO SCH (08:30)
[2017-08-08] MEDS: PANTOPRAZOLE SOD 40 MG DELAYED RELEASE TAB PO SCH (08:30)
[2017-08-08] MEDS: ASPIRIN 81 MG CHEW TAB CHEW SCH (08:30)
[2017-08-08] MEDS: GABAPENTIN 300 MG CAP PO SCH ×2 (08:30→19:47)
[2017-08-08] MEDS: SODIUM CHLORIDE 0.9% FLUSH 10 ML FLUSH IV FLUSH SCH ×2 (08:30→19:53)
[2017-08-08] MEDS: METOPROLOL TARTRATE 25 MG TAB PO SCH ×2 (08:31→19:48)
[2017-08-08] MEDS: BUDESONIDE-FORMOTEROL 160/4.5 MCG INHALER INH SCH ×2 (08:35→20:48)
[2017-08-08] MEDS: INSULIN DETEMIR 100 UNITS/ML VIAL SQ SCH (08:35)
[2017-08-08] MEDS: INSULIN ASPART SUPPLEMENTAL SCALE SQ SCH ×4 (08:35→19:53)
[2017-08-08] MEDS ORDERED: LISINOPRIL 5 MG TAB PO SCH (09:00)
[2017-08-08] MEDS: HEPARIN SODIUM - IV 10,000 UNITS/10 ML VIAL IV PUSH PRN ×2 (09:06→22:14)
[2017-08-08] MEDS ORDERED: HEPARIN-NS/PF FLUSH BAG 2,000 ML IV FLUSH ONE (10:58)
[2017-08-08] MEDS ORDERED: VERAPAMIL HCL 5 MG/2 ML VIAL ONE (11:01)
[2017-08-08] MEDS ORDERED: MIDAZOLAM HCL 2 MG/2 ML VIAL ONE (11:01)
[2017-08-08] MEDS ORDERED: NITROGLYCERIN INJ 5 ML ONE (11:02)
[2017-08-08] MEDS ORDERED: HEPARIN SODIUM - IV 10,000 UNITS/10 ML VIAL ONE (11:02)
--- NOTE | 2017-08-08 11:39 | CATHPROC ---
[employer] 24/7 HIS Report Study Information Study Number Admission Scheduled Start Study Start [id number] Aug 07 2017 12:11PM 08/07/2017 Aug 08 2017 10:55AM [facility] Cardiac Catheterization Admit Source Facility Department Other [facility] - Certified Pharmacy Technician Physician and Clinical Staff Initial Grant Sandra Zumba Instructor Abelardo RN, Hu Recorder April Noel,RT(R) Scrub Izabella Mathias,INTERVENTION TEACHER TECH2 X-Ray Adina Jenkins,RT(R) (BS) Procedures Performed Procedure Location (Site) Vessel Name Coronary Angiograms LCA Left Coronary Coronary Angiograms RCA Right Coronary L Heart Cath Wire insertion Radial (right) Radial Art. Equipment Time Shipping Room Supervisor Description Size Mfg Part Number Used/Scraped TRANSDUCER, TRUWAVE [id number] 11:00 SHOOK ROSARIO * Used W/STOCKCOCK *[id number] *[id number] *[id number] 11:00 RSens PACK, CCL CUSTOM * Used *[id number] 11:00 [employer]ens SUPPORT, ARTERIAL ADULT [id number] *[id number] Used BAND, RADIAL COMPRESSION TR [id number] 11:27 [employer] MEDICAL 24CM Used SHORT 24 *[id number] 11:00 [employer] WIRE, EXCHANGE 260CM 3MMJ 260CM Used *[id number] 11:00 NAMIC MANIFOLD, 4 PORT * Used *[id number] 11:00 [employer] OMNIPAQUE, 350 MG, 150ML 150ML [id number] Used [id number] 11:00 [employer] [employer] BLANKET,WARM AIR CCL * Used *[id number] SHEATH, FR6 TRANSRADIAL [id number] 11:00 [employer] FR 6 Used SLENDER 10CM *[id number] History: Current Medications Medication Dosage/Unit Route Frequency Last Date/Time Taken ASA HEPARIN Statins (any) LISINOPRIL LOPRESSOR Glucophage History: Allergies Allergy Reaction codeine NAUSEA Dilaudid Nausea/Vomiting Lortab Nausea/Vomiting hydrocodone Nausea/Vomiting acetaminophen Nausea/Vomiting hydromorphone Nausea/Vomiting History: Risk Factors Family History of Hypertension Dyslipidemia Previous MO Previous Heart Failure Premature CAD Yes No No No Yes Prior Valve Prior PCI Prior CABG Surgery No No No Cerebrovascular Peripheral Artery Chronic Lung On Dialysis Diabetes Diabetes Therapy Disease Disease Disease No No No Yes Yes Insulin History: Stress Tests Stress or Imaging Studies Performed No History: Other Disease Selection Items HTN History: Other Current Smoker No Labs Hgb (g/dl) Hct (%) RBC (MIL/MM3) WBC (l/cumm) Platelets (thousands) 11.60-17.00 35.00-51.00 4.00-5.90 4.00-11.00 150.00-450.00 12.5 36.7 4 7.8 165 Glucose (mg/dl) BUN (mg/dl) Creatinine (mg/dl) BUN:Creatinine (1:x) 74.00-106.00 7.00-18.00 0.50-1.30 10.00-20.00 391 20 0.9 22.2 Na (meq/l) K (meq/l) Cl (meq/l) CO2 (mmol/L) Ca (mg/dl) 136.00-145.00 3.50-5.10 98.00-107.00 21.00-32.00 8.50-10.10 137 4.2 102 27.7 8.8 PT (sec) PTT (sec) INR (PTT:PT) 9.80-11.60 24.30-30.10 0.90-1.10 10.1 23.1 1 Troponin I (ng/ml) CPK-MB (ng/ML) 0.02-0.05 0.50-3.60 0.4 Not Drawn Medication Medication Total Dose (Bolus/Oral) Medication Total Dosage/Unit 1% XYLOCAINE 20 mL FENTANYL 25 mcg RADIAL COCKTAIL 5 mL (Bolus) VERSED 0.5 mg Medications (Bolus/Oral) Medication Time Given Dosage/Unit Administered By Reason 1% XYLOCAINE 08/08/2017 11:14:47 AM 20 mL Grant Kc 20 mL 1% XYLOCAINE given in lab by Grant Kc G in Right Radial via Subcutaneous. VERSED 08/08/2017 11:14:55 AM 0.5 mg Hu Zhou RN 0.5 mg VERSED given in lab by Hu Zhou RN via Peripheral IV. FENTANYL 08/08/2017 11:15:02 AM 25 mcg Hu Zhou RN 25 mcg FENTANYL given in lab by Hu Zhou RN via Peripheral IV. Ntg 200mcg Verapamil 2.5mg Heparin RADIAL COCKTAIL 08/08/2017 11:16:26 AM 5 mL (Bolus) Grant Kc 3000U 5 mL (Bolus) RADIAL COCKTAIL given in lab by Grant Kc in Right Radial via Radial. Using [S olution Name]. Reason: Ntg 200mcg Verapamil 2.5mg Heparin 3000U. 4000 heparin Initial Case Assessment Cardiovascular Edema Present Skin color Skin None Normal Warm Circulatory - Right Pulses Dorsalis Pedis Femoral Radial 3 2 3 Scale (0,1,2,3,4,d) Scale (0,1,2,3,4,d) Circulatory - Lower Extremities Color Lower Right Normal Neurological State Oriented to time-place- Alert Moves all extremities person Respiration - General Respiration Rate SpO2 (%) (B/min) 15 94 Final Case Assessment Cardiovascular HR Rhythm NIBP Chest Pain 77 irreg 131/66 0 Edema Present Skin color Skin None Normal Warm Circulatory - Right Pulses Dorsalis Pedis Femoral Radial 3 2 3 Scale (0,1,2,3,4,d) Scale (0,1,2,3,4,d) Circulatory - Lower Extremities Color Lower Right Normal Neurological State Oriented to time-place- Alert Moves all extremities person Respiration - General Respiration Rate SpO2 (%) (B/min) 15 97 Chronological Log Time Study Chronological Log 10:53:16 Patient arrived via Bed. 10:55:20 Patient Name, D.O.B, / Armband Verified By R.N. 10:55:21 Consent signed by the physician and the patient and verified by the Certified Pharmacy Technician staff. 10:55:21 Pre-op and post- op instructions given; patient acknowledges understanding of instructions. 10:55:22 Verbal Stimulation=2 Physical Stimulation=2 Airway=2 Respiration=2 TOTAL=8. (0=absent, 1=li mited, 2=present) 10:55:27 Allens test performed on the right radial and ulnar artery with a positive result by miguelina mtz 10:55:29 Patient has been NPO for More than 6Hrs. 10:55:30 Skin Breakdown-none 10:55:31 Patient Warmer Placed on the Table. 10:55:34 A # 22 IV was noted in the Forearm (right). Grade = 0 saline locked 10:57:22 heparin discontinued in pts room at 10:40am 10:57:51 History and physical on the chart or being dictated. Assessment: Initial Case, Edema=None, Color=Normal, Skin = Warm Right Pulses: Guzman Ped=3, Femoral=2, Radial=3 10:57:52 Lower Right Extremities: Color=Normal Neurological: State=Alert, Ox3, THOMAS Respiration: Resp=15 B/min, SpO2=94 % Vitals capture started with the following parameters, Patient=Adult, Interval=5 min, Initial Pr mnbvxp=662 mmHg, 10:59:34 Deflation Rate=5 mmHg, Cuff placed on left arm 11:00:14 HR=72 bpm, NUJH=142/71 mmhg, SpO2=95.0 %, Resp=16 B/min, Pain=0, Buck=10, Amchado=2 11:01:20 Reference ECG taken 11:05:46 HR=76 bpm, NYEW=205/63 mmhg, SpO2=94 %, Resp=16 B/min, Pain=0, Buck=10, Machado=2 11:09:40 MD arrived. 11:10:20 HR=71 bpm, FYTA=160/66 mmhg, SpO2=94 %, Resp=14 B/min, Pain=0, Buck=10, Machado=2 11:11:14 Pressure channel 1 zeroed. Time Out. Correct patient, correct procedure, correct physician, power injector not loaded with contrast with surgical 11:13:30 team present. Time Out Concurred by MD and individual staff in procedure. 11:14:39 Case Start 11:14:41 Verbal Stimulation=2 Physical Stimulation=2 Airway=2 Respiration=2 TOTAL=8. (0=absent, 1=li mited, 2=present) 11:14:47 20 mL 1% XYLOCAINE given in lab by Grant Kc in Right Radial via Subcutaneous. 11:14:55 0.5 mg VERSED given in lab by Hu Zhou RN via Peripheral IV. 11:15:02 25 mcg FENTANYL given in lab by Hu Zhou RN via Peripheral IV. 11:15:46 Access site was Radial Artery. rt 11:15:54 HR=73 bpm, UUOU=399/70 mmhg, SpO2=92.0 %, Resp=20 B/min, Pain=0, Buck=10, Machado=2 11:16:03 A wire was inserted via Radial (right). A SHEATH, FR6 TRANSRADIAL SLENDER 10CM FR 6 was advanced into the Radial (right) using the Perc utaneous 11:16:12 technique. 5 mL (Bolus) RADIAL COCKTAIL given in lab by Grant Kc in Right Radial via Radial. Us ing [Solution Name]. 11:16:26 Reason: Ntg 200mcg Verapamil 2.5mg Heparin 3000U. 4000 heparin A JR 4.0 INFINITI CATHETER FR 5 was advanced over a wire. OMNIPAQUE, 350 MG, 150ML 150ML was us ed for 11:18:10 injections. Recorded Pressure: LV, HR=75, Condition=Condition 1 11:19:28 (Left Ventricle) LV 123/3/7 Recorded Pressure: LV, Ao, HR=79, Condition=Condition 1 11:19:47 (Left Ventricle) LV 122/0/10, (Aorta) Ao 119/59/84 Recorded Pressure: Ao, HR=75, Condition=Condition 1 11:20:12 (Aorta) Ao 123/61/86 11:20:16 HR=73 bpm, RNBC=536/55 mmhg, SpO2=92 %, Resp=14 B/min, Pain=0, Buck=10, Machado=2 11:21:26 The RCA was injected and visualized at various angles. OMNIPAQUE, 350 MG, 150ML 150ML use d. After removing the current catheter a JL 3.5 INFINITI CATHETER FR 5 was advanced over a WIRE, EXCHANGE 260CM 11:22:41 3MMJ 260CM. 11:23:33 The LCA was injected and visualized at various angles. OMNIPAQUE, 350 MG, 150ML 150ML use d. 11:25:42 Catheter was removed 11:25:58 HR=78 bpm, DQTA=503/66 mmhg, SpO2=94 %, Resp=17 B/min, Pain=0, Buck=10, Machado=2 Assessment: Final Case, HR=77 BPM, Rhythm=irreg, HJMN=248/66 mmhg, Chest Pain=0, Edema=None, Color=Normal, Skin = Warm Right Pulses: Guzman Ped=3, Femoral=2, Radial=3 11:26:17 Lower Right Extremities: Color=Normal Neurological: State=Alert, Ox3, THOMAS Respiration: Resp=15 B/min, SpO2=97 % 11:27:28 Catheter(s) removed without difficulty Radial Compression Device Used. 12 mLs of air placed in BAND, RADIAL COMPRESSION TR SHORT 24 2 4CM. Affected 11:27:31 hand ~O2 SATURATION~ % O2 saturation. 11:29:40 Case End 11:30:16 HR=60 bpm, BUET=926/67 mmhg, SpO2=94.0 %, Resp=14 B/min, Pain=0, Buck=10, Machado=2 11:30:34 Sterile dressing applied to site 11:30:34 No case complications noted. 11:30:35 Cine recording checked. 11:30:37 Bedside Report will be given. 11:30:42 A Left Heart Cath was performed. 11:30:45 Clinical correlaton risk stratification. 11:35:02 Vitals capture stopped. End Study - Contrast Media Used In Study Contrast Total Opened (mL) Total Used (mL) Total Wasted (mL) Omnipaque 20 20 0 End Study - Maximum Contrast Load Max Contrast Load (mL) 546.2 End Study - Radiation Exposure Fluoro Time (minutes) 1.9 End Study - Sheaths Sheaths Pulled By Sheath Hold Time (min) Izabella Mathias End Study - Patient Disposition Complications Transferred To No Outpatient Bed
[2017-08-08] MEDS ORDERED: IOHEXOL 350 MG/ML 50 ML BTL (for Cath Lab) OTHER ONE (11:50)
[2017-08-08] MEDS ORDERED: INSULIN REGULAR (IV INFUSION) 100 UNITS in SODIUM CHLORIDE 0.9% INJ 99 ML IV PRN (15:00)
[2017-08-08] MEDS ORDERED: DEXTROSE 50% IN WATER 50 ML VIAL(D50) IV PUSH PRN (15:00)
[2017-08-08] MEDS ORDERED: METOPROLOL TARTRATE 25 MG TAB PO SCH (15:00)
[2017-08-08] MEDS ORDERED: CHLORHEXIDINE GLUCONATE 4% SOLN 120 ML BTL TOPICAL SCH (15:00)
[2017-08-08] MEDS ORDERED: CEFAZOLIN INJ 500 MG in SODIUM CHLORIDE 0.9% IRR BTL 500 ML IRRIGATION SCH (15:00)
[2017-08-08] MEDS ORDERED: PAPAVERINE INJ 60 MG, NITROGLYCERIN INJ 100 MCG, DILTIAZEM INJ 100 MG in SODIUM CHLORID... IRRIGATION SCH (15:00)
[2017-08-08] MEDS ORDERED: SODIUM CHLORIDE 0.9% FLUSH 10 ML FLUSH IV FLUSH PRN (15:00)
--- NOTE | 2017-08-08 15:28 | PD.CARD.PN ---
Subjective Subjective Remarks No events overnight Post-cath today Found to have multi-vessel CAD Objective Medications Current Medications Medications (Trade) Dose Ordered Sig/Amy Route Start Time Stop Time Status Last Admin (NS Flush) 2 ml UNSCH PRN IV FLUSH 08/07/17 11:45 (NS Flush) 2 ml BID IV FLUSH 08/07/17 21:00 08/07/17 20:53 (Zofran Inj) 4 mg Q6H PRN IVP 08/07/17 11:45 (Narcan Inj) 0.4 mg UNSCH PRN IV PUSH 08/07/17 11:45 (Zenaida-Colace) 1 tab BID PO 08/07/17 21:00 08/07/17 20:53 (Milk Of Magnesia Liq) 30 ml Q12H PRN PO 08/07/17 11:45 (Senokot) 17.2 mg Q12H PRN PO 08/07/17 11:45 (Dulcolax Supp) 10 mg DAILY PRN RECTAL 08/07/17 11:45 (Lactulose Liq) 30 ml DAILY PRN PO 08/07/17 11:45 (D50w (Vial) Inj) 50 ml UNSCH PRN IV PUSH 08/07/17 13:15 (Glucagon Inj) 1 mg UNSCH PRN OTHER 08/07/17 13:15 (NovoLOG SUPPLEMENTAL SCALE) 1 ACHS SLIDING SCALE SQ 08/07/17 17:00 08/08/17 08:35 (Xanax) 1 mg BID PRN PO 08/07/17 13:15 08/08/17 00:06 (Aspirin Chew) 81 mg DAILY CHEW 08/08/17 09:00 (Lipitor) 40 mg HS PO 08/07/17 21:00 08/07/17 20:53 (Symbicort 160-4.5 Mcg Inh) 2 puff Q12HR INH 08/07/17 21:00 (Neurontin) 300 mg BID PO 08/07/17 21:00 08/07/17 20:53 (Levemir Inj) 5 units Q12HR SQ 08/07/17 21:00 08/08/17 08:35 (Imdur) 30 mg DAILY@07 PO 08/08/17 07:00 08/08/17 06:38 (Lopressor) 25 mg Q12HR PO 08/07/17 21:00 08/08/17 08:31 (Protonix) 40 mg DAILY PO 08/08/17 09:00 (Levaquin) 500 mg DAILY PO 08/08/17 09:00 08/09/17 09:01 (Flagyl) 500 mg Q8HR PO 08/07/17 14:00 08/09/17 22:00 08/08/17 14:00 Heparin Sodium/ Dextrose 250 ml @ 10 mls/hr TITRATE PRN IV 08/07/17 19:00 08/08/17 15:09 (Heparin Inj) 5,000 units UNSCH PRN IV PUSH 08/07/17 19:00 (Heparin Inj) 2,500 units UNSCH PRN IV PUSH 08/07/17 19:00 08/08/17 09:06 (Tylenol) 650 mg Q6HR PRN PO 08/07/17 22:15 08/08/17 00:06 Lactated Ringer's 1,000 ml @ 30 mls/hr Q24H PRN IV 08/08/17 04:15 08/11/17 04:14 Sodium Chloride 500 ml @ 30 mls/hr [id number] PRN IV 08/08/17 04:15 08/11/17 04:14 (Betadine 5% Antisepsis Kit) 1 applic AVIATION TECHNICIAN PRN EACH NARE 08/08/17 04:15 08/11/17 04:14 (Chlorhexidine 2% Cloth) 3 pack AVIATION TECHNICIAN PRN TOPICAL 08/08/17 04:15 08/11/17 04:14 Papaverine HCl 60 mg/Nitroglycerin 100 mcg/Diltiazem HCl 100 mg/Sodium Chloride 100 ml @ 0 mls/hr AVIATION TECHNICIAN IRRIGATION 08/08/17 15:00 08/15/17 14:59 UNV Cefazolin Sodium 500 mg/Sodium Chloride 505 ml @ 0 mls/hr AVIATION TECHNICIAN IRRIGATION 08/08/17 15:00 08/15/17 14:59 Cefazolin Sodium/ Dextrose 50 ml @ 150 mls/hr AVIATION TECHNICIAN IV 08/08/17 15:00 08/15/17 14:59 UNV (Lopressor) 12.5 mg AVIATION TECHNICIAN PO 08/08/17 15:00 08/15/17 14:59 (Hibiclens 4% Top Soln) 1 applic AVIATION TECHNICIAN TOPICAL 08/08/17 15:00 08/15/17 14:59 Insulin Human Regular 100 units/ Sodium Chloride 100 ml @ 3 mls/hr TITRATE PRN IV 08/08/17 15:00 08/15/17 14:59 (D50w (Vial) Inj) 50 ml UNSCH PRN IV PUSH 08/08/17 15:00 Papaverine HCl 60 mg/Nitroglycerin 100 mcg/Verapamil HCl 100 mg/Sodium Chloride 100 ml @ 0 mls/hr AVIATION TECHNICIAN IRRIGATION 08/08/17 15:30 08/15/17 15:29 Vital Signs / I&O Vital Signs Date Time Temp Pulse Resp B/P (MAP) Pulse Ox O2 Delivery O2 Flow Rate FiO2 08/08/17 11:44 97 Nasal Cannula 2.00 08/08/17 07:24 97.8 73 18 113/65 (81) 93 08/08/17 04:00 98.4 75 16 124/58 (80) 92 08/08/17 00:00 98.1 74 17 159/71 (100) 93 08/07/17 20:00 97.8 82 17 192/74 (113) 92 08/07/17 17:10 98.4 85 17 136/67 (90) 95 08/07/17 16:55 08/07/17 16:21 75 14 184/80 (114) 97 Room Air I/O 08/07/17 08/07/17 08/07/17 08/08/17 08/08/17 08/08/17 07:00 15:00 23:00 07:00 15:00 23:00 Intake Total 960 ml Balance 960 ml Intake Oral 960 ml # Voids 4 Physical Exam GENERAL: NAD, AAOx3 SKIN: Warm and dry. HEAD: Atraumatic. Normocephalic. EYES: Pupils equal and round. No scleral icterus. No injection or drainage. ENT: No nasal bleeding or discharge. Mucous membranes pink and moist. NECK: Trachea midline. No JVD. CARDIOVASCULAR: Regular rate and rhythm. RESPIRATORY: No accessory muscle use. Clear to auscultation. Breath sounds equal bilaterally. GASTROINTESTINAL: Abdomen soft, non-tender, nondistended. Hepatic and splenic margins not palpable. MUSCULOSKELETAL: Extremities without clubbing, cyanosis, or edema. No obvious deformities. NEUROLOGICAL: Awake and alert. No obvious cranial nerve deficits. Motor grossly within normal limits. Five out of 5 muscle strength in the arms and legs. Normal speech. PSYCHIATRIC: Appropriate mood and affect; insight and judgment normal. Laboratory Laboratory Tests Test 08/08/17 06:18 Activated Partial Thromboplast Time 31.3 SEC Assessment and Plan Problem List: (1) Multiple vessel coronary artery disease ICD Codes: I25.10 - Atherosclerotic heart disease of [place] coronary artery without angina pectoris (2) NSTEMI (non-ST elevated myocardial infarction) ICD Codes: I21.4 - Non-ST elevation (NSTEMI) myocardial infarction (3) Hypertension ICD Codes: I10 - Hypertension Status: Chronic (4) COPD (chronic obstructive pulmonary disease) ICD Codes: J44.9 - Chronic obstructive pulmonary disease Status: Chronic (5) Anxiety ICD Codes: F41.9 - Anxiety Status: Chronic Assessment and Plan 1) Unstable angina, MVCAD CT surgery evaluation Restart heparin drip after TR band removed 2) 2D echo pending Grant Kc DO Aug 08, 2017 15:28
[2017-08-08] MEDS ORDERED: PAPAVERINE INJ 60 MG, NITROGLYCERIN INJ 100 MCG, VERAPAMIL INJ 100 MG in SODIUM CHLORID... IRRIGATION SCH (15:30)
--- NOTE | 2017-08-08 15:37 | MB ---
cc: Rimma Hunter Jacqueline R ARNP DATE: 08/08/2017 HISTORY OF PRESENT ILLNESS: An 81-year-old female patient of Dr. Yash Vines who has presented to the emergency room a couple of times. Her last time was for chest discomfort she has been having off and on for the past 2 months, mainly at night with or without exertion. She was seen by Dr. Kc on 08/04/2017 and was found to have elevated troponin. She was recommended cardiac catheterization but declined and was attempted to be started on medical therapy. Her last ER admission was 08/04/2017. She stated she would like to have the cardiac catheterization but wanted to go home over the weekend to get things taken care of. Plan was for cardiac catheterization as an outpatient this weekend, but she started having chest pain again and was readmitted after she called 911. She finally underwent cardiac catheterization today which showed left main disease of 20%, proximal LAD 40%, mid-distal LAD 90%, diagonal 70%, the circ at 90%, the OM 80%, the RCA 80%. EF is pending from 2D echo. We were consulted because of multivessel coronary artery disease. PAST MEDICAL HISTORY: Includes hypertension, hyperlipidemia, diabetes mellitus, anxiety, CHF, gastroesophageal reflux disease, COPD, migraines, arthritis, neuropathy. PAST SURGICAL HISTORY: Include hiatal hernia repair, bilateral knee replacements, tonsillectomy. ALLERGIES: TYLENOL, CODEINE, HYDROCODONE, HYDROMORPHONE. MEDICATIONS: Include 1. Levaquin for recent UTI back on her lasted ER admission. 2. Flagyl. 3. Lipitor. 4. Imdur. 5. Nitro. 6. Metoprolol. 7. Lisinopril. 8. Aspirin. 9. Gabapentin. 10. Xanax. 11. Symbicort. 12. Protonix. 13. Metformin. 14. Levemir. FAMILY HISTORY: No premature coronary artery disease or sudden cardiac . SOCIAL HISTORY: , three children. 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 Lives with her daughter. SOCIAL HISTORY: No tobacco or alcohol. REVIEW OF SYSTEMS: GENERAL: No night sweats, fever, heat or cold intolerance. She does use a cane when she walks. She no longer drives. HEENT: She does wear glasses and dentures. SKIN: No psoriasis, itching or hives. HEENT: No blurred vision, hearing loss. RESPIRATORY: No cough, shortness of breath. CARDIOVASCULAR: As above in the HPI. GASTROINTESTINAL: No diarrhea or vomiting. GENITOURINARY: No burning, frequency, urgency. CENTRAL NERVOUS SYSTEM: No history of TIA, CVA or seizure disorder. ENDOCRINOLOGY: Positive for diabetes. PHYSICAL EXAMINATION: VITAL SIGNS: Blood pressure 120/60, heart rate is 75, temperature max 98.4, O2 saturation 97 on 2 liters. GENERAL: The patient is awake, alert. She does not have her current dentures in place. Oral mucosa pink, moist. NECK: Supple. No JVD. CARDIOVASCULAR: Heart sounds S1, S2. Regular rate and rhythm. No audible rubs or gallops. LUNGS: Clear to auscultation. No wheezes, rales or rhonchi. ABDOMEN: Obese, soft, nontender. She has a well-healed mid-abdominal scar. EXTREMITIES: Reveal no cyanosis, clubbing, or edema. LABORATORY DATA: Shows hemoglobin of 12, hematocrit of 36, white cell count is 7.8, platelet count of 165. Sodium 137, potassium 4.2, BUN of 20, creatinine 0.98. AST 14, ALT 14. INR 1.0. Chest x-ray: Mild cardiomegaly. She also had a recent CT abdomen and pelvis on 07/21 when she came in also with some abdominal discomfort, which showed some diverticulosis, nonobstructive left renal calculus. ASSESSMENT AND PLAN: This is an 81-year-old female with unstable angina, elevated troponin, multivessel coronary disease. Await the 2D echo to evaluate for any valvular disease and her ejection fraction. In the meantime, the cardiac films will be evaluated by Dr. Gini Quintana. STS data will be then calculated after the echocardiogram. Further discussion will also be made with the daughter in regard to surgery. Further planning per Dr. Quintana. CARLOS Bennett MD JRT/AMARA , 03:07 PM , 03:35 PM
--- NOTE | 2017-08-08 15:38 | HHI.PR ---
Subjective Remarks Follow up chest pain, CAD. Patient seen after cardiac catheterization. She is still having chest pain and dyspnea. She is anxious about needing surgery. Objective Vitals Vital Signs Date Time Temp Pulse Resp B/P (MAP) Pulse Ox O2 Delivery O2 Flow Rate FiO2 08/08/17 11:44 97 Nasal Cannula 2.00 08/08/17 07:24 97.8 73 18 113/65 (81) 93 08/08/17 04:00 98.4 75 16 124/58 (80) 92 08/08/17 00:00 98.1 74 17 159/71 (100) 93 08/07/17 20:00 97.8 82 17 192/74 (113) 92 08/07/17 17:10 98.4 85 17 136/67 (90) 95 08/07/17 16:55 08/07/17 16:21 75 14 184/80 (114) 97 Room Air I/O 08/07/17 08/07/17 08/07/17 08/08/17 08/08/17 08/08/17 07:00 15:00 23:00 07:00 15:00 23:00 Intake Total 960 ml Balance 960 ml Intake Oral 960 ml # Voids 4 Result Diagram: 08/07/1748 08/07/17 0948 Imaging Last Impressions Chest X-Ray 08/07/17 0945 Signed Impressions: Service Date/Time: Monday, August 07, 2017 09:57 - CONCLUSION: Stable mild cardiomegaly. No evidence of congestive heart failure or pulmonary edema. No parenchymal abnormality. Rimma Vidal MD Objective Remarks General: Elderly female in no acute distress. Heart: Regular rate and rhythm. No murmur. Lungs: Clear to auscultation bilaterally. No wheezes, rales, or rhonchi. Breathing is nonlabored. Abdomen: Soft, nontender, nondistended. Extremities: No lower extremity edema. Psych: Alert and oriented. Procedures 08/08/17 cardiac catheterization Urinary Catheter: No Vascular Central Line Catheter: No A/P Problem List: (1) Hypertension ICD Code: I10 - Hypertension Status: Chronic (2) GERD (gastroesophageal reflux disease) ICD Code: K21.9 - Gastroesophageal reflux disease Status: Chronic (3) DM (diabetes mellitus) ICD Code: E11.9 - Diabetes mellitus Status: Chronic (4) COPD (chronic obstructive pulmonary disease) ICD Code: J44.9 - Chronic obstructive pulmonary disease Status: Chronic (5) Anxiety ICD Code: F41.9 - Anxiety Status: Chronic (6) Elevated troponin ICD Code: R74.8 - Abnormal levels of other serum enzymes (7) NSTEMI (non-ST elevated myocardial infarction) ICD Code: I21.4 - Non-ST elevation (NSTEMI) myocardial infarction (8) Multiple vessel coronary artery disease ICD Code: I25.10 - Atherosclerotic heart disease of [place] coronary artery without angina pectoris Assessment and Plan 1. Coronary artery disease: Status post cardiac catheterization, which showed multivessel coronary artery disease. Cardiothoracic surgery has been consulted for CABG. Continue heparin drip. Continue statin, aspirin, beta-tyrell. 2. Diabetes mellitus type 2: Monitor Accu-Cheks and cover with sliding scale insulin. Hold metformin. Glucose is elevated. Increase Levemir. 3. Hyperlipidemia: Chronic. Continue statin. 4. COPD: Does not appear to be in exacerbation at this time. Continue Symbicort. DuoNeb as needed. Oxygen as needed. 5. GERD: Continue PPI. 6. Bacteremia: Continue Levaquin and Flagyl. Stop date is 08/09/17. 7. DVT prophylaxis: Heparin. Roman Gibbons MD Aug 08, 2017 15:38
[2017-08-08] MEDS: ATORVASTATIN 40 MG TAB PO SCH (19:47)
[2017-08-08] MEDS ORDERED: SODIUM CHLORIDE 0.9% FLUSH 10 ML FLUSH IV FLUSH SCH (21:00)
[2017-08-08] MEDS ORDERED: INSULIN DETEMIR 100 UNITS/ML VIAL SQ SCH (21:00)
[2017-08-08] MEDS: NITROGLYCERIN 0.4 MG SL 25 TABS/BTL SL PRN ×2 (21:15→21:22)
[2017-08-08] MEDS: MORPHINE SULFATE 4 MG/ML INJ IV PUSH PRN (23:17)
[2017-08-09] VITALS (29 sets, daily range): BP systolic 134–193; BP diastolic 59–88; PULSE 62–91; RESP 18–20; TEMP 97.1–98.8; O2SAT 92–96
--- NOTE | 2017-08-09 00:25 | RADRPT ---
EXAM DATE/TIME: 08/08/2017 23:18 [facility] COMPARISON: No previous studies available for comparison. INDICATIONS : PreOp cardiac surgery. MEDICAL HISTORY : Parkinson's. Hypercholesterolemia. Hypertension. Angina. COPD. Hiatal hernia. Gastroesophageal reflux disease. Arthritis. SURGICAL HISTORY : Tonsillectomy. Bilateral knee replacement. Back surgery. Hernia repair. ENCOUNTER: Initial ACUITY: 1 day PAIN SCORE: 0/10 LOCATION: Bilateral legs. TECHNIQUE: Venous ultrasound of the left and right leg was performed from the inguinal ligament to the proximal calf. Real-time, color Doppler and spectral tracing, compression and augmentation techniques were us ed. FINDINGS: RIGHT LEG: There is normal compressibility of the deep venous system from the inguinal region to the proximal ca lf. No echogenic clot is seen in the lumen of the common femoral, femoral, popliteal, and posterior tibial veins. There is a normal response of the venous system to proximal and distal augmentation an d respiration. LEFT LEG: There is normal compressibility of the deep venous system from the inguinal region to the proximal ca lf. No echogenic clot is seen in the lumen of the common femoral, femoral, popliteal, and posterior tibial veins. There is a normal response of the venous system to proximal and distal augmentation an d respiration. CONCLUSION: No DVT in either lower extremity. Killain Bhagat MD on August 09, 2017 at 0:23 Board Certified Radiologist. This report was verified electronically.
--- NOTE | 2017-08-09 00:25 | RADRPT ---
EXAM DATE/TIME: 08/08/2017 22:56 [facility] COMPARISON: US CAROTID ARTERIES, July 14, 2015, 13:04. INDICATIONS : PreOp cardiac surgery. MEDICAL HISTORY : Parkinson's. Hypercholesterolemia. Hypertension. Angina. COPD. Hiatal hernia. Gastroesophageal reflux disease. Arthritis. SURGICAL HISTORY : Tonsillectomy. Bilateral knee replacement. Back surgery. Hernia repair. ENCOUNTER: Subsequent ACUITY: 1 day PAIN SCORE: 0/10 LOCATION: Bilateral neck PEAK SYSTOLIC VELOCITIES (cm/sec): ICA/CCA RATIO: Right: 1.1 Left: 2.2 ICA: Right: 77.6 Left: 146.6 CCA: Right: 69.8 Left: 65.9 ECA: Right: 77.6 Left: 80.2 VERTEBRAL: Right: 32.7 antegrade Left: 63.2 antegrade Elevated flow velocities and ICA/CCA ratios have been found to correlate with increased degrees of vessel stenosis, calculated as percentage of diameter relative to a normal segment of distal ICA/CCA FINDINGS: RIGHT CAROTID: No significant stenosis is visualized. Minimal plaque. The waveforms are within normal limits. LEFT CAROTID: No significant stenosis is visualized. Mild plaque. The waveforms are within normal limits. VERTEBRAL ARTERIES: Antegrade flow is seen in both vertebral arteries. MISCELLANEOUS: None. CONCLUSION: 1. 50-69% stenosis within the left internal carotid artery. 2. No hemodynamically significant stenosis in the right carotid artery. Killian Bhagat MD on August 09, 2017 at 0:22 Board Certified Radiologist. This report was verified electronically.
[2017-08-09] MEDS: MORPHINE SULFATE 4 MG/ML INJ IV PUSH PRN (03:45)
[2017-08-09 03:59] LABS: AMORPHOUS SEDIMENT, URINE RARE; BACTERIA, URINE RARE /hpf; BILIRUBIN, URINE NEG (NEG); BLOOD, URINE NEG (NEG); GLUCOSE,URINE NEG (NEG); HYALINE CAST, URINE 3 /lpf (RARE); KETONE, URINE NEG (NEG); MUCUS URINE FEW /lpf (OCC); NITRITE,URINE NEG (NEG); PH, URINE 5.5 (5.0-8.5); SQUAMOUS EPITHELIAL CELL URINE 1 /hpf (0-5); TRANSITIONAL EPI CELLS, URINE 1 /hpf; URINE COLOR YELLOW (YELLW/STRAW); URINE LEUKOCYTE ESTERASE SMALL (NEG)
[2017-08-09 04:52] LABS: AUTOMATED NEUTROPHIL # 3.3 TH/MM3 (1.8-7.7); BASOPHIL % 0.5 % (0.0-2.0); EOSINOPHIL # 0.2 TH/MM3 (0-0.4); EOSINOPHIL % 3.4 % (0.0-4.0); HEMATOCRIT 36.9 % (35.0-46.0); HEMOGLOBIN 12.3 GM/DL (11.6-15.3); LYMPH % 40.2 % (9.0-44.0); LYMPHOCYTE # 2.6 TH/MM3 (1.0-4.8); MEAN CELL VOLUME 91.7 FL (80.0-100.0); MEAN CORPUSCULAR HEMOGLOBIN 30.5 PG (27.0-34.0); MEAN CORPUSCULAR HGB CONC 33.3 % (32.0-36.0); MONO % 6.5 % (0.0-8.0); MONOCYTE # 0.4 TH/MM3 (0-0.9); NEUT % 49.4 % (16.0-70.0); PLATELET COUNT 172 TH/MM3 (150-450); RED BLOOD COUNT 4.02 MIL/MM3 (4.00-5.30); WHITE BLOOD COUNT 6.6 TH/MM3 (4.0-11.0)
[2017-08-09 05:17] LABS: BICARBONATE 25.2 MEQ/L (21.0-32.0); CREATININE 0.73 MG/DL (0.50-1.00)
[2017-08-09] MEDS: ISOSORBIDE MONONITRATE 30 MG CR TAB (IMDUR) PO SCH (05:32)
[2017-08-09] MEDS: metroNIDAZOLE 500 MG TAB PO SCH ×3 (05:32→21:48)
--- NOTE | 2017-08-09 06:57 | RADRPT ---
EXAM DATE/TIME: 08/08/2017 23:26 [facility] COMPARISON: No previous studies available for comparison. INDICATIONS : PreOp cardiac surgery. MEDICAL HISTORY : Parkinson's. Hypercholesterolemia. Hypertension. Angina. COPD. Hiatal hernia. Gastroesophageal reflux disease. Arthritis. SURGICAL HISTORY : Tonsillectomy. Bilateral knee replacement. Back surgery. Hernia repair. ENCOUNTER: Initial ACUITY: 1 day PAIN SCORE: 0/10 LOCATION: Bilateral legs. GREATER SAPHENOUS VEIN THIGH: PROXIMAL: Right 7 mm Left 4 mm MID: Right 3 mm Left 2 mm DISTAL: Right 2 mm Left 2 mm CALF: PROXIMAL: Right 2 mm Left Non-visualized MID: Right 2 mm Left Non-visualized DISTAL: Right 2 mm Left Non-visualized FINDINGS: The venous system of the lower extremities are patent by color Doppler imaging. Measurements of the leg veins (in mm) are listed above. CONCLUSION: Venous mapping as above. Jose Marvin MD on August 09, 2017 at 6:55 Board Certified Radiologist. This report was verified electronically.
[2017-08-09] MEDS: INSULIN ASPART SUPPLEMENTAL SCALE SQ SCH ×4 (08:00→21:50)
[2017-08-09] MEDS: BUDESONIDE-FORMOTEROL 160/4.5 MCG INHALER INH SCH ×2 (09:00→21:49)
[2017-08-09] MEDS: INSULIN DETEMIR 100 UNITS/ML VIAL SQ SCH ×2 (09:00→21:48)
[2017-08-09] MEDS: SODIUM CHLORIDE 0.9% FLUSH 10 ML FLUSH IV FLUSH SCH ×2 (09:00→21:49)
--- NOTE | 2017-08-09 09:05 | HHI.PR ---
Subjective Remarks Follow-up coronary artery disease. Patient still having chest pain, up to . Pain is in the left side of her chest. She also feels a little short of breath. Objective Vitals Vital Signs Date Time Temp Pulse Resp B/P (MAP) Pulse Ox O2 Delivery O2 Flow Rate FiO2 08/09/17 08:15 98.8 75 20 193/88 (123) 93 08/09/17 08:00 70 08/09/17 06:00 66 08/09/17 05:00 68 08/09/17 04:00 63 08/09/17 04:00 97.9 71 18 189/79 (115) 94 08/09/17 03:00 64 08/09/17 02:00 66 08/09/17 01:00 72 08/09/17 00:06 92 21 08/09/17 00:01 97.1 69 18 143/62 (89) 95 08/09/17 00:00 64 08/08/17 23:00 66 08/08/17 22:00 68 08/08/17 21:00 74 08/08/17 20:15 74 08/08/17 20:00 98.2 74 18 150/67 (94) 95 08/08/17 19:00 74 08/08/17 18:00 68 08/08/17 17:39 19 08/08/17 17:00 75 08/08/17 16:40 97.9 74 18 120/55 (76) 96 08/08/17 16:40 65 08/08/17 11:44 97 Nasal Cannula 2.00 I/O 08/08/17 08/08/17 08/08/17 08/09/17 08/09/17 08/09/17 07:00 15:00 23:00 07:00 15:00 23:00 Intake Total 960 ml 265 ml 366 ml Output Total 600 ml Balance 960 ml 265 ml -234 ml Intake Oral 960 ml 240 ml 240 ml IV Total 25 ml 126 ml Output Urine Total 600 ml # Voids 4 2 # Bowel Movements 0 Result Diagram: 08/09/17 0405 08/09/17 0405 Imaging Last Impressions Lower Extremity Ultrasound 08/08/17 0000 Signed Impressions: Service Date/Time: Tuesday, August 08, 2017 23:26 - CONCLUSION: Venous mapping as above. Jose Marvin MD Carotid Artery Ultrasound 08/08/17 0000 Signed Impressions: Service Date/Time: Tuesday, August 08, 2017 22:56 - CONCLUSION: 1. 50-69%% stenosis within the left internal carotid artery. 2. No hemodynamically significant stenosis in the right carotid artery. Killian Bhagat MD Chest X-Ray 08/07/17 0945 Signed Impressions: Service Date/Time: Monday, August 07, 2017 09:57 - CONCLUSION: Stable mild cardiomegaly. No evidence of congestive heart failure or pulmonary edema. No parenchymal abnormality. Rimma Vidal MD Objective Remarks General: Elderly female in no acute distress. Heart: Regular rate and rhythm. No murmur. Lungs: Clear to auscultation bilaterally. No wheezes, rales, or rhonchi. Breathing is nonlabored. Abdomen: Soft, nontender, nondistended. Extremities: No lower extremity edema. Psych: Alert and oriented. Procedures 08/08/17 cardiac catheterization Urinary Catheter: No Vascular Central Line Catheter: No A/P Problem List: (1) Hypertension ICD Code: I10 - Hypertension Status: Chronic (2) GERD (gastroesophageal reflux disease) ICD Code: K21.9 - Gastroesophageal reflux disease Status: Chronic (3) DM (diabetes mellitus) ICD Code: E11.9 - Diabetes mellitus Status: Chronic (4) COPD (chronic obstructive pulmonary disease) ICD Code: J44.9 - Chronic obstructive pulmonary disease Status: Chronic (5) Anxiety ICD Code: F41.9 - Anxiety Status: Chronic (6) Elevated troponin ICD Code: R74.8 - Abnormal levels of other serum enzymes (7) NSTEMI (non-ST elevated myocardial infarction) ICD Code: I21.4 - Non-ST elevation (NSTEMI) myocardial infarction (8) Multiple vessel coronary artery disease ICD Code: I25.10 - Atherosclerotic heart disease of [place] coronary artery without angina pectoris Assessment and Plan 1. Coronary artery disease: Status post cardiac catheterization, which showed multivessel coronary artery disease. Cardiothoracic surgery has been consulted for CABG. Continue heparin drip. Continue statin, aspirin, beta-tyrell. Continues to have chest pain. Start nitroglycerin drip. 2. Diabetes mellitus type 2: Monitor Accu-Cheks and cover with sliding scale insulin. Hold metformin. Glucose remains elevated. Increase Levemir. 3. Hyperlipidemia: Chronic. Continue statin. 4. COPD: Does not appear to be in exacerbation at this time. Continue Symbicort. DuoNeb as needed. Oxygen as needed. 5. GERD: Continue PPI. 6. Bacteremia: Continue Levaquin and Flagyl. Stop date is 08/09/17. 7. DVT prophylaxis: Heparin. Roman Gibbons MD Aug 09, 2017 09:05
[2017-08-09] MEDS: NITROGLYCERIN-D5W 50 MG/250 ML 250 ML IV PRN (09:20)
[2017-08-09] MEDS: ASPIRIN 81 MG CHEW TAB CHEW SCH (09:22)
[2017-08-09] MEDS: DOCUSATE SODIUM 50 MG/SENNA 8.6 MG TAB PO SCH ×2 (09:23→21:49)
[2017-08-09] MEDS: LEVOFLOXACIN 500 MG TAB PO SCH (09:23)
[2017-08-09] MEDS: PANTOPRAZOLE SOD 40 MG DELAYED RELEASE TAB PO SCH (09:23)
[2017-08-09] MEDS: GABAPENTIN 300 MG CAP PO SCH ×2 (09:23→21:48)
[2017-08-09] MEDS: METOPROLOL TARTRATE 25 MG TAB PO SCH ×2 (09:23→16:42)
--- NOTE | 2017-08-09 09:33 | MA ---
cc: Grant Kc DO DATE: 08/08/2017 PROCEDURE PERFORMED: Left heart catheterization, coronary angiogram, moderate sedation 15 minutes. PREPROCEDURE DIAGNOSIS: Elevated troponin, unstable angina. POSTPROCEDURE DIAGNOSIS: Multivessel coronary artery disease. MEDICATIONS: Versed 0.5 mg, fentanyl 25 mcg, nitroglycerine 200 mcg, verapamil 2.5 mg, heparin 4000 units. CONTRAST USED: 20 mL. FLUOROSCOPY: 1.9 minutes. SEDATION: Moderate sedation 15 minutes. ESTIMATED BLOOD LOSS: 10 mL. FRAILTY SCORE: Four. PROCEDURAL SUMMARY: Denisha Muniz is a pleasant 81-year-old female who presented to [facility] Emergency Room due to chest pain. She was found to have an elevated troponin and recommended cardiac catheterization. Risks, benefits and alternatives were explained to her and she consented to such. She was brought to the lab and prepped in the usual sterile fashion. The right radial artery was accessed using a modified Seldinger technique and placement of a 5/6-Japanese slender sheath. This was easily aspirated and flushed. A JR4 was advanced over a J-wire to the ascending aorta and across the aortic valve for measurement of left ventricular pressure. This was pulled back across the aortic valve, showing no significant gradient of aortic stenosis. JR4 was used for selective angiography of the right coronary artery system. This was exchanged for a JL 3.5, which was used for selective angiography of the left coronary artery system. JL 3.5 was removed over a J-wire. A radial band was placed over the arteriotomy site for hemostasis. The patient left the slabber light cardiovascularly stable. FINDINGS: Left main normal size vessel with adequate reflux, 20% disease distally. It bifurcates into an LAD and circumflex. LAD normal size vessel with 30-40% disease proximally and multiple lesions of 90% throughout the mid portion. It gives off 2 small diagonals. Left circumflex normal size vessel with tandem 90% lesions throughout the proximal portion. It gives off 1 obtuse marginal which has an 80% lesion in the ostial portion. RCA normal size vessel with an 80% lesion in the mid portion. It is a dominant vessel and supplies the PDA, as well as a PLB. LVEDP 10. IMPRESSION: 1. Chest pain concerning for coronary insufficiency. 2. Elevated troponin. 3. Multivessel coronary artery disease. RECOMMENDATIONS: 1. Ms. Muniz presented with chest pain and found to have an elevated troponin. Overall, she has multivessel disease. 2. She will be recommended consideration of coronary artery bypass grafting. She will be seen by CT surgery for further considerations. 3. We will check a 2-D echo to look at her overall left ventricular function, cardiac structure and possible valvulopathies. 4. She will be placed back on a heparin drip 1 hour after her TR band is removed. 5. I will stop her lisinopril in anticipation of possible coronary artery bypass grafting. Thank you for allowing me to see Denisha Muniz. If there are any questions, please do not hesitate to call. DO RONIT Wasserman/MINNIE , 12:50 AM , 01:13 AM
--- NOTE | 2017-08-09 09:40 | PD.CARD.PN ---
Subjective Subjective Remarks No events overnight, some chest pain this morning Objective Medications Current Medications Medications (Trade) Dose Ordered Sig/Amy Route Start Time Stop Time Status Last Admin (NS Flush) 2 ml UNSCH PRN IV FLUSH 08/07/17 11:45 (NS Flush) 2 ml BID IV FLUSH 08/07/17 21:00 08/07/17 20:53 (Zofran Inj) 4 mg Q6H PRN IVP 08/07/17 11:45 (Narcan Inj) 0.4 mg UNSCH PRN IV PUSH 08/07/17 11:45 (Zenaida-Colace) 1 tab BID PO 08/07/17 21:00 08/09/17 09:23 (Milk Of Magnesia Liq) 30 ml Q12H PRN PO 08/07/17 11:45 (Senokot) 17.2 mg Q12H PRN PO 08/07/17 11:45 (Dulcolax Supp) 10 mg DAILY PRN RECTAL 08/07/17 11:45 (Lactulose Liq) 30 ml DAILY PRN PO 08/07/17 11:45 (D50w (Vial) Inj) 50 ml UNSCH PRN IV PUSH 08/07/17 13:15 (Glucagon Inj) 1 mg UNSCH PRN OTHER 08/07/17 13:15 (NovoLOG SUPPLEMENTAL SCALE) 1 ACHS SLIDING SCALE SQ 08/07/17 17:00 08/09/17 08:00 (Xanax) 1 mg BID PRN PO 08/07/17 13:15 08/08/17 19:47 (Aspirin Chew) 81 mg DAILY CHEW 08/08/17 09:00 08/09/17 09:22 (Lipitor) 40 mg HS PO 08/07/17 21:00 08/08/17 19:47 (Symbicort 160-4.5 Mcg Inh) 2 puff Q12HR INH 08/07/17 21:00 08/09/17 09:00 (Neurontin) 300 mg BID PO 08/07/17 21:00 08/09/17 09:23 (Imdur) 30 mg DAILY@07 PO 08/08/17 07:00 08/09/17 05:32 (Lopressor) 25 mg Q12HR PO 08/07/17 21:00 08/09/17 09:23 (Protonix) 40 mg DAILY PO 08/08/17 09:00 08/09/17 09:23 (Flagyl) 500 mg Q8HR PO 08/07/17 14:00 08/09/17 22:00 08/09/17 05:32 Heparin Sodium/ Dextrose 250 ml @ 10 mls/hr TITRATE PRN IV 08/07/17 19:00 08/08/17 15:09 (Heparin Inj) 5,000 units UNSCH PRN IV PUSH 08/07/17 19:00 (Heparin Inj) 2,500 units UNSCH PRN IV PUSH 08/07/17 19:00 08/08/17 22:14 (Tylenol) 650 mg Q6HR PRN PO 08/07/17 22:15 08/08/17 15:30 Lactated Ringer's 1,000 ml @ 30 mls/hr Q24H PRN IV 08/08/17 04:15 08/11/17 04:14 Sodium Chloride 500 ml @ 30 mls/hr [id number] PRN IV 08/08/17 04:15 08/11/17 04:14 (Betadine 5% Antisepsis Kit) 1 applic PATIENT TRANSPORTER PRN EACH NARE 08/08/17 04:15 08/11/17 04:14 (Chlorhexidine 2% Cloth) 3 pack PATIENT TRANSPORTER PRN TOPICAL 08/08/17 04:15 08/11/17 04:14 Cefazolin Sodium 500 mg/Sodium Chloride 505 ml @ 0 mls/hr PATIENT TRANSPORTER IRRIGATION 08/08/17 15:00 08/15/17 14:59 Cefazolin Sodium 2000 mg/Sodium Chloride 120 ml @ 240 mls/hr PATIENT TRANSPORTER IV 08/08/17 15:45 08/15/17 15:44 (Lopressor) 12.5 mg PATIENT TRANSPORTER PO 08/08/17 15:00 08/15/17 14:59 (Hibiclens 4% Top Soln) 1 applic PATIENT TRANSPORTER TOPICAL 08/08/17 15:00 08/15/17 14:59 Insulin Human Regular 100 units/ Sodium Chloride 100 ml @ 3 mls/hr TITRATE PRN IV 08/08/17 15:00 08/15/17 14:59 (D50w (Vial) Inj) 50 ml UNSCH PRN IV PUSH 08/08/17 15:00 Papaverine HCl 60 mg/Nitroglycerin 100 mcg/Verapamil HCl 100 mg/Sodium Chloride 100 ml @ 0 mls/hr PATIENT TRANSPORTER IRRIGATION 08/08/17 15:30 08/15/17 15:29 (Nitrostat Sl) 0.4 mg Q5M PRN SL 08/08/17 21:15 08/08/17 21:22 (Morphine Inj) 2 mg Q5M PRN IV PUSH 08/08/17 21:15 08/09/17 03:45 (Levemir Inj) 8 units Q12HR SQ 08/09/17 09:00 08/09/17 09:00 Nitroglycerin/ Dextrose 250 ml @ 1.5 mls/hr TITRATE PRN IV 08/09/17 08:45 08/09/17 09:20 Vital Signs / I&O Vital Signs Date Time Temp Pulse Resp B/P (MAP) Pulse Ox O2 Delivery O2 Flow Rate FiO2 08/09/17 09:20 75 196/86 08/09/17 08:15 98.8 75 20 193/88 (123) 93 08/09/17 08:00 70 08/09/17 06:00 66 08/09/17 05:00 68 08/09/17 04:00 63 08/09/17 04:00 97.9 71 18 189/79 (115) 94 08/09/17 03:00 64 08/09/17 02:00 66 08/09/17 01:00 72 08/09/17 00:06 92 21 08/09/17 00:01 97.1 69 18 143/62 (89) 95 08/09/17 00:00 64 08/08/17 23:00 66 08/08/17 22:00 68 08/08/17 21:00 74 08/08/17 20:15 74 08/08/17 20:00 98.2 74 18 150/67 (94) 95 08/08/17 19:00 74 08/08/17 18:00 68 08/08/17 17:39 19 08/08/17 17:00 75 08/08/17 16:40 97.9 74 18 120/55 (76) 96 08/08/17 16:40 65 08/08/17 11:44 97 Nasal Cannula 2.00 I/O 4/9/18 408/08/17 08/09/17 08/09/17 08/09/17 07:00 15:00 23:00 07:00 15:00 23:00 Intake Total 960 ml 265 ml 366 ml Output Total 600 ml Balance 960 ml 265 ml -234 ml Intake Oral 960 ml 240 ml 240 ml IV Total 25 ml 126 ml Output Urine Total 600 ml # Voids 4 2 # Bowel Movements 0 Physical Exam GENERAL: NAD, AAOx3 SKIN: Warm and dry. HEAD: Atraumatic. Normocephalic. EYES: Pupils equal and round. No scleral icterus. No injection or drainage. ENT: No nasal bleeding or discharge. Mucous membranes pink and moist. NECK: Trachea midline. No JVD. CARDIOVASCULAR: Regular rate and rhythm. RESPIRATORY: No accessory muscle use. Clear to auscultation. Breath sounds equal bilaterally. GASTROINTESTINAL: Abdomen soft, non-tender, nondistended. Hepatic and splenic margins not palpable. MUSCULOSKELETAL: Extremities without clubbing, cyanosis, or edema. No obvious deformities. NEUROLOGICAL: Awake and alert. No obvious cranial nerve deficits. Motor grossly within normal limits. Five out of 5 muscle strength in the arms and legs. Normal speech. PSYCHIATRIC: Appropriate mood and affect; insight and judgment normal. Laboratory Laboratory Tests Test 08/08/17 20:50 08/08/17 21:16 08/09/17 03:37 08/09/17 04:05 Nasal Screen MRSA (PCR) MRSA DETECTED Activated Partial Thromboplast Time 33.3 SEC 54.5 SEC Urine Color YELLOW Urine Turbidity CLEAR Urine pH 5.5 Urine Specific [place] 1.012 Urine Protein 30 mg/dL Urine Glucose (UA) NEG mg/dL Urine Ketones NEG mg/dL Urine Occult Blood NEG Urine Nitrite NEG Urine Bilirubin NEG Urine Urobilinogen LESS THAN 2.0 MG/DL Urine Leukocyte Esterase SMALL Urine RBC 1 /hpf Urine WBC 6 /hpf Urine Squamous Epithelial Cells 1 /hpf Urine Transitional Epithelial Cells 1 /hpf Urine Amorphous Sediment RARE Urine Bacteria RARE /hpf Urine Hyaline Casts 3 /lpf Urine Mucus FEW /lpf Microscopic Urinalysis Comment CULT NOT INDICATED White Blood Count 6.6 TH/MM3 Red Blood Count 4.02 MIL/MM3 Hemoglobin 12.3 GM/DL Hematocrit 36.9 % Mean Corpuscular Volume 91.7 FL Mean Corpuscular Hemoglobin 30.5 PG Mean Corpuscular Hemoglobin Concent 33.3 % Red Cell Distribution Width 14.0 % Platelet Count 172 TH/MM3 Mean Platelet Volume 9.0 FL Neutrophils (%) (Auto) 49.4 % Lymphocytes (%) (Auto) 40.2 % Monocytes (%) (Auto) 6.5 % Eosinophils (%) (Auto) 3.4 % Basophils (%) (Auto) 0.5 % Neutrophils # (Auto) 3.3 TH/MM3 Lymphocytes # (Auto) 2.6 TH/MM3 Monocytes # (Auto) 0.4 TH/MM3 Eosinophils # (Auto) 0.2 TH/MM3 Basophils # (Auto) 0.0 TH/MM3 CBC Comment DIFF FINAL Differential Comment Blood Urea Nitrogen 18 MG/DL Creatinine 0.73 MG/DL Random Glucose 215 MG/DL Calcium Level 9.0 MG/DL Sodium Level 140 MEQ/L Potassium Level 4.2 MEQ/L Chloride Level 106 MEQ/L Carbon Dioxide Level 25.2 MEQ/L Anion Gap 9 MEQ/L Estimat Glomerular Filtration Rate 76 ML/MIN Assessment and Plan Problem List: (1) Multiple vessel coronary artery disease ICD Codes: I25.10 - Atherosclerotic heart disease of [place] coronary artery without angina pectoris (2) NSTEMI (non-ST elevated myocardial infarction) ICD Codes: I21.4 - Non-ST elevation (NSTEMI) myocardial infarction (3) Hypertension ICD Codes: I10 - Hypertension Status: Chronic (4) COPD (chronic obstructive pulmonary disease) ICD Codes: J44.9 - Chronic obstructive pulmonary disease Status: Chronic (5) Anxiety ICD Codes: F41.9 - Anxiety Status: Chronic Assessment and Plan 1) Unstable angina, MVCAD CT surgery evaluation Heparin drip Plan to start Nitro drip for CP/HTN 2) 2D echo pending Grant Kc DO Aug 09, 2017 09:40
[2017-08-09] MEDS ORDERED: ACETAMINOPHEN 325 MG TAB PO PRN (10:15)
[2017-08-09] MEDS: ACETAMINOPHEN 325 MG TAB PO PRN (10:37)
[2017-08-09] MEDS ORDERED: METOPROLOL TARTRATE 25 MG TAB PO SCH (10:45)
--- NOTE | 2017-08-09 10:45 | PD.CAR.PN ---
CVT Progress Note Subjective/Hospital Course: 81-year-old female patient of Dr. Yash Vines who has presented to the emergency room a couple of times. Her last time was for chest discomfort she has been having off and on for the past 2 months, mainly at night with or without exertion. She was seen by on 08/04/2017 and was found to have elevated troponin. She was recommended cardiac catheterization but declined and was attempted to be started on medical therapy. Her last ER admission was 08/04/2017. She stated she would like to have the cardiac catheterization but wanted to go home over the weekend to get things taken care of. Plan was for cardiac catheterization as an outpatient this weekend, but she started having chest pain again and was readmitted after she called 911. She finally underwent cardiac catheterization today which showed left main disease of 20%, proximal LAD 40%, mid-distal LAD 90%, diagonal 70%, the circ at 90%, the OM 80%, the RCA 80%. EF is pending from 2D echo. We were consulted because of multivessel coronary artery disease. PAST MEDICAL HISTORY: Includes hypertension, hyperlipidemia, diabetes mellitus, anxiety, CHF, gastroesophageal reflux disease, COPD, migraines, arthritis, neuropathy. 08/09 await daughter's arrival today to discuss surgery , pt had some chest pain last night, now on Nitro gtt, in addition to Heparin she is very sedentary at home, walks with a cane , will need rehab post surgery Objective: GENERAL: A&O x 3 SKIN: Warm and dry. HEAD: Normocephalic. EYES: No scleral icterus. No injection or drainage. NECK: Supple, trachea midline. No JVD or lymphadenopathy. CARDIOVASCULAR: Regular rate and rhythm without murmurs, gallops, or rubs. RESPIRATORY: Breath sounds equal bilaterally. No accessory muscle use. diminished in bases GASTROINTESTINAL: Abdomen soft, non-tender, nondistended. MUSCULOSKELETAL: No cyanosis, or edema. BACK: Nontender without obvious deformity. No CVA tenderness. Vital Signs Date Time Temp Pulse Resp B/P (MAP) Pulse Ox O2 Delivery O2 Flow Rate FiO2 08/09/17 10:00 79 162/68 08/09/17 09:30 78 175/80 08/09/17 09:20 75 196/86 08/09/17 08:15 98.8 75 20 193/88 (123) 93 4/10/18 08:00 70 08/09/17 06:00 66 08/09/17 05:00 68 08/09/17 04:00 63 08/09/17 04:00 97.9 71 18 189/79 (115) 94 08/09/17 03:00 64 08/09/17 02:00 66 08/09/17 01:00 72 08/09/17 00:06 92 21 08/09/17 00:01 97.1 69 18 143/62 (89) 95 08/09/17 00:00 64 08/08/17 23:00 66 08/08/17 22:00 68 08/08/17 21:00 74 08/08/17 20:15 74 08/08/17 20:00 98.2 74 18 150/67 (94) 95 08/08/17 19:00 74 08/08/17 18:00 68 08/08/17 17:39 19 08/08/17 17:00 75 08/08/17 16:40 97.9 74 18 120/55 (76) 96 08/08/17 16:40 65 08/08/17 11:44 97 Nasal Cannula 2.00 Labs: Laboratory Tests Test 08/09/17 03:37 08/09/17 04:05 Urine Color YELLOW (YELLW/STRAW) Urine Turbidity CLEAR (CLEAR) Urine pH 5.5 (5.0-8.5) Urine Specific [place] 1.012 (1.002-1.035) Urine Protein 30 mg/dL (NEG-TRACE) Urine Glucose (UA) NEG mg/dL (NEG) Urine Ketones NEG mg/dL (NEG) Urine Occult Blood NEG (NEG) Urine Nitrite NEG (NEG) Urine Bilirubin NEG (NEG) Urine Urobilinogen LESS THAN 2.0 MG/DL (LESS Urine Leukocyte Esterase SMALL (NEG) Urine RBC 1 /hpf (0-3) Urine WBC 6 /hpf (0-5) Urine Squamous Epithelial Cells 1 /hpf (0-5) Urine Transitional Epithelial Cells 1 /hpf (NONE) Urine Amorphous Sediment RARE Urine Bacteria RARE /hpf (NONE) Urine Hyaline Casts 3 /lpf (RARE) Urine Mucus FEW /lpf (OCC) Microscopic Urinalysis Comment CULT NOT INDICATED White Blood Count 6.6 TH/MM3 (4.0-11.0) Red Blood Count 4.02 MIL/MM3 (4.00-5.30) Hemoglobin 12.3 GM/DL (11.6-15.3) Hematocrit 36.9 % (35.0-46.0) Mean Corpuscular Volume 91.7 FL (80.0-100.0) Mean Corpuscular Hemoglobin 30.5 PG (27.0-34.0) Mean Corpuscular Hemoglobin Concent 33.3 % (32.0-36.0) Red Cell Distribution Width 14.0 % (11.6-17.2) Platelet Count 172 TH/MM3 (150-450) Mean Platelet Volume 9.0 FL (7.0-11.0) Neutrophils (%) (Auto) 49.4 % (16.0-70.0) Lymphocytes (%) (Auto) 40.2 % (9.0-44.0) Monocytes (%) (Auto) 6.5 % (0.0-8.0) Eosinophils (%) (Auto) 3.4 % (0.0-4.0) Basophils (%) (Auto) 0.5 % (0.0-2.0) Neutrophils # (Auto) 3.3 TH/MM3 (1.8-7.7) Lymphocytes # (Auto) 2.6 TH/MM3 (1.0-4.8) Monocytes # (Auto) 0.4 TH/MM3 (0-0.9) Eosinophils # (Auto) 0.2 TH/MM3 (0-0.4) Basophils # (Auto) 0.0 TH/MM3 (0-0.2) CBC Comment DIFF FINAL Differential Comment Activated Partial Thromboplast Time 54.5 SEC (24.3-30.1) Blood Urea Nitrogen 18 MG/DL (7-18) Creatinine 0.73 MG/DL (0.50-1.00) Random Glucose 215 MG/DL (74-106) Calcium Level 9.0 MG/DL (8.5-10.1) Sodium Level 140 MEQ/L (136-145) Potassium Level 4.2 MEQ/L (3.5-5.1) Chloride Level 106 MEQ/L (98-107) Carbon Dioxide Level 25.2 MEQ/L (21.0-32.0) Anion Gap 9 MEQ/L (5-15) Estimat Glomerular Filtration Rate 76 ML/MIN (>89) Result Diagram: 08/09/175 08/09/17404 (1) Multiple vessel coronary artery disease (2) NSTEMI (non-ST elevated myocardial infarction) Plan: on ASA , Nitro , statin will need to discuss surgery with daughter today (3) Hypertension (4) COPD (chronic obstructive pulmonary disease) (5) Anxiety Plan: would avoid sedative at this time Rimma Hunter Aug 09, 2017 10:45
[2017-08-09] MEDS ORDERED: MORPHINE SULFATE 2 MG/ML SYRINGE IV PUSH PRN (11:00)
--- NOTE | 2017-08-09 14:01 | ECHRPT ---
Indication: NSTEMI CONCLUSIONS Normal left ventricular size. Mild to moderate concentric left ventricular hypertrophy. The left ventricular systolic function is low normal with an estimated ejection fraction of 50%. No definite segmental wall motion abnormalities. Mild mitral annular calcification is present. Mild mitral valve regurgitation. BP: 113 / 65 HR: 75 Rhythm: Sinus MEASUREMENTS (Male / Female) Normal Values Technical Quality:Fair 2D ECHO LV Diastolic Diameter PLAX 5.1 cm 4.2 - 5.9 / 3.9 - 5.3 cm LV Systolic Diameter PLAX 4.6 cm IVS Diastolic Thickness 1.3 cm 0.6 - 1.0 / 0.6 - 0.9 cm LVPW Diastolic Thickness 1.4 cm 0.6 - 1.0 / 0.6 - 0.9 cm LV Relative Wall Thickness 0.5 RV Internal Dim ED PLAX 2.5 cm LVOT Diameter 2.0 cm LA Systolic Diameter LX 4.2 cm 3.0 - 4.0 / 2.7 - 3.8 cm M-MODE Aortic Root Diameter MM 3.0 cm LA Systolic Diameter MM 4.6 cm LA Ao Ratio MM 1.5 AV Cusp Separation MM 1.9 cm DOPPLER AV Peak Velocity 129.0 cm/s AV Peak Gradient 6.7 mmHg LVOT Peak Velocity 86.0 cm/s LVOT Peak Gradient 3.0 mmHg AV Area Cont Eq pk 2.1 cm MV Area PHT 2.2 cm Mitral E Point Velocity 53.2 cm/s Mitral A Point Velocity 114.0 cm/s Mitral E to A Ratio 0.5 LV E' Lateral Velocity 5.4 cm/s Mitral E to LV E' Lateral Ratio 9.8 LV E' Septal Velocity 3.5 cm/s Mitral E to LV E' Septal Ratio 15.0 FINDINGS LEFT VENTRICLE Normal left ventricular size. Mild to moderate concentric left ventricular hypertrophy. The left ventricular systolic function is low normal with an estimated ejection fraction of 50%. No definite segmental wall motion abnormalities. RIGHT VENTRICLE Normal right ventricular size and systolic function. LEFT ATRIUM The left atrial size is normal. RIGHT ATRIUM The right atrial size is normal. ATRIAL SEPTUM Normal atrial septal thickness without atrial level shunting by limited color doppler interrogation. AORTA The aortic root and proximal ascending aorta are normal in size on limited imaging. MITRAL VALVE Mild mitral annular calcification is present. Mild mitral valve regurgitation. AORTIC VALVE Trileaflet aortic valve. No aortic valve stenosis or regurgitation. TRICUSPID VALVE Structurally normal tricuspid valve. No tricuspid valve stenosis or regurgitation. PULMONARY VALVE No pulmonary valve regurgitation or stenosis. VESSELS The inferior vena cava is normal in size. PERICARDIUM A prominent epicardial fat pad is present. David Cooley MD (Electronically Signed) Final Date:09 August 2017 14:00
[2017-08-09] MEDS: HEPARIN 25,000 UNITS-D5W 250 ML - PREMIX IV PRN (14:02)
[2017-08-09] MEDS: ALPRAZolam 0.25 MG TAB PO PRN ×2 (14:26→21:48)
[2017-08-09] MEDS: ACETAMINOPHEN/HYDROcodone 325 MG/5 MG TAB PO PRN (18:22)
[2017-08-09] MEDS ORDERED: EPINEPHrine HCL (1:10,000) 1 MG/10 ML SYRINGE ONE (19:41)
--- NOTE | 2017-08-09 20:41 | RADRPT ---
EXAM DATE/TIME: 08/09/2017 19:56 [facility] COMPARISON: CHEST PA & LAT, August 07, 2017, 9:57. INDICATIONS : Pre-op CABG. RADIATION DOSE: 9.56 CTDIvol (mGy) MEDICAL HISTORY : Hypertension. Myocardial infarction. Chronic obstructive pulmonary disease. Hiatal hernia. Parkinsons . Emphysema. SURGICAL HISTORY : None. ENCOUNTER: Initial ACUITY: 1 day PAIN SCALE: 0/10 LOCATION: chest TECHNIQUE: Volumetric scanning of the chest was performed. Using automated exposure control and adjustment of t he mA and/or kV according to patient size, radiation dose was kept as low as reasonably achievable to obtain optimal diagnostic quality images. DICOM format image data is available electronically for r eview and comparison. Follow-up recommendations for detected pulmonary nodules are based at a minimum on nodule size and pa tient risk factors according to Fleischner Society Guidelines. FINDINGS: LUNGS: There is no consolidation or pneumothorax. No concerning pulmonary nodule is visualized. There is mi ld atelectasis and/or scarring in the lung bases. PLEURAE: There is no pleural thickening or pleural effusion. MEDIASTINUM: The heart and great vessels demonstrate no acute abnormality. There is no mediastinal or hilar lymph adenopathy. Coronary artery calcifications are present. AXILLAE: Within normal limits. No lymphadenopathy. MUSCULOSKELETAL: Within normal limits for patient age. MISCELLANEOUS: The visualized upper abdominal organs demonstrate no acute abnormality. There is a small high density gallstones noted in the dependent portion of the gallbladder. There is no apparent cyst extending of f the upper pole the right kidney. CONCLUSION: 1. Coronary artery calcifications. 2. Mild scarring and/or atelectasis. 3. Small gallstone noted. Viral Garcia MD on August 09, 2017 at 20:37 Board Certified Radiologist. This report was verified electronically.
[2017-08-09] MEDS: ATORVASTATIN 40 MG TAB PO SCH (21:48)
[2017-08-10] VITALS (27 sets, daily range): BP systolic 115–159; BP diastolic 58–70; PULSE 61–74; RESP 16–20; TEMP 98.6–98.8; O2SAT 95–98
[2017-08-10] MEDS: METOPROLOL TARTRATE 25 MG TAB PO SCH ×3 (00:51→16:26)
[2017-08-10] MEDS: INSULIN ASPART SUPPLEMENTAL SCALE SQ SCH ×4 (08:21→23:17)
[2017-08-10] MEDS: GABAPENTIN 300 MG CAP PO SCH ×2 (08:22→22:14)
[2017-08-10] MEDS: PANTOPRAZOLE SOD 40 MG DELAYED RELEASE TAB PO SCH (08:22)
[2017-08-10] MEDS: ASPIRIN 81 MG CHEW TAB CHEW SCH (08:22)
[2017-08-10] MEDS: DOCUSATE SODIUM 50 MG/SENNA 8.6 MG TAB PO SCH ×2 (08:22→22:14)
[2017-08-10] MEDS: SODIUM CHLORIDE 0.9% FLUSH 10 ML FLUSH IV FLUSH SCH ×2 (08:23→22:13)
[2017-08-10] MEDS: BUDESONIDE-FORMOTEROL 160/4.5 MCG INHALER INH SCH ×2 (08:23→22:14)
[2017-08-10] MEDS: INSULIN DETEMIR 100 UNITS/ML VIAL SQ SCH ×2 (08:23→23:16)
[2017-08-10] MEDS: HEPARIN 25,000 UNITS-D5W 250 ML - PREMIX IV PRN (09:24)
[2017-08-10] MEDS: NITROGLYCERIN-D5W 50 MG/250 ML 250 ML IV PRN ×2 (09:40→20:00)
[2017-08-10] MEDS: ALPRAZolam 0.25 MG TAB PO PRN (09:41)
[2017-08-10] MEDS: ACETAMINOPHEN/HYDROcodone 325 MG/5 MG TAB PO PRN (14:08)
--- NOTE | 2017-08-10 16:53 | PD.CAR.PN ---
CVT Progress Note Subjective/Hospital Course: 81-year-old female patient of Dr. Yash Vines who has presented to the emergency room a couple of times. Her last time was for chest discomfort she has been having off and on for the past 2 months, mainly at night with or without exertion. She was seen by on 08/04/2017 and was found to have elevated troponin. She was recommended cardiac catheterization but declined and was attempted to be started on medical therapy. Her last ER admission was 08/04/2017. She stated she would like to have the cardiac catheterization but wanted to go home over the weekend to get things taken care of. Plan was for cardiac catheterization as an outpatient this weekend, but she started having chest pain again and was readmitted after she called 911. She finally underwent cardiac catheterization today which showed left main disease of 20%, proximal LAD 40%, mid-distal LAD 90%, diagonal 70%, the circ at 90%, the OM 80%, the RCA 80%. EF is pending from 2D echo. We were consulted because of multivessel coronary artery disease. PAST MEDICAL HISTORY: Includes hypertension, hyperlipidemia, diabetes mellitus, anxiety, CHF, gastroesophageal reflux disease, COPD, migraines, arthritis, neuropathy. 08/09 await daughter's arrival today to discuss surgery , pt had some chest pain last night, now on Nitro gtt, in addition to Heparin she is very sedentary at home, walks with a cane , will need rehab post surgery 08/10 rediscussed surgery with pt , she is still agreeable to proceed Anand Bustamante ( Nurse Navigator also spoke with daughter Rosemary in [place] and updated her pt scheduled for OR in am she will need rehab at discharge carotid US noted : . 50-69% stenosis within the left internal carotid artery/ she will need to follow up with vascular surgery as outpt Objective: GENERAL: SKIN: Warm and dry. HEAD: Normocephalic. EYES: No scleral icterus. No injection or drainage. NECK: Supple, trachea midline. No JVD or lymphadenopathy. CARDIOVASCULAR: Regular rate and rhythm without murmurs, gallops, or rubs. RESPIRATORY: Breath sounds equal bilaterally. No accessory muscle use. GASTROINTESTINAL: Abdomen soft, non-tender, nondistended. MUSCULOSKELETAL: No cyanosis, or edema. BACK: Nontender without obvious deformity. No CVA tenderness. Vital Signs Date Time Temp Pulse Resp B/P (MAP) Pulse Ox O2 Delivery O2 Flow Rate FiO2 08/10/17 14:00 64 08/10/17 13:00 72 08/10/17 12:00 66 08/10/17 11:30 66 08/10/17 11:30 98.7 66 18 115/58 (77) 98 08/10/17 11:00 66 08/10/17 10:00 70 08/10/17 09:40 75 159/67 08/10/17 09:00 74 08/10/17 08:00 64 08/10/17 07:57 95 Nasal Cannula 1.00 08/10/17 07:20 66 08/10/17 07:20 98.8 66 16 159/65 (96) 96 08/10/17 06:15 71 08/10/17 05:50 72 08/10/17 04:12 61 08/10/17 03:30 67 08/10/17 03:30 98.6 64 19 158/70 (99) 96 08/10/17 02:50 64 158/70 08/10/17 02:26 63 08/10/17 01:16 69 08/10/17 00:24 67 08/09/17 23:20 73 08/09/17 23:20 98.5 72 20 148/84 (105) 93 08/09/17 23:00 72 148/84 08/09/17 22:10 70 08/09/17 21:30 65 08/09/17 21:07 96 21 08/09/17 20:40 87 08/09/17 20:20 67 174/77 08/09/17 19:30 71 08/09/17 19:30 98.7 67 19 174/77 (109) 92 08/09/17 18:23 88 147/60 08/09/17 18:20 80 169/80 08/09/17 18:19 80 171/80 08/09/17 18:14 74 151/65 08/09/17 18:00 77 08/09/17 17:00 91 08/09/17 17:00 70 156/80 Result Diagram: 08/09/175 08/09/17404 (1) Multiple vessel coronary artery disease (2) NSTEMI (non-ST elevated myocardial infarction) Plan: on ASA , Nitro , statin scheduled for surgery in am (3) Hypertension (4) COPD (chronic obstructive pulmonary disease) (5) Anxiety Plan: would avoid sedative at this time Rimma Hunter Aug 10, 2017 16:53
[2017-08-10 17:16] LABS: HEMOGLOBIN A1C 9.2 % (4.3-6.0)
--- NOTE | 2017-08-10 18:38 | HHI.PR ---
Subjective Remarks Patient says she is feeling all right. Denies any chest pain or shortness of breath. She denies any outside food. Objective Vital Signs Date Time Temp Pulse Resp B/P (MAP) Pulse Ox O2 Delivery O2 Flow Rate FiO2 08/10/17 14:00 64 08/10/17 13:00 72 08/10/17 12:00 66 08/10/17 11:30 66 08/10/17 11:30 98.7 66 18 115/58 (77) 98 08/10/17 11:00 66 08/10/17 10:00 70 08/10/17 09:40 75 159/67 08/10/17 09:00 74 08/10/17 08:00 64 08/10/17 07:57 95 Nasal Cannula 1.00 08/10/17 07:20 66 08/10/17 07:20 98.8 66 16 159/65 (96) 96 08/10/17 06:15 71 08/10/17 05:50 72 08/10/17 04:12 61 08/10/17 03:30 67 08/10/17 03:30 98.6 64 19 158/70 (99) 96 08/10/17 02:50 64 158/70 08/10/17 02:26 63 08/10/17 01:16 69 08/10/17 00:24 67 08/09/17 23:20 73 08/09/17 23:20 98.5 72 20 148/84 (105) 93 08/09/17 23:00 72 148/84 08/09/17 22:10 70 08/09/17 21:30 65 08/09/17 21:07 96 21 08/09/17 20:40 87 08/09/17 20:20 67 174/77 08/09/17 19:30 71 08/09/17 19:30 98.7 67 19 174/77 (109) 92 I/O 08/09/17 08/09/17 08/09/17 08/10/17 08/10/17 08/10/17 07:00 15:00 23:00 07:00 15:00 23:00 Intake Total 366 ml 720 ml 600 ml Output Total 600 ml 975 ml 600 ml Balance -234 ml -255 ml 0 ml Intake Oral 240 ml 720 ml 600 ml IV Total 126 ml Output Urine Total 600 ml 975 ml 600 ml # Bowel Movements 0 0 0 Result Diagram: 08/09/1740408/09/17404 Objective Remarks GENERAL: Patient sitting up in bed. Appears comfortable. SKIN: Warm and dry. HEAD: Normocephalic. EYES: No scleral icterus. No injection or drainage. NECK: Supple, trachea midline. No JVD. CARDIOVASCULAR: Regular rate and rhythm without murmurs, gallops, or rubs. RESPIRATORY: Breath sounds equal bilaterally. No accessory muscle use. GASTROINTESTINAL: Abdomen soft, non-tender, nondistended. MUSCULOSKELETAL: No cyanosis, or edema. BACK: Nontender without obvious deformity. No CVA tenderness. A/P Assessment and Plan //Coronary artery disease: Status post cardiac catheterization, which showed multivessel coronary artery disease. Cardiothoracic surgery has been consulted for CABG. Continue heparin drip. Continue statin, aspirin, beta-tyrell. Continues to have chest pain. Start nitroglycerin drip. = Plan for CABG tomorrow. //Diabetes mellitus type 2: Monitor Accu-Cheks and cover with sliding scale insulin. Hold metformin. Glucose remains elevated. Increase Levemir. = Patient had apparently been on heart healthy diet. Will switch to diabetic diet. Increase sliding scale to moderate, and give extra insulin at dinner. Discussed with nursing. Appreciate assistance. //Hyperlipidemia: Chronic. Continue statin. //COPD: Does not appear to be in exacerbation at this time. Continue Symbicort. DuoNeb as needed. Oxygen as needed. //GERD: Continue PPI. //Bacteremia: Continue Levaquin and Flagyl. Stop date is 08/09/17. //DVT prophylaxis: Heparin. Discharge Planning CABG planned Baltazar Etienne MD Aug 10, 2017 18:38
[2017-08-10] MEDS ORDERED: ZOLPIDEM TARTRATE 5 MG TAB PO ONE (21:45)
[2017-08-10] MEDS: ATORVASTATIN 40 MG TAB PO SCH (22:14)
--- NOTE | 2017-08-10 23:12 | PD.CARD.PN ---
Subjective Subjective Remarks Patient was seen earlier today, late entry note No events overnight More energetic today Objective Medications Current Medications Medications (Trade) Dose Ordered Sig/Amy Route Start Time Stop Time Status Last Admin (NS Flush) 2 ml UNSCH PRN IV FLUSH 08/07/17 11:45 (NS Flush) 2 ml BID IV FLUSH 08/07/17 21:00 08/10/17 22:13 (Zofran Inj) 4 mg Q6H PRN IVP 08/07/17 11:45 (Narcan Inj) 0.4 mg UNSCH PRN IV PUSH 08/07/17 11:45 (Zenaida-Colace) 1 tab BID PO 08/07/17 21:00 08/10/17 22:14 (Milk Of Magnesia Liq) 30 ml Q12H PRN PO 08/07/17 11:45 (Senokot) 17.2 mg Q12H PRN PO 08/07/17 11:45 (Dulcolax Supp) 10 mg DAILY PRN RECTAL 08/07/17 11:45 (Lactulose Liq) 30 ml DAILY PRN PO 08/07/17 11:45 (D50w (Vial) Inj) 50 ml UNSCH PRN IV PUSH 08/07/17 13:15 (Glucagon Inj) 1 mg UNSCH PRN OTHER 08/07/17 13:15 (Aspirin Chew) 81 mg DAILY CHEW 08/08/17 09:00 08/10/17 08:22 (Lipitor) 40 mg HS PO 08/07/17 21:00 08/10/17 22:14 (Symbicort 160-4.5 Mcg Inh) 2 puff Q12HR INH 08/07/17 21:00 08/10/17 22:14 (Neurontin) 300 mg BID PO 08/07/17 21:00 08/10/17 22:14 (Imdur) 30 mg DAILY@07 PO 08/08/17 07:00 Future Hold 08/09/17 05:32 (Protonix) 40 mg DAILY PO 08/08/17 09:00 08/10/17 08:22 Heparin Sodium/ Dextrose 250 ml @ 10 mls/hr TITRATE PRN IV 08/07/17 19:00 08/10/17 09:24 (Heparin Inj) 5,000 units UNSCH PRN IV PUSH 08/07/17 19:00 (Heparin Inj) 2,500 units UNSCH PRN IV PUSH 08/07/17 19:00 08/08/17 22:14 (Tylenol) 650 mg Q6HR PRN PO 08/07/17 22:15 08/09/17 10:37 Lactated Ringer's 1,000 ml @ 30 mls/hr Q24H PRN IV 08/08/17 04:15 08/11/17 04:14 Sodium Chloride 500 ml @ 30 mls/hr [id number] PRN IV 08/08/17 04:15 08/11/17 04:14 (Betadine 5% Antisepsis Kit) 1 applic [employer] [place] PRN EACH NARE 08/08/17 04:15 08/11/17 04:14 (Chlorhexidine 2% Cloth) 3 pack [employer] [place] PRN TOPICAL 08/08/17 04:15 08/11/17 04:14 Cefazolin Sodium 500 mg/Sodium Chloride 505 ml @ 0 mls/hr [employer] [place] IRRIGATION 08/08/17 15:00 08/15/17 14:59 Cefazolin Sodium 2000 mg/Sodium Chloride 120 ml @ 240 mls/hr [employer] [place] IV 08/08/17 15:45 08/15/17 15:44 (Lopressor) 12.5 mg [employer] [place] PO 08/08/17 15:00 08/15/17 14:59 (Hibiclens 4% Top Soln) 1 applic [employer] [place] TOPICAL 08/08/17 15:00 08/15/17 14:59 Insulin Human Regular 100 units/ Sodium Chloride 100 ml @ 3 mls/hr TITRATE PRN IV 08/08/17 15:00 08/15/17 14:59 (D50w (Vial) Inj) 50 ml UNSCH PRN IV PUSH 08/08/17 15:00 Papaverine HCl 60 mg/Nitroglycerin 100 mcg/Verapamil HCl 100 mg/Sodium Chloride 100 ml @ 0 mls/hr [employer] [place] [employer] 08/08/17 15:30 08/15/17 15:29 (Nitrostat Sl) 0.4 mg Q5M PRN SL 08/08/17 21:15 08/08/17 21:22 (Levemir Inj) 8 units Q12HR SQ 08/09/17 09:00 08/10/17 08:23 Nitroglycerin/ Dextrose 250 ml @ 1.5 mls/hr TITRATE PRN IV 08/09/17 08:45 08/10/17 20:00 (Tylenol) 650 mg Q4H PRN PO 08/09/17 10:15 08/09/17 16:49 (Adams 5-325 Mg) 1 tab Q4H PRN PO 08/09/17 10:15 08/10/17 14:08 (Xanax) 0.25 mg BID PRN PO 08/09/17 10:45 08/10/17 09:41 (Lopressor) 25 mg Q8H PO 08/09/17 17:00 08/10/17 16:26 (Morphine Inj) 2 mg Q5M PRN IV PUSH 08/09/17 11:00 (NovoLOG SUPPLEMENTAL SCALE) 1 ACHS SLIDING SCALE SQ 08/10/17 12:00 08/10/17 16:28 Vital Signs / I&O Vital Signs Date Time Temp Pulse Resp B/P (MAP) Pulse Ox O2 Delivery O2 Flow Rate FiO2 08/10/17 21:27 96 Nasal Cannula 1.00 08/10/17 20:00 71 141/65 08/10/17 18:00 74 08/10/17 17:00 66 08/10/17 16:00 68 08/10/17 15:00 64 08/10/17 14:00 64 08/10/17 13:00 72 08/10/17 12:00 66 08/10/17 11:30 66 08/10/17 11:30 98.7 66 18 115/58 (77) 98 08/10/17 11:00 66 08/10/17 10:00 70 08/10/17 09:40 75 159/67 08/10/17 09:00 74 08/10/17 08:00 64 08/10/17 07:57 95 Nasal Cannula 1.00 08/10/17 07:20 66 08/10/17 07:20 98.8 66 16 159/65 (96) 96 08/10/17 06:15 71 08/10/17 05:50 72 08/10/17 04:12 61 08/10/17 03:30 67 08/10/17 03:30 98.6 64 19 158/70 (99) 96 08/10/17 02:50 64 158/70 08/10/17 02:26 63 08/10/17 01:16 69 08/10/17 00:24 67 08/09/17 23:20 73 08/09/17 23:20 98.5 72 20 148/84 (105) 93 I/O 08/10/17 08/10/17 08/10/17 08/11/17 08/11/17 08/11/17 07:00 15:00 23:00 07:00 15:00 23:00 Intake Total 600 ml 1450 ml Output Total 600 ml 1600 ml Balance 0 ml -150 ml Intake Oral 600 ml 1200 ml IV Total 250 ml Output Urine Total 600 ml 1600 ml # Bowel Movements 0 0 Physical Exam GENERAL: NAD, AAOx3 SKIN: Warm and dry. HEAD: Atraumatic. Normocephalic. EYES: Pupils equal and round. No scleral icterus. No injection or drainage. ENT: No nasal bleeding or discharge. Mucous membranes pink and moist. NECK: Trachea midline. No JVD. CARDIOVASCULAR: Regular rate and rhythm. RESPIRATORY: No accessory muscle use. Clear to auscultation. Breath sounds equal bilaterally. GASTROINTESTINAL: Abdomen soft, non-tender, nondistended. Hepatic and splenic margins not palpable. MUSCULOSKELETAL: Extremities without clubbing, cyanosis, or edema. No obvious deformities. NEUROLOGICAL: Awake and alert. No obvious cranial nerve deficits. Motor grossly within normal limits. Five out of 5 muscle strength in the arms and legs. Normal speech. PSYCHIATRIC: Appropriate mood and affect; insight and judgment normal. Laboratory Laboratory Tests Test 08/10/17 03:37 Activated Partial Thromboplast Time 43.2 SEC Hemoglobin A1c 9.2 % Assessment and Plan Problem List: (1) Multiple vessel coronary artery disease ICD Codes: I25.10 - Atherosclerotic heart disease of [place] coronary artery without angina pectoris (2) NSTEMI (non-ST elevated myocardial infarction) ICD Codes: I21.4 - Non-ST elevation (NSTEMI) myocardial infarction (3) Hypertension ICD Codes: I10 - Hypertension Status: Chronic (4) COPD (chronic obstructive pulmonary disease) ICD Codes: J44.9 - Chronic obstructive pulmonary disease Status: Chronic (5) Anxiety ICD Codes: F41.9 - Anxiety Status: Chronic Assessment and Plan 1) Unstable angina, MVCAD CT surgery evaluation, plan for tomorrow Heparin drip Nitro drip for CP/HTN 2) EF 50% Grant Kc DO Aug 10, 2017 23:12
[2017-08-11] VITALS (21 sets, daily range): BP systolic 115–180; BP diastolic 41–85; PULSE 52–143; RESP 12–20; TEMP 96.9–98.8; O2SAT 92–99
[2017-08-11] MEDS: METOPROLOL TARTRATE 25 MG TAB PO SCH ×3 (05:47→17:00)
[2017-08-11] MEDS: NITROGLYCERIN-D5W 50 MG/250 ML 250 ML IV PRN (05:55)
[2017-08-11 06:21] LABS: ALBUMIN 3.1 GM/DL (3.4-5.0); BICARBONATE 27.7 MEQ/L (21.0-32.0); CALCIUM 9.4 MG/DL (8.5-10.1); CREATININE 0.72 MG/DL (0.50-1.00); MAGNESIUM 2.1 MG/DL (1.5-2.5); PHOSPHORUS 3.5 MG/DL (2.5-4.9)
[2017-08-11 07:01] LABS: BASOPHIL % 0.6 % (0.0-2.0); EOSINOPHIL # 0.3 TH/MM3 (0-0.4); EOSINOPHIL % 4.4 % (0.0-4.0); HEMATOCRIT 35.3 % (35.0-46.0); HEMOGLOBIN 12.1 GM/DL (11.6-15.3); LYMPH % 32.3 % (9.0-44.0); LYMPHOCYTE # 2.3 TH/MM3 (1.0-4.8); MEAN CELL VOLUME 91.1 FL (80.0-100.0); MEAN CORPUSCULAR HEMOGLOBIN 31.2 PG (27.0-34.0); MEAN CORPUSCULAR HGB CONC 34.3 % (32.0-36.0); MEAN PLATELET VOLUME 8.7 FL (7.0-11.0); MONO % 6.6 % (0.0-8.0); MONOCYTE # 0.5 TH/MM3 (0-0.9); NEUT % 56.1 % (16.0-70.0); PLATELET COUNT 175 TH/MM3 (150-450); RED BLOOD COUNT 3.88 MIL/MM3 (4.00-5.30); RED CELL DISTRIBUTION WIDTH 13.9 % (11.6-17.2); WHITE BLOOD COUNT 7.2 TH/MM3 (4.0-11.0)
[2017-08-11] MEDS ORDERED: HEPARIN SODIUM - SQ 10,000 UNITS/ML VIAL ONE (07:43)
[2017-08-11] MEDS ORDERED: VANCOMYCIN HCL 1000 MG VIAL ONE ×2 (07:43→07:53)
[2017-08-11] MEDS ORDERED: ceFAZolin INJ 1,000 MG VIAL ONE (07:43)
[2017-08-11] MEDS ORDERED: SODIUM CHLOR 0.9% 250 ML INJ 250 ML ONE (07:55)
[2017-08-11] MEDS: INSULIN ASPART SUPPLEMENTAL SCALE SQ SCH ×2 (08:00→12:00)
[2017-08-11] MEDS: PANTOPRAZOLE SOD 40 MG DELAYED RELEASE TAB PO SCH (09:00)
[2017-08-11] MEDS: INSULIN DETEMIR 100 UNITS/ML VIAL SQ SCH ×2 (09:00→21:00)
[2017-08-11] MEDS: DOCUSATE SODIUM 50 MG/SENNA 8.6 MG TAB PO SCH ×2 (09:00→20:14)
[2017-08-11] MEDS: BUDESONIDE-FORMOTEROL 160/4.5 MCG INHALER INH SCH ×2 (09:00→21:00)
[2017-08-11] MEDS: SODIUM CHLORIDE 0.9% FLUSH 10 ML FLUSH IV FLUSH SCH ×2 (09:00→20:06)
[2017-08-11] MEDS: ASPIRIN 81 MG CHEW TAB CHEW SCH (09:00)
[2017-08-11] MEDS: GABAPENTIN 300 MG CAP PO SCH ×2 (09:00→20:02)
[2017-08-11] MEDS: CEFAZOLIN INJ 2,000 MG in SODIUM CHLORIDE 0.9% INJ 100 ML IV SCH ×2 (10:33→10:35)
[2017-08-11] MEDS ORDERED: SODIUM CHLOR 0.9% 250 ML INJ 500 ML IV ONE (12:00)
[2017-08-11] MEDS ORDERED: PHENYLEPHRINE HCL 10 MG/ML VIAL IV ONE (12:00)
[2017-08-11] MEDS ORDERED: VECURONIUM BROMIDE 10 MG VIAL IV ONE (12:00)
[2017-08-11] MEDS ORDERED: NORMOSOL R INJ 2,000 ML IV ONE (12:00)
[2017-08-11] MEDS ORDERED: PROTAMINE SULFATE 50 MG/5 ML VIAL IV ONE (12:00)
[2017-08-11] MEDS ORDERED: ePHEDrine/NS 25 MG/5 ML SYRINGE IV ONE (12:00)
[2017-08-11] MEDS ORDERED: PHENYLEPH/NS 1000 MCG/10 ML SYR IV ONE (12:00)
[2017-08-11] MEDS ORDERED: GLYCOPYRROLATE 0.2 MG/ML VIAL IV ONE (12:00)
[2017-08-11] MEDS ORDERED: HEPARIN SODIUM - SQ 10,000 UNITS/ML VIAL OTHER ONE (12:00)
[2017-08-11] MEDS ORDERED: SODIUM CHLORID 0.9% 500 ML INJ 500 ML IV ONE (12:00)
[2017-08-11] MEDS ORDERED: MAGNESIUM SULFATE 1 GM/2 ML VIAL IV ONE (12:00)
[2017-08-11] MEDS ORDERED: LACTATED RINGER'S 1000 ML INJ 2,000 ML IV ONE (12:00)
[2017-08-11] MEDS ORDERED: NEOSTIGMINE METHYLSULFATE 10 MG/10 ML VIAL IV PUSH ONE (12:00)
[2017-08-11] MEDS ORDERED: NITROGLYCERIN 50 MG/DEXTROSE 5% SOLN 250 ML BTL IV ONE (12:00)
[2017-08-11] MEDS ORDERED: DEXMEDETOMIDINE HCL 200 MCG/2 ML VIAL IV ONE (12:00)
[2017-08-11] MEDS ORDERED: CALCIUM CHLORIDE 10% SOLN 1 GRAM/10 ML SYR IV ONE (12:00)
[2017-08-11] MEDS ORDERED: DOBUTamine PREMIX DRIP 250 ML IV PRN (12:41)
[2017-08-11] MEDS ORDERED: LACTATED RINGER'S 1000 ML INJ 500 ML IV PRN (12:41)
[2017-08-11] MEDS ORDERED: ALBUMIN 5% INJ 250 ML IV PRN (12:45)
[2017-08-11] MEDS ORDERED: Post-op Orders (for Pharmacy) OTHER ONE (12:45)
[2017-08-11] MEDS ORDERED: hydrALAZINE HCL 20 MG/ML VIAL IV PUSH PRN (12:45)
[2017-08-11] MEDS ORDERED: DOPamine 800 MG/500 ML INJ 500 ML IV PRN (12:45)
[2017-08-11] MEDS ORDERED: MAGNESIUM SULFATE INJ 2 GM in SODIUM CHLORIDE 0.9% INJ 100 ML IV PRN ×4 (12:45)
[2017-08-11] MEDS ORDERED: INSULIN REGULAR (IV INFUSION) 100 UNITS in SODIUM CHLORIDE 0.9% INJ 99 ML IV PRN (12:45)
[2017-08-11] MEDS ORDERED: METOPROLOL TARTRATE 5 MG/5 ML VIAL IV PUSH PRN (12:45)
[2017-08-11] MEDS ORDERED: RESP: RACEPINEPHRINE 2.25% 0.5 ML NEB NEB PRN (12:45)
[2017-08-11] MEDS ORDERED: DEXTROSE 50% IN WATER 50 ML VIAL(D50) IV PUSH PRN (12:45)
[2017-08-11] MEDS ORDERED: CALCIUM CHLORIDE 10% 1 GRAM/10 ML VIAL IV PUSH PRN (12:45)
[2017-08-11] MEDS ORDERED: ACETAMINOPHEN 325 MG TAB PO PRN (12:45)
[2017-08-11] MEDS ORDERED: MORPHINE SULFATE 2 MG/ML SYRINGE IV PUSH PRN (12:45)
[2017-08-11] MEDS ORDERED: SODIUM CHLORIDE 0.9% FLUSH 10 ML FLUSH IV FLUSH PRN (12:45)
[2017-08-11] MEDS ORDERED: MEPERIDINE HCL 25 MG/ML VIAL IV PUSH PRN (12:45)
[2017-08-11] MEDS ORDERED: DEXMEDETOMIDINE INJ 200 MCG in SODIUM CHLORIDE 0.9% INJ 50 ML IV PRN (12:45)
[2017-08-11] MEDS ORDERED: POTASSIUM CHLOR 20 MEQ PREMIX 100 ML IV PRN ×4 (12:45→18:15)
[2017-08-11] MEDS ORDERED: SODIUM BICARBONATE 8.4% SOLN 50 MEQ/50 ML VIAL IV PUSH PRN ×2 (12:45)
[2017-08-11] MEDS ORDERED: NITROGLYCERIN-D5W 50 MG/250 ML 250 ML IV PRN (12:45)
[2017-08-11] MEDS ORDERED: POTASSIUM CHLORIDE 20 MEQ CONTROLLED RELEASE TAB PO PRN ×2 (12:45)
[2017-08-11] MEDS ORDERED: PHENYLEPHRINE INJ 40 MG in DEXTROSE 5% IN WATE 500 ML INJ 496 ML IV PRN ×2 (12:45)
[2017-08-11] MEDS ORDERED: ACETAMINOPHEN 650 MG SUPP RECTAL PRN (12:45)
--- NOTE | 2017-08-11 12:51 | PD.OP ---
cc: Gini Quintana MD; Grant Kc DO Operative Report Date of Surgery: Aug 11, 2017 Preoperative Diagnosis: Postoperative Diagnosis: Procedure: 1. Urgent Off-pump Coronary Artery Bypass Grafting x 3 with Left Internal Mammary Artery (BORJA) to Left Anterior Descending (LAD), reverse saphenous vein graft to the Obtuse Marginal 1 (OM1) branch of the Left Circumflex artery, reverse saphenous vein graft to the distal Right Coronary Artery (RCA) 2. Left Leg Endoscopic Vein [place] 3. Intraoperative Vein Mapping Surgeon: Gini Quintana Vessel Traffic Officer(s): Veronique Potter Operation and Findings: PREPROCEDURE DIAGNOSES 1. Severe Multi Vessel Coronary Artery Disease. 2. Acute Myocardial Infarction (NSTEMI) 3. Frail POSTPROCEDURE DIAGNOSES Same SURGICAL PROCEDURE 1. Urgent Off-pump Coronary Artery Bypass Grafting x 3 with Left Internal Mammary Artery (BORJA) to Left Anterior Descending (LAD), reverse saphenous vein graft to the Obtuse Marginal 1 (OM1) branch of the Left Circumflex artery, reverse saphenous vein graft to the distal Right Coronary Artery (RCA) 2. Left Leg Endoscopic Vein [place] 3. Intraoperative Vein Mapping SURGEON Gini Quintana MD DEHAIRING MACHINE TENDER WENDY Miller ANESTHESIA General endotracheal GEM TECHNICIAN CAIO Johnson MD PREPARATION ChloraPrep. COUNTS Needle, sponge, and instrument counts were correct. DRAINS Two 32-S[place] mediastinal tubes. COMPLICATIONS None. INDICATIONS FOR PROCEDURE The patient is a 81-year-old presenting with chest pain and AMI. Patient was noted to have multi-vessel coronary artery disease. The patient is being brought to the operating room for surgical revascularization therapy. PROCEDURE Patient was brought to the operating room and placed supine on the OR table. Following the induction of adequate general endotracheal anesthesia and placement of appropriate monitoring devices, intraoperative vein mapping was performed which revealed suitable-caliber conduit in bilateral thighs. The patient was then prepped and draped in standard sterile fashion. Next, 2500 units of intravenous heparin was given. The left greater saphenous vein was harvested endoscopically. This appeared to be a useable-caliber conduit. Simultaneously, a median sternotomy was performed and the left internal mammary artery dissected free off the posterior sternal table. The patient was systemically heparinized and anticoagulation monitored by serial ACT measurements. The internal mammary artery had good pulsatile flow in it and was a good-caliber conduit. The pericardium was then divided in the midline, the cradle created and targets analyzed. At this point, all anastomoses were performed in a beating-heart fashion using the Maquet stabilizing system. The left internal mammary artery was anastomosed to the mid LAD (2 mm) in an end-to- side fashion using 7-0 Prolene. Segment of saphenous vein graft was then anastomosed to the OM1 (1.75 mm) in an end-to-side fashion using 7-0 Prolene. The final segment of saphenous vein graft was then anastomosed to the distal RCA (3 mm) in an end-to-side fashion using 7-0 Prolene. The RCA was very diffusely and heavily calcified vessel. The proximal anastomoses were then constructed to the ascending aorta in a running manner using 6-0 Prolene. All anastomotic sites were inspected and appeared to be hemostatic and patent. Protamine solution was given. Strict hemostasis was assured. The closure was undertaken. 2 chest tubes were placed. The pericardium was reapproximated in the midline. The sternum was approximated using sternal wires. The muscular and fascial layer were then closed in 3 layers. The endoscopic vein harvest site was closed in 2 layers. The patient tolerated the procedure well and was transferred to CVICU in stable condition. Gini Quintana MD Aug 11, 2017 12:51
[2017-08-11] MEDS ORDERED: MIDAZOLAM HCL 2 MG/2 ML VIAL ONE ×2 (13:41→13:42)
[2017-08-11] MEDS ORDERED: fentaNYL CITRATE 250 MCG/5 ML AMP ONE (13:43)
[2017-08-11] MEDS: CALCIUM CHLORIDE INJ 1 GM in SODIUM CHLORIDE 0.9% INJ 100 ML IV PRN ×2 (13:49→18:38)
[2017-08-11] MEDS: ACETAMINOPHEN 1000 MG/100 ML 100 ML IV SCH ×2 (13:50→20:00)
--- NOTE | 2017-08-11 14:14 | RADRPT ---
EXAM DATE/TIME: 08/11/2017 13:25 [facility] COMPARISON: CHEST SINGLE AP, August 03, 2017, 12:24. INDICATIONS : Post CABG MEDICAL HISTORY : Hypertension. Myocardial infarction. Chronic obstructive pulmonary disease. Hiatal hernia. Parkinsons . Emphysema. SURGICAL HISTORY : CABG. ENCOUNTER: Subsequent ACUITY: 3 days PAIN SCORE: Non-responsive. LOCATION: chest FINDINGS: Portable AP view of the chest demonstrates a normal-sized cardiac silhouette. Patient is post median sternotomy. Endotracheal tube measures 3.2 cm from the kristal. NG tube courses beyond the GE junction but sentinel hole is in the distal esophagus. Right IJ line tip is in the superior vena cava or uppe r right atrium. There is a mediastinal drain and chest tube present. No pneumothorax is identified. T here is atelectasis at the lung bases. CONCLUSION: 1. Chest tube and mediastinal drain are present and no pneumothorax is visualized. 2. Nasogastric tube tip is beyond the GE junction but sentinel holes in the distal esophagus. Conside r advancement. 3. Lungs are underinflated with atelectasis at the bases. Brandon Faulkner MD on August 11, 2017 at 13:44 Board Certified Radiologist. This report was verified electronically.
[2017-08-11] MEDS: RESP: ALBUTEROL 2.5 MG/IPRATROPIUM 0.5 MG NEB (SCH) NEB ×2 (15:12→20:11)
[2017-08-11] MEDS: ONDANSETRON HCL 4 MG/2 ML VIAL IV PUSH PRN (16:25)
[2017-08-11] MEDS: CLEVIDIPINE INJ 50 ML IV PRN (16:27)
[2017-08-11] MEDS: KETOROLAC TROMETHAMINE 30 MG/ML (IVP) VIAL IV PUSH PRN (16:34)
[2017-08-11] MEDS ORDERED: LISINOPRIL 5 MG TAB PO ONE (18:00)
[2017-08-11] MEDS ORDERED: NYSTATIN SUSP 500,000 U/5 ML CUP SWISH-SWAL SCH (18:00)
[2017-08-11] MEDS ORDERED: FLUCONAZOLE 200 MG TAB PO ONE (18:30)
[2017-08-11] MEDS: VANCOMYCIN INJ 1,000 MG in SODIUM CHLOR 0.9% 250 ML INJ 250 ML IV SCH (20:01)
[2017-08-11] MEDS: ATORVASTATIN 40 MG TAB PO SCH (20:03)
[2017-08-11] MEDS: ACETAMINOPHEN/HYDROcodone 325 MG/5 MG TAB PO PRN (20:04)
[2017-08-11] MEDS: NYSTATIN SUSP 500,000 U/5 ML CUP SWISH-SWAL SCH (20:06)
--- NOTE | 2017-08-11 20:10 | HHI.PR ---
Subjective Remarks Patient seen this afternoon after CABG. She reports that pain is under control. Somnolent, but wakes up for exam. Objective Vital Signs Date Time Temp Pulse Resp B/P (MAP) Pulse Ox O2 Delivery O2 Flow Rate FiO2 08/11/17 18:00 97.1 08/11/17 17:39 14 08/11/17 16:30 95 Nasal Cannula 4.00 08/11/17 16:30 58 08/11/17 16:30 97.1 52 14 130/60 (83) 95 137/41 (73) 08/11/17 16:27 52 137/41 08/11/17 15:50 95 Nasal Cannula 4.00 08/11/17 15:50 95 Nasal Cannula 4 08/11/17 14:27 95 40 08/11/17 14:27 50 08/11/17 14:00 96.9 08/11/17 13:49 60 107/35 08/11/17 13:30 80 08/11/17 13:30 97 Mechanical Ventilator 50 08/11/17 13:30 50 08/11/17 13:30 64 82/28 08/11/17 13:30 96.9 143 14 169/54 (92) 92 143/56 (85) 08/11/17 13:24 97 50 08/11/17 13:20 81 143/56 08/11/17 13:15 96.9 08/11/17 08:21 97 21 08/11/17 08:00 97.9 70 20 175/85 (115) 96 08/11/17 08:00 81 08/11/17 06:00 98.4 75 20 180/82 (114) 96 08/11/17 06:00 75 08/11/17 05:55 72 141/65 08/11/17 05:00 78 08/11/17 04:00 80 08/11/17 03:00 68 08/11/17 02:00 76 08/11/17 01:00 76 08/11/17 00:00 68 08/11/17 00:00 68 08/10/17 23:00 70 08/10/17 22:00 68 08/10/17 21:27 96 Nasal Cannula 1.00 08/10/17 21:00 70 I/O 4/11/18 4/11/18 08/10/17 08/11/17 08/11/17 08/11/17 07:00 15:00 23:00 07:00 15:00 23:00 Intake Total 600 ml 1450 ml 635 ml 4550 ml 1260 ml Output Total 600 ml 1600 ml 1300 ml 700 ml 930 ml Balance 0 ml -150 ml -665 ml 3850 ml 330 ml Intake Oral 600 ml 1200 ml 240 ml 50 ml IV Total 250 ml 395 ml 500 ml 1210 ml Autotransfusion 250 ml Other 3800 ml Output Urine Total 600 ml 1600 ml 1300 ml 200 ml 780 ml Gastric Drainage Total 0 ml Chest Tube Drainage Total 150 ml Estimated Blood Loss 500 ml # Bowel Movements 0 0 0 0 Result Diagram: 08/11/1753008/11/17530 Objective Remarks GENERAL:sleeping, wakes up for exam. Appears comfortable. SKIN: Warm and dry. HEAD: Normocephalic. EYES: No scleral icterus. No injection or drainage. NECK: Supple, trachea midline. No JVD. CARDIOVASCULAR: Regular rate and rhythm without murmurs, gallops, or rubs. RESPIRATORY: Breath sounds equal bilaterally. No accessory muscle use.postoperative dressings and drains not examined. GASTROINTESTINAL: Abdomen soft, non-tender, nondistended. MUSCULOSKELETAL: No cyanosis, or edema. BACK: Nontender without obvious deformity. No CVA tenderness. A/P Assessment and Plan //Coronary artery disease: Status post cardiac catheterization, which showed multivessel coronary artery disease. Cardiothoracic surgery has been consulted for CABG. Continue heparin drip. Continue statin, aspirin, beta-tyrell. Continues to have chest pain. Start nitroglycerin drip. = Plan for CABG tomorrow. 08/11. Patient recovering status post CABG. Sedation and blood pressure management as per cardiothoracic surgery. //Diabetes mellitus type 2: Monitor Accu-Cheks and cover with sliding scale insulin. Hold metformin. Glucose remains elevated. Increase Levemir. = Patient had apparently been on heart healthy diet. Will switch to diabetic diet. Increase sliding scale to moderate, and give extra insulin at dinner. Discussed with nursing. Appreciate assistance. = Blood sugars acceptable. Continue diabetic diet and sliding scale. //Hyperlipidemia: Chronic. Continue statin. //COPD: Does not appear to be in exacerbation at this time. Continue Symbicort. DuoNeb as needed. Oxygen as needed. //GERD: Continue PPI. //Bacteremia: Continue Levaquin and Flagyl. Stop date is 08/09/17. //DVT prophylaxis: Heparin. Discharge Planning postoperative CABG 08/11 Baltazar Etienne MD Aug 11, 2017 20:10
[2017-08-11] MEDS: ALPRAZolam 0.25 MG TAB PO PRN (20:14)
[2017-08-12] VITALS (9 sets, daily range): BP systolic 109–144; BP diastolic 34–54; PULSE 58–86; RESP 16–20; TEMP 98.6–99.4; O2SAT 95–98
[2017-08-12] MEDS: ACETAMINOPHEN/HYDROcodone 325 MG/5 MG TAB PO PRN ×5 (01:08→21:18)
[2017-08-12] MEDS: METOPROLOL TARTRATE 25 MG TAB PO SCH ×2 (01:08→21:19)
[2017-08-12] MEDS: CLEVIDIPINE INJ 50 ML IV PRN (01:08)
[2017-08-12] MEDS: ONDANSETRON HCL 4 MG/2 ML VIAL IV PUSH PRN (01:09)
[2017-08-12] MEDS: ACETAMINOPHEN 1000 MG/100 ML 100 ML IV SCH ×2 (02:00→08:15)
[2017-08-12] MEDS: RESP: ALBUTEROL 2.5 MG/IPRATROPIUM 0.5 MG NEB (SCH) NEB ×3 (02:59→13:00)
[2017-08-12] MEDS: KETOROLAC TROMETHAMINE 30 MG/ML (IVP) VIAL IV PUSH PRN (04:22)
[2017-08-12 04:36] LABS: HEMOGLOBIN 9.6 GM/DL (11.6-15.3); MEAN CELL VOLUME 91.4 FL (80.0-100.0); MEAN CORPUSCULAR HEMOGLOBIN 31.5 PG (27.0-34.0); MEAN CORPUSCULAR HGB CONC 34.4 % (32.0-36.0); MEAN PLATELET VOLUME 8.4 FL (7.0-11.0); PLATELET COUNT 128 TH/MM3 (150-450); RED BLOOD COUNT 3.06 MIL/MM3 (4.00-5.30); RED CELL DISTRIBUTION WIDTH 13.8 % (11.6-17.2); WHITE BLOOD COUNT 8.1 TH/MM3 (4.0-11.0)
[2017-08-12 04:57] LABS: BICARBONATE 26.7 MEQ/L (21.0-32.0); CALCIUM 9.1 MG/DL (8.5-10.1); CREATININE 0.64 MG/DL (0.50-1.00); MAGNESIUM 1.9 MG/DL (1.5-2.5)
[2017-08-12] MEDS: PANTOPRAZOLE SOD 40 MG DELAYED RELEASE TAB PO SCH (05:09)
--- NOTE | 2017-08-12 06:28 | RADRPT ---
EXAM DATE/TIME: 08/12/2017 05:47 [facility] COMPARISON: CHEST SINGLE AP, August 11, 2017, 13:25. INDICATIONS : Chest tube removal- rule out pneumothorax. MEDICAL HISTORY : Hypertension. Myocardial infarction. Chronic obstructive pulmonary disease. Hiatal hernia. Parkinsons . Emphysema. SURGICAL HISTORY : CABG. ENCOUNTER: Subsequent ACUITY: 1 day PAIN SCORE: Non-responsive. LOCATION: Bilateral chest FINDINGS: There has been interval extubation and removal of nasogastric tube. Right neck central catheter and t horacostomy tubes remain in place. Atelectasis in the left base obscured left diaphragm. Possible min imal left effusion. Mild bilateral perihilar parenchyma opacities also present. Cardiac contours are grossly stable. CONCLUSION: Interval extubation with slight decrease in aeration Brandon Shahid MD on August 12, 2017 at 6:25 Board Certified Radiologist. This report was verified electronically.
--- NOTE | 2017-08-12 08:58 | RSPPFT ---
DATE OF PROCEDURE: 08/10/17 COMMENTS: Spirometry with FVC of 1.4 at 63% of predicted, FEV1 of 1.1 at 70%, FEV1/FVC ratio is normal. Flow is normal at FEF 25, FEF 50, FEF 75 and FEF 25-75. Post-bronchodilator study was not done. IMPRESSION: 1. Normal spirometry. 2. Underlying restrictive disease is not ruled out from this study. 3. Post-bronchodilator study was not done.
[2017-08-12] MEDS: BUDESONIDE-FORMOTEROL 160/4.5 MCG INHALER INH SCH ×2 (09:00→21:00)
[2017-08-12] MEDS ORDERED: LISINOPRIL 5 MG TAB PO SCH (09:00)
[2017-08-12] MEDS: NYSTATIN SUSP 500,000 U/5 ML CUP SWISH-SWAL SCH ×4 (09:07→21:22)
[2017-08-12] MEDS: CLOPIDOGREL 75 MG TAB PO SCH (09:07)
[2017-08-12] MEDS: ASPIRIN 81 MG CHEW TAB PO SCH (09:08)
[2017-08-12] MEDS: SODIUM CHLORIDE 0.9% FLUSH 10 ML FLUSH IV FLUSH SCH ×2 (09:08→21:21)
[2017-08-12] MEDS: GABAPENTIN 300 MG CAP PO SCH ×2 (09:08→21:21)
[2017-08-12] MEDS: VANCOMYCIN INJ 1,000 MG in SODIUM CHLOR 0.9% 250 ML INJ 250 ML IV SCH ×2 (09:09→21:21)
[2017-08-12] MEDS ORDERED: BISACODYL 10 MG SUPP RECTAL PRN (09:15)
[2017-08-12] MEDS ORDERED: DEXTROSE 50% IN WATER 50 ML VIAL(D50) IV PUSH PRN (09:15)
[2017-08-12] MEDS: DOCUSATE SODIUM 100 MG CAP PO SCH ×2 (09:15→21:21)
[2017-08-12] MEDS ORDERED: GLUCAGON 1 MG/ML VIAL OTHER PRN (09:15)
[2017-08-12] MEDS ORDERED: SOD PHOSPHATE/SOD BIPHOSPHATE (ADULT) ENEMA 133ML RECTAL PRN (09:15)
[2017-08-12] MEDS: INSULIN DETEMIR 100 UNITS/ML VIAL SQ SCH ×2 (09:31→21:46)
[2017-08-12] MEDS: INSULIN ASPART SUPPLEMENTAL SCALE SQ SCH ×4 (09:54→21:46)
--- NOTE | 2017-08-12 10:54 | PD.CAR.PN ---
CVT Progress Note Subjective/Hospital Course: 81-year-old female patient of Dr. Yash Vines who has presented to the emergency room a couple of times. Her last time was for chest discomfort she has been having off and on for the past 2 months, mainly at night with or without exertion. She was seen by on 08/04/2017 and was found to have elevated troponin. She was recommended cardiac catheterization but declined and was attempted to be started on medical therapy. Her last ER admission was 08/04/2017. She stated she would like to have the cardiac catheterization but wanted to go home over the weekend to get things taken care of. Plan was for cardiac catheterization as an outpatient this weekend, but she started having chest pain again and was readmitted after she called 911. She finally underwent cardiac catheterization today which showed left main disease of 20%, proximal LAD 40%, mid-distal LAD 90%, diagonal 70%, the circ at 90%, the OM 80%, the RCA 80%. EF is pending from 2D echo. We were consulted because of multivessel coronary artery disease. PAST MEDICAL HISTORY: Includes hypertension, hyperlipidemia, diabetes mellitus, anxiety, CHF, gastroesophageal reflux disease, COPD, migraines, arthritis, neuropathy. 08/09 await daughter's arrival today to discuss surgery , pt had some chest pain last night, now on Nitro gtt, in addition to Heparin she is very sedentary at home, walks with a cane , will need rehab post surgery 08/10 rediscussed surgery with pt , she is still agreeable to proceed Anand Bustamante ( Nurse Navigator also spoke with daughter Rosemary in [place] and updated her pt scheduled for OR in am she will need rehab at discharge carotid US noted : . 50-69% stenosis within the left internal carotid artery/ she will need to follow up with vascular surgery as outpt 08/11 surgery: Urgent Off-pump Coronary Artery Bypass Grafting x 3 with Left Internal Mammary Artery (BORJA) to Left Anterior Descending (LAD), reverse saphenous vein graft to the Obtuse Marginal 1 (OM1) branch of the Left Circumflex artery, reverse saphenous vein graft to the distal Right Coronary Artery (RCA), Left Leg Endoscopic Vein [place] extubated after surgery, crystalloid 3800cc, 250cc cell saver, EBL 500cc 08/12 Up in chair, very weak , poor cough effort needs encouragement , PT/OT will need rehab at discharge pulm toileting gentle diuresis , start low dose BB transfer to stepdown later today Objective: GENERAL: A&O x 3 , weak sleepy SKIN: Warm and dry. prevena dressing to chest , tierra wrap left leg HEAD: Normocephalic. EYES: No scleral icterus. No injection or drainage. NECK: Supple, trachea midline. No JVD or lymphadenopathy. CARDIOVASCULAR: Regular rate and rhythm without murmurs, gallops, or rubs. RESPIRATORY: Breath sounds equal bilaterally. No accessory muscle use. few basilar crackles , chest tube to wall suction, no air leak drained 130cc/ 12 hrs GASTROINTESTINAL: Abdomen soft, non-tender, nondistended. MUSCULOSKELETAL: No cyanosis, or edema. BACK: Nontender without obvious deformity. No CVA tenderness. Vital Signs Date Time Temp Pulse Resp B/P (MAP) Pulse Ox O2 Delivery O2 Flow Rate FiO2 08/12/17 10:30 16 08/12/17 09:44 98 Nasal Cannula 4.00 08/12/17 09:04 19 08/12/17 07:22 98.8 71 19 109/44 (65) 98 Arterial Line 08/12/17 07:22 71 08/12/17 07:21 98 Nasal Cannula 4.00 08/12/17 03:00 76 08/12/17 03:00 99.4 76 16 122/34 (63) 96 131/43 (72) 08/12/17 03:00 97 Nasal Cannula 3.00 08/12/17 01:08 78 139/48 08/11/17 23:00 66 08/11/17 23:00 95 Nasal Cannula 3.00 08/11/17 23:00 98.8 69 12 115/44 (67) 95 127/56 (79) 08/11/17 20:13 99 Nasal Cannula 2.00 08/11/17 20:00 95 Nasal Cannula 4.00 08/11/17 20:00 98.4 97 18 148/58 (88) 97 165/51 (89) 08/11/17 19:00 78 08/11/17 18:00 97.1 08/11/17 17:39 14 08/11/17 16:30 95 Nasal Cannula 4.00 08/11/17 16:30 58 08/11/17 16:30 97.1 52 14 130/60 (83) 95 137/41 (73) 08/11/17 16:27 52 137/41 08/11/17 15:50 95 Nasal Cannula 4.00 08/11/17 15:50 95 Nasal Cannula 4 08/11/17 14:27 95 40 08/11/17 14:27 50 08/11/17 14:00 96.9 08/11/17 13:49 60 107/35 08/11/17 13:30 80 08/11/17 13:30 97 Mechanical Ventilator 50 08/11/17 13:30 50 08/11/17 13:30 64 82/28 08/11/17 13:30 96.9 143 14 169/54 (92) 92 143/56 (85) 08/11/17 13:24 97 50 08/11/17 13:20 81 143/56 08/11/17 13:15 96.9 Labs: Laboratory Tests Test 08/12/17 04:15 White Blood Count 8.1 TH/MM3 (4.0-11.0) Red Blood Count 3.06 MIL/MM3 (4.00-5.30) Hemoglobin 9.6 GM/DL (11.6-15.3) Hematocrit 28.0 % (35.0-46.0) Mean Corpuscular Volume 91.4 FL (80.0-100.0) Mean Corpuscular Hemoglobin 31.5 PG (27.0-34.0) Mean Corpuscular Hemoglobin Concent 34.4 % (32.0-36.0) Red Cell Distribution Width 13.8 % (11.6-17.2) Platelet Count 128 TH/MM3 (150-450) Mean Platelet Volume 8.4 FL (7.0-11.0) Blood Urea Nitrogen 9 MG/DL (7-18) Creatinine 0.64 MG/DL (0.50-1.00) Random Glucose 126 MG/DL (74-106) Calcium Level 9.1 MG/DL (8.5-10.1) Magnesium Level 1.9 MG/DL (1.5-2.5) Sodium Level 139 MEQ/L (136-145) Potassium Level 4.7 MEQ/L (3.5-5.1) Chloride Level 107 MEQ/L (98-107) Carbon Dioxide Level 26.7 MEQ/L (21.0-32.0) Anion Gap 5 MEQ/L (5-15) Estimat Glomerular Filtration Rate 89 ML/MIN (>89) Result Diagram: 08/12/1741408/12/17414 Telemetry: NSR (1) Multiple vessel coronary artery disease (2) NSTEMI (non-ST elevated myocardial infarction) Plan: on ASA , statin , BB plavix OOB ambulate PT/OT CM eval for rehab gentle diuresis (3) Hypertension Plan: controlled (4) COPD (chronic obstructive pulmonary disease) Plan: n nebs (5) Anxiety Plan: would avoid sedative at this time Rimma Hunter Aug 12, 2017 10:54
[2017-08-12] MEDS ORDERED: FUROSEMIDE 20 MG/2 ML VIAL IV PUSH ONE (11:00)
--- NOTE | 2017-08-12 13:17 | PD.CARD.PN ---
Subjective Subjective Remarks Extubated, up and ambulating Doing well overall Objective Medications Current Medications Medications (Trade) Dose Ordered Sig/Amy Route Start Time Stop Time Status Last Admin (Milk Of Magnesia Liq) 30 ml Q12H PRN PO 08/07/17 11:45 (Lactulose Liq) 30 ml DAILY PRN PO 08/07/17 11:45 (Lipitor) 40 mg HS PO 08/07/17 21:00 08/11/17 20:03 (Symbicort 160-4.5 Mcg Inh) 2 puff Q12HR INH 08/07/17 21:00 08/10/17 22:14 (Neurontin) 300 mg BID PO 08/07/17 21:00 08/12/17 09:08 ([place] 5-325 Mg) 1 tab Q4H PRN PO 08/09/17 10:15 08/12/17 09:30 (NS Flush) 2 ml BID IV FLUSH 08/11/17 21:00 08/12/17 09:08 (NS Flush) 2 ml UNSCH PRN IV FLUSH 08/11/17 12:45 Vancomycin HCl 1000 mg/Sodium Chloride 250 ml @ 250 mls/hr Q12H IV 08/11/17 21:00 08/12/17 21:59 08/12/17 09:09 (Aspirin Chew) 81 mg DAILY PO 08/12/17 09:00 08/12/17 09:08 (Plavix) 75 mg DAILY PO 08/12/17 09:00 08/12/17 09:07 (Protonix) 40 mg DAILY@06 PO 08/12/17 06:00 08/12/17 05:09 (Tylenol) 650 mg Q4H PRN PO 08/11/17 12:45 (Zofran Inj) 4 mg Q6H PRN IV PUSH 08/11/17 12:45 08/12/17 01:09 (Duoneb Neb) 1 ampule Q2HR NEB PRN NEB 08/11/17 12:45 (Prinivil) 5 mg DAILY PO 08/12/17 09:00 Future Hold (Mycostatin Liq) 5 ml QID SWISH-SWAL 08/11/17 21:00 08/12/17 09:07 (Levemir Inj) 5 units Q12HR SQ 4/13/18 09:00 08/12/17 09:31 (Lopressor) 12.5 mg Q12H PO 08/12/17 21:00 (Duoneb Neb) 1 ampule Q6HR WHILE AWAKE NEB NEB 08/12/17 14:00 08/14/17 13:59 08/12/17 13:00 (Colace) 100 mg BID PO 08/12/17 09:15 (Theragran M Tab) 1 tab DAILY PO 08/13/17 09:00 (Milk Of Magnesia Liq) 30 ml DAILY PO 08/13/17 09:00 (Dulcolax Supp) 10 mg UNSCH PRN RECTAL 08/12/17 09:15 (Miralax) 17 gm DAILY PO 08/13/17 09:00 (Senokot) 8.6 mg HS PO 08/12/17 21:00 (Fleets Enema (Adult)) 118 ml UNSCH PRN RECTAL 08/12/17 09:15 (NovoLOG SUPPLEMENTAL SCALE) 1 02,06,10,14,18,22 SQ 08/12/17 10:00 08/12/17 09:54 (D50w (Vial) Inj) 50 ml UNSCH PRN IV PUSH 08/12/17 09:15 (Glucagon Inj) 1 mg UNSCH PRN OTHER 08/12/17 09:15 (Glucophage) 500 mg BIDPC PO 08/13/17 09:00 Vital Signs / I&O Vital Signs Date Time Temp Pulse Resp B/P (MAP) Pulse Ox O2 Delivery O2 Flow Rate FiO2 08/12/17 11:03 98 Nasal Cannula 4.00 08/12/17 11:02 61 08/12/17 11:01 99.4 58 17 126/42 (70) 98 08/12/17 10:30 16 08/12/17 09:44 98 Nasal Cannula 4.00 08/12/17 09:04 19 08/12/17 07:22 98.8 71 19 109/44 (65) 98 Arterial Line 08/12/17 07:22 71 08/12/17 07:21 98 Nasal Cannula 4.00 08/12/17 03:00 76 08/12/17 03:00 99.4 76 16 122/34 (63) 96 131/43 (72) 08/12/17 03:00 97 Nasal Cannula 3.00 08/12/17 01:08 78 139/48 08/11/17 23:00 66 08/11/17 23:00 95 Nasal Cannula 3.00 08/11/17 23:00 98.8 69 12 115/44 (67) 95 127/56 (79) 08/11/17 20:13 99 Nasal Cannula 2.00 08/11/17 20:00 95 Nasal Cannula 4.00 08/11/17 20:00 98.4 97 18 148/58 (88) 97 165/51 (89) 08/11/17 19:00 78 08/11/17 18:00 97.1 08/11/17 17:39 14 08/11/17 16:30 95 Nasal Cannula 4.00 08/11/17 16:30 58 08/11/17 16:30 97.1 52 14 130/60 (83) 95 137/41 (73) 08/11/17 16:27 52 137/41 08/11/17 15:50 95 Nasal Cannula 4.00 08/11/17 15:50 95 Nasal Cannula 4 08/11/17 14:27 95 40 08/11/17 14:27 50 08/11/17 14:00 96.9 08/11/17 13:49 60 107/35 08/11/17 13:30 80 08/11/17 13:30 97 Mechanical Ventilator 50 08/11/17 13:30 50 08/11/17 13:30 64 82/28 08/11/17 13:30 96.9 143 14 169/54 (92) 92 143/56 (85) 08/11/17 13:24 97 50 08/11/17 13:20 81 143/56 I/O 08/11/17 08/11/17 08/11/17 08/12/17 08/12/17 08/12/17 07:00 15:00 23:00 07:00 15:00 23:00 Intake Total 635 ml 4550 ml 1510 ml 75 ml 204 ml Output Total 1300 ml 700 ml 930 ml 1260 ml Balance -665 ml 3850 ml 580 ml -1185 ml 204 ml Intake Oral 240 ml 50 ml IV Total 395 ml 500 ml 1460 ml 75 ml 204 ml Autotransfusion 250 ml Other 3800 ml Output Urine Total 1300 ml 200 ml 780 ml 1130 ml Gastric Drainage Total 0 ml Chest Tube Drainage Total 150 ml 130 ml Estimated Blood Loss 500 ml # Bowel Movements 0 0 0 Physical Exam GENERAL: NAD, AAOx3 SKIN: Warm and dry. HEAD: Atraumatic. Normocephalic. EYES: Pupils equal and round. No scleral icterus. No injection or drainage. ENT: No nasal bleeding or discharge. Mucous membranes pink and moist. NECK: Trachea midline. No JVD. CARDIOVASCULAR: Regular rate and rhythm. RESPIRATORY: No accessory muscle use. Clear to auscultation. Breath sounds equal bilaterally. GASTROINTESTINAL: Abdomen soft, non-tender, nondistended. Hepatic and splenic margins not palpable. MUSCULOSKELETAL: Extremities without clubbing, cyanosis, or edema. No obvious deformities. NEUROLOGICAL: Awake and alert. No obvious cranial nerve deficits. Motor grossly within normal limits. Five out of 5 muscle strength in the arms and legs. Normal speech. PSYCHIATRIC: Appropriate mood and affect; insight and judgment normal. Laboratory Laboratory Tests Test 08/12/17 04:15 White Blood Count 8.1 TH/MM3 Red Blood Count 3.06 MIL/MM3 Hemoglobin 9.6 GM/DL Hematocrit 28.0 % Mean Corpuscular Volume 91.4 FL Mean Corpuscular Hemoglobin 31.5 PG Mean Corpuscular Hemoglobin Concent 34.4 % Red Cell Distribution Width 13.8 % Platelet Count 128 TH/MM3 Mean Platelet Volume 8.4 FL Blood Urea Nitrogen 9 MG/DL Creatinine 0.64 MG/DL Random Glucose 126 MG/DL Calcium Level 9.1 MG/DL Magnesium Level 1.9 MG/DL Sodium Level 139 MEQ/L Potassium Level 4.7 MEQ/L Chloride Level 107 MEQ/L Carbon Dioxide Level 26.7 MEQ/L Anion Gap 5 MEQ/L Estimat Glomerular Filtration Rate 89 ML/MIN Imaging Last 24 hours Impressions Chest X-Ray 08/12/17 0500 Signed Impressions: Service Date/Time: Saturday, August 12, 2017 05:47 - CONCLUSION: Interval extubation with slight decrease in aeration Brandon Shahid MD Assessment and Plan Problem List: (1) Multiple vessel coronary artery disease ICD Codes: I25.10 - Atherosclerotic heart disease of [place] coronary artery without angina pectoris (2) NSTEMI (non-ST elevated myocardial infarction) ICD Codes: I21.4 - Non-ST elevation (NSTEMI) myocardial infarction (3) Hypertension ICD Codes: I10 - Hypertension Status: Chronic (4) COPD (chronic obstructive pulmonary disease) ICD Codes: J44.9 - Chronic obstructive pulmonary disease Status: Chronic (5) Anxiety ICD Codes: F41.9 - Anxiety Status: Chronic Assessment and Plan 1) Unstable angina, MVCAD s/p CABGx3 POD #1 BORJA to LAD, SVG to OM, SVG to RCA 2) EF 50% 3) Con't to ambulate 4) Chest tubes in Grant Kc DO Aug 12, 2017 13:17
--- NOTE | 2017-08-12 13:41 | HHI.PR ---
Subjective Remarks She is seen this morning around noon. Says she is feeling all right. Reports surgical pain is controlled. Denies any nausea or vomiting. No bowel movements yet. Objective Vital Signs Date Time Temp Pulse Resp B/P (MAP) Pulse Ox O2 Delivery O2 Flow Rate FiO2 08/12/17 11:03 98 Nasal Cannula 4.00 08/12/17 11:02 61 08/12/17 11:01 99.4 58 17 126/42 (70) 98 08/12/17 10:30 16 08/12/17 09:44 98 Nasal Cannula 4.00 08/12/17 09:04 19 08/12/17 07:22 98.8 71 19 109/44 (65) 98 Arterial Line 08/12/17 07:22 71 08/12/17 07:21 98 Nasal Cannula 4.00 08/12/17 03:00 76 08/12/17 03:00 99.4 76 16 122/34 (63) 96 131/43 (72) 08/12/17 03:00 97 Nasal Cannula 3.00 08/12/17 01:08 78 139/48 08/11/17 23:00 66 08/11/17 23:00 95 Nasal Cannula 3.00 08/11/17 23:00 98.8 69 12 115/44 (67) 95 127/56 (79) 08/11/17 20:13 99 Nasal Cannula 2.00 08/11/17 20:00 95 Nasal Cannula 4.00 08/11/17 20:00 98.4 97 18 148/58 (88) 97 165/51 (89) 08/11/17 19:00 78 08/11/17 18:00 97.1 08/11/17 17:39 14 08/11/17 16:30 95 Nasal Cannula 4.00 08/11/17 16:30 58 08/11/17 16:30 97.1 52 14 130/60 (83) 95 137/41 (73) 08/11/17 16:27 52 137/41 08/11/17 15:50 95 Nasal Cannula 4.00 08/11/17 15:50 95 Nasal Cannula 4 08/11/17 14:27 95 40 08/11/17 14:27 50 08/11/17 14:00 96.9 08/11/17 13:49 60 107/35 I/O 08/11/17 08/11/17 08/11/17 08/12/17 08/12/17 08/12/17 06:59 14:59 22:59 06:59 14:59 22:59 Intake Total 635 ml 4550 ml 1510 ml 75 ml 204 ml Output Total 1300 ml 700 ml 930 ml 1260 ml Balance -665 ml 3850 ml 580 ml -1185 ml 204 ml Intake Oral 240 ml 50 ml IV Total 395 ml 500 ml 1460 ml 75 ml 204 ml Autotransfusion 250 ml Other 3800 ml Output Urine Total 1300 ml 200 ml 780 ml 1130 ml Gastric Drainage Total 0 ml Chest Tube Drainage Total 150 ml 130 ml Estimated Blood Loss 500 ml # Bowel Movements 0 0 0 Result Diagram: 08/12/1741408/12/17414 Objective Remarks GENERAL: Sitting up in recliner. Sleeping, wakes up for exam. Appears comfortable. SKIN: Warm and dry. HEAD: Normocephalic. EYES: No scleral icterus. No injection or drainage. NECK: Supple, trachea midline. No JVD. CARDIOVASCULAR: Regular rate and rhythm without murmurs, gallops, or rubs. RESPIRATORY: Breath sounds equal bilaterally. No accessory muscle use.postoperative dressings clean dry and intact GASTROINTESTINAL: Abdomen soft, non-tender, nondistended. MUSCULOSKELETAL: No cyanosis, or edema. BACK: Nontender without obvious deformity. No CVA tenderness. A/P Assessment and Plan //Coronary artery disease: Status post cardiac catheterization, which showed multivessel coronary artery disease. Cardiothoracic surgery has been consulted for CABG. Continue heparin drip. Continue statin, aspirin, beta-tyrell. Continues to have chest pain. Start nitroglycerin drip. = Plan for CABG tomorrow. 08/11. Patient recovering status post CABG. Sedation and blood pressure management as per cardiothoracic surgery. 08/12. Patient continues recovering. Blood pressure control and diuresis as per primary service. //Operative anemia. Hemoglobin 9.6 from normal preoperatively. No signs of active bleeding. Continue to monitor. //Diabetes mellitus type 2: Monitor Accu-Cheks and cover with sliding scale insulin. Hold metformin. Glucose remains elevated. Increase Levemir. = Patient had apparently been on heart healthy diet. Will switch to diabetic diet. Increase sliding scale to moderate, and give extra insulin at dinner. Discussed with nursing. Appreciate assistance. = Blood sugars acceptable. Continue diabetic diet and sliding scale. //Hyperlipidemia: Chronic. Continue statin. //COPD: Does not appear to be in exacerbation at this time. Continue Symbicort. DuoNeb as needed. Oxygen as needed. //GERD: Continue PPI. //Bacteremia: Continue Levaquin and Flagyl. Stop date is 08/09/17. //DVT prophylaxis: Heparin. Discharge Planning postoperative CABG 08/11 Likely need rehab/SNF PT, OT pending Baltazar Etienne MD Aug 12, 2017 13:41
--- NOTE | 2017-08-12 20:23 | EKG ---
Date Performed: 08/12/2017 Time Performed: 05:16:44 PTAGE: 81 years EKG: Sinus rhythm Leftward axis Right bundle branch block LVH with secondary repolarization abnormality Inferior/later al ST-T changes may be due to hypertrophy and/or ischemia Suspect incorrect placement of leads V2 ST T wave changes are more prominent since prior tracing. Clinical correlation is recommended Abnormal E CG PREVIOUS TRACING : 08/07/2017 09.41 DOCTOR: Александр Sibley Interpretating Date/Time 08/12/2017 20:21:34
[2017-08-12] MEDS: RESP: ALBUTEROL 2.5 MG/IPRATROPIUM 0.5 MG NEB (PRN) NEB (20:37)
[2017-08-12] MEDS: SENNOSIDES 8.6 MG TAB PO SCH (21:21)
[2017-08-12] MEDS: ATORVASTATIN 40 MG TAB PO SCH (21:21)
[2017-08-13] VITALS (15 sets, daily range): BP systolic 142–172; BP diastolic 44–60; PULSE 64–90; RESP 18–22; TEMP 98.2–99.5; O2SAT 94–98
[2017-08-13] MEDS: ACETAMINOPHEN/HYDROcodone 325 MG/5 MG TAB PO PRN ×5 (01:32→21:04)
[2017-08-13] MEDS: INSULIN ASPART SUPPLEMENTAL SCALE SQ SCH ×5 (01:42→21:15)
[2017-08-13] MEDS: ONDANSETRON HCL 4 MG/2 ML VIAL IV PUSH PRN (03:07)
[2017-08-13] MEDS: PANTOPRAZOLE SOD 40 MG DELAYED RELEASE TAB PO SCH (04:59)
[2017-08-13 05:10] LABS: AUTOMATED NEUTROPHIL # 5.7 TH/MM3 (1.8-7.7); BASOPHIL % 0.3 % (0.0-2.0); EOSINOPHIL # 0.2 TH/MM3 (0-0.4); EOSINOPHIL % 2.8 % (0.0-4.0); HEMATOCRIT 26.1 % (35.0-46.0); LYMPH % 16.9 % (9.0-44.0); LYMPHOCYTE # 1.4 TH/MM3 (1.0-4.8); MEAN CELL VOLUME 91.7 FL (80.0-100.0); MEAN CORPUSCULAR HEMOGLOBIN 31.7 PG (27.0-34.0); MEAN CORPUSCULAR HGB CONC 34.5 % (32.0-36.0); MEAN PLATELET VOLUME 8.4 FL (7.0-11.0); MONO % 9.3 % (0.0-8.0); MONOCYTE # 0.7 TH/MM3 (0-0.9); NEUT % 70.7 % (16.0-70.0); PLATELET COUNT 139 TH/MM3 (150-450); RED BLOOD COUNT 2.85 MIL/MM3 (4.00-5.30); RED CELL DISTRIBUTION WIDTH 14.1 % (11.6-17.2)
[2017-08-13 05:29] LABS: BICARBONATE 28.1 MEQ/L (21.0-32.0); CALCIUM 8.8 MG/DL (8.5-10.1); CREATININE 0.86 MG/DL (0.50-1.00); MAGNESIUM 2.2 MG/DL (1.5-2.5)
[2017-08-13] MEDS: BUDESONIDE-FORMOTEROL 160/4.5 MCG INHALER INH SCH ×2 (08:52→21:00)
[2017-08-13] MEDS: SODIUM CHLORIDE 0.9% FLUSH 10 ML FLUSH IV FLUSH SCH ×2 (08:52→21:16)
[2017-08-13] MEDS: ASPIRIN 81 MG CHEW TAB PO SCH (08:53)
[2017-08-13] MEDS: DOCUSATE SODIUM 100 MG CAP PO SCH ×2 (08:53→20:54)
[2017-08-13] MEDS: MULTIVITAMINS/MINERALS THERAPEUTIC TAB PO SCH (08:54)
[2017-08-13] MEDS: METOPROLOL TARTRATE 25 MG TAB PO SCH ×2 (08:54→20:55)
[2017-08-13] MEDS: metFORMIN HCL 500 MG TAB PO SCH ×2 (08:54→17:10)
[2017-08-13] MEDS: INSULIN DETEMIR 100 UNITS/ML VIAL SQ SCH ×2 (08:55→21:14)
[2017-08-13] MEDS: CLOPIDOGREL 75 MG TAB PO SCH (08:55)
[2017-08-13] MEDS: GABAPENTIN 300 MG CAP PO SCH ×2 (08:55→20:54)
[2017-08-13] MEDS: POLYETHYLENE GLYCOL 17 GM PKG PO SCH (08:56)
[2017-08-13] MEDS: MAGNESIUM HYDROXIDE SUSP 30 ML CUP PO SCH (08:56)
[2017-08-13] MEDS: NYSTATIN SUSP 500,000 U/5 ML CUP SWISH-SWAL SCH ×4 (08:56→20:54)
[2017-08-13] MEDS: RESP: ALBUTEROL 2.5 MG/IPRATROPIUM 0.5 MG NEB (SCH) NEB ×3 (09:15→19:42)
--- NOTE | 2017-08-13 10:22 | PD.CAR.PN ---
CVT Progress Note Subjective/Hospital Course: 81-year-old female patient of Dr. Yash Vines who has presented to the emergency room a couple of times. Her last time was for chest discomfort she has been having off and on for the past 2 months, mainly at night with or without exertion. She was seen by on 08/04/2017 and was found to have elevated troponin. She was recommended cardiac catheterization but declined and was attempted to be started on medical therapy. Her last ER admission was 08/04/2017. She stated she would like to have the cardiac catheterization but wanted to go home over the weekend to get things taken care of. Plan was for cardiac catheterization as an outpatient this weekend, but she started having chest pain again and was readmitted after she called 911. She finally underwent cardiac catheterization today which showed left main disease of 20%, proximal LAD 40%, mid-distal LAD 90%, diagonal 70%, the circ at 90%, the OM 80%, the RCA 80%. EF is pending from 2D echo. We were consulted because of multivessel coronary artery disease. PAST MEDICAL HISTORY: Includes hypertension, hyperlipidemia, diabetes mellitus, anxiety, CHF, gastroesophageal reflux disease, COPD, migraines, arthritis, neuropathy. 08/09 await daughter's arrival today to discuss surgery , pt had some chest pain last night, now on Nitro gtt, in addition to Heparin she is very sedentary at home, walks with a cane , will need rehab post surgery 08/10 rediscussed surgery with pt , she is still agreeable to proceed Anand Bustamante ( Nurse Navigator also spoke with daughter Rosemary in [place] and updated her pt scheduled for OR in am she will need rehab at discharge carotid US noted : . 50-69% stenosis within the left internal carotid artery/ she will need to follow up with vascular surgery as outpt 08/11 surgery: Urgent Off-pump Coronary Artery Bypass Grafting x 3 with Left Internal Mammary Artery (BORJA) to Left Anterior Descending (LAD), reverse saphenous vein graft to the Obtuse Marginal 1 (OM1) branch of the Left Circumflex artery, reverse saphenous vein graft to the distal Right Coronary Artery (RCA), Left Leg Endoscopic Vein [place] extubated after surgery, crystalloid 3800cc, 250cc cell saver, EBL 500cc 08/12 Up in chair, very weak , poor cough effort needs encouragement , PT/OT will need rehab at discharge pulm toileting gentle diuresis , start low dose BB transfer to stepdown later today 08/13 Doing well D/C CT today Awaiting CPCU bed Discharge planning Objective: Vital Signs Date Time Temp Pulse Resp B/P (MAP) Pulse Ox O2 Delivery O2 Flow Rate FiO2 08/13/17 09:57 20 08/13/17 09:15 94 Nasal Cannula 5.00 08/13/17 08:00 98.5 74 18 146/53 (84) 96 08/13/17 08:00 96 Nasal Cannula 5.00 08/13/17 07:00 64 08/13/17 03:10 74 08/13/17 03:08 96 Nasal Cannula 5.00 08/13/17 03:00 99.2 79 20 142/44 (76) 96 08/13/17 00:00 99.5 90 20 160/52 (88) 98 08/12/17 23:45 98 Nasal Cannula 5.00 08/12/17 23:00 86 08/12/17 21:30 98 Nasal Cannula 5.00 08/12/17 20:39 95 Nasal Cannula 4.00 08/12/17 19:30 97 Nasal Cannula 4.00 08/12/17 19:00 74 08/12/17 19:00 98.6 75 20 144/54 (84) 97 08/12/17 15:04 98 Nasal Cannula 4.00 08/12/17 15:03 98.8 74 16 120/44 (69) 98 08/12/17 15:03 74 08/12/17 11:03 98 Nasal Cannula 4.00 08/12/17 11:02 61 08/12/17 11:01 99.4 58 17 126/42 (70) 98 Labs: Laboratory Tests Test 08/13/17 04:50 White Blood Count 8.0 TH/MM3 (4.0-11.0) Red Blood Count 2.85 MIL/MM3 (4.00-5.30) Hemoglobin 9.0 GM/DL (11.6-15.3) Hematocrit 26.1 % (35.0-46.0) Mean Corpuscular Volume 91.7 FL (80.0-100.0) Mean Corpuscular Hemoglobin 31.7 PG (27.0-34.0) Mean Corpuscular Hemoglobin Concent 34.5 % (32.0-36.0) Red Cell Distribution Width 14.1 % (11.6-17.2) Platelet Count 139 TH/MM3 (150-450) Mean Platelet Volume 8.4 FL (7.0-11.0) Neutrophils (%) (Auto) 70.7 % (16.0-70.0) Lymphocytes (%) (Auto) 16.9 % (9.0-44.0) Monocytes (%) (Auto) 9.3 % (0.0-8.0) Eosinophils (%) (Auto) 2.8 % (0.0-4.0) Basophils (%) (Auto) 0.3 % (0.0-2.0) Neutrophils # (Auto) 5.7 TH/MM3 (1.8-7.7) Lymphocytes # (Auto) 1.4 TH/MM3 (1.0-4.8) Monocytes # (Auto) 0.7 TH/MM3 (0-0.9) Eosinophils # (Auto) 0.2 TH/MM3 (0-0.4) Basophils # (Auto) 0.0 TH/MM3 (0-0.2) CBC Comment DIFF FINAL Differential Comment Blood Urea Nitrogen 12 MG/DL (7-18) Creatinine 0.86 MG/DL (0.50-1.00) Random Glucose 79 MG/DL (74-106) Calcium Level 8.8 MG/DL (8.5-10.1) Magnesium Level 2.2 MG/DL (1.5-2.5) Sodium Level 139 MEQ/L (136-145) Potassium Level 4.5 MEQ/L (3.5-5.1) Chloride Level 106 MEQ/L (98-107) Carbon Dioxide Level 28.1 MEQ/L (21.0-32.0) Anion Gap 5 MEQ/L (5-15) Estimat Glomerular Filtration Rate 63 ML/MIN (>89) Result Diagram: 08/13/1744908/13/17449 (1) Multiple vessel coronary artery disease (2) NSTEMI (non-ST elevated myocardial infarction) Plan: on ASA , statin , BB plavix OOB ambulate PT/OT CM eval for rehab gentle diuresis (3) Hypertension Plan: controlled (4) COPD (chronic obstructive pulmonary disease) Plan: n nebs (5) Anxiety Plan: would avoid sedative at this time Gini Quintana MD Aug 13, 2017 10:22
[2017-08-13] MEDS ORDERED: FUROSEMIDE 20 MG/2 ML VIAL IV PUSH ONE (14:00)
--- NOTE | 2017-08-13 14:30 | RADRPT ---
EXAM DATE/TIME: 08/13/2017 14:05 [facility] COMPARISON: CHEST SINGLE AP, August 12, 2017, 5:47. INDICATIONS : Shortness of breath. MEDICAL HISTORY : Hypertension. Myocardial infarction. Chronic obstructive pulmonary disease. Hiatal hernia. Parkinsons . Emphysema. SURGICAL HISTORY : CABG. ENCOUNTER: Subsequent ACUITY: 3 weeks PAIN SCORE: 0/10 LOCATION: chest FINDINGS: There has been interval removal of thoracostomy tubes. Next Central line remains in place. There is n o evidence of pneumothorax. There is persistent consolidative process in the left lung base and mild perihilar atelectasis on the left. Cardiac contours are grossly stable. CONCLUSION: Thoracostomy tubes removed without complication Brandon Shaihd MD on August 13, 2017 at 14:27 Board Certified Radiologist. This report was verified electronically.
--- NOTE | 2017-08-13 17:39 | HHI.PR ---
Subjective Remarks Patient seen this afternoon around noon. Says she is a little bit more short of breath than yesterday. Reports chest pain under control. Objective Vital Signs Date Time Temp Pulse Resp B/P (MAP) Pulse Ox O2 Delivery O2 Flow Rate FiO2 08/13/17 15:10 96 Nasal Cannula 4.00 08/13/17 15:02 98.2 66 18 148/54 (85) 96 08/13/17 15:00 66 08/13/17 12:47 20 08/13/17 11:41 96 Nasal Cannula 4.00 08/13/17 11:12 98.6 73 18 164/54 (90) 96 08/13/17 11:00 74 08/13/17 09:15 94 Nasal Cannula 5.00 08/13/17 08:00 98.5 74 18 146/53 (84) 96 08/13/17 08:00 96 Nasal Cannula 5.00 08/13/17 07:00 64 08/13/17 03:10 74 08/13/17 03:08 96 Nasal Cannula 5.00 08/13/17 03:00 99.2 79 20 142/44 (76) 96 08/13/17 00:00 99.5 90 20 160/52 (88) 98 08/12/17 23:45 98 Nasal Cannula 5.00 08/12/17 23:00 86 08/12/17 21:30 98 Nasal Cannula 5.00 08/12/17 20:39 95 Nasal Cannula 4.00 08/12/17 19:30 97 Nasal Cannula 4.00 08/12/17 19:00 74 08/12/17 19:00 98.6 75 20 144/54 (84) 97 I/O 08/12/17 08/12/17 08/12/17 08/13/17 08/13/17 08/13/17 07:00 15:00 23:00 07:00 15:00 23:00 Intake Total 75 ml 204 ml 1000 ml 240 ml 1350 ml Output Total 1260 ml 500 ml 830 ml 1450 ml Balance -1185 ml 204 ml 500 ml -590 ml -100 ml Intake Oral 750 ml 240 ml 1350 ml IV Total 75 ml 204 ml 250 ml Output Urine Total 1130 ml 400 ml 750 ml 1450 ml Chest Tube Drainage Total 130 ml 100 ml 80 ml # Voids 2 # Bowel Movements 0 0 0 0 Result Diagram: 08/13/1744908/13/17449 Objective Remarks GENERAL: Sitting up in bed. Sleeping, wakes up for exam. Appears comfortable. SKIN: Warm and dry. HEAD: Normocephalic. EYES: No scleral icterus. No injection or drainage. NECK: Supple, trachea midline. No JVD. CARDIOVASCULAR: Regular rate and rhythm without murmurs, gallops, or rubs. RESPIRATORY: Breath sounds equal bilaterally. No accessory muscle use.postoperative dressings clean dry and intact GASTROINTESTINAL: Abdomen soft, non-tender, nondistended. MUSCULOSKELETAL: No cyanosis, or edema. BACK: Nontender without obvious deformity. No CVA tenderness. A/P Assessment and Plan //Coronary artery disease: Status post cardiac catheterization, which showed multivessel coronary artery disease. Cardiothoracic surgery has been consulted for CABG. Continue heparin drip. Continue statin, aspirin, beta-tyrell. Continues to have chest pain. Start nitroglycerin drip. = Plan for CABG tomorrow. 08/11. Patient recovering status post CABG. Sedation and blood pressure management as per cardiothoracic surgery. 08/12. Patient continues recovering. Blood pressure control and diuresis as per primary service. //Shortness of breath 08/13. Chest x-ray with no acute findings, status post removal of chest tubes. BNP in the 200s. Lasix ordered 1 week. We will continue to monitor. Continue incentive spirometry //Operative anemia. Hemoglobin 9.6 from normal preoperatively. No signs of active bleeding. Continue to monitor. //Diabetes mellitus type 2: Monitor Accu-Cheks and cover with sliding scale insulin. Hold metformin. Glucose remains elevated. Increase Levemir. = Patient had apparently been on heart healthy diet. Will switch to diabetic diet. Increase sliding scale to moderate, and give extra insulin at dinner. Discussed with nursing. Appreciate assistance. = Blood sugars acceptable. Continue diabetic diet and sliding scale. = 08/13. Slight hypoglycemia this morning in the 70s. Insulin adjusted as per primary service. //Hyperlipidemia: Chronic. Continue statin. //COPD: Does not appear to be in exacerbation at this time. Continue Symbicort. DuoNeb as needed. Oxygen as needed. //GERD: Continue PPI. //Bacteremia: Continue Levaquin and Flagyl. Stop date is 08/09/17. //DVT prophylaxis: Heparin. Discharge Planning postoperative CABG 08/11 Likely need rehab/SNF PT, OT pending Baltazar Etienne MD Aug 13, 2017 17:39
[2017-08-13] MEDS: ATORVASTATIN 40 MG TAB PO SCH (20:54)
[2017-08-13] MEDS: SENNOSIDES 8.6 MG TAB PO SCH (20:54)
[2017-08-14] VITALS (23 sets, daily range): BP systolic 140–169; BP diastolic 57–72; PULSE 70–93; RESP 18–22; TEMP 98.2–99.9; O2SAT 93–100
[2017-08-14] MEDS: ACETAMINOPHEN/HYDROcodone 325 MG/5 MG TAB PO PRN ×4 (00:13→21:00)
[2017-08-14 05:24] LABS: AUTOMATED NEUTROPHIL # 4.9 TH/MM3 (1.8-7.7); BASOPHIL % 0.4 % (0.0-2.0); EOSINOPHIL # 0.2 TH/MM3 (0-0.4); EOSINOPHIL % 2.6 % (0.0-4.0); HEMATOCRIT 24.2 % (35.0-46.0); HEMOGLOBIN 8.4 GM/DL (11.6-15.3); LYMPH % 13.7 % (9.0-44.0); LYMPHOCYTE # 0.9 TH/MM3 (1.0-4.8); MEAN CELL VOLUME 91.3 FL (80.0-100.0); MEAN CORPUSCULAR HEMOGLOBIN 31.8 PG (27.0-34.0); MEAN CORPUSCULAR HGB CONC 34.8 % (32.0-36.0); MEAN PLATELET VOLUME 8.2 FL (7.0-11.0); MONO % 9.9 % (0.0-8.0); MONOCYTE # 0.7 TH/MM3 (0-0.9); NEUT % 73.4 % (16.0-70.0); PLATELET COUNT 138 TH/MM3 (150-450); RED BLOOD COUNT 2.65 MIL/MM3 (4.00-5.30); RED CELL DISTRIBUTION WIDTH 13.5 % (11.6-17.2); WHITE BLOOD COUNT 6.7 TH/MM3 (4.0-11.0)
[2017-08-14 05:47] LABS: ALBUMIN 2.3 GM/DL (3.4-5.0); BICARBONATE 31.7 MEQ/L (21.0-32.0); CALCIUM 8.3 MG/DL (8.5-10.1); CREATININE 0.74 MG/DL (0.50-1.00); MAGNESIUM 2.2 MG/DL (1.5-2.5); PHOSPHORUS 3.3 MG/DL (2.5-4.9)
[2017-08-14] MEDS: PANTOPRAZOLE SOD 40 MG DELAYED RELEASE TAB PO SCH (06:26)
[2017-08-14] MEDS: metFORMIN HCL 500 MG TAB PO SCH ×2 (08:23→16:57)
[2017-08-14] MEDS: GABAPENTIN 300 MG CAP PO SCH ×2 (08:23→21:00)
[2017-08-14] MEDS: CLOPIDOGREL 75 MG TAB PO SCH (08:23)
[2017-08-14] MEDS: METOPROLOL TARTRATE 25 MG TAB PO SCH ×2 (08:23→21:00)
[2017-08-14] MEDS: POLYETHYLENE GLYCOL 17 GM PKG PO SCH (08:23)
[2017-08-14] MEDS: ASPIRIN 81 MG CHEW TAB PO SCH (08:23)
[2017-08-14] MEDS: NYSTATIN SUSP 500,000 U/5 ML CUP SWISH-SWAL SCH ×4 (08:23→21:00)
[2017-08-14] MEDS: MAGNESIUM HYDROXIDE SUSP 30 ML CUP PO SCH (08:23)
[2017-08-14] MEDS: BUDESONIDE-FORMOTEROL 160/4.5 MCG INHALER INH SCH ×2 (08:24→21:00)
[2017-08-14] MEDS: INSULIN ASPART SUPPLEMENTAL SCALE SQ SCH ×4 (08:24→21:00)
[2017-08-14] MEDS: INSULIN DETEMIR 100 UNITS/ML VIAL SQ SCH ×2 (08:24→21:00)
[2017-08-14] MEDS: SODIUM CHLORIDE 0.9% FLUSH 10 ML FLUSH IV FLUSH SCH ×2 (08:24→21:00)
[2017-08-14] MEDS: DOCUSATE SODIUM 100 MG CAP PO SCH ×2 (08:24→21:00)
[2017-08-14] MEDS: MULTIVITAMINS/MINERALS THERAPEUTIC TAB PO SCH (08:24)
[2017-08-14] MEDS: RESP: ALBUTEROL 2.5 MG/IPRATROPIUM 0.5 MG NEB (SCH) NEB (09:12)
--- NOTE | 2017-08-14 10:14 | PD.CAR.PN ---
CVT Progress Note Subjective/Hospital Course: 81-year-old female patient of Dr. Yash Vines who has presented to the emergency room a couple of times. Her last time was for chest discomfort she has been having off and on for the past 2 months, mainly at night with or without exertion. She was seen by on 08/04/2017 and was found to have elevated troponin. She was recommended cardiac catheterization but declined and was attempted to be started on medical therapy. Her last ER admission was 08/04/2017. She stated she would like to have the cardiac catheterization but wanted to go home over the weekend to get things taken care of. Plan was for cardiac catheterization as an outpatient this weekend, but she started having chest pain again and was readmitted after she called 911. She finally underwent cardiac catheterization today which showed left main disease of 20%, proximal LAD 40%, mid-distal LAD 90%, diagonal 70%, the circ at 90%, the OM 80%, the RCA 80%. EF is pending from 2D echo. We were consulted because of multivessel coronary artery disease. PAST MEDICAL HISTORY: Includes hypertension, hyperlipidemia, diabetes mellitus, anxiety, CHF, gastroesophageal reflux disease, COPD, migraines, arthritis, neuropathy. 08/09 await daughter's arrival today to discuss surgery , pt had some chest pain last night, now on Nitro gtt, in addition to Heparin she is very sedentary at home, walks with a cane , will need rehab post surgery 08/10 rediscussed surgery with pt , she is still agreeable to proceed Anand Bustamante ( Nurse Navigator also spoke with daughter Rosemary in [place] and updated her pt scheduled for OR in am she will need rehab at discharge carotid US noted : . 50-69% stenosis within the left internal carotid artery/ she will need to follow up with vascular surgery as outpt 08/11 surgery: Urgent Off-pump Coronary Artery Bypass Grafting x 3 with Left Internal Mammary Artery (BORJA) to Left Anterior Descending (LAD), reverse saphenous vein graft to the Obtuse Marginal 1 (OM1) branch of the Left Circumflex artery, reverse saphenous vein graft to the distal Right Coronary Artery (RCA), Left Leg Endoscopic Vein [place] extubated after surgery, crystalloid 3800cc, 250cc cell saver, EBL 500cc 08/12 Up in chair, very weak , poor cough effort needs encouragement , PT/OT will need rehab at discharge pulm toileting gentle diuresis , start low dose BB transfer to stepdown later today 08/13 Doing well D/C CT today Awaiting CPCU bed Discharge planning 08/14 Doing well Awaiting CPCU bed Rehab/SNF eval Objective: Vital Signs Date Time Temp Pulse Resp B/P (MAP) Pulse Ox O2 Delivery O2 Flow Rate FiO2 08/14/17 09:11 100 Nasal Cannula 4.00 08/14/17 08:00 98.2 84 22 168/65 (99) 94 08/14/17 07:44 95 Nasal Cannula 5.00 08/14/17 07:00 76 08/14/17 04:00 99.6 73 20 159/57 (91) 95 08/14/17 04:00 95 Nasal Cannula 5.00 08/14/17 03:15 70 08/14/17 01:15 20 08/14/17 00:00 88 163/64 (97) 08/13/17 23:30 97 Nasal Cannula 5.00 08/13/17 23:30 99.5 88 20 172/60 (97) 97 08/13/17 23:00 66 08/13/17 20:00 94 Nasal Cannula 5.00 08/13/17 20:00 98.5 84 22 145/56 (85) 94 08/13/17 19:30 95 Nasal Cannula 5.00 08/13/17 19:00 78 08/13/17 15:10 96 Nasal Cannula 4.00 08/13/17 15:02 98.2 66 18 148/54 (85) 96 08/13/17 15:00 66 08/13/17 11:41 96 Nasal Cannula 4.00 08/13/17 11:12 98.6 73 18 164/54 (90) 96 08/13/17 11:00 74 Labs: Laboratory Tests Test 08/14/17 04:55 White Blood Count 6.7 TH/MM3 (4.0-11.0) Red Blood Count 2.65 MIL/MM3 (4.00-5.30) Hemoglobin 8.4 GM/DL (11.6-15.3) Hematocrit 24.2 % (35.0-46.0) Mean Corpuscular Volume 91.3 FL (80.0-100.0) Mean Corpuscular Hemoglobin 31.8 PG (27.0-34.0) Mean Corpuscular Hemoglobin Concent 34.8 % (32.0-36.0) Red Cell Distribution Width 13.5 % (11.6-17.2) Platelet Count 138 TH/MM3 (150-450) Mean Platelet Volume 8.2 FL (7.0-11.0) Neutrophils (%) (Auto) 73.4 % (16.0-70.0) Lymphocytes (%) (Auto) 13.7 % (9.0-44.0) Monocytes (%) (Auto) 9.9 % (0.0-8.0) Eosinophils (%) (Auto) 2.6 % (0.0-4.0) Basophils (%) (Auto) 0.4 % (0.0-2.0) Neutrophils # (Auto) 4.9 TH/MM3 (1.8-7.7) Lymphocytes # (Auto) 0.9 TH/MM3 (1.0-4.8) Monocytes # (Auto) 0.7 TH/MM3 (0-0.9) Eosinophils # (Auto) 0.2 TH/MM3 (0-0.4) Basophils # (Auto) 0.0 TH/MM3 (0-0.2) CBC Comment DIFF FINAL Differential Comment Blood Urea Nitrogen 11 MG/DL (7-18) Creatinine 0.74 MG/DL (0.50-1.00) Random Glucose 155 MG/DL (74-106) Albumin 2.3 GM/DL (3.4-5.0) Calcium Level 8.3 MG/DL (8.5-10.1) Phosphorus Level 3.3 MG/DL (2.5-4.9) Magnesium Level 2.2 MG/DL (1.5-2.5) Sodium Level 139 MEQ/L (136-145) Potassium Level 4.5 MEQ/L (3.5-5.1) Chloride Level 103 MEQ/L (98-107) Carbon Dioxide Level 31.7 MEQ/L (21.0-32.0) Anion Gap 4 MEQ/L (5-15) Estimat Glomerular Filtration Rate 75 ML/MIN (>89) Result Diagram: 08/14/17 0455 08/14/17 0455 (1) Multiple vessel coronary artery disease (2) NSTEMI (non-ST elevated myocardial infarction) Plan: on ASA , statin , BB plavix OOB ambulate PT/OT CM eval for rehab gentle diuresis (3) Hypertension Plan: controlled (4) COPD (chronic obstructive pulmonary disease) Plan: n nebs (5) Anxiety Plan: would avoid sedative at this time Gini Quintana MD Aug 14, 2017 10:14
--- NOTE | 2017-08-14 12:49 | HHI.PR ---
Subjective Remarks Patient seen this morning around 9:30 AM. Says she is feeling all right. Denies any shortness of breath. Objective Vital Signs Date Time Temp Pulse Resp B/P (MAP) Pulse Ox O2 Delivery O2 Flow Rate FiO2 08/14/17 12:00 87 08/14/17 11:36 99 Nasal Cannula 4.00 08/14/17 11:36 98.3 71 20 140/62 (88) 99 08/14/17 11:00 73 08/14/17 09:11 100 Nasal Cannula 4.00 08/14/17 08:00 98.2 84 22 168/65 (99) 94 08/14/17 07:44 95 Nasal Cannula 5.00 08/14/17 07:00 76 08/14/17 04:00 99.6 73 20 159/57 (91) 95 08/14/17 04:00 95 Nasal Cannula 5.00 08/14/17 03:15 70 08/14/17 01:15 20 08/14/17 00:00 88 163/64 (97) 08/13/17 23:30 97 Nasal Cannula 5.00 08/13/17 23:30 99.5 88 20 172/60 (97) 97 08/13/17 23:00 66 08/13/17 20:00 94 Nasal Cannula 5.00 08/13/17 20:00 98.5 84 22 145/56 (85) 94 08/13/17 19:30 95 Nasal Cannula 5.00 08/13/17 19:00 78 08/13/17 15:10 96 Nasal Cannula 4.00 08/13/17 15:02 98.2 66 18 148/54 (85) 96 08/13/17 15:00 66 I/O 08/13/17 08/13/17 08/13/17 08/14/17 08/14/17 08/14/17 07:00 15:00 23:00 07:00 15:00 23:00 Intake Total 240 ml 1350 ml 720 ml Output Total 830 ml 1450 ml 1125 ml Balance -590 ml -100 ml -405 ml Intake Oral 240 ml 1350 ml 720 ml Output Urine Total 750 ml 1450 ml 1125 ml Chest Tube Drainage Total 80 ml # Bowel Movements 0 0 0 Result Diagram: 08/14/17 0455 08/14/17 0455 Objective Remarks GENERAL: Sitting up in recliner. Awake, alert. Appears comfortable. SKIN: Warm and dry. HEAD: Normocephalic. EYES: No scleral icterus. No injection or drainage. NECK: Supple, trachea midline. No JVD. CARDIOVASCULAR: Regular rate and rhythm without murmurs, gallops, or rubs. RESPIRATORY: Breath sounds equal bilaterally. No accessory muscle use.postoperative dressings clean dry and intact GASTROINTESTINAL: Abdomen soft, non-tender, nondistended. MUSCULOSKELETAL: No cyanosis. Trace bilateral lower extremity edema as yesterday. BACK: Nontender without obvious deformity. No CVA tenderness. A/P Assessment and Plan //Coronary artery disease: Status post cardiac catheterization, which showed multivessel coronary artery disease. Cardiothoracic surgery has been consulted for CABG. Continue heparin drip. Continue statin, aspirin, beta-tyrell. Continues to have chest pain. Start nitroglycerin drip. = Plan for CABG tomorrow. 08/11. Patient recovering status post CABG. Sedation and blood pressure management as per cardiothoracic surgery. 08/14. Patient continues recovering. Blood pressure control and diuresis as per primary service. //Shortness of breath 08/13. Chest x-ray with no acute findings, status post removal of chest tubes. BNP in the 200s. Lasix ordered 1 week. We will continue to monitor. Continue incentive spirometry = 08/14. Much improved after Lasix yesterday. //postOperative anemia. Hemoglobin 9.6 from normal preoperatively. No signs of active bleeding. Continue to monitor. = 08/14. Hemoglobin 8.4. No signs of bleeding. Will recheck tomorrow. //Diabetes mellitus type 2: Monitor Accu-Cheks and cover with sliding scale insulin. Hold metformin. Glucose remains elevated. Increase Levemir. = Patient had apparently been on heart healthy diet. Will switch to diabetic diet. Increase sliding scale to moderate, and give extra insulin at dinner. Discussed with nursing. Appreciate assistance. = Blood sugars acceptable. Continue diabetic diet and sliding scale. = 08/13. Slight hypoglycemia this morning in the 70s. Insulin adjusted as per primary service. = 08/14. Glucose acceptable. Continue diabetic diet and sliding scale. //Hyperlipidemia: Chronic. Continue statin. //COPD: Does not appear to be in exacerbation at this time. Continue Symbicort. DuoNeb as needed. Oxygen as needed. //GERD: Continue PPI. //Bacteremia: Continue Levaquin and Flagyl. Stop date is 08/09/17. //DVT prophylaxis: Heparin. Discharge Planning postoperative CABG 08/11 PT recommends rehab. Baltazar Etienne MD Aug 14, 2017 12:49
[2017-08-14] MEDS: ATORVASTATIN 40 MG TAB PO SCH (21:00)
[2017-08-14] MEDS: SENNOSIDES 8.6 MG TAB PO SCH (21:00)
[2017-08-15] VITALS (23 sets, daily range): BP systolic 143–181; BP diastolic 60–84; PULSE 67–85; RESP 18–20; TEMP 97.8–99.2; O2SAT 94–99
[2017-08-15] MEDS: PANTOPRAZOLE SOD 40 MG DELAYED RELEASE TAB PO SCH (05:41)
[2017-08-15] MEDS: ACETAMINOPHEN/HYDROcodone 325 MG/5 MG TAB PO PRN ×2 (05:42→21:03)
[2017-08-15] MEDS: METOPROLOL TARTRATE 25 MG TAB PO SCH ×3 (06:35→21:01)
[2017-08-15 07:10] LABS: AUTOMATED NEUTROPHIL # 4.6 TH/MM3 (1.8-7.7); BASOPHIL % 0.3 % (0.0-2.0); EOSINOPHIL # 0.2 TH/MM3 (0-0.4); EOSINOPHIL % 2.5 % (0.0-4.0); HEMATOCRIT 30.1 % (35.0-46.0); HEMOGLOBIN 10.2 GM/DL (11.6-15.3); LYMPH % 17.6 % (9.0-44.0); LYMPHOCYTE # 1.1 TH/MM3 (1.0-4.8); MEAN CELL VOLUME 91.8 FL (80.0-100.0); MEAN CORPUSCULAR HGB CONC 33.8 % (32.0-36.0); MEAN PLATELET VOLUME 7.9 FL (7.0-11.0); MONO % 7.4 % (0.0-8.0); MONOCYTE # 0.5 TH/MM3 (0-0.9); NEUT % 72.2 % (16.0-70.0); PLATELET COUNT 211 TH/MM3 (150-450); RED BLOOD COUNT 3.28 MIL/MM3 (4.00-5.30); RED CELL DISTRIBUTION WIDTH 13.7 % (11.6-17.2); WHITE BLOOD COUNT 6.4 TH/MM3 (4.0-11.0)
[2017-08-15] MEDS: INSULIN ASPART SUPPLEMENTAL SCALE SQ SCH ×4 (08:00→21:00)
[2017-08-15] MEDS: CLOPIDOGREL 75 MG TAB PO SCH (08:39)
[2017-08-15] MEDS: metFORMIN HCL 500 MG TAB PO SCH ×3 (08:39→17:28)
[2017-08-15] MEDS: GABAPENTIN 300 MG CAP PO SCH ×2 (08:39→21:01)
[2017-08-15] MEDS: NYSTATIN SUSP 500,000 U/5 ML CUP SWISH-SWAL SCH ×4 (08:39→21:03)
[2017-08-15] MEDS: POLYETHYLENE GLYCOL 17 GM PKG PO SCH (08:39)
[2017-08-15] MEDS: DOCUSATE SODIUM 100 MG CAP PO SCH ×2 (08:39→21:03)
[2017-08-15] MEDS: MAGNESIUM HYDROXIDE SUSP 30 ML CUP PO SCH (08:39)
[2017-08-15] MEDS: MULTIVITAMINS/MINERALS THERAPEUTIC TAB PO SCH (08:39)
[2017-08-15] MEDS: SODIUM CHLORIDE 0.9% FLUSH 10 ML FLUSH IV FLUSH SCH ×2 (08:40→21:04)
[2017-08-15] MEDS: ASPIRIN 81 MG CHEW TAB PO SCH (08:40)
[2017-08-15] MEDS: INSULIN DETEMIR 100 UNITS/ML VIAL SQ SCH ×2 (08:40→21:00)
[2017-08-15] MEDS: BUDESONIDE-FORMOTEROL 160/4.5 MCG INHALER INH SCH ×2 (08:41→21:04)
[2017-08-15] MEDS: RESP: ALBUTEROL 2.5 MG/IPRATROPIUM 0.5 MG NEB (PRN) NEB (10:03)
--- NOTE | 2017-08-15 10:55 | PD.CAR.PN ---
CVT Progress Note Subjective/Hospital Course: 81-year-old female patient of Dr. Yash Vines who has presented to the emergency room a couple of times. Her last time was for chest discomfort she has been having off and on for the past 2 months, mainly at night with or without exertion. She was seen by on 08/04/2017 and was found to have elevated troponin. She was recommended cardiac catheterization but declined and was attempted to be started on medical therapy. Her last ER admission was 08/04/2017. She stated she would like to have the cardiac catheterization but wanted to go home over the weekend to get things taken care of. Plan was for cardiac catheterization as an outpatient this weekend, but she started having chest pain again and was readmitted after she called 911. She finally underwent cardiac catheterization today which showed left main disease of 20%, proximal LAD 40%, mid-distal LAD 90%, diagonal 70%, the circ at 90%, the OM 80%, the RCA 80%. EF is pending from 2D echo. We were consulted because of multivessel coronary artery disease. PAST MEDICAL HISTORY: Includes hypertension, hyperlipidemia, diabetes mellitus, anxiety, CHF, gastroesophageal reflux disease, COPD, migraines, arthritis, neuropathy. 08/09 await daughter's arrival today to discuss surgery , pt had some chest pain last night, now on Nitro gtt, in addition to Heparin she is very sedentary at home, walks with a cane , will need rehab post surgery 08/10 rediscussed surgery with pt , she is still agreeable to proceed Anand Bustamante ( Nurse Navigator also spoke with daughter Rosemary in [place] and updated her pt scheduled for OR in am she will need rehab at discharge carotid US noted : . 50-69% stenosis within the left internal carotid artery/ she will need to follow up with vascular surgery as outpt 08/11 surgery: Urgent Off-pump Coronary Artery Bypass Grafting x 3 with Left Internal Mammary Artery (BORJA) to Left Anterior Descending (LAD), reverse saphenous vein graft to the Obtuse Marginal 1 (OM1) branch of the Left Circumflex artery, reverse saphenous vein graft to the distal Right Coronary Artery (RCA), Left Leg Endoscopic Vein [place] extubated after surgery, crystalloid 3800cc, 250cc cell saver, EBL 500cc 08/12 Up in chair, very weak , poor cough effort needs encouragement , PT/OT will need rehab at discharge pulm toileting gentle diuresis , start low dose BB transfer to stepdown later today 08/13 Doing well D/C CT today Awaiting CPCU bed Discharge planning 08/14 Doing well Awaiting CPCU bed Rehab/SNF eval 08/15 no BM since surgery, c/o of cramping will give suppository/ fleets today continue pulm toileting OOB, ambulate eval SNF increase BB , add tierra Objective: GENERAL: A&O x 3 SKIN: Warm and dry. prevena dressing to chest , incision intact left leg HEAD: Normocephalic. EYES: No scleral icterus. No injection or drainage. NECK: Supple, trachea midline. No JVD or lymphadenopathy. CARDIOVASCULAR: Regular rate and rhythm without murmurs, gallops, or rubs. RESPIRATORY: Breath sounds equal bilaterally. No accessory muscle use. diminished in bases GASTROINTESTINAL: Abdomen soft, non-tender, nondistended. MUSCULOSKELETAL: No cyanosis, or edema. BACK: Nontender without obvious deformity. No CVA tenderness. Vital Signs Date Time Temp Pulse Resp B/P (MAP) Pulse Ox O2 Delivery O2 Flow Rate FiO2 08/15/17 08:51 79 08/15/17 08:17 94 21 08/15/17 07:47 76 08/15/17 07:47 97.8 76 18 181/84 (116) 96 08/15/17 07:47 96 Room Air 08/15/17 06:36 15 08/15/17 06:15 84 08/15/17 05:11 83 08/15/17 04:30 99.2 83 20 181/79 (113) 94 08/15/17 04:00 74 08/15/17 03:00 94 Room Air 08/15/17 03:00 75 08/15/17 02:00 73 08/15/17 01:00 74 08/15/17 00:00 78 08/14/17 23:00 99.9 93 18 169/72 (104) 93 08/14/17 23:00 93 Room Air 08/14/17 23:00 88 08/14/17 22:00 84 08/14/17 21:00 84 08/14/17 20:53 95 21 08/14/17 20:00 80 08/14/17 19:00 99.8 84 20 157/68 (97) 95 08/14/17 19:00 80 08/14/17 19:00 95 Room Air 08/14/17 18:00 78 08/14/17 17:00 86 08/14/17 16:00 74 08/14/17 15:17 95 Room Air 08/14/17 15:17 98.3 86 20 145/66 (92) 95 08/14/17 15:00 80 08/14/17 14:41 96 21 08/14/17 14:00 100 Nasal Cannula 3.00 08/14/17 14:00 78 08/14/17 13:00 74 08/14/17 12:00 87 08/14/17 11:36 99 Nasal Cannula 4.00 08/14/17 11:36 98.3 71 20 140/62 (88) 99 08/14/17 11:00 73 Labs: Laboratory Tests Test 08/15/17 05:54 White Blood Count 6.4 TH/MM3 (4.0-11.0) Red Blood Count 3.28 MIL/MM3 (4.00-5.30) Hemoglobin 10.2 GM/DL (11.6-15.3) Hematocrit 30.1 % (35.0-46.0) Mean Corpuscular Volume 91.8 FL (80.0-100.0) Mean Corpuscular Hemoglobin 31.0 PG (27.0-34.0) Mean Corpuscular Hemoglobin Concent 33.8 % (32.0-36.0) Red Cell Distribution Width 13.7 % (11.6-17.2) Platelet Count 211 TH/MM3 (150-450) Mean Platelet Volume 7.9 FL (7.0-11.0) Neutrophils (%) (Auto) 72.2 % (16.0-70.0) Lymphocytes (%) (Auto) 17.6 % (9.0-44.0) Monocytes (%) (Auto) 7.4 % (0.0-8.0) Eosinophils (%) (Auto) 2.5 % (0.0-4.0) Basophils (%) (Auto) 0.3 % (0.0-2.0) Neutrophils # (Auto) 4.6 TH/MM3 (1.8-7.7) Lymphocytes # (Auto) 1.1 TH/MM3 (1.0-4.8) Monocytes # (Auto) 0.5 TH/MM3 (0-0.9) Eosinophils # (Auto) 0.2 TH/MM3 (0-0.4) Basophils # (Auto) 0.0 TH/MM3 (0-0.2) CBC Comment DIFF FINAL Differential Comment Result Diagram: 08/15/17 0554 08/14/17 0455 (1) Multiple vessel coronary artery disease (2) NSTEMI (non-ST elevated myocardial infarction) Plan: on ASA , statin , BB plavix OOB ambulate PT/OT CM eval for rehab (3) Hypertension Plan: controlled (4) COPD (chronic obstructive pulmonary disease) Plan: n nebs (5) Anxiety Plan: would avoid sedative at this time Rimma Hunter Aug 15, 2017 10:55
[2017-08-15] MEDS ORDERED: HYDROCHLOROTHIAZIDE 12.5 MG CAP PO ONE (16:15)
--- NOTE | 2017-08-15 19:37 | HHI.PR ---
Subjective Remarks Patient says she is feeling well. Reports chest pain is controlled. Denies any nausea or vomiting. Positive bowel movement after laxative today. Objective Vital Signs Date Time Temp Pulse Resp B/P (MAP) Pulse Ox O2 Delivery O2 Flow Rate FiO2 08/15/17 18:06 77 08/15/17 17:14 74 08/15/17 16:07 94 Room Air 08/15/17 16:07 72 08/15/17 16:07 98.5 72 18 143/60 (87) 94 08/15/17 14:12 67 08/15/17 13:18 71 08/15/17 11:39 98.4 70 18 173/67 (102) 99 08/15/17 11:39 70 08/15/17 11:39 95 Room Air 08/15/17 08:51 79 08/15/17 08:17 94 21 08/15/17 07:47 76 08/15/17 07:47 97.8 76 18 181/84 (116) 96 08/15/17 07:47 96 Room Air 08/15/17 06:36 15 08/15/17 06:15 84 08/15/17 05:11 83 08/15/17 04:30 99.2 83 20 181/79 (113) 94 08/15/17 04:00 74 08/15/17 03:00 94 Room Air 08/15/17 03:00 75 08/15/17 02:00 73 08/15/17 01:00 74 08/15/17 00:00 78 08/14/17 23:00 99.9 93 18 169/72 (104) 93 08/14/17 23:00 93 Room Air 08/14/17 23:00 88 08/14/17 22:00 84 08/14/17 21:00 84 08/14/17 20:53 95 21 08/14/17 20:00 80 I/O 08/14/17 08/14/17 08/14/17 08/15/17 08/15/17 08/15/17 07:00 15:00 23:00 07:00 15:00 23:00 Intake Total 720 ml 840 ml 680 ml 720 ml Output Total 1475 ml 1800 ml Balance -755 ml 840 ml -1120 ml 720 ml Intake Oral 720 ml 840 ml 680 ml 720 ml Output Urine Total 1475 ml 1800 ml # Voids 3 1 1 # Bowel Movements 0 3 Result Diagram: 08/15/17 0554 08/14/17 0455 Objective Remarks GENERAL: Sitting up in recliner. Awake, alert. Appears comfortable.exam unchanged SKIN: Warm and dry. HEAD: Normocephalic. EYES: No scleral icterus. No injection or drainage. NECK: Supple, trachea midline. No JVD. CARDIOVASCULAR: Regular rate and rhythm without murmurs, gallops, or rubs. RESPIRATORY: Breath sounds equal bilaterally. No accessory muscle use.postoperative dressings clean dry and intact GASTROINTESTINAL: Abdomen soft, non-tender, nondistended. MUSCULOSKELETAL: No cyanosis. Trace bilateral lower extremity edema as yesterday. BACK: Nontender without obvious deformity. No CVA tenderness. A/P Assessment and Plan //Coronary artery disease: Status post cardiac catheterization, which showed multivessel coronary artery disease. Cardiothoracic surgery has been consulted for CABG. Continue heparin drip. Continue statin, aspirin, beta-tyrell. Continues to have chest pain. Start nitroglycerin drip. = Plan for CABG tomorrow. 08/11. Patient recovering status post CABG. Sedation and blood pressure management as per cardiothoracic surgery. 08/14. Patient continues recovering. Blood pressure control and diuresis as per primary service. = 08/15. Systolic blood pressures elevated in the 170s. Will increase lisinopril to twice daily, start hydrochlorothiazide. Continue to monitor. Patient can likely go to rehabilitation tomorrow. //Shortness of breath 08/13. Chest x-ray with no acute findings, status post removal of chest tubes. BNP in the 200s. Lasix ordered 1 week. We will continue to monitor. Continue incentive spirometry = 08/14. Much improved after Lasix yesterday. = Improved. //postOperative anemia. Hemoglobin 9.6 from normal preoperatively. No signs of active bleeding. Continue to monitor. = 08/14. Hemoglobin 8.4. No signs of bleeding. Will recheck tomorrow. //Diabetes mellitus type 2: Monitor Accu-Cheks and cover with sliding scale insulin. Hold metformin. Glucose remains elevated. Increase Levemir. = Patient had apparently been on heart healthy diet. Will switch to diabetic diet. Increase sliding scale to moderate, and give extra insulin at dinner. Discussed with nursing. Appreciate assistance. = Blood sugars acceptable. Continue diabetic diet and sliding scale. = 08/13. Slight hypoglycemia this morning in the 70s. Insulin adjusted as per primary service. = 08/14. Glucose acceptable. Continue diabetic diet and sliding scale. //Hyperlipidemia: Chronic. Continue statin. //COPD: Does not appear to be in exacerbation at this time. Continue Symbicort. DuoNeb as needed. Oxygen as needed. //GERD: Continue PPI. //Bacteremia: Continue Levaquin and Flagyl. Stop date is 08/09/17. //DVT prophylaxis: Heparin. Discharge Planning postoperative CABG 08/11 PT recommends rehab. likely discharge to rehabilitation in 1-2 days. Baltazar Etienne MD Aug 15, 2017 19:37
[2017-08-15] MEDS: LISINOPRIL 5 MG TAB PO SCH (21:02)
[2017-08-15] MEDS: ATORVASTATIN 40 MG TAB PO SCH (21:02)
[2017-08-15] MEDS: SENNOSIDES 8.6 MG TAB PO SCH (21:03)
--- NOTE | 2017-08-15 21:49 | PD.CARD.PN ---
Subjective Subjective Remarks Patient was seen earlier this afternoon, late entry Doing well overall Chest tubes out this weekend Objective Medications Current Medications Medications (Trade) Dose Ordered Sig/Amy Route Start Time Stop Time Status Last Admin (Milk Of Magnesia Liq) 30 ml Q12H PRN PO 08/07/17 11:45 (Lactulose Liq) 30 ml DAILY PRN PO 08/07/17 11:45 (Lipitor) 40 mg HS PO 08/07/17 21:00 08/15/17 21:02 (Symbicort 160-4.5 Mcg Inh) 2 puff Q12HR INH 08/07/17 21:00 08/15/17 21:04 (Neurontin) 300 mg BID PO 08/07/17 21:00 08/15/17 21:01 ([place] 5-325 Mg) 1 tab Q4H PRN PO 08/09/17 10:15 08/15/17 21:03 (NS Flush) 2 ml BID IV FLUSH 08/11/17 21:00 08/15/17 21:04 (NS Flush) 2 ml UNSCH PRN IV FLUSH 08/11/17 12:45 (Aspirin Chew) 81 mg DAILY PO 08/12/17 09:00 08/15/17 08:40 (Plavix) 75 mg DAILY PO 08/12/17 09:00 08/15/17 08:39 (Protonix) 40 mg DAILY@06 PO 08/12/17 06:00 08/15/17 05:41 (Tylenol) 650 mg Q4H PRN PO 08/11/17 12:45 (Zofran Inj) 4 mg Q6H PRN IV PUSH 08/11/17 12:45 08/13/17 03:07 (Duoneb Neb) 1 ampule Q2HR NEB PRN NEB 08/11/17 12:45 08/15/17 10:03 (Mycostatin Liq) 5 ml QID SWISH-SWAL 08/11/17 21:00 08/15/17 21:03 (Levemir Inj) 5 units Q12HR SQ 08/12/17 09:00 08/15/17 08:40 (Colace) 100 mg BID PO 08/12/17 09:15 08/15/17 21:03 (Theragran M Tab) 1 tab DAILY PO 08/13/17 09:00 08/15/17 08:39 (Milk Of Magnesia Liq) 30 ml DAILY PO 08/13/17 09:00 08/15/17 08:39 (Dulcolax Supp) 10 mg UNSCH PRN RECTAL 08/12/17 09:15 (Miralax) 17 gm DAILY PO 08/13/17 09:00 08/15/17 08:39 (Senokot) 8.6 mg HS PO 08/12/17 21:00 08/15/17 21:03 (Fleets Enema (Adult)) 118 ml UNSCH PRN RECTAL 08/12/17 09:15 08/15/17 10:55 (D50w (Vial) Inj) 50 ml UNSCH PRN IV PUSH 08/12/17 09:15 (Glucagon Inj) 1 mg UNSCH PRN OTHER 08/12/17 09:15 (NovoLOG SUPPLEMENTAL SCALE) 1 ACHS SQ 08/13/17 12:00 08/15/17 12:58 (Lopressor) 25 mg Q12H PO 08/15/17 10:00 08/15/17 21:01 (Glucophage) 1,000 mg BIDPC PO 08/15/17 09:45 08/15/17 17:28 (Prinivil) 5 mg BID PO 08/15/17 21:00 08/15/17 21:02 (Microzide) 12.5 mg DAILY PO 08/16/17 09:00 Vital Signs / I&O Vital Signs Date Time Temp Pulse Resp B/P (MAP) Pulse Ox O2 Delivery O2 Flow Rate FiO2 08/15/17 19:29 97 08/15/17 18:06 77 08/15/17 17:14 74 08/15/17 16:07 94 Room Air 08/15/17 16:07 72 08/15/17 16:07 98.5 72 18 143/60 (87) 94 08/15/17 14:12 67 08/15/17 13:18 71 08/15/17 11:39 98.4 70 18 173/67 (102) 99 08/15/17 11:39 70 08/15/17 11:39 95 Room Air 08/15/17 08:51 79 08/15/17 08:17 94 21 08/15/17 07:47 76 08/15/17 07:47 97.8 76 18 181/84 (116) 96 08/15/17 07:47 96 Room Air 08/15/17 06:36 15 08/15/17 06:15 84 08/15/17 05:11 83 08/15/17 04:30 99.2 83 20 181/79 (113) 94 08/15/17 04:00 74 08/15/17 03:00 94 Room Air 08/15/17 03:00 75 08/15/17 02:00 73 08/15/17 01:00 74 08/15/17 00:00 78 08/14/17 23:00 99.9 93 18 169/72 (104) 93 08/14/17 23:00 93 Room Air 08/14/17 23:00 88 08/14/17 22:00 84 I/O 08/14/17 08/14/17 08/14/17 08/15/17 08/15/17 08/15/17 07:00 15:00 23:00 07:00 15:00 23:00 Intake Total 720 ml 840 ml 680 ml 720 ml Output Total 1475 ml 1800 ml Balance -755 ml 840 ml -1120 ml 720 ml Intake Oral 720 ml 840 ml 680 ml 720 ml Output Urine Total 1475 ml 1800 ml # Voids 3 1 1 # Bowel Movements 0 3 Physical Exam GENERAL: NAD, AAOx3 SKIN: Warm and dry. HEAD: Atraumatic. Normocephalic. EYES: Pupils equal and round. No scleral icterus. No injection or drainage. ENT: No nasal bleeding or discharge. Mucous membranes pink and moist. NECK: Trachea midline. No JVD. CARDIOVASCULAR: Regular rate and rhythm. RESPIRATORY: No accessory muscle use. Clear to auscultation. Breath sounds equal bilaterally. GASTROINTESTINAL: Abdomen soft, non-tender, nondistended. Hepatic and splenic margins not palpable. MUSCULOSKELETAL: Extremities without clubbing, cyanosis, or edema. No obvious deformities. NEUROLOGICAL: Awake and alert. No obvious cranial nerve deficits. Motor grossly within normal limits. Five out of 5 muscle strength in the arms and legs. Normal speech. PSYCHIATRIC: Appropriate mood and affect; insight and judgment normal. Laboratory Laboratory Tests Test 08/15/17 05:54 White Blood Count 6.4 TH/MM3 Red Blood Count 3.28 MIL/MM3 Hemoglobin 10.2 GM/DL Hematocrit 30.1 % Mean Corpuscular Volume 91.8 FL Mean Corpuscular Hemoglobin 31.0 PG Mean Corpuscular Hemoglobin Concent 33.8 % Red Cell Distribution Width 13.7 % Platelet Count 211 TH/MM3 Mean Platelet Volume 7.9 FL Neutrophils (%) (Auto) 72.2 % Lymphocytes (%) (Auto) 17.6 % Monocytes (%) (Auto) 7.4 % Eosinophils (%) (Auto) 2.5 % Basophils (%) (Auto) 0.3 % Neutrophils # (Auto) 4.6 TH/MM3 Lymphocytes # (Auto) 1.1 TH/MM3 Monocytes # (Auto) 0.5 TH/MM3 Eosinophils # (Auto) 0.2 TH/MM3 Basophils # (Auto) 0.0 TH/MM3 CBC Comment DIFF FINAL Differential Comment Assessment and Plan Problem List: (1) Multiple vessel coronary artery disease ICD Codes: I25.10 - Atherosclerotic heart disease of [place] coronary artery without angina pectoris (2) NSTEMI (non-ST elevated myocardial infarction) ICD Codes: I21.4 - Non-ST elevation (NSTEMI) myocardial infarction (3) Hypertension ICD Codes: I10 - Hypertension Status: Chronic (4) COPD (chronic obstructive pulmonary disease) ICD Codes: J44.9 - Chronic obstructive pulmonary disease Status: Chronic (5) Anxiety ICD Codes: F41.9 - Anxiety Status: Chronic Assessment and Plan 1) Unstable angina, MVCAD s/p CABGx3 POD #4 BORJA to LAD, SVG to OM, SVG to RCA 2) EF 50% 3) Con't to ambulate 4) Eventual rehab 5) ASA/Plavix/BB/RAJENDRA/Statin Grant Kc DO Aug 15, 2017 21:49
[2017-08-16] VITALS (25 sets, daily range): BP systolic 135–200; BP diastolic 63–80; PULSE 58–89; RESP 18–20; TEMP 97.6–98.7; O2SAT 94–99
[2017-08-16] MEDS ORDERED: hydrALAZINE HCL 20 MG/ML VIAL IV PUSH ONE (00:45)
[2017-08-16] MEDS: ACETAMINOPHEN/HYDROcodone 325 MG/5 MG TAB PO PRN ×2 (01:31→21:07)
[2017-08-16] MEDS: PANTOPRAZOLE SOD 40 MG DELAYED RELEASE TAB PO SCH (06:07)
[2017-08-16] MEDS: INSULIN ASPART SUPPLEMENTAL SCALE SQ SCH ×4 (08:00→21:00)
[2017-08-16] MEDS: NYSTATIN SUSP 500,000 U/5 ML CUP SWISH-SWAL SCH ×5 (08:30→21:06)
[2017-08-16] MEDS: METOPROLOL TARTRATE 25 MG TAB PO SCH ×2 (08:30→21:06)
[2017-08-16] MEDS: DOCUSATE SODIUM 100 MG CAP PO SCH ×2 (08:31→21:00)
[2017-08-16] MEDS: CLOPIDOGREL 75 MG TAB PO SCH (08:31)
[2017-08-16] MEDS: LISINOPRIL 5 MG TAB PO SCH ×2 (08:31→21:06)
[2017-08-16] MEDS: MULTIVITAMINS/MINERALS THERAPEUTIC TAB PO SCH (08:31)
[2017-08-16] MEDS: ASPIRIN 81 MG CHEW TAB PO SCH (08:32)
[2017-08-16] MEDS: SODIUM CHLORIDE 0.9% FLUSH 10 ML FLUSH IV FLUSH SCH ×2 (08:32→21:05)
[2017-08-16] MEDS: HYDROCHLOROTHIAZIDE 12.5 MG CAP PO SCH (08:32)
[2017-08-16] MEDS: GABAPENTIN 300 MG CAP PO SCH ×2 (08:32→21:05)
[2017-08-16] MEDS: metFORMIN HCL 500 MG TAB PO SCH ×2 (08:32→17:18)
[2017-08-16] MEDS: MAGNESIUM HYDROXIDE SUSP 30 ML CUP PO SCH (08:33)
[2017-08-16] MEDS: POLYETHYLENE GLYCOL 17 GM PKG PO SCH (08:33)
[2017-08-16] MEDS: BUDESONIDE-FORMOTEROL 160/4.5 MCG INHALER INH SCH ×2 (08:34→21:05)
[2017-08-16] MEDS: INSULIN DETEMIR 100 UNITS/ML VIAL SQ SCH ×2 (08:34→21:00)
[2017-08-16] MEDS ORDERED: LISINOPRIL 10 MG TAB PO ONE (10:15)
[2017-08-16] MEDS ORDERED: METOPROLOL TARTRATE 25 MG TAB PO ONE (10:15)
--- NOTE | 2017-08-16 10:16 | PD.CAR.PN ---
CVT Progress Note Subjective/Hospital Course: 81-year-old female patient of Dr. Yash Vines who has presented to the emergency room a couple of times. Her last time was for chest discomfort she has been having off and on for the past 2 months, mainly at night with or without exertion. She was seen by on 08/04/2017 and was found to have elevated troponin. She was recommended cardiac catheterization but declined and was attempted to be started on medical therapy. Her last ER admission was 08/04/2017. She stated she would like to have the cardiac catheterization but wanted to go home over the weekend to get things taken care of. Plan was for cardiac catheterization as an outpatient this weekend, but she started having chest pain again and was readmitted after she called 911. She finally underwent cardiac catheterization today which showed left main disease of 20%, proximal LAD 40%, mid-distal LAD 90%, diagonal 70%, the circ at 90%, the OM 80%, the RCA 80%. EF is pending from 2D echo. We were consulted because of multivessel coronary artery disease. PAST MEDICAL HISTORY: Includes hypertension, hyperlipidemia, diabetes mellitus, anxiety, CHF, gastroesophageal reflux disease, COPD, migraines, arthritis, neuropathy. 08/09 await daughter's arrival today to discuss surgery , pt had some chest pain last night, now on Nitro gtt, in addition to Heparin she is very sedentary at home, walks with a cane , will need rehab post surgery 08/10 rediscussed surgery with pt , she is still agreeable to proceed Anand Bustamante ( Nurse Navigator also spoke with daughter Rosemary in [place] and updated her pt scheduled for OR in am she will need rehab at discharge carotid US noted : . 50-69% stenosis within the left internal carotid artery/ she will need to follow up with vascular surgery as outpt 08/11 surgery: Urgent Off-pump Coronary Artery Bypass Grafting x 3 with Left Internal Mammary Artery (BORJA) to Left Anterior Descending (LAD), reverse saphenous vein graft to the Obtuse Marginal 1 (OM1) branch of the Left Circumflex artery, reverse saphenous vein graft to the distal Right Coronary Artery (RCA), Left Leg Endoscopic Vein [place] extubated after surgery, crystalloid 3800cc, 250cc cell saver, EBL 500cc 08/12 Up in chair, very weak , poor cough effort needs encouragement , PT/OT will need rehab at discharge pulm toileting gentle diuresis , start low dose BB transfer to stepdown later today 08/13 Doing well D/C CT today Awaiting CPCU bed Discharge planning 08/14 Doing well Awaiting CPCU bed Rehab/SNF eval 08/15 no BM since surgery, c/o of cramping will give suppository/ fleets today continue pulm toileting OOB, ambulate eval SNF increase BB , add rajendra 08/16 RAJENDRA and BB increased will remove prevena dressing / causing discomfort to pt pt stable for dc to rehab from [facility] Objective: GENERAL: A&O x 3 SKIN: Warm and dry. presvena scrunched up at top of incision / HEAD: Normocephalic. EYES: No scleral icterus. No injection or drainage. NECK: Supple, trachea midline. No JVD or lymphadenopathy. CARDIOVASCULAR: Regular rate and rhythm without murmurs, gallops, or rubs. RESPIRATORY: Breath sounds equal bilaterally. No accessory muscle use. GASTROINTESTINAL: Abdomen soft, non-tender, nondistended. MUSCULOSKELETAL: No cyanosis, or edema. BACK: Nontender without obvious deformity. No CVA tenderness. Vital Signs Date Time Temp Pulse Resp B/P (MAP) Pulse Ox O2 Delivery O2 Flow Rate FiO2 08/16/17 09:26 77 08/16/17 08:15 89 08/16/17 07:18 98.5 81 18 190/79 (116) 95 08/16/17 07:18 81 08/16/17 07:18 95 Room Air 08/16/17 06:00 75 08/16/17 05:00 67 08/16/17 04:00 74 08/16/17 03:00 71 08/16/17 03:00 96 Room Air 08/16/17 03:00 98.2 73 18 135/63 (87) 94 08/16/17 02:00 72 08/16/17 01:00 72 08/16/17 01:00 153/67 (95) 08/16/17 00:00 98.4 82 18 200/80 (120) 95 08/16/17 00:00 70 08/15/17 23:00 95 Room Air 08/15/17 23:00 69 08/15/17 22:00 79 08/15/17 21:00 85 08/15/17 20:00 85 08/15/17 19:29 97 08/15/17 19:00 80 08/15/17 19:00 98.3 80 18 167/80 (109) 94 08/15/17 19:00 95 Room Air 08/15/17 18:06 77 08/15/17 17:14 74 08/15/17 16:07 94 Room Air 08/15/17 16:07 72 08/15/17 16:07 98.5 72 18 143/60 (87) 94 08/15/17 14:12 67 08/15/17 13:18 71 08/15/17 11:39 98.4 70 18 173/67 (102) 99 08/15/17 11:39 70 08/15/17 11:39 95 Room Air Result Diagram: 08/15/17 0554 08/14/17 0455 (1) Multiple vessel coronary artery disease (2) NSTEMI (non-ST elevated myocardial infarction) Plan: on ASA , statin , BB plavix OOB ambulate PT/OT stable to discharge to rehab today (3) Hypertension Plan: BB and rajendra increased aslo on HCTZ (4) COPD (chronic obstructive pulmonary disease) Plan: n nebs (5) Anxiety Plan: would avoid sedative at this time Rimma Hunter Aug 16, 2017 10:16
[2017-08-16] MEDS: ALPRAZolam 0.25 MG TAB PO PRN ×2 (10:43→22:55)
--- NOTE | 2017-08-16 11:24 | PD.CARD.PN ---
Subjective Subjective Remarks Doing well overall Planning for rehab Objective Medications Current Medications Medications (Trade) Dose Ordered Sig/Amy Route Start Time Stop Time Status Last Admin (Milk Of Magnesia Liq) 30 ml Q12H PRN PO 08/07/17 11:45 (Lactulose Liq) 30 ml DAILY PRN PO 08/07/17 11:45 (Lipitor) 40 mg HS PO 08/07/17 21:00 08/15/17 21:02 (Symbicort 160-4.5 Mcg Inh) 2 puff Q12HR INH 08/07/17 21:00 08/16/17 08:34 (Neurontin) 300 mg BID PO 08/07/17 21:00 08/16/17 08:32 ([place] 5-325 Mg) 1 tab Q4H PRN PO 08/09/17 10:15 08/16/17 01:31 (NS Flush) 2 ml BID IV FLUSH 08/11/17 21:00 08/16/17 08:32 (NS Flush) 2 ml UNSCH PRN IV FLUSH 08/11/17 12:45 (Aspirin Chew) 81 mg DAILY PO 08/12/17 09:00 08/16/17 08:32 (Plavix) 75 mg DAILY PO 08/12/17 09:00 08/16/17 08:31 (Protonix) 40 mg DAILY@06 PO 08/12/17 06:00 08/16/17 06:07 (Tylenol) 650 mg Q4H PRN PO 08/11/17 12:45 (Zofran Inj) 4 mg Q6H PRN IV PUSH 08/11/17 12:45 08/13/17 03:07 (Duoneb Neb) 1 ampule Q2HR NEB PRN NEB 08/11/17 12:45 08/15/17 10:03 (Mycostatin Liq) 5 ml QID SWISH-SWAL 08/11/17 21:00 08/15/17 21:03 (Levemir Inj) 5 units Q12HR SQ 08/12/17 09:00 08/16/17 08:34 (Colace) 100 mg BID PO 08/12/17 09:15 08/16/17 08:31 (Theragran M Tab) 1 tab DAILY PO 08/13/17 09:00 08/16/17 08:31 (Milk Of Magnesia Liq) 30 ml DAILY PO 08/13/17 09:00 08/15/17 08:39 (Dulcolax Supp) 10 mg UNSCH PRN RECTAL 08/12/17 09:15 (Miralax) 17 gm DAILY PO 08/13/17 09:00 08/15/17 08:39 (Senokot) 8.6 mg HS PO 08/12/17 21:00 08/15/17 21:03 (Fleets Enema (Adult)) 118 ml UNSCH PRN RECTAL 08/12/17 09:15 08/15/17 10:55 (D50w (Vial) Inj) 50 ml UNSCH PRN IV PUSH 08/12/17 09:15 (Glucagon Inj) 1 mg UNSCH PRN OTHER 08/12/17 09:15 (NovoLOG SUPPLEMENTAL SCALE) 1 ACHS SQ 08/13/17 12:00 08/16/17 08:00 (Glucophage) 1,000 mg BIDPC PO 08/15/17 09:45 08/16/17 08:32 (Microzide) 12.5 mg DAILY PO 08/16/17 09:00 08/16/17 08:32 (Prinivil) 20 mg BID PO 08/16/17 21:00 (Lopressor) 50 mg Q12H PO 08/16/17 22:00 (Xanax) 0.25 mg Q12HR PRN PO 08/16/17 10:30 08/16/17 10:43 Vital Signs / I&O Vital Signs Date Time Temp Pulse Resp B/P (MAP) Pulse Ox O2 Delivery O2 Flow Rate FiO2 08/16/17 11:00 99 21 08/16/17 10:14 75 08/16/17 09:26 77 08/16/17 08:15 89 08/16/17 07:18 98.5 81 18 190/79 (116) 95 08/16/17 07:18 81 08/16/17 07:18 95 Room Air 08/16/17 06:00 75 08/16/17 05:00 67 08/16/17 04:00 74 08/16/17 03:00 71 08/16/17 03:00 96 Room Air 08/16/17 03:00 98.2 73 18 135/63 (87) 94 08/16/17 02:00 72 08/16/17 01:00 72 08/16/17 01:00 153/67 (95) 08/16/17 00:00 98.4 82 18 200/80 (120) 95 08/16/17 00:00 70 08/15/17 23:00 95 Room Air 08/15/17 23:00 69 08/15/17 22:00 79 08/15/17 21:00 85 08/15/17 20:00 85 08/15/17 19:29 97 08/15/17 19:00 80 08/15/17 19:00 98.3 80 18 167/80 (109) 94 08/15/17 19:00 95 Room Air 08/15/17 18:06 77 08/15/17 17:14 74 08/15/17 16:07 94 Room Air 08/15/17 16:07 72 08/15/17 16:07 98.5 72 18 143/60 (87) 94 08/15/17 14:12 67 08/15/17 13:18 71 08/15/17 11:39 98.4 70 18 173/67 (102) 99 08/15/17 11:39 70 08/15/17 11:39 95 Room Air I/O 08/15/17 08/15/17 08/15/17 08/16/17 08/16/17 08/16/17 07:00 15:00 23:00 07:00 15:00 23:00 Intake Total 680 ml 720 ml 450 ml Output Total 1800 ml 900 ml Balance -1120 ml 720 ml -450 ml Intake Oral 680 ml 720 ml 450 ml Output Urine Total 1800 ml 900 ml # Voids 1 1 # Bowel Movements 3 0 Physical Exam GENERAL: NAD, AAOx3 SKIN: Warm and dry. HEAD: Atraumatic. Normocephalic. EYES: Pupils equal and round. No scleral icterus. No injection or drainage. ENT: No nasal bleeding or discharge. Mucous membranes pink and moist. NECK: Trachea midline. No JVD. CARDIOVASCULAR: Regular rate and rhythm. RESPIRATORY: No accessory muscle use. Clear to auscultation. Breath sounds equal bilaterally. GASTROINTESTINAL: Abdomen soft, non-tender, nondistended. Hepatic and splenic margins not palpable. MUSCULOSKELETAL: Extremities without clubbing, cyanosis, or edema. No obvious deformities. NEUROLOGICAL: Awake and alert. No obvious cranial nerve deficits. Motor grossly within normal limits. Five out of 5 muscle strength in the arms and legs. Normal speech. PSYCHIATRIC: Appropriate mood and affect; insight and judgment normal. Assessment and Plan Problem List: (1) Multiple vessel coronary artery disease ICD Codes: I25.10 - Atherosclerotic heart disease of [place] coronary artery without angina pectoris (2) NSTEMI (non-ST elevated myocardial infarction) ICD Codes: I21.4 - Non-ST elevation (NSTEMI) myocardial infarction (3) Hypertension ICD Codes: I10 - Hypertension Status: Chronic (4) COPD (chronic obstructive pulmonary disease) ICD Codes: J44.9 - Chronic obstructive pulmonary disease Status: Chronic (5) Anxiety ICD Codes: F41.9 - Anxiety Status: Chronic Assessment and Plan 1) Unstable angina, MVCAD s/p CABGx3 POD #5 BORJA to LAD, SVG to OM, SVG to RCA 2) EF 50% 3) Con't to ambulate 4) Possible rehab today 5) ASA/Plavix/BB/RAJENDRA/Statin 6) HTN, agree with med increases by CT surgery Grant Kc DO Aug 16, 2017 11:24
[2017-08-16] MEDS ORDERED: ALPR.25 PO (12:33)
[2017-08-16] MEDS ORDERED: HYDR-3516 PO (12:33)
[2017-08-16] MEDS ORDERED: PLAV75TA29 PO (12:33)
[2017-08-16] MEDS ORDERED: METO25TA3 PO (12:33)
[2017-08-16] MEDS ORDERED: LISI40TA PO (12:33)
[2017-08-16] MEDS ORDERED: NOVOLOGP2 SQ (12:33)
--- NOTE | 2017-08-16 12:35 | HHI.DS ---
Discharge Summary Admission Date Aug 07, 2017 at 12:11 pm Discharge Date: Aug 17, 2017 Admitting Diagnosis Unstable angina (1) Hypertension ICD Code: I10 - Hypertension Status: Chronic (2) GERD (gastroesophageal reflux disease) ICD Code: K21.9 - Gastroesophageal reflux disease Status: Chronic (3) DM (diabetes mellitus) ICD Code: E11.9 - Diabetes mellitus Status: Chronic (4) COPD (chronic obstructive pulmonary disease) ICD Code: J44.9 - Chronic obstructive pulmonary disease Status: Chronic (5) Anxiety ICD Code: F41.9 - Anxiety Status: Chronic (6) Elevated troponin ICD Code: R74.8 - Abnormal levels of other serum enzymes (7) NSTEMI (non-ST elevated myocardial infarction) ICD Code: I21.4 - Non-ST elevation (NSTEMI) myocardial infarction (8) Multiple vessel coronary artery disease ICD Code: I25.10 - Atherosclerotic heart disease of [place] coronary artery without angina pectoris Procedures 08/08/17 cardiac catheterization Brief History - From Admission The patient is an 81-year-old female who has had multiple recent admissions for chest pain. She states that this morning she started having severe chest pain, 01/09. It was located on the left side of her chest and radiated to her back and left upper arm. She reports associated dyspnea. Denies diaphoresis. She took 4 doses of nitroglycerin for the pain was relieved. It lasted a couple hours overall. She has no chest pain at the moment. She was recently advised to have a cardiac catheterization, but was resistant. She was discharged home. She is now agreeable to proceeding with cardiac catheterization. CBC/BMP: 08/15/17 0554 08/14/17 0455 Significant Findings Laboratory Tests Test 08/13/17 14:00 08/14/17 04:55 08/15/17 05:54 B-Type Natriuretic Peptide 223 PG/ML (0-100) Red Blood Count 2.65 MIL/MM3 (4.00-5.30) 3.28 MIL/MM3 (4.00-5.30) Hemoglobin 8.4 GM/DL (11.6-15.3) 10.2 GM/DL (11.6-15.3) Hematocrit 24.2 % (35.0-46.0) 30.1 % (35.0-46.0) Platelet Count 138 TH/MM3 (150-450) Neutrophils (%) (Auto) 73.4 % (16.0-70.0) 72.2 % (16.0-70.0) Monocytes (%) (Auto) 9.9 % (0.0-8.0) Lymphocytes # (Auto) 0.9 TH/MM3 (1.0-4.8) Random Glucose 155 MG/DL (74-106) Albumin 2.3 GM/DL (3.4-5.0) Calcium Level 8.3 MG/DL (8.5-10.1) Anion Gap 4 MEQ/L (5-15) Estimat Glomerular Filtration Rate 75 ML/MIN (>89) Imaging Last Impressions Chest X-Ray 08/13/17 0000 Signed Impressions: Service Date/Time: Sunday, August 13, 2017 14:05 - CONCLUSION: Thoracostomy tubes removed without complication Brandon Shahid MD Chest CT 08/09/17 0000 Signed Impressions: Service Date/Time: Wednesday, August 09, 2017 19:56 - CONCLUSION: 1. Coronary artery calcifications. 2. Mild scarring and/or atelectasis. 3. Small gallstone noted. Viral Garcia MD Lower Extremity Ultrasound 08/08/17 0000 Signed Impressions: Service Date/Time: Tuesday, August 08, 2017 23:26 - CONCLUSION: Venous mapping as above. Jose Marvin MD Carotid Artery Ultrasound 08/08/17 0000 Signed Impressions: Service Date/Time: Tuesday, August 08, 2017 22:56 - CONCLUSION: 1. 50-69%% stenosis within the left internal carotid artery. 2. No hemodynamically significant stenosis in the right carotid artery. Killian Bhagat MD PE at Discharge General: Elderly female in no acute distress. Heart: Regular rate and rhythm. No murmur. Lungs: Clear to auscultation bilaterally. No wheezes, rales, or rhonchi. Breathing is nonlabored. Abdomen: Soft, nontender, nondistended. Extremities: No lower extremity edema. Psych: Alert and oriented. Pt Condition on Discharge: Good Discharge Disposition: Rehab Inpatient Discharge Time: > 30 minutes Discharge Instructions DIET: Follow Instructions for: Heart Healthy Diet Activities you can perform: Regular-No Restrictions Follow up Referrals: Cardiology - 4 Weeks with Grant Kc DO PCP Follow-up - 2 Weeks with Yash Casarez Md Surgical - 2 Weeks with [facility] - 6 Weeks with Gigi Gomez MD New Medications: Insulin Aspart Inj (Novolog Inj) 1,000 Unit/10 Ml Vial 1-9 UNITS SQ ACHS for Blood Sugar Management, #10 ML 0 Refills Max dose at bedtime:( )units; sugars less than 70,(0)units; sugars 150-199,(1) unit; sugars 200-249,(3) units; sugars 250-299,(5) units; sugars 300-349,(7) units; sugars greater than 349,(9) units Lisinopril (Lisinopril) 40 Mg Tab 40 MG PO DAILY for Blood Pressure Management, #30 TAB 0 Refills Alprazolam (Xanax) 0.25 Mg Tab 0.25 MG PO Q12HR PRN for ANXIETY AND/OR INSOMNIA, #10 TAB Clopidogrel (Plavix) 75 Mg Tab 75 MG PO DAILY for Blood Clot Prevention, #30 TAB 11 Refills Hydrocodone/Acetaminophen (Hydrocodone-Acetamin 5-325 mg) 5 Mg-325 Mg Tablet 1 TAB PO Q4HR PRN for PAIN SCALE 4 TO 6, #20 TAB Metoprolol Tartrate (Metoprolol Tartrate) 25 Mg Tab 50 MG PO Q12H for Heart, #60 TAB 11 Refills Continued Medications: Aspirin (Aspirin) 81 Mg Chew 81 MG CHEW DAILY, TAB 0 Refills Atorvastatin (Atorvastatin) 40 Mg Tab 40 MG PO HS for Cholesterol Management, #30 TAB 0 Refills Budesonide-Formoterol Inh (Symbicort Inh) 160-4.5 Mcg/Act Aero 2 PUFF INH Q12HR, #1 INHALER 0 Refills Gabapentin (Gabapentin) 300 Mg Cap 300 MG PO BID, #60 CAP 0 Refills Insulin Detemir Inj (Levemir Inj) 1,000 unit/ 10 ML Vial 5 UNITS SQ Q12HR for Blood Sugar Management, #1 VIAL Do not mix with any other Insulin. Isosorbide Mononitrate ER (Isosorbide Mononitrate ER) 30 Mg [place] 30 MG PO DAILY@07 for heart for 30 Days, #30 TAB Metformin (Metformin) 1,000 Mg Tab 1000 MG PO BIDPC for Blood Sugar Management, #60 TAB 0 Refills With meals Nitroglycerin SL (Nitroglycerin SL) 0.4 Mg Subl 0.4 MG SL DIRECTED PRN for CHEST PAIN, #100 TAB.SL 0 Refills ONE TABLET UNDER THE TONGUE NEEDED FOR CHEST PAIN, MAY REPEAT EVERY FIVE MINUTES FOR A TOTAL OF 3 DOSES OR CALL 911 IF NO RELIEF Pantoprazole (Protonix) 40 Mg Tab 40 MG PO DAILY for Reflux, #30 TAB 0 Refills Sennosides (Senokot) 8.6 Mg Tab 8.6 MG PO HS PRN for CONSTIPATION, #30 TAB 0 Refills Discontinued Medications: Alprazolam (Xanax) 1 Mg Tab 1 MG PO BID PRN for ANXIETY, #10 TAB 0 Refills Insulin Human Regular Inj (Novolin R Inj) 1,000 Unit/10 Ml Vial 0 SQ DIRECTED for Blood Sugar Management, #10 ML 0 Refills Sliding Scale As Directed. 150-200=5 UNITS,201-300=10 UNITS,301-400=15 UNITS, OVER 400=CALL Levofloxacin (Levaquin) 500 Mg Tablet 500 MG PO DAILY for Strep viridans bacteremia for 12 Days, #12 TAB 0 Refills Lisinopril (Lisinopril) 5 Mg Tab 5 MG PO DAILY for Blood Pressure Management, #30 TAB 0 Refills Metoprolol Tartrate (Metoprolol Tartrate) 25 Mg Tab 25 MG PO Q12HR for HEART, #60 TAB Metronidazole (Flagyl) 500 Mg Tab 500 MG PO TID for Clperf bacteremia for 12 Days, TAB 0 Refills Moshe Lundberg DO Aug 16, 2017 12:35
[2017-08-16] MEDS ORDERED: NIFE30TA61 PO (12:37)
--- NOTE | 2017-08-16 17:56 | HHI.PR ---
Subjective Remarks Follow up for CAD s/p CABG. Patient is currently sitting in her chair, doing well. No CP, SOB, fever, chills. Objective Vitals Vital Signs Date Time Temp Pulse Resp B/P (MAP) Pulse Ox O2 Delivery O2 Flow Rate FiO2 08/16/17 17:23 77 08/16/17 16:24 76 08/16/17 15:44 97 Room Air 08/16/17 15:44 72 08/16/17 15:44 97.6 72 18 156/73 (100) 97 08/16/17 14:18 67 08/16/17 13:05 68 08/16/17 12:50 65 08/16/17 11:06 66 08/16/17 11:06 98.6 66 18 141/64 (89) 98 08/16/17 11:06 98 Room Air 08/16/17 11:00 99 21 08/16/17 10:14 75 08/16/17 09:26 77 08/16/17 08:15 89 08/16/17 07:18 98.5 81 18 190/79 (116) 95 08/16/17 07:18 81 08/16/17 07:18 95 Room Air 08/16/17 06:00 75 08/16/17 05:00 67 08/16/17 04:00 74 08/16/17 03:00 71 08/16/17 03:00 96 Room Air 08/16/17 03:00 98.2 73 18 135/63 (87) 94 08/16/17 02:00 72 08/16/17 01:00 72 08/16/17 01:00 153/67 (95) 08/16/17 00:00 98.4 82 18 200/80 (120) 95 08/16/17 00:00 70 08/15/17 23:00 95 Room Air 08/15/17 23:00 69 08/15/17 22:00 79 08/15/17 21:00 85 08/15/17 20:00 85 08/15/17 19:29 97 08/15/17 19:00 80 08/15/17 19:00 98.3 80 18 167/80 (109) 94 08/15/17 19:00 95 Room Air 08/15/17 18:06 77 I/O 4/1608/15/17 08/15/17 08/16/17 08/16/17 08/16/17 07:00 15:00 23:00 07:00 15:00 23:00 Intake Total 680 ml 720 ml 450 ml 800 ml Output Total 1800 ml 900 ml Balance -1120 ml 720 ml -450 ml 800 ml Intake Oral 680 ml 720 ml 450 ml 800 ml Output Urine Total 1800 ml 900 ml # Voids 1 1 5 # Bowel Movements 3 0 3 Result Diagram: 08/15/17 0554 08/14/17 0455 Imaging Last Impressions Chest X-Ray 08/13/17 0000 Signed Impressions: Service Date/Time: Sunday, August 13, 2017 14:05 - CONCLUSION: Thoracostomy tubes removed without complication Brandon Shahid MD Chest CT 08/09/17 0000 Signed Impressions: Service Date/Time: Wednesday, August 09, 2017 19:56 - CONCLUSION: 1. Coronary artery calcifications. 2. Mild scarring and/or atelectasis. 3. Small gallstone noted. Viral Garcia MD Lower Extremity Ultrasound 08/08/17 0000 Signed Impressions: Service Date/Time: Tuesday, August 08, 2017 23:26 - CONCLUSION: Venous mapping as above. Jose Marvin MD Carotid Artery Ultrasound 08/08/17 0000 Signed Impressions: Service Date/Time: Tuesday, August 08, 2017 22:56 - CONCLUSION: 1. 50-69%% stenosis within the left internal carotid artery. 2. No hemodynamically significant stenosis in the right carotid artery. Killian Bhagat MD Objective Remarks GENERAL: Alert, NAD. SKIN: Warm and dry. HEAD: Normocephalic. EYES: No scleral icterus. No injection or drainage. NECK: Supple, trachea midline. No JVD or lymphadenopathy. CARDIOVASCULAR: Regular rate and rhythm without murmurs, gallops, or rubs. RESPIRATORY: Breath sounds equal bilaterally. No accessory muscle use. GASTROINTESTINAL: Abdomen soft, non-tender, nondistended. MUSCULOSKELETAL: No cyanosis, or edema. BACK: Nontender without obvious deformity. No CVA tenderness. Procedures 08/08/17 cardiac catheterization A/P Problem List: (1) Hypertension ICD Code: I10 - Hypertension Status: Chronic (2) GERD (gastroesophageal reflux disease) ICD Code: K21.9 - Gastroesophageal reflux disease Status: Chronic (3) DM (diabetes mellitus) ICD Code: E11.9 - Diabetes mellitus Status: Chronic (4) COPD (chronic obstructive pulmonary disease) ICD Code: J44.9 - Chronic obstructive pulmonary disease Status: Chronic (5) Anxiety ICD Code: F41.9 - Anxiety Status: Chronic (6) Elevated troponin ICD Code: R74.8 - Abnormal levels of other serum enzymes (7) NSTEMI (non-ST elevated myocardial infarction) ICD Code: I21.4 - Non-ST elevation (NSTEMI) myocardial infarction (8) Multiple vessel coronary artery disease ICD Code: I25.10 - Atherosclerotic heart disease of [place] coronary artery without angina pectoris Assessment and Plan Ms. Muniz is an 81 year old female with a history of hypertension, hyperlipidemia, diabetes mellitus who presented to the emergency department on due to chest pain. She was previously offered cardiac catheterization due to chest pain and elevated troponins. But patient refused until this admission. Cardiac catheterization on 08/09/2017 shows left main disease of 20% , proximal LAD 40%, mid-distal LAD 90%, diagonal 70%, the circ at 90%, the OM 80%, the RCA 80%. Patient subsequently underwent CABG on 08/11/2017. Coronary artery disease Multivessel coronary artery disease on cardiac catheterization on 08/09/2017. Status post CABG on 08/11/2017 Continue aspirin, Lipitor, Plavix, metoprolol, lisinopril 20 mg twice daily. Patient is also on HCTZ. Probable discharge to [facility] on 08/17/2017 Hemoglobin stable at 10.2 Diabetes mellitus type 2 -Levemir 5 units every 12 hours, sliding scale insulin. Continue metformin 1000 mg twice daily COPD: Does not appear to be in exacerbation at this time. Continue Symbicort. DuoNeb as needed. Oxygen as needed. GERD: Continue PPI. Bacteremia: Continue Levaquin and Flagyl. Stop date is 08/09/17. Full code. Ambulation, [place]IS[place]. Moshe Lundberg DO Aug 16, 2017 17:56
[2017-08-16] MEDS: ONDANSETRON HCL 4 MG/2 ML VIAL IV PUSH PRN (18:14)
[2017-08-16] MEDS: SENNOSIDES 8.6 MG TAB PO SCH (21:00)
[2017-08-16] MEDS: ATORVASTATIN 40 MG TAB PO SCH (21:05)
[2017-08-17] VITALS (11 sets, daily range): BP systolic 125–162; BP diastolic 61–76; PULSE 55–78; RESP 18–21; TEMP 97.4–98.4; O2SAT 95–97
[2017-08-17] MEDS: PANTOPRAZOLE SOD 40 MG DELAYED RELEASE TAB PO SCH (05:49)
[2017-08-17] MEDS: NYSTATIN SUSP 500,000 U/5 ML CUP SWISH-SWAL SCH (08:04)
[2017-08-17] MEDS: MAGNESIUM HYDROXIDE SUSP 30 ML CUP PO SCH (08:04)
[2017-08-17] MEDS: MULTIVITAMINS/MINERALS THERAPEUTIC TAB PO SCH (08:04)
[2017-08-17] MEDS: POLYETHYLENE GLYCOL 17 GM PKG PO SCH (08:04)
[2017-08-17] MEDS: CLOPIDOGREL 75 MG TAB PO SCH (08:04)
[2017-08-17] MEDS: DOCUSATE SODIUM 100 MG CAP PO SCH (08:05)
[2017-08-17] MEDS: GABAPENTIN 300 MG CAP PO SCH (08:05)
[2017-08-17] MEDS: ASPIRIN 81 MG CHEW TAB PO SCH (08:05)
[2017-08-17] MEDS: HYDROCHLOROTHIAZIDE 12.5 MG CAP PO SCH (08:05)
[2017-08-17] MEDS: metFORMIN HCL 500 MG TAB PO SCH (08:05)
[2017-08-17] MEDS: ACETAMINOPHEN/HYDROcodone 325 MG/5 MG TAB PO PRN (08:06)
[2017-08-17] MEDS: LISINOPRIL 5 MG TAB PO SCH (08:06)
[2017-08-17] MEDS: INSULIN DETEMIR 100 UNITS/ML VIAL SQ SCH (08:21)
[2017-08-17] MEDS: SODIUM CHLORIDE 0.9% FLUSH 10 ML FLUSH IV FLUSH SCH (08:22)
[2017-08-17] MEDS: INSULIN ASPART SUPPLEMENTAL SCALE SQ SCH (08:22)
[2017-08-17] MEDS: BUDESONIDE-FORMOTEROL 160/4.5 MCG INHALER INH SCH (08:23)
[2017-08-17] MEDS: METOPROLOL TARTRATE 25 MG TAB PO SCH (09:22)
== END 2017-08-17 10:05 | DRG 233 ==
LOC: NEPE 09:26 → NEDA 12:11 → OBSVTOIN 12:11 → N06A 17:03 → HCIS 08-08 10:42 → HCPC 08-08 16:32 → HCIS 08-11 08:38 → HCVI 08-11 13:19 → HCPC 08-14 10:45
PROVIDERS: ADMIT Hospitalist; ATTEND Hospitalist
PROC: 4A023N7 Measurement of Cardiac Sampling and Pressure, Left Heart, Percutaneous Approach (ICD-10-PCS; 2017-08-08)
PROC: B2111ZZ Fluoroscopy of Multiple Coronary Arteries using Low Osmolar Contrast (ICD-10-PCS; 2017-08-08)
PROC: 021109W Bypass Coronary Artery, Two Arteries from Aorta with Autologous Venous Tissue, Open Approach (ICD-10-PCS; 2017-08-11)
PROC: 06BQ4ZZ Excision of Left Saphenous Vein, Percutaneous Endoscopic Approach (ICD-10-PCS; 2017-08-11)
PROC: 02100Z9 Bypass Coronary Artery, One Artery from Left Internal Mammary, Open Approach (ICD-10-PCS; principal; 2017-08-11 08:31)
DX: I25.110 Atherosclerotic heart disease of native coronary artery with unstable angina pectoris (principal); I21.4 Non-ST elevation (NSTEMI) myocardial infarction; E11.40 Type 2 diabetes mellitus with diabetic neuropathy, unspecified; R78.81 Bacteremia; I11.0 Hypertensive heart disease with heart failure; I50.9 Heart failure, unspecified; E11.649 Type 2 diabetes mellitus with hypoglycemia without coma; J44.9 Chronic obstructive pulmonary disease, unspecified; K21.9 Gastro-esophageal reflux disease without esophagitis; F41.9 Anxiety disorder, unspecified; E78.5 Hyperlipidemia, unspecified; Z96.653 Presence of artificial knee joint, bilateral; R11.2 Nausea with vomiting, unspecified; I16.0 Hypertensive urgency; M19.90 Unspecified osteoarthritis, unspecified site; G43.909 Migraine, unspecified, not intractable, without status migrainosus; D64.9 Anemia, unspecified; Z79.4 Long term (current) use of insulin; Z79.82 Long term (current) use of aspirin; Z79.899 Other long term (current) drug therapy; E78.00 Pure hypercholesterolemia, unspecified; I44.4 Left anterior fascicular block; R94.31 Abnormal electrocardiogram [ECG] [EKG]
CPT/HCPCS: 71045; 71046; 71250; 76937; 80048; 80053; 80069; 81001; 82550; 82948; 83036; 83735; 83880; 84484; 85014; 85025; 85027; 85610; 85730; 86850; 86900; 86901; 86920; 87641; 93005; 93306; 93458; 93880; 93970; 93998; 94002; 94010; 94150; 94640; 94664; 94667; 94668; 96372; 96374; 99152; C1768; C1769; C1893; C9248; G0378; G8987-GP; G8988-GP; J0131; J0171; J0360; J0690; J1644; J1815; J1817; J1885; J1940; J2250; J2270; J2370; J2405; J2440; J2710; J2720; J3010; J3370; J3475; J3480; J7040; J7050; J7060; J7120; Q9967

== ENCOUNTER 2018-01-25 09:40 | Observation (INO) ==
[2018-01-25 10:17] LABS: Baso % (Auto) 0.4 % (0.0-2.0); Eos # (Auto) 0.1 th/mm3 (0.0-0.4); Eos % (Auto) 1.5 % (0.0-4.0); Hematocrit 33.7 % (35.0-46.0); Hemoglobin 11.3 gm/dL (11.6-15.3); Lymph # (Auto) 1.4 th/mm3 (1.0-4.8); Lymph % (Auto) 22.2 % (9.0-44.0); Mean Corpuscular HGB Conc 33.5 % (32.0-36.0); Mean Corpuscular Hemoglobin 28.3 pg (27.0-34.0); Mean Corpuscular Volume 84.4 fL (80.0-100.0); Mean Platelet Volume 8.3 fL (7.0-11.0); Mono # (Auto) 0.4 th/mm3 (0.0-0.9); Mono % (Auto) 5.8 % (0.0-8.0); Neut # (Auto) 4.4 th/mm3 (1.8-7.7); Neut % (Auto) 70.1 % (16.0-70.0); Platelet Count 137 th/mm3 (150-450); Red Blood Count 3.99 mil/mm3 (4.00-5.30); Red Cell Distribution Width 16.5 % (11.6-17.2); White Blood Count 6.3 th/mm3 (4.0-11.0)
--- NOTE | 2018-01-25 10:28 | ED ---
HPI General Chief Complaint: Shortness of Breath/Dyspnea Stated Complaint: SOB Time Seen by Provider: 01/25/18 09:49 Source: patient Mode of arrival: ambulatory Limitations: no limitations History of Present Illness Patient is an 82-year-old female, past medical history significant for COPD on 2 L of oxygen at night at home, CAD, hypertension, hyperlipidemia, who presents with complaint of worsening dyspnea over the last several days with a productive cough. No fever though she has had chills. No leg swelling or immobilization. The dyspnea does not change with positioning that she is aware of. She states that she has recently had nasal congestion with a cough and reports that the congestion is gone but the cough has worsened. MD Complaint: shortness of breath and cough Onset (ago): day(s) Context: recent illness Severity: moderate Consistency/Duration: constant Relieving factors: nothing Exacerbating factors: nothing Known history of: COPD Associated symptoms: cough and sputum production Treatment prior to arrival: oxygen Related Data Home Medications Medication Instructions Recorded Confirmed alprazolam [Xanax] 0.25 mg PO BID 12/03/17 01/22/18 atorvastatin 40 mg PO HS 12/03/17 01/22/18 clopidogrel 75 mg PO DAILY 12/03/17 01/22/18 duloxetine 60 mg PO DAILY 12/03/17 01/22/18 fluticasone 2 spray INTRANASAL DAILY 12/03/17 01/22/18 gabapentin 300 mg PO QPM 12/03/17 01/22/18 glimepiride 1 mg PO QAM 12/03/17 01/22/18 linaclotide [Linzess] 72 mcg PO DAILY 12/03/17 01/22/18 metoprolol tartrate 25 mg PO BID 12/03/17 01/22/18 sitagliptin [Januvia] 50 mg PO DAILY 12/03/17 01/22/18 umeclidinium [Incruse Ellipta] 1 inh INHALATION DAILY 12/03/17 01/22/18 zolpidem [Ambien] 5 mg PO HS 12/03/17 01/22/18 benazepril 20 mg PO DAILY 01/20/18 01/22/18 cyanocobalamin (vitamin B-12) 1,000 mcg IM QMONTH 01/20/18 01/22/18 isosorbide mononitrate 30 mg PO DAILY 01/20/18 01/22/18 Previous Rx's Medication Instructions Recorded benzonatate [Tessalon Perles] 100 mg PO TID PRN #7 cap 01/21/18 Allergies Allergy/AdvReac Type Severity Reaction Status Date / Time codeine AdvReac Severe NAUSEA Verified 01/22/18 18:14 hydromorphone AdvReac Severe Nausea/Vomi Verified 01/22/18 18:14 ting hydrocodone AdvReac Unknown Nausea/Vomi Verified 01/22/18 18:14 ting Review of Systems ROS: all other systems reviewed are negative [facility] Medical History Medical History CAD (coronary artery disease) (Acute) High cholesterol (Acute) HTN (hypertension) (Acute) Diabetes (Acute) Lumbar back pain (Acute) Lumbar arthropathy (Acute) Hernia (Acute) Surgical History Surgical History Total knee replacement status (Acute) S/P CABG (coronary artery bypass graft) (Acute) Social History Social History Substance History: No History of Abuse Second Hand Smoke Exposure: No Smoking Status: Never smoker Tobacco Type: Cigarettes How Often Do You Have a Drink Containing Alcohol: Never Recent Out of Country Travel within the Last 8 Weeks: No Immunization History Tetanus Immunization: Unsure Hx Influenza Vaccine This Season: Yes Exam Narrative Exam Narrative: GENERAL: Well-appearing, elderly female in no acute distress SKIN: Focused skin assessment warm/dry. HEAD: Atraumatic. Normocephalic. EYES: Pupils equal and round. No scleral icterus. No injection or drainage. ENT: No nasal bleeding or discharge. Mucous membranes pink and moist. NECK: Trachea midline. No JVD. CARDIOVASCULAR: Regular rate and rhythm. No murmur appreciated. RESPIRATORY: No accessory muscle use. Decreased breath sounds throughout. GASTROINTESTINAL: Abdomen soft, non-tender, nondistended. Hepatic and splenic margins not palpable. MUSCULOSKELETAL: No obvious deformities. No clubbing. No cyanosis. No edema. NEUROLOGICAL: Awake and alert. No obvious cranial nerve deficits. Motor grossly within normal limits. Normal sensation. Normal speech. PSYCHIATRIC: Appropriate mood and affect; insight and judgment normal. Course Initial Documented Vital Signs Temperature 98.4 F 09/26/18 09:44 Pulse Rate 74 01/25/18 09:44 Respiratory Rate 18 01/25/18 09:44 Blood Pressure 155/84 H 01/25/18 09:44 Last Documented Vital Signs Temperature 98.4 F 01/25/18 09:44 Pulse Rate 69 01/25/18 11:43 Respiratory Rate 18 01/25/18 11:43 Blood Pressure 155/84 H 01/25/18 09:44 Pulse Oximetry 97 01/25/18 10:04 Medical Decision Making MDM Narrative Medical decision making narrative: Patient is an 82-year-old female, past medical history significant for COPD, who presents with complaint of worsening dyspnea over the last several days with a productive cough. She is hemodynamically stable and labs were relatively unremarkable. Chest x-ray did not show an acute infiltrate. EKG was without acute ischemic changes. She was given several breathing treatments after which she felt better but did not feel well enough to go home at this time. She has been given prednisone and azithromycin to help treat her acute COPD exacerbation and admitted to Dr. Marcano, hospitalist on-call for further evaluation and management. Medical Screen Exam Complete: Yes Emergency Medical Condition: Yes Differential Diagnosis Differential Diagnosis: Differential diagnosis includes but is not limited to COPD exacerbation, pneumonia, pneumothorax, acute coronary syndrome. Medical Records Medical records reviewed: Yes I reviewed the patient's medical records. Lab Data Lab results reviewed: Yes I reviewed the patient's lab results. Result diagrams: 01/25/18 10:00 01/25/18 10:00 Lab Results 01/25/18 01/25/18 01/25/18 Range/Units 10:00 10:00 10:00 WBC 6.3 (4.0-11.0) th/mm3 RBC 3.99 L (4.00-5.30) mil/mm3 Hgb 11.3 L (11.6-15.3) gm/dL Hct 33.7 L (35.0-46.0) % MCV 84.4 (80.0-100.0) fL MCH 28.3 (27.0-34.0) pg MCHC 33.5 (32.0-36.0) % RDW 16.5 (11.6-17.2) % Plt Count 137 L (150-450) th/mm3 MPV 8.3 (7.0-11.0) fL Neut % (Auto) 70.1 H (16.0-70.0) % Lymph % (Auto) 22.2 (9.0-44.0) % [place] % (Auto) 5.8 (0.0-8.0) % Eos % (Auto) 1.5 (0.0-4.0) % Baso % (Auto) 0.4 (0.0-2.0) % Neut # (Auto) 4.4 (1.8-7.7) th/mm3 Lymph # (Auto) 1.4 (1.0-4.8) th/mm3 [place] # (Auto) 0.4 (0.0-0.9) th/mm3 Eos # (Auto) 0.1 (0.0-0.4) th/mm3 Baso # (Auto) 0.0 (0.0-0.2) th/mm3 WBC Differential . Differential Comment Auto diff final Sodium 142 (136-145) meq/L Potassium 3.4 L (3.5-5.1) meq/L Chloride 106 (98-107) meq/L Carbon Dioxide 25.9 (21.0-32.0) meq/L Anion Gap 10 (5-15) meq/L BUN 10 (7-18) mg/dL Creatinine 0.65 (0.50-1.00) mg/dL Estimated GFR 87 L (>89) mL/min Random Glucose 289 H (74-106) mg/dL Calcium 8.6 (8.5-10.1) mg/dL Total Bilirubin 0.3 (0.2-1.0) mg/dL AST 12 L (15-37) U/L ALT 15 (10-53) U/L Alkaline Phosphatase 93 (45-117) U/L Troponin I Less than 0.02 L (0.02-0.05) ng/mL B-Natriuretic Peptide 221 H (0-100) pg/mL Total Protein 6.9 (6.4-8.2) g/dL Albumin 3.2 L (3.4-5.0) g/dL Imaging Data Attestation: I personally reviewed and interpreted this imaging study as follows : My impression: No acute cardiopulmonary process. Radiologist's impression: Chest X-Ray 01/25/18 09:56 CONCLUSION: 1. No acute abnormality or significant interval change. ECG Data EKG Prior to Arrival: No Attestation: I personally reviewed and interpreted this ECG as follows: (Sinus rhythm at a rate of 70 bpm. There is LVH with left axis deviation. T wave inversions present in leads I and aVL in addition to leads V5 and V6. No other ST or T wave changes.) Discharge Plan Discharge Disposition Patient Disposition: 30 Still Patient Discharge Condition Condition: Stable Discharge Details Diagnosis: Acute exacerbation of chronic obstructive pulmonary disease (COPD) Physicians Team ED Provider: Neha Grimes Primary Care Provider: UNKNOWN, Rxs /Orders / Referrals /Forms Prescriptions: No Action alprazolam [Xanax] 0.25 mg Tablet 0.25 mg PO BID RF: 0 zolpidem [Ambien] 5 mg Tablet 5 mg PO HS RF: 0 atorvastatin 40 mg Tablet 40 mg PO HS RF: 0 clopidogrel 75 mg tablet 75 mg PO DAILY RF: 0 duloxetine 60 mg Capsule,Delayed Release(Dr/Ec) 60 mg PO DAILY RF: 0 fluticasone 50 mcg/actuation [place],Suspension 2 spray INTRANASAL DAILY RF: 0 gabapentin 300 mg Tablet Extended Release 24 Hr 300 mg PO QPM RF: 0 glimepiride 1 mg Tablet 1 mg PO QAM RF: 0 umeclidinium [Incruse Ellipta] 62.5 mcg/actuation Blister With Device 1 inh INHALATION DAILY RF: 0 sitagliptin [Januvia] 50 mg Tablet 50 mg PO DAILY RF: 0 linaclotide [Linzess] 72 mcg Capsule 72 mcg PO DAILY RF: 0 metoprolol tartrate 25 mg Tablet 25 mg PO BID RF: 0 cyanocobalamin (vitamin B-12) 1,000 mcg/mL Solution 1,000 mcg IM QMONTH RF: 0 benazepril 20 mg Tablet 20 mg PO DAILY RF: 0 isosorbide mononitrate 30 mg Tablet Extended Release 24 Hr 30 mg PO DAILY RF: 0 benzonatate [Tessalon Perles] 100 mg capsule 100 mg PO TID PRN (Reason: cough) Qty: 7 RF: 0 Status ED Status: With Doctor
[2018-01-25 10:42] LABS: Alanine Aminotransferase 15 U/L (10-53); Albumin 3.2 g/dL (3.4-5.0); Anion Gap 10 meq/L (5-15); Aspartate Aminotransferase 12 U/L (15-37); Blood Urea Nitrogen 10 mg/dL (7-18); Calcium 8.6 mg/dL (8.5-10.1); Carbon Dioxide 25.9 meq/L (21.0-32.0); Chloride 106 meq/L (98-107); Glomerular Filtration Rate 87 mL/min (>89); Glucose,Random 289 mg/dL (74-106); Potassium 3.4 meq/L (3.5-5.1); Sodium 142 meq/L (136-145)
[2018-01-25 10:53] LABS: Alkaline Phosphatase 93 U/L (45-117); Total Protein 6.9 g/dL (6.4-8.2)
--- NOTE | 2018-01-25 11:23 | XR ---
EXAM DATE: 01/25/2018 9:56 AM EDT AGE/SEX: 82 years / Female INDICATIONS: . Cough, short of breath. CLINICAL DATA: This is the patient's initial encounter. Patient reports that signs and symptoms have been present for 2 days and indicates a pain score of 0/10. MEDICAL/SURGICAL HISTORY: Chronic obstructive pulmonary disease. Cardiovascular disease. Hype rtension. CABG. COMPARISON: [facility], CHEST 1V SINGLE AP, 01/20/2018. . FINDINGS: Stable postsurgical features of prior median sternotomy. Persistent mild elevation the right hemidiap hragm. Lungs are hypoaerated without new focal pleural or parenchymal opacities. Cardiomediastinal co ntours are within normal limits. Osseous structures are intact. CONCLUSION: 1. No acute abnormality or significant interval change. Electronically signed by: Brandin Santoro MD 01/25/2018 11:22 AM EDT
[2018-01-25] MEDS ORDERED: Azithromycin 250 MG Tablet PO ONE (11:42)
[2018-01-25] MEDS ORDERED: Dextrose 50% in Water 50 ML Vial IV.PUSH PRN (14:47)
--- NOTE | 2018-01-25 14:58 | P.HPIM ---
History of Present Illness Primary Care Physician: UNKNOWN Chief Complaint: shortness of breath History of Present Illness: patient is a 82 y/o female with history of COPD, on home oxygen, CAD, hypertension and diabetes presented to ER with worsening sob. she says that her sob started to get worse yesterday. this was associated with productive cough of yellowish sputum. she had some chills but no report of fever. she had some nausea earlier which has resolved.she says that she had a fall about three weeks ago, sustained a right hand fracture for which she was seen by a hand surgeon. Review of Systems All other systems reviewed negative except as stated in HPI PMFSH - History History Provided By: Patient - Medical History Medical History: Medical History (Last Reviewed 01/25/18 @ 14:51 by Massiel Olivera MD) CAD (coronary artery disease) (Acute) High cholesterol (Acute) HTN (hypertension) (Acute) Diabetes (Acute) Lumbar back pain (Acute) Lumbar arthropathy (Acute) Hernia (Acute) - Surgical History Surgical History: Surgical History (Last Reviewed 01/25/18 @ 14:51 by Massiel Olivera MD) Total knee replacement status (Acute) S/P CABG (coronary artery bypass graft) - Family History Family History: Family History (Last Updated 01/25/18 @ 14:52 by Massiel Olivera MD) Other CAD (coronary artery disease) - Tobacco History Second Hand Smoke Exposure: No Tobacco Use In Past 30 Days: No Smoking Status: Never smoker Tobacco Type: Cigarettes - Alcohol History How Often Do You Have a Drink Containing Alcohol: Never - Substance Use History Substance History: No History of Abuse - Travel History Recent Travel Out of the Country Within the Last 8 Weeks: No - Immunization History Tetanus Immunization: Unsure Hx Influenza Vaccine This Season: Yes Medications and Allergies Active Medications: Active Medications Albuterol (Albuterol Neb (Prn)) 1.25 mg NEB Q2HR NEB PRN PRN Reason: sob Atorvastatin Calcium (Lipitor) 40 mg PO HS CHETNA Dextrose (D50w Vial) 50 ml IV.PUSH UNSCH PRN PRN Reason: PER HYPOGLYCEMIA PROTOCOL Glucagon (Glucagon Inj) 1 mg OTHER PRN PRN PRN Reason: for Hypoglycemia Protocol Insulin Aspart (Novolog Insulin Correctional Sugar Inj) 0 unit SQ ACHS CHETNA; Protocol Isosorbide Mononitrate (Imdur) 30 mg PO DAILY [facility] Metoprolol Tartrate (Lopressor) 25 mg PO BID [facility] Non-Formulary Medication (Benazepril [Benazepril]) 20 mg PO DAILY [facility] Non-Formulary Medication (Clopidogrel) 75 mg PO DAILY [facility] Prednisone (Deltasone) 40 mg PO DAILY [facility] Allergies Allergy/AdvReac Type Severity Reaction Status Date / Time codeine AdvReac Severe NAUSEA Verified 01/22/18 18:14 hydromorphone AdvReac Severe Nausea/Vomi Verified 01/22/18 18:14 ting hydrocodone AdvReac Unknown Nausea/Vomi Verified 01/22/18 18:14 ting Home Medications Medication Instructions Recorded Confirmed Type alprazolam [Xanax] 0.25 mg PO BID 12/03/17 01/22/18 History atorvastatin 40 mg PO HS 12/03/17 01/22/18 History clopidogrel 75 mg PO DAILY 12/03/17 01/22/18 History duloxetine 60 mg PO DAILY 12/03/17 01/22/18 History fluticasone 2 spray INTRANASAL DAILY 12/03/17 01/22/18 History gabapentin 300 mg PO QPM 12/03/17 01/22/18 History glimepiride 1 mg PO QAM 12/03/17 01/22/18 History linaclotide [Linzess] 72 mcg PO DAILY 12/03/17 01/22/18 History metoprolol tartrate 25 mg PO BID 12/03/17 01/22/18 History sitagliptin [Januvia] 50 mg PO DAILY 12/03/17 01/22/18 History umeclidinium [Incruse Ellipta] 1 inh INHALATION DAILY 12/03/17 01/22/18 History zolpidem [Ambien] 5 mg PO HS 12/03/17 01/22/18 History benazepril 20 mg PO DAILY 01/20/18 01/22/18 History cyanocobalamin (vitamin B-12) 1,000 mcg IM QMONTH 01/20/18 01/22/18 History isosorbide mononitrate 30 mg PO DAILY 01/20/18 01/22/18 History Exam Vital signs: Vital Signs 01/25/18 09:44 01/25/18 10:04 01/25/18 11:43 Temperature 98.4 F Pulse Rate 74 66 69 Respiratory Rate 18 18 18 Blood Pressure 155/84 H Pulse Oximetry 97 Intake & Output 01/24/18 01/25/18 01/25/18 18:59 06:59 18:59 Weight 63.503 kg - Constitutional no acute distress - Routine HEENT Exam Eye: Present: PERRL - Routine Respiratory Exam Present: CTA bilaterally, wheezes (minimal bilateral wheezing.) - Routine Cardiovascular Exam Present: RRR - Routine Abdominal Exam Present: soft - Routine Extremities Exam Comments: no pedal edema. right hand covered with clean dressing. - Routine Neurological Exam Present: alert, oriented X3 Results - Labs CBC & Chem 7: 01/25/18 10:00 01/25/18 10:00 Labs: Short CBC 01/25/18 Range/Units 10:00 WBC 6.3 (4.0-11.0) th/mm3 Hgb 11.3 L (11.6-15.3) gm/dL Hct 33.7 L (35.0-46.0) % Plt Count 137 L (150-450) th/mm3 BMP 01/25/18 10:00 Sodium 142 Potassium 3.4 L Chloride 106 Carbon Dioxide 25.9 BUN 10 Creatinine 0.65 Calcium 8.6 Cardiac Enzymes 01/25/18 Range/Units 10:00 Troponin I Less than 0.02 L (0.02-0.05) ng/mL Liver Function 01/25/18 Range/Units 10:00 Total Bilirubin 0.3 (0.2-1.0) mg/dL AST 12 L (15-37) U/L ALT 15 (10-53) U/L Alkaline Phosphatase 93 (45-117) U/L Albumin 3.2 L (3.4-5.0) g/dL - Imaging Impressions Chest X-Ray 01/25/18 09:56 CONCLUSION: 1. No acute abnormality or significant interval change. Caprini VTE Risk Assessment Caprini VTE Risk Assessment: Moderate/High Risk (score >= 2) Caprini Risk Assessment Model: Point Value = 1 Point Value = 2 Point Value = 3 Point Value = 5 Age 41-60 Minor surgery BMI > 25 kg/m2 Swollen legs Varicose veins or History of unexplained or recurrent spontaneous Oral contraceptives or hormone replacement Sepsis (< 1 month) Serious lung disease, including pneumonia (< 1 month) Abnormal pulmonary function Acute myocardial infarction Congestive heart failure (< 1 month) History of inflammatory bowel disease Medical patient at bed rest Age 61-74 Arthroscopic surgery Major open surgery (> 45 min) Laparoscopic surgery (> 45 min) Malignancy Confined to bed (> 72 hours) Immobilizing plaster cast Central venous access Age >= 75 History of VTE Family history of VTE Factor V Leiden Prothrombin 22670L Lupus anticoagulant Anticardiolipin antibodies Elevated serum homocysteine Heparin-induced thrombocytopenia Other congenital or acquired thrombophilia Stroke (< 1 month) Elective arthroplasty Hip, pelvis, or leg fracture Acute spinal cord injury (< 1 month) Prophylaxis Regimen: Total Risk Factor Score Risk Level Prophylaxis Regimen 0-1 Low Early ambulation 2 Moderate Order ONE of the following: *Sequential Compression Device (SCD) *Heparin 5000 units SQ BID 3-4 Higher Order ONE of the following medications: *Heparin 5000 units SQ TID *Enoxaparin/Lovenox 40 mg SQ daily (WT < 150 kg, CrCl > 30 mL/min) *Enoxaparin/Lovenox 30 mg SQ daily (WT < 150 kg, CrCl > 10-29 mL/min) *Enoxaparin/Lovenox 30 mg SQ BID (WT < 150 kg, CrCl > 30 mL/min) AND/OR *Sequential Compression Device (SCD) 5 or more Highest Order ONE of the following medications: *Heparin 5000 units SQ TID (Preferred with Epidurals) *Enoxaparin/Lovenox 40 mg SQ daily (WT < 150 kg, CrCl > 30 mL/min) *Enoxaparin/Lovenox 30 mg SQ daily (WT < 150 kg, CrCl > 10-29 mL/min) *Enoxaparin/Lovenox 30 mg SQ BID (WT < 150 kg, CrCl > 30 mL/min) AND *Sequential Compression Device (SCD) Assessment and Plan - Plan A/P - COPD exacerbation- already has improved with prednisone and neb treatments. continue with steroids, antibiotics and neb treatments,; scheduled and prn- will keep on oxygen as needed to keep O2 sat > 90%. patient is on home oxygen ; 2lit/m at night. -CAD- s/p CABG/ hypertension; will resume aspirin.plavix,metoprolol and benazepril- -diabetes mellitus; start on accu-check with SSI -right hand fracture after a fall three weeks ago- was seen by hand surgery before; f/u as outpatient. - DVT prophylaxis with SCD's -consult PT. Home meds to be verified. Discussed Condition With: ER physician and the patient. Discharge Planning: possible discharge tomorrow if continues to improve.
[2018-01-25] MEDS: Levofloxacin 500 mg Premix Inj 500 MG/100 ML PIGGYBACK IV.SIG SCH (17:28)
[2018-01-25] MEDS: Insulin NovoLOG Aspart Correctional Sugar Inj SQ SCH ×2 (17:28→21:19)
--- NOTE | 2018-01-25 20:47 | ECG ---
Date Performed: 01/25/2018 Time Performed: 09:52:12 PTAGE: 82 years EKG: Sinus rhythm MARKED LEFT AXIS DEVIATION LEFT VENTRICULAR HYPERTROPHY AND ST-T CHANGE ABNORMAL ECG PREVIOUS TRACING : 01/22/2018 18.28 Since the previous tracing, no significant change noted DOCTOR: Kyaw Farah Interpretating Date/Time 01/25/2018 20:45:36
[2018-01-25] MEDS: Metoprolol Tartrate 25 MG Tablet PO SCH (20:48)
[2018-01-25] MEDS: Benzonatate 100 MG Capsule PO PRN (23:04)
[2018-01-26 08:45] LABS: Baso % (Auto) 0.3 % (0.0-2.0); Eos % (Auto) 0.5 % (0.0-4.0); Hematocrit 36.5 % (35.0-46.0); Hemoglobin 12.2 gm/dL (11.6-15.3); Lymph # (Auto) 1.8 th/mm3 (1.0-4.8); Lymph % (Auto) 27.7 % (9.0-44.0); Mean Corpuscular HGB Conc 33.4 % (32.0-36.0); Mean Corpuscular Hemoglobin 28.4 pg (27.0-34.0); Mean Corpuscular Volume 84.9 fL (80.0-100.0); Mean Platelet Volume 8.4 fL (7.0-11.0); Mono # (Auto) 0.4 th/mm3 (0.0-0.9); Mono % (Auto) 6.7 % (0.0-8.0); Neut # (Auto) 4.2 th/mm3 (1.8-7.7); Neut % (Auto) 64.8 % (16.0-70.0); Platelet Count 153 th/mm3 (150-450); Red Cell Distribution Width 16.6 % (11.6-17.2); White Blood Count 6.5 th/mm3 (4.0-11.0)
[2018-01-26] MEDS: Insulin NovoLOG Aspart Correctional Sugar Inj SQ SCH ×4 (08:52→20:50)
[2018-01-26] MEDS: Metoprolol Tartrate 25 MG Tablet PO SCH ×2 (08:53→20:52)
[2018-01-26] MEDS: predniSONE 20 MG Tablet PO SCH (08:53)
[2018-01-26] MEDS: Benzonatate 100 MG Capsule PO PRN (08:54)
[2018-01-26] MEDS ORDERED: Lisinopril 20 MG Tablet PO SCH (09:00)
[2018-01-26] MEDS ORDERED: Isosorbide Mononitrate 30 MG ER 24HR Tablet (Imdur) PO SCH (09:00)
[2018-01-26 09:01] LABS: Albumin 3.4 g/dL (3.4-5.0); Anion Gap 7 meq/L (5-15); Aspartate Aminotransferase 13 U/L (15-37); Blood Urea Nitrogen 13 mg/dL (7-18); Calcium 9.1 mg/dL (8.5-10.1); Carbon Dioxide 29.2 meq/L (21.0-32.0); Chloride 104 meq/L (98-107); Glomerular Filtration Rate 77 mL/min (>89); Glucose,Random 283 mg/dL (74-106); Potassium 3.6 meq/L (3.5-5.1); Sodium 140 meq/L (136-145)
[2018-01-26 09:02] LABS: Alanine Aminotransferase 13 U/L (10-53)
[2018-01-26 09:04] LABS: Alkaline Phosphatase 96 U/L (45-117); Total Protein 7.4 g/dL (6.4-8.2)
--- NOTE | 2018-01-26 11:03 | P.DCO ---
- Physical Therapy Order: Evaluate and treat - Occupational Therapy Order: Evaluate and treat - Home Health Aide Order: To assist in: Bathing and personal care, woods superintendent and meal prep - Parent Coach Order: To evaluate: Living conditions/environment, Support services Order: To provide: Long range planning - Case Management Consult Yes - Certification I have seen patient Denisha Muniz on 01/26/18. My clinical findings support the need for the requested home health care services because: Deconditioned with increased weakness, Limited ability to care for self, Impaired cognition/judgement, High risk of falls I certify that my clinical findings support that this patient is homebound because: Impaired cognitive ability/safety, Hx COPD - exertion dyspnea/weakness, Unsteady gait/balance
--- NOTE | 2018-01-26 11:04 | P.PN ---
Subjective Interval history: Patient doing well, denies CP and SOB. Patient states that she is tolerating PO and feeding/stooling well. No concerns. Physical Exam Vital signs: Vital Signs 01/25/18 11:43 01/25/18 15:11 01/25/18 15:12 Temperature 98.8 F Pulse Rate 69 71 Respiratory Rate 18 18 Blood Pressure 174/72 H Pulse Oximetry 97 01/25/18 15:36 01/25/18 16:28 01/25/18 19:55 Temperature 97.9 F Pulse Rate 71 76 101 H Respiratory Rate 18 16 17 Blood Pressure 152/64 H 178/67 H Pulse Oximetry 98 96 01/25/18 21:39 01/26/18 00:00 01/26/18 00:05 Temperature Pulse Rate 101 H 68 51 L Respiratory Rate 17 17 18 Blood Pressure 172/76 H Pulse Oximetry 97 98 01/26/18 04:00 01/26/18 05:01 01/26/18 08:00 Temperature 98.1 F 98.0 F Pulse Rate 61 50 L 66 Respiratory Rate 17 20 16 Blood Pressure 176/73 H 205/103 H Pulse Oximetry 98 98 01/26/18 08:46 Temperature Pulse Rate 70 Respiratory Rate 18 Blood Pressure Pulse Oximetry 97 Intake & Output 01/25/18 01/26/18 01/26/18 18:59 06:59 18:59 Intake Total 460 / 460 240 / 240 Balance 460 / 460 240 / 240 Weight 63.503 kg Intake: IV 100 / 100 Levaquin 500 mg Premix Inj 500 100 / 100 mg In 100 ml @ 100 mls/hr IV. SIG Q24H CHETNA Rx#:[id number] Oral 360 / 360 240 / 240 Other: # Voids 4 Narrative: GENERAL: well nourished female, in NAD SKIN: Warm and dry. HEENT: Normocephalic. No scleral icterus. No injection or drainage. MOM. NECK: Supple, trachea midline. No JVD or lymphadenopathy. CARDIOVASCULAR: Regular rate and rhythm without murmurs, gallops, or rubs. RESPIRATORY: Breath sounds equal bilaterally, minimal exp. wheezing. No accessory muscle use. GASTROINTESTINAL: Abdomen soft, non-tender, nondistended. MUSCULOSKELETAL: No cyanosis, or edema. R hand splint in place. BACK: Nontender without obvious deformity. No CVA tenderness. NEURO: AAOx2 EXT: trace LE edema Results - Labs CBC & Chem 7: 01/26/18 08:33 01/26/18 08:33 Laboratory Results - last 24 hr 01/25/18 01/25/18 01/25/18 10:00 17:26 20:50 WBC RBC Hgb Hct MCV MCH MCHC RDW Plt Count MPV Neut % (Auto) Lymph % (Auto) [place] % (Auto) Eos % (Auto) Baso % (Auto) Neut # (Auto) Lymph # (Auto) [place] # (Auto) Eos # (Auto) Baso # (Auto) WBC Differential Differential Comment Sodium Potassium Chloride Carbon Dioxide Anion Gap BUN Creatinine Estimated GFR POC Glucose 375 H 475 H* Random Glucose Calcium Total Bilirubin AST ALT Alkaline Phosphatase B-Natriuretic Peptide 221 H Total Protein Albumin 01/26/18 01/26/18 01/26/18 08:33 08:33 08:33 WBC 6.5 RBC 4.30 Hgb 12.2 Hct 36.5 MCV 84.9 MCH 28.4 MCHC 33.4 RDW 16.6 Plt Count 153 MPV 8.4 Neut % (Auto) 64.8 Lymph % (Auto) 27.7 [place] % (Auto) 6.7 Eos % (Auto) 0.5 Baso % (Auto) 0.3 Neut # (Auto) 4.2 Lymph # (Auto) 1.8 [place] # (Auto) 0.4 Eos # (Auto) 0.0 Baso # (Auto) 0.0 WBC Differential . Differential Comment Auto diff final Sodium 140 Potassium 3.6 Chloride 104 Carbon Dioxide 29.2 Anion Gap 7 BUN 13 Creatinine 0.72 Estimated GFR 77 L POC Glucose Random Glucose 283 H Calcium 9.1 Total Bilirubin 0.4 AST 13 L ALT 13 Alkaline Phosphatase 96 B-Natriuretic Peptide 351 H Total Protein 7.4 Albumin 3.4 01/26/18 08:43 WBC RBC Hgb Hct MCV MCH MCHC RDW Plt Count MPV Neut % (Auto) Lymph % (Auto) [place] % (Auto) Eos % (Auto) Baso % (Auto) Neut # (Auto) Lymph # (Auto) [place] # (Auto) Eos # (Auto) Baso # (Auto) WBC Differential Differential Comment Sodium Potassium Chloride Carbon Dioxide Anion Gap BUN Creatinine Estimated GFR POC Glucose 269 H Random Glucose Calcium Total Bilirubin AST ALT Alkaline Phosphatase B-Natriuretic Peptide Total Protein Albumin - Imaging Impressions Chest X-Ray 01/25/18 09:56 CONCLUSION: 1. No acute abnormality or significant interval change. Assessment and Plan - Assessment (1) Acute exacerbation of CHF (congestive heart failure) Code(s): I50.9 - Heart failure, unspecified Status: Acute (2) Acute exacerbation of chronic obstructive pulmonary disease (COPD) Code(s): J44.1 - Chronic obstructive pulmonary disease with (acute) exacerbation Status: Acute (3) CAD (coronary artery disease) Code(s): I25.10 - Atherosclerotic heart disease of [place] coronary artery without angina pectoris Status: Chronic (4) Diabetes Code(s): E11.9 - Type 2 diabetes mellitus without complications Status: Chronic (5) HTN (hypertension) Code(s): I10 - Essential (primary) hypertension Status: Chronic (6) High cholesterol Code(s): E78.00 - Pure hypercholesterolemia, unspecified Status: Chronic - Plan This is a 82 y/o CF with history of COPD on 2L O2 at home, CAD, HTN and DM presented to ER with worsening SOB x 1 day, admitted for CHF and COPD Exacerbations, HD#2 1. COPD exacerbation On 2L via NC, basline Continue with prdnisone 40mg QD, Levaquin, and Duonebs Q4hrs Will keep on oxygen as needed to keep O2 sat > 90%. 2. CHF Exacerbation BMP 351 this AM from 221 on admission Last Echo ef 50% on 07/2017, will get rpt Echo today Cont. BB 3. Hx of s/p CABG/Hypertension Cont. home meds 4. Diabetes Mellitus Holding home meds Cont. accu-check with SSI 5. Weakness Likely due to acute illness PT/OT to evaluate, face to face done 6. HLD Cont. statin 7. Right hand fracture after a fall three weeks ago See hand surgeon as outpatient, keep appt. 8. DVT prophylaxis: Plavix/ASA 9. Dispo: Code Status: full Discussed Condition With: patient, RN, ARUNA (3) CAD (coronary artery disease) Qualifiers: Associated angina: without angina
[2018-01-26] MEDS: Duloxetine 60 MG DR Capsule PO SCH (16:32)
[2018-01-26] MEDS: ALPRAZolam 0.25 MG Tablet PO SCH ×3 (16:33→20:53)
[2018-01-26] MEDS: Lisinopril 20 MG Tablet PO SCH (16:33)
[2018-01-26] MEDS: Budesonide-Formoterol 160/4.5 MCG 6 GM Inhaler INH SCH ×2 (16:50→20:53)
[2018-01-26] MEDS: Levofloxacin 500 mg Premix Inj 500 MG/100 ML PIGGYBACK IV.SIG SCH (17:17)
[2018-01-26] MEDS ORDERED: Gabapentin 300 MG Capsule PO SCH (18:00)
[2018-01-26] MEDS ORDERED: Insulin Detemir Inj 1,000 UNIT/10 ML Vial SQ SCH (21:00)
[2018-01-26] MEDS ORDERED: Zolpidem Tartrate 5 MG Tablet PO SCH (21:00)
[2018-01-27] MEDS: predniSONE 20 MG Tablet PO SCH (08:45)
[2018-01-27] MEDS: ALPRAZolam 0.25 MG Tablet PO SCH (08:45)
[2018-01-27] MEDS: Metoprolol Tartrate 25 MG Tablet PO SCH (08:45)
[2018-01-27] MEDS: Lisinopril 20 MG Tablet PO SCH (08:45)
[2018-01-27] MEDS: Budesonide-Formoterol 160/4.5 MCG 6 GM Inhaler INH SCH (08:46)
[2018-01-27] MEDS: Duloxetine 60 MG DR Capsule PO SCH (08:46)
[2018-01-27 09:11] LABS: Baso % (Auto) 0.4 % (0.0-2.0); Eos # (Auto) 0.1 th/mm3 (0.0-0.4); Eos % (Auto) 0.9 % (0.0-4.0); Hematocrit 34.5 % (35.0-46.0); Hemoglobin 11.5 gm/dL (11.6-15.3); Mean Corpuscular HGB Conc 33.2 % (32.0-36.0); Mean Corpuscular Hemoglobin 28.3 pg (27.0-34.0); Mean Corpuscular Volume 85.2 fL (80.0-100.0); Mean Platelet Volume 8.4 fL (7.0-11.0); Mono # (Auto) 0.4 th/mm3 (0.0-0.9); Mono % (Auto) 6.5 % (0.0-8.0); Neut # (Auto) 3.7 th/mm3 (1.8-7.7); Neut % (Auto) 60.2 % (16.0-70.0); Platelet Count 143 th/mm3 (150-450); Red Blood Count 4.06 mil/mm3 (4.00-5.30); Red Cell Distribution Width 17.3 % (11.6-17.2); White Blood Count 6.1 th/mm3 (4.0-11.0)
[2018-01-27] MEDS ORDERED: Insulin Detemir Inj 1,000 UNIT/10 ML Vial SQ SCH (09:30)
[2018-01-27 09:36] LABS: Alanine Aminotransferase 13 U/L (10-53); Alkaline Phosphatase 81 U/L (45-117); Anion Gap 8 meq/L (5-15); Aspartate Aminotransferase 10 U/L (15-37); Blood Urea Nitrogen 25 mg/dL (7-18); Calcium 9.1 mg/dL (8.5-10.1); Chloride 104 meq/L (98-107); Glomerular Filtration Rate 67 mL/min (>89); Glucose,Random 240 mg/dL (74-106); Potassium 3.8 meq/L (3.5-5.1); Sodium 139 meq/L (136-145)
[2018-01-27] MEDS: Insulin NovoLOG Aspart Correctional Sugar Inj SQ SCH ×2 (09:39→13:01)
[2018-01-27 12:06] VITALS: BP 126/87; PULSE 65; RESP 18; TEMP 98; O2SAT 95
--- NOTE | 2018-01-27 12:19 | ECHRPT ---
Indication: heart failure CONCLUSIONS The left ventricular systolic function is normal with an estimated ejection fraction of 55%. Normal left ventricular size. Moderate concentric left ventricular hypertrophy. No regional wall motion abnormalities are present. There is trace tricuspid valve regurgitation. Normal estimated pulmonary pressures. BP: / HR: Rhythm: Sinus MEASUREMENTS (Male / Female) Normal Values Technical Quality:Fair 2D ECHO LV Diastolic Diameter PLAX 5.1 cm 4.2 - 5.9 / 3.9 - 5.3 cm LV Systolic Diameter PLAX 3.7 cm IVS Diastolic Thickness 1.5 cm 0.6 - 1.0 / 0.6 - 0.9 cm LVPW Diastolic Thickness 1.5 cm 0.6 - 1.0 / 0.6 - 0.9 cm LV Relative Wall Thickness 0.6 RV Internal Dim ED PLAX 2.2 cm LVOT Diameter 1.9 cm Aortic Root Diameter 2.6 cm LA Systolic Diameter LX 3.4 cm 3.0 - 4.0 / 2.7 - 3.8 cm M-MODE AV Cusp Separation MM 1.9 cm DOPPLER AV Peak Velocity 132.0 cm/s AV Peak Gradient 7.0 mmHg AV Mean Gradient 3.0 mmHg AV Velocity Time Integral 24.0 cm LVOT Peak Velocity 113.0 cm/s LVOT Peak Gradient 5.1 mmHg LVOT Velocity Time Integral 20.4 cm AV Area Cont Eq vti 2.4 cm AV Area Cont Eq pk 2.4 cm Mitral E Point Velocity 92.3 cm/s Mitral A Point Velocity 116.0 cm/s Mitral E to A Ratio 0.8 LV E' Lateral Velocity 6.2 cm/s Mitral E to LV E' Lateral Ratio 14.8 LV E' Septal Velocity 4.0 cm/s Mitral E to LV E' Septal Ratio 23.1 TR Peak Velocity 214.0 cm/s TR Peak Gradient 18.3 mmHg PV Peak Velocity 89.5 cm/s PV Peak Gradient 3.2 mmHg FINDINGS LEFT VENTRICLE The left ventricular systolic function is normal with an estimated ejection fraction of 55%. Normal left ventricular size. Moderate concentric left ventricular hypertrophy. No regional wall motion abnormalities are present. TRICUSPID VALVE Structurally normal tricuspid valve. There is trace tricuspid valve regurgitation. Normal estimated pulmonary pressures. Kyaw Farah MD, FACC Edited by: Anjelica Fonseca (Electronically Signed) Final Date:26 January 2018 17:17 Amended: 27 January 2018 12:19
--- NOTE | 2018-01-27 14:20 | P.PN ---
Subjective Interval history: Patient doing well, reports SOB improved overnight. Tolerating PO, voiding/ stooling well. No other concerns. Physical Exam Vital signs: Vital Signs 01/26/18 16:00 01/26/18 16:46 01/26/18 19:48 Temperature 98.1 F Pulse Rate 86 100 H 82 Respiratory Rate 16 18 20 Blood Pressure 134/69 Pulse Oximetry 98 98 01/26/18 19:56 01/26/18 23:23 01/27/18 01:33 Temperature 98.1 F 98.1 F Pulse Rate 77 69 70 Respiratory Rate 18 18 20 Blood Pressure 141/65 H 147/62 H Pulse Oximetry 99 95 01/27/18 03:31 01/27/18 07:35 01/27/18 08:00 Temperature 98.3 F 98.1 F Pulse Rate 66 77 74 Respiratory Rate 16 20 16 Blood Pressure 117/57 L 127/57 L Pulse Oximetry 97 98 01/27/18 12:00 Temperature 98.0 F Pulse Rate 65 Respiratory Rate 18 Blood Pressure 126/87 Pulse Oximetry 95 Intake & Output 01/26/18 01/27/18 01/27/18 18:59 06:59 18:59 Intake Total 700 / 700 240 / 240 Balance 700 / 700 240 / 240 Intake: IV 100 / 100 Levaquin 500 mg Premix Inj 500 100 / 100 mg In 100 ml @ 100 mls/hr IV. SIG Q24H CHETNA Rx#:[id number] Oral 600 / 600 240 / 240 Other: # Voids 4 1 Narrative: GENERAL: well nourished female, in NAD SKIN: Warm and dry. HEENT: Normocephalic. No scleral icterus. No injection or drainage. MOM. NECK: Supple, trachea midline. No JVD or lymphadenopathy. CARDIOVASCULAR: Regular rate and rhythm without murmurs, gallops, or rubs. RESPIRATORY: Breath sounds equal bilaterally, minimal exp. wheezing. No accessory muscle use. GASTROINTESTINAL: Abdomen soft, non-tender, nondistended. MUSCULOSKELETAL: No cyanosis, or edema. R hand splint in place. BACK: Nontender without obvious deformity. No CVA tenderness. NEURO: AAOx2 EXT: trace LE edema Results - Labs CBC & Chem 7: 01/27/18 08:27 01/27/18 08:27 Laboratory Results - last 24 hr 01/26/18 01/26/1801/27/18 17:33 20:36 08:27 WBC 6.1 RBC 4.06 Hgb 11.5 L Hct 34.5 L MCV 85.2 MCH 28.3 MCHC 33.2 RDW 17.3 H Plt Count 143 L MPV 8.4 Neut % (Auto) 60.2 Lymph % (Auto) 32.0 [place] % (Auto) 6.5 Eos % (Auto) 0.9 Baso % (Auto) 0.4 Neut # (Auto) 3.7 Lymph # (Auto) 2.0 [place] # (Auto) 0.4 Eos # (Auto) 0.1 Baso # (Auto) 0.0 WBC Differential . Differential Comment Auto diff final Sodium Potassium Chloride Carbon Dioxide Anion Gap BUN Creatinine Estimated GFR POC Glucose 554 H* 508 H* Random Glucose Calcium Total Bilirubin AST ALT Alkaline Phosphatase B-Natriuretic Peptide Total Protein Albumin 01/27/18 01/27/18 01/27/18 08:27 08:27 08:44 WBC RBC Hgb Hct MCV MCH MCHC RDW Plt Count MPV Neut % (Auto) Lymph % (Auto) [place] % (Auto) Eos % (Auto) Baso % (Auto) Neut # (Auto) Lymph # (Auto) [place] # (Auto) Eos # (Auto) Baso # (Auto) WBC Differential Differential Comment Sodium 139 Potassium 3.8 Chloride 104 Carbon Dioxide 27.0 Anion Gap 8 BUN 25 H Creatinine 0.82 Estimated GFR 67 L POC Glucose 250 H Random Glucose 240 H Calcium 9.1 Total Bilirubin 0.3 AST 10 L ALT 13 Alkaline Phosphatase 81 B-Natriuretic Peptide 127 H Total Protein 7.0 Albumin 3.0 L 01/27/18 12:13 WBC RBC Hgb Hct MCV MCH MCHC RDW Plt Count MPV Neut % (Auto) Lymph % (Auto) [place] % (Auto) Eos % (Auto) Baso % (Auto) Neut # (Auto) Lymph # (Auto) [place] # (Auto) Eos # (Auto) Baso # (Auto) WBC Differential Differential Comment Sodium Potassium Chloride Carbon Dioxide Anion Gap BUN Creatinine Estimated GFR POC Glucose 358 H Random Glucose Calcium Total Bilirubin AST ALT Alkaline Phosphatase B-Natriuretic Peptide Total Protein Albumin Assessment and Plan - Assessment (1) Acute exacerbation of CHF (congestive heart failure) Code(s): I50.9 - Heart failure, unspecified Status: Acute (2) Acute exacerbation of chronic obstructive pulmonary disease (COPD) Code(s): J44.1 - Chronic obstructive pulmonary disease with (acute) exacerbation Status: Acute (3) CAD (coronary artery disease) Code(s): I25.10 - Atherosclerotic heart disease of [place] coronary artery without angina pectoris Status: Chronic (4) Diabetes Code(s): E11.9 - Type 2 diabetes mellitus without complications Status: Chronic (5) HTN (hypertension) Code(s): I10 - Essential (primary) hypertension Status: Chronic (6) High cholesterol Code(s): E78.00 - Pure hypercholesterolemia, unspecified Status: Chronic - Plan This is a 82 y/o CF with history of COPD on 2L O2 at home, CAD, HTN and DM presented to ER with worsening SOB x 1 day, admitted for CHF and COPD Exacerbations, HD#2 1. COPD exacerbation On room air Continue with Prednisone 40mg QD, Levaquin, and Duonebs Q4hrs Start oxygen as needed to keep O2 sat > 90%. 2. CHF Exacerbation: resolved BMP 127 today from 351 Last Echo ef 50% on 07/2017, rpt Echo WNL Cont. BB and Lasix ECHO 01/26/18 The left ventricular systolic function is normal with an estimated ejection fraction of 55%. Normal left ventricular size. Moderate concentric left ventricular hypertrophy. No regional wall motion abnormalities are present. There is trace tricuspid valve regurgitation. Normal estimated pulmonary pressures. 3. Hx of s/p CABG/Hypertension Cont. home meds 4. Diabetes Mellitus Holding home meds Cont. Detemir 10U BID and accu-check with SSI 5. Weakness Likely due to acute illness PT/OT to evaluate, face to face done Already has HH at home 6. HLD Cont. statin 7. Right hand fracture after a fall three weeks ago See hand surgeon as outpatient, keep appt. 8. DVT prophylaxis: Plavix/ASA 9. Dispo: stable for D/C home Discharge patient to home (already gets HH) Condition on discharge: Improved Diabetic Diet as tolerated [employer] activity Rx written: Prednisone and Levaquin x3 days Follow-up with primary care physician in 1 wk Code Status: full Discussed Condition With: patient, RN (3) CAD (coronary artery disease) Qualifiers: Associated angina: without angina
== END 2018-01-27 14:43 | disposition home health service (06) ==
LOC: NEDA 09:40 → NEPC 09:40 → NEPFCDU 16:01
PROVIDERS: ADMIT Family Medicine; ATTEND Family Medicine